=== PATIENT | female | born 1955 | race Caucasian/White ===

== ENCOUNTER 2024-03-13 16:17 | Emergency (ER) | payer BC, MEDICAID, SELFPAY ==
[2024-03-13] VITALS (8 sets, daily range): BP systolic 116–149; BP diastolic 55–97; PULSE 78–87; TEMP 38.8; O2SAT 97–99; BMI 58.2
--- NOTE | 2024-03-13 16:35 | ECG_ITS ---
The [facility] Test Date: 2024-03-13 Pat Name: REGINA MARINO Department: Room: - Gender: Female [employer]: : 1955 Requested By: Order Number: [id number] Reading MD: VILLA GUO Measurements Intervals Emblem Rate: 80 P: 43 PA: 236 QRS: -43 QRSD: 94 T: 49 QT: 352 QTc: 387 Interpretive Statements 1100 Sinus rhythm 2231 First degree AV block 3113 Cannot rule out anterior myocardial infarction, probably old 7200 Abnormal left axis deviation 8102 Low QRS voltage in chest leads 9150 abnormal ECG Electronically Signed On 03-14-2024 6:51:25 EST by VILLA GUO
--- NOTE | 2024-03-13 16:36 | CT_ITS ---
The [address] [address] Patient Name: REGINA MARINO MRN: [id number] date: 1955 Sex: F Assigned Patient Location: ER Current Patient Location: ER Accession/Order Number: [id number] Exam Date: 03/13/2024 17:05 Report Date: 03/13/2024 18:42 At the request of: GIOVANI STOVER Procedure: CT abdomen pelvis wo con EXAM: CT abdomen pelvis wo con HISTORY: llq pain diarrhea COMPARISON: Abdominal plain films 01/18/2016. No prior CT. TECHNIQUE: CT abdomen pelvis without contrast. Axial scans with reformatted coronal and sagittal images. Individualized radiation dose reduction used for this exam. FINDINGS: Ovary and vascular assessment limited without IV contrast. Artifact related to motion and the patient size and body habitus. Lower chest: Bases clear, no acute process lower chest. ABDOMEN: Liver, adrenal glands, pancreas spleen unremarkable. No ascites or free fluid. No adenopathy. Previous cholecystectomy without duct dilatation. Normal size aorta. 7.3 mm lower pole calculus right kidney. No ureteral calculus or hydronephrosis. No bowel dilatation ileus or obstruction. Nonspecific fluid in the GI tract. Tubular structure in the right lower quadrant adjacent the cecum felt to be normal appendix. Large amount of fluid and particular matter in the stomach consistent with recent meal. Pelvis: No mass or adenopathy or free fluid. Unremarkable uterus and adnexa. MUSCULOSKELETAL: No suspicious bone lesion. Protuberant lower abdominal pelvic wall. CT/CT abdomen pelvis wo con IMPRESSION: No acute abnormality lower chest abdomen or pelvis. No acute abnormality left flank or left lower quadrant. Nonobstructing calculus lower pole right kidney 7.3 mm. No hydronephrosis Electronically authenticated by: IVAN LAM Date: 03/13/2024 18:42
[2024-03-13] MEDS: ONDANSETRON PF 4 MG/2 ML VIAL IV (17:15)
[2024-03-13] MEDS: 0.9 % SODIUM CHLORIDE 1,000 ML 100 ML IV (17:15)
[2024-03-13] MEDS: KETOROLAC TROMETHAMINE 30 MG/ML VIAL IVP (17:15)
[2024-03-13 17:43] LABS: Hematocrit 37.7 % (36.0-48.0); Hemoglobin 12.3 g/dL (12.0-16.0); Mean Corpuscular HGB Conc 32.6 g/dL (29.9-35.2); Mean Corpuscular Hemoglobin 28.8 pg (26.7-34.0); Mean Corpuscular Volume 88.3 fL (81.0-99.0); Mean Platelet Volume 10.6 fL (9.5-13.5); Platelet Count 234 10^3/uL (150-450); Red Blood Count 4.27 10^6/uL (4.20-5.40); Red Cell Distribution Width 14.3 % (11.0-15.0); White Blood Count 6.9 10^3/uL (4.0-11.0)
[2024-03-13 17:55] LABS: Bilirubin Urine NEGATIVE (NEGATIVE); Blood Urine NEGATIVE (NEGATIVE); Clarity Urine CLEAR (CLEAR); Color Urine YELLOW (YELLOW); Glucose Urine UA NEGATIVE (NEGATIVE); Ketones Urine NEGATIVE (NEGATIVE); Leukocyte Esterase Urine NEGATIVE (NEGATIVE); Nitrite Urine NEGATIVE (NEGATIVE); Protein Urine NEGATIVE (NEG/TRACE); Urobilinogen Urine 0.2 EU/dL (0.2-1.0); pH Urine 5.5 (5.0-9.0)
--- NOTE | 2024-03-13 18:01 | ED_ITS ---
HPI HPI - General Adult General Chief complaint: Dizziness Stated complaint: dizzy Time Seen by Provider: 03/13/24 16:28 Mode of arrival: walk-in History of Present Illness HPI narrative: 68-year-old obese female presented to the emergency room with chief complaint of dizziness. Patient was seen at another facility and had complete workup with including head CT scan on March 10. She states at that time she had a head CT and lab work she was discharged home with Valium and Reglan which her pharmacy did not receive the prescription. Patient states she developed increased dizziness today consistent with her vertigo and did not have medications at home to help alleviate her symptoms. She states she then became increasingly nauseous and had vomited at home and started having some diarrhea. Patient does state that she has had a history of diverticulitis in the past. She states she had loose stools earlier today with diffuse abdominal pain. Exam is benign here initially. Patient shows no signs of neurological deficit upon arrival here to the emergency room. Her exam is consistent with vertigo initially. Related Data Previous Rx's ?Medication ?Instructions ?Recorded diazepam 5 mg tablet (Valium) 5 mg PO BID PRN dizziness #10 tabs 03/13/24 metoclopramide HCl 10 mg tablet 10 mg PO Q6H PRN nausea and 03/13/24 (Reglan) vomiting #20 tabs Allergies Allergy/AdvReac Type Severity Reaction Status Date / Time adhesive AdvReac Severe Unknown Verified 03/13/24 16:38 amoxicillin AdvReac Severe Swelling Verified 03/13/24 16:27 of Lip/Tongue/Throat codeine AdvReac Severe Unknown Verified 03/13/24 16:38 diphenhydramine (From AdvReac Severe Unknown Verified 03/13/24 16:38 Benadryl) latex AdvReac Severe Unknown Verified 03/13/24 16:38 Opioid HPI Opioid Management Most Recent Opioid Data: Last Pain Scale 4 03/13/24 17:15 03/13/24 Last MAR Pain Assessment 03/13/24 17:15 Review of Systems ROS Narrative All Systems are negative except as noted/marked.All systems reviewed and otherwise negative PFSH PFSH Social History Little interest or pleasure in doing things: not at all Feeling down, depressed, or hopeless: not at all Exam Narrative Exam Narrative: Nurses note and vital signs reviewed and patient is not hypoxic. General: The patient appears well and in no apparent distress. Patient is resting comfortably on cart. Skin: Warm, dry, no pallor noted. There is no rash noted. Head: Normocephalic, atraumatic Eye: Normal conjunctiva, no drainage, EOMI. PERRL, no nystagmus Ears, Nose, Mouth, and Throat: oral mucosa is moist. Nares patent. Mouth without vesicles. Ear canals patent. Tm's without Erythema Cardiovascular: Regular Rate and Rhythm Respiratory: Patient is in no distress, no accessory muscle use, lungs are clear to auscultation, no wheezing, rales or rhonchi Back: non-tender, no CVA tenderness bilaterally to percussion. GI: obese, Normal bowel sounds, no tenderness to palpation, no masses appreciated. No rebound, guarding, or rigidity noted. Musculoskeletal: The patient has no evidence of calf tenderness, no pitting edema, symmetrical pulses noted bilaterally Neurological: A&O x4, normal speech Psychiatric: Cooperative Constitutional Vital Signs, click to edit/add: Last Vital Signs Temp 101.8 F H 03/13/24 16:27 Pulse 83 03/13/24 18:27 Resp 22 H 03/13/24 18:27 BP 116/56 03/13/24 18:27 Pulse Ox 99 03/13/24 17:07 O2 Del Method Room Air 03/13/24 17:07 Course Vital Signs Vital signs: Vital Signs Temperature 101.8 F H 03/13/24 16:27 Pulse Rate 85 03/13/24 16:27 Respiratory Rate 18 03/13/24 16:27 Blood Pressure 149/97 H 03/13/24 16:27 Pulse Oximetry 97 03/13/24 16:27 Oxygen Delivery Method Room Air 03/13/24 16:27 Temperature 101.8 F H 03/13/24 16:27 Pulse Rate 83 03/13/24 18:27 Respiratory Rate 22 H 03/13/24 18:27 Blood Pressure 116/56 03/13/24 18:27 Pulse Oximetry 99 03/13/24 17:07 Oxygen Delivery Method Room Air 03/13/24 17:07 Medical Decision Making MDM Narrative Medical decision making narrative: 68-year-old obese female presented to the emergency room with chief complaint of dizziness. Patient was seen at another facility and had complete workup with including head CT scan on March 10. She states at that time she had a head CT and lab work she was discharged home with Valium and Reglan which her pharmacy did not receive the prescription. Patient states she developed increased dizziness today consistent with her vertigo and did not have medications at home to help alleviate her symptoms. She states she then became increasingly nauseous and had vomited at home and started having some diarrhea. Patient does state that she has had a history of diverticulitis in the past. She states she had loose stools earlier today with diffuse abdominal pain. Exam is benign here initially. Patient shows no signs of neurological deficit upon arrival here to the emergency room. Her exam is consistent with vertigo initially. Upon arrival here to the emergency room patient was given IV and fluids. Blood work and CT scan of the abdomen pelvis were performed as well as urinalysis. CT scan of the abdomen shows no acute findings other than nephrolithiasis patient is not complaining of any back pain or difficulty with urination. Medicated here with Zofran and Reglan. Her dizziness has improved. Patient has a known diagnosis of vertigo. She is encouraged to follow-up with her primary care physician. Also encouraged to have cardiac workup per her previous hospital workup. EKG showed no acute changes here troponin negative here today. Patient's diagnosis of vertigo. She will be discharged home with Reglan and V alium. She was given those prescriptions at the other facility but they did not send them to her pharmacy as they had said. Patient agrees with plan of care. Differential Diagnosis Differential Diagnosis: Dizziness, diverticulitis, nausea vomiting Medical Records Medical records reviewed: Yes I reviewed the patient's medical records Lab Data Lab results reviewed: Yes I reviewed the patient's lab results Labs: Lab Results 03/13/24 03/13/24 Range/Units 16:51 17:26 WBC 6.9 (4.0-11.0) 10^3/uL RBC 4.27 (4.20-5.40) 10^6/uL Hgb 12.3 (12.0-16.0) g/dL Hct 37.7 (36.0-48.0) % MCV 88.3 (81.0-99.0) fL MCH 28.8 (26.7-34.0) pg MCHC 32.6 (29.9-35.2) g/dL RDW 14.3 (11.0-15.0) % Plt Count 234 (150-450) 10^3/uL MPV 10.6 (9.5-13.5) fL Seg Neuts % (Manual) 78.0 H (43.0-75.0) Band Neutrophils % 2.0 (0-5) % Lymphocytes % (Manual) 11.0 L (20.5-60.0) % Monocytes % (Manual) 8.0 (1.7-12.0) % Eosinophils % (Manual) 1.0 (0.9-7.0) % Basophils % (Manual) 0.0 L (0.2-2.0) % Neutrophils # (Manual) 5.38 (1.4-6.5) 10^3/uL Band Neutrophils # 0.1 (0.0-0.3) 10^3/uL Lymphocytes # (Manual) 0.75 L (1.20-3.80) 10^3/uL Monocytes # (Manual) 0.55 (0.30-0.80) 10^3/uL Eosinophils # (Manual) 0.06 (0.00-0.70) 10^3/uL Basophils # (Manual) 0.00 (0.00-0.10) 10^3/uL Sodium 135 L (136-145) mmol/L Potassium 4.3 (3.5-5.1) mmol/L Chloride 101 (98-107) mmol/L Carbon Dioxide 25.0 (21.0-32.0) mmol/L Anion Gap 13.3 BUN 30.0 H (7.0-18.0) mg/dL Creatinine 1.67 H (0.55-1.02) mg/dL Est GFR ( Amer) 37 L (>=60 mL/min/1.73m^2) Est GFR (Non-Af Amer) 31 L (>=60 mL/min/1.73m^2) BUN/Creatinine Ratio 18.0 Glucose 122 H (74-106) mg/dL Calcium 9.0 (8.5-10.1) mg/dL Total Bilirubin 0.3 (0.2-1.0) mg/dL AST 30 (15-37) U/L ALT 44 (14-59) U/L Alkaline Phosphatase 131 H (46-116) U/L Troponin I High Sens 4.2 (4.0-51.3) pg/mL Total Protein 7.8 (6.4-8.2) g/dL Albumin 3.4 (3.4-5.0) g/dL Globulin 4.4 g/dL Albumin/Globulin Ratio 0.8 Urine Color Yellow (YELLOW) Urine Clarity Clear (CLEAR) Urine pH 5.5 (5.0-9.0) Ur Specific [place] 1.020 (1.005-1.025) Urine Protein Negative (NEG/TRACE) mg/dL Urine Glucose (UA) Negative (NEGATIVE) mg/dL Urine Ketones Negative (NEGATIVE) mg/dL Urine Occult Blood Negative (NEGATIVE) Urine Nitrite Negative (NEGATIVE) Urine Bilirubin Negative (NEGATIVE) Urine Urobilinogen 0.2 (0.2-1.0) EU/dL Ur Leukocyte Esterase Negative (NEGATIVE) Urine RBC 0-2 (0-2) #/HPF Urine WBC 0-2 A (NONE SEEN) #/HPF Ur Squamous Epith Cells Moderate A (NONE/RARE) #/LPF Urine Crystals None seen (None Seen) #/HPF Urine Bacteria Moderate A (NONE SEEN) #/HPF Urine Casts None seen (NONE SEEN) #/LPF Urine Mucus Trace A (NONE SEEN) Urine Yeast Seen A (NONE SEEN) Ur Culture Indicated? Yes Imaging Data CT scan - abdomen: Radiologist's impression: ITS Impressions Abdomen/Pelvis CT 03/13/24 16:36 IMPRESSION: No acute abnormality lower chest abdomen or pelvis. No acute abnormality left flank or left lower quadrant. Nonobstructing calculus lower pole right kidney 7.3 mm. No hydronephrosis Electronically authenticated by: IVAN LAM Date: 03/13/2024 18:42 ECG Data Attestation: ?I have reviewed the pertinent ECG results. Interpretation: 1648 EKG shows normal sinus rhythm with a rate of 80 bpm MN interval 236 ms QRS duration 94 ms no ectopy no ST elevation or depression, no STEMI Discharge Plan Discharge Chief Complaint: Dizziness Clinical Impression: Dizziness Patient Disposition: Home, Self-Care Time of Disposition Decision: 18:48 Condition: Good Prescriptions / Home Meds: New metoclopramide HCl [Reglan] 10 mg tablet 10 mg PO Q6H PRN (Reason: nausea and vomiting) Qty: 20 0RF diazepam [Valium] 5 mg tablet 5 mg PO BID PRN (Reason: dizziness) Qty: 10 0RF Print Language: Faroese Instructions: Dizziness (ED) Referrals: Physician,Non-Staff, MD [Primary Care Provider] - 1 week
[2024-03-13 18:03] LABS: Anion Gap 13.3
[2024-03-13 18:07] LABS: Alanine Aminotransferase 44 U/L (14-59); Albumin Globulin Ratio 0.8; Albumin Level 3.4 g/dL (3.4-5.0); Alkaline Phosphatase 131 U/L (46-116); Aspartate Amino Transferase 30 U/L (15-37); Bilirubin Total 0.3 mg/dL (0.2-1.0); Chloride 101 mmol/L (98-107); Estimated GFR (African America 37 (>=60 mL/min/1.73m^2); Estimated GFR (Non-African Ame 31 (>=60 mL/min/1.73m^2); Globulin 4.4 g/dL; Glucose 122 mg/dL (74-106); Potassium 4.3 mmol/L (3.5-5.1); Sodium 135 mmol/L (136-145); Total Protein 7.8 g/dL (6.4-8.2); Troponin I High Sensitivity 4.2 pg/mL (4.0-51.3)
[2024-03-13 18:08] LABS: Bacteria Urine MODERATE #/HPF (NONE SEEN); Cast Seen? NONE SEEN #/LPF (NONE SEEN); Crystals Seen? None Seen #/HPF (None Seen); Mucus Urine TRACE (NONE SEEN); RBC Urine 0-2 #/HPF (0-2); Squamous Epithelial Cell Urine MODERATE #/LPF (NONE/RARE); Urine Culture Indicated YES; WBC Urine 0-2 #/HPF (NONE SEEN)
[2024-03-13 18:13] LABS: Band Neutrophils Absolute 0.1 10^3/uL (0.0-0.3); Eosinophils Absolute Manual 0.06 10^3/uL (0.00-0.70); Lymphocytes Absolute Manual 0.75 10^3/uL (1.20-3.80); Monocytes Absolute Manual 0.55 10^3/uL (0.30-0.80); Segmented Neut Absolute Manual 5.38 10^3/uL (1.4-6.5)
[2024-03-13] MEDS: METOCLOPRAMIDE HCL 10 MG/2 ML VIAL IVP (18:21)
== END 2024-03-13 19:31 | disposition home or self-care (01) ==
PROVIDERS: Physician Assistant; Emergency Provider Emergency Medicine
DX: R42 Dizziness and giddiness (principal); R50.9 Fever, unspecified; E66.9 Obesity, unspecified; N20.0 Calculus of kidney; R11.2 Nausea with vomiting, unspecified; R19.7 Diarrhea, unspecified; R10.9 Unspecified abdominal pain; Z68.43 Body mass index [BMI] 50.0-59.9, adult
CPT/HCPCS: 36415; 74176; 80053; 81001; 84484; 85007; 85027; 87086; 87186; 93005; 96361; 96374; 96375; 99285; J1885; J2405; J2765

== ENCOUNTER 2024-10-21 08:49 | Emergency (ER) | payer MEDICARE, MEDICAID, SELFPAY ==
--- OUTSIDE RECORDS SUMMARY | 2024-06-27 05:00 | XMS_ITS ---
Author Organization [facility] vices Address [address] [place] [id number] Care Team Providers Care Services Advisor Name Role Phone Pilar Salgado Primary Care Provider [phone] Lily Card Unavailable [phone] Rajan Suarez [phone] REASON FOR VISIT 4 week Constipation Social History Sex Assigned At : Social History Observation Description Sex Assigned At Female Encounters Encounter Location Date Provider Diagnosis Main [address] [place], [place] [id number] 06/27/2024 Rajan Suarez Plan Of Treatment Next Appt Details Provider Name:Pilar dsouza, 10/27/2024 01:45:00 PM, [address] [place] [address], [phone], Provider Name:Pilar dsouza, 11/03/2024 09:45:00 AM, [address] [place], [place] [address], [place], [id number], Provider Name:Duncan Ayon , 01/03/2025 09:30:00 AM, [address] [place] [address], [id number], Progress Notes * Zully MARINODOB:1955 (69 yo F)Acc No.[id number]:06/27/2024 Medical Note Patient: Zully LINN Provider: Quan Suarez :1955 A ge:69 Y S ex:Female Date:06/27/2024 Address:[address] [place] [address] [place], [id number] Pcp:Pilar Salgado Subjective: * Chief Complaints: * 1 . 4 week Constipation. * Medical History: Objective: * Vitals: Assessment: Plan: * Treatment: * Billing Information: * Visit Code: * Procedure Codes: * Electronic signature of Just in VADIM Suarez on 10/21/2024 at 08:58 AM EDT Sign off status: Pending * Provider: Quan Suarez Date: 0 06/27/2024 Generated for Lázaro huang/Leslie/Joao on: 0 10/21/2024 08:58 AM EDT
--- OUTSIDE RECORDS SUMMARY | 2024-08-29 08:45 | XMS_ITS ---
Author Organization [facility] vices Address [address] [place] [id number] Care Team Providers Care Fiscal Officer Name Role Phone Pilar Salgado Primary Care Provider MaxxanaliaRodrigoLilyelian Linn [phone] REASON FOR VISIT Wellness Social History Sex Assigned At : Social History Observation Description Sex Assigned At Female Encounters Encounter Location Date Provider Diagnosis Main [address] [place] [id number] 08/29/2024 Pilar Salgado Plan Of Treatment Next Appt Details Provider Name:Pilar dsouza, 10/27/2024 01:45:00 PM, [address] [place] [address], [id number], Provider Name:Pilar dsouza, 11/03/2024 09:45:00 AM, [address] [place] [address], [id number], Provider Name:Duncan Ayon , 01/03/2025 09:30:00 AM, [address] [place] [address], [id number], Progress Notes * Zully MARINODOB:1955 (69 yo F)Acc No.[id number]:08/29/2024 Medical Note Patient: Quan Zully GRANDA Provider: RO Lancaster :1955 A ge:69 Y S ex:Female Date:08/29/2024 Phone: Address:[address] [place] [address] [facility] [id number] Subjective: * Chief Complaints: * 1 . Wellness. * Medical History: Objective: * Vitals: Assessment: Plan: * Treatment: * Billing Information: * Visit Code: * Procedure Codes: * Electronic signature of RO Steward on 10/21/2024 at 08:58 AM EDT Sign off status: Pending * Provider: RO Lancaster Date: 08/29/2024 Generated for Lázaro huang/Leslie/Jenransmitting on: 10/21/2024 08:58 AM EDT
--- OUTSIDE RECORDS SUMMARY | 2024-10-19 08:30 | XMS_ITS | Encounter Summary ---
Author Organization [facility] Address [address] [place] [address] Care Team Providers Care Drill Sharpener Name Role Phone Cyndy Pineda MD Primary Care Provider [phone] Encounter Details Date Type Department Care Team (Late st Contact Info) Description 10/19/2024 8:30 AM EDT Office Visit [facility] [address] [place] [address] Isabel Jones DO [address] [place] [address] MARIUSZ (obstructive sleep apnea) (Primary Dx); Mild intermittent asthma without complication (HCC) Social History Tobacco Use Types Packs/Day Years Used Date Smoking Tobacco: Never Smokeless Tobacco: Never Alcohol Use Standard Drinks/Week Comments Not Currently 0 (1 standard drink = 0.6 oz pur e alcohol) Comments Unknown Sex and Gender Information Value Date Recorded Sex Assigned at Not on file Legal Sex Female 7:05 PM EDT Gender Identity Not on file Sexual Orientation Not on file documented as of this encounter Last Filed Vital Signs Vital Sign Reading Time Taken Comments Blood Pressure 132/72 10/19/2024 8:30 AM EDT Pulse 79 10/19/2024 8:30 AM EDT Temperature - - Respiratory Rate - - Oxygen Saturation 98% 10/19/2024 8:30 AM EDT Inhaled Oxygen Concentration - - Weight 149 kg (329 lb) 10/19/2024 8:30 AM EDT Height - - Body Mass Index 56.47 07/27/2024 1:46 PM EDT documented in this encounter Progress Notes * Isabel Jones DO - 10/19/2024 8:30 AM EDT Images from the original note were not included. Zully Eng presents today for follow up on Sleep apnea and asthma. She was last seen a few months ago. She states overall her breathing has been stable. She does continue with Spiriva once daily and albuterol as needed. She denies any ER visits, exacerbations, or nighttime symptoms. She denies any current complaints of chest pain, palpitations, fevers, chills, sweats, or recent unintentional weight changes. She has yet to receive a new mask for her PAP machine. She states that she has now been told that she needs a new sleep study. She does continue to complain of excessive daytime sleepiness and not feeling well rested upon wakening in the morning given that she has not been able to use her machine given that she does not have a functioning mask. She denies any other complaints at today's office visit. Allergies: Allergies Allergen Reactions Clindamycin Swelling and Angioedema Facial Swelling Was getting sick when admitted to [facility], unsure of which caused the reaction Iodinated Contrast Media Anaphylaxis Piperacillin Sod-Tazobactam So Angioedema Facial Swelling Was getting sick when admitted to [facility], unsure of which caused the reaction Piperacillin-Tazobactam In Dex Swelling facial swelling Vancomycin Angioedema Facial Swelling Was getting sick when admitted to [facility], unsure of which caused the reaction Other Reaction(s): facial swelling Codeine Hives and Itching Flushing, Vomiting Other Other Burning Diphenhydramine Hives and Itching N/V Empagliflozin Nausea Only and Dizziness Latex Itching and Rash Morphine Itching Flushing Rosuvastatin Other muscle cramps Wound Dressing Adhesive Other and Rash Other Reaction(s): Unknown Medications: Current Outpatient Medications: acetaminophen (Tylenol) 325 MG tablet, Take 650 mg by mouth every 6 (six) hours if needed, Disp: , Rfl: albuterol (2.5 MG/3ML) 0.083% nebulizer solution, , Disp: , Rfl: albuterol HFA 90 mcg/act inhaler, Inhale 2 puffs every 4 (four) hours if needed for wheezing, Disp:, Rfl: Alcohol Swabs (DropSafe Alcohol Prep) 70 % pads, , Disp: , Rfl: B-D ULTRAFINE III SHORT PEN 31G X 8 MM misc, , Disp: , Rfl: Blood Glucose Monitoring Suppl (True Metrix Air Glucose Meter) w/Device kit, , Disp: , Rfl: carvedilol (Coreg) 25 MG tablet, , Disp: , Rfl: cholecalciferol (Vitamin D-3) 50 MCG (1999 UT) capsule, 1 capsule 1 (one) time each day at the sametime, Disp: , Rfl: clobetasol (Temovate) 0.05 % external solution, Apply 1 Application topically Daily as needed, Disp: , Rfl: clopidogrel (Plavix) 75 MG tablet, , Disp: , Rfl: colchicine 0.6 MG tablet, Take by mouth Daily, Disp: , Rfl: Droplet Pen [place] 31G X 6 MM misc, , Disp: , Rfl: Eliquis 5 MG tablet, every 12 (twelve) hours, Disp: , Rfl: Ferrous Sulfate (IRON PO), Take 1 tablet by mouth in the morning., Disp: , Rfl: Glucose Blood (GLUCOMETER DEX GLUCOSE SENSORS ), Glucometer, Disp: , Rfl: hydrALAZINE (Apresoline) 50 MG tablet, , Disp: , Rfl: insulin lispro (HumaLOG) 100 UNIT/ML injection, Inject 2-10 Units under the skin in the morning and2-10 Units at noon and 2-10 Units in the evening. Inject with meals., Disp: , Rfl: levothyroxine (Synthroid, Levoxyl) 100 MCG tablet, , Disp: , Rfl: LORazepam (Ativan) 0.5 MG tablet, , Disp: , Rfl: meclizine (Antivert) 25 MG tablet, Take 25 mg by mouth as needed in the morning and 25 mg as neededat noon and 25 mg as needed in the evening for dizziness., Disp: , Rfl: metoclopramide (Reglan) 10 MG tablet, Take 10 mg by mouth in the morning and 10 mg in the evening. Take before meals. (Patient not taking: Reported on 07/27/2024), Disp: , Rfl: montelukast (Singulair) 10 MG tablet, , Disp: , Rfl: MULTIPLE VITAMIN PO, Take by mouth, Disp: , Rfl: NovoLOG FLEXPEN 100 UNIT/ML pen, , Disp: , Rfl: nystatin (Mycostatin) 721148 UNIT/GM powder, , Disp: , Rfl: ondansetron ODT (Zofran-ODT) 8 MG disintegrating tablet, DISSOLVE 1 TABLET ON TOUNGE NEEDED ONCEDAILY FOR 30 DAYS (Patient not taking: Reported on 07/27/2024), Disp: , Rfl: pantoprazole (ProtoNix) 40 MG EC tablet, 1 (one) time each day at the same time (Patient not taking: Reported on 07/27/2024), Disp: , Rfl: Spiriva Respimat 1.25 MCG/ACT inhaler, , Disp: , Rfl: spironolactone (Aldactone) 25 MG tablet, , Disp: , Rfl: Synthroid 112 MCG tablet, , Disp: , Rfl: traZODone (Desyrel) 50 MG tablet, Take by mouth at bedtime, Disp: , Rfl: Tresiba FlexTouch 100 UNIT/ML injection, , Disp: , Rfl: True Metrix Blood Glucose Test test strip, every 6 (six) hours, Disp: , Rfl: TRUEplus Lancets 28G misc, , Disp: , Rfl: Past Medical History: Past Medical History: Diagnosis Date A-fib ([facility]) Acquired hypothyroidism 07/27/2024 Acute cystitis without hematuria 04/05/2023 Acute kidney injury 02/16/2018 Allergies Anemia Asthma ([facility]) Atrial fibrillation ([facility]) 07/27/2024 Autonomic neuropathy due to diabetes ([facility]) 07/27/2024 BMI 60.0-69.9, adult ([facility]) 07/27/2024 Calculus of kidney 04/07/2023 Carpal tunnel syndrome 07/16/2012 Cerebrovascular disease 04/07/2023 Chronic obstructive pulmonary disease ([facility]) 04/07/2023 Chronic pancreatitis ([facility]) CKD (chronic kidney disease) 11/19/2023 Complication of diabetes mellitus ([facility]) 04/08/2023 Constipation 04/07/2023 Constipation, unspecified 04/07/2023 COPD (chronic obstructive pulmonary disease) ([facility]) 04/03/2023 DDD (degenerative disc disease), lumbar 07/27/2024 Dependence on other enabling machines and devices 04/20/2023 Diabetes ([facility]) Difficulty in walking, not elsewhere classified 05/12/2023 Difficulty walking 05/12/2023 Diverticulosis of intestine, part unspecified, without perforation or abscess without bleeding 04/07/2023 Dizziness and giddiness 04/29/2023 Fatigue 05/13/2023 Fibrosclerosis of left breast 07/27/2024 Gastro-esophageal reflux disease without esophagitis 04/07/2023 Gastroesophageal reflux disease 07/27/2024 Gout 07/27/2024 Hemorrhoids 05/15/2023 Hyperlipidemia 11/19/2023 Hypertension Hypothyroidism 04/07/2023 Hypothyroidism, unspecified 04/07/2023 Iron deficiency anemia 04/14/2023 Iron deficiency anemia, unspecified 04/14/2023 Kidney disease Kidney stone 04/07/2023 intermediate designer current use of anticoagulant therapy 04/07/2023 intermediate designer current use of insulin (HCC) 11/19/2023 Morbid obesity ([facility]) 04/07/2023 Muscle weakness 05/13/2023 Muscle weakness (generalized) 05/13/2023 Necrotizing fasciitis (HCC) 04/03/2023 Need for assistance with personal care 05/13/2023 Obstructive sleep apnea 07/27/2024 Obstructive sleep apnea syndrome 04/07/2023 Other fatigue 05/13/2023 Personal history of transient ischemic attack (TIA), and cerebral infarction without residual deficits 04/07/2023 Scalp psoriasis 07/27/2024 Seasonal allergies 07/27/2024 Sleep apnea Stage 3a chronic kidney disease (CMS-HCC) 07/27/2024 Stroke ([facility]) 2019 Thyroid disease 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 Exam: Heart: regular rate Lungs: clear to auscultation bilaterally, no wheezes/rales/rhonchi, no resp distress Extremities: no edema noted, no visible rashes Neuro: alert, oriented x3 Imaging Reviewed: None Assessment/Plan: Diagnoses and all orders for this visit: MARIUSZ (obstructive sleep apnea) Mild intermittent asthma without complication (HCC) MARIUSZ -- at this time it is not clear to me whether the patient truly needs a repeat sleep study or not. I have reached out to the [email or web address] to see what they need. In the past we had sent a prescription in for a new mask. The patient was not able to be compliant with her machine at that time given that she did not have a functioning mask. She does notice symptoms since not using her machine on a regular basis. She is interested in resuming treatment of her sleep apnea. Once I hear back from [facility] I will reach back out to the patient to let her know what as needed. Asthma -- her breathing is currently well controlled with use of Spiriva once daily. She denies anyrefills at this time. She will continue with Spiriva once daily and albuterol as needed. She will follow here in a few months time to reassess her symptoms as well as address her sleep apnea. The patient understands the plan and is agreeable. Follow up in about 3 months (around 01/19/2025) for MARIUSZ, asthma. Isabel Jones DO documented in this encounter Plan of Treatment Upcoming Encounters Date Type Department Care Team (Late st Contact Info) Description 01/11/2025 9:45 AM EST Office Visit [facility] [address] [place] [address] Isabel Jones DO [address] [place] [place] [address] documented as of this encounter Visit Diagnoses Diagnosis MARIUSZ (obstructive sleep apnea)- Primary Obstructive sleep apnea (adult) (pediatric) Mild intermittent asthma without complication (HCC) documented in this encounter Care Teams Drill Sharpener Relationship Specialty Start Date End Date Cyndy Pineda MD [address] [place] [phone] PCP - General Family Medicine 10/01/22 documented as of this encounter
[2024-10-21 08:55] VITALS: BP 145/77; PULSE 63; TEMP 36.9; O2SAT 99; BMI 57.5
--- OUTSIDE RECORDS SUMMARY | 2024-10-21 08:58 | XMS_ITS | Encounter Summary ---
Author Organization [employer] [facility] [employer] Address [id number] [address] [place] [address] Care Team Providers Care Hydrogeology Professor Name Role Phone WallyIvon Edward ARCHITECTURE DEPARTMENT CHAIR-PHYSICAL THERAPIST TECHNICIAN Primary Care Provider + Encounter Details Date Type Department Care Team (Late st Contact Info) Description 04/08/2023 Telephone [facility] Disease [address] [place] [address] Shadia Gastelum MA Social History Tobacco Use Types Packs/Day Years Used Date Smoking Tobacco: Never Smokeless Tobacco: Never Alcohol Use Standard Drinks/Week Comments No 0 (1 standard drink = 0.6 oz pur e alcohol) [facility] Utilities Answer Date Recorded In the past 12 months has e electric, gas, oil, or water company threatened to shut off services in your home? No 04/07/2023 PHQ-2 Answer Date Recorded Total Score 0 12/21/2018 PRAPARE - Transportation Answer Date Re corded In the past 12 months, has l ack of transportation kept you from medical appointments or from getting medications? No 08/2023 In the past 12 months, has l ack of transportation kept you from meetings, work, or from getting things needed for daily living? No 04/07/2023 Housing Instability Answer Date Recorde d Are you worried or concerned that in the next two months you may not have stable housing that you own, rent or stay in as a part of a household? No 04/07/2023 Childcare Answer Date Recorded Childcare Unknown 08/04/2018 Employment Answer Date Recorded Employment Unknown 08/04/2018 Hunger Screening Answer Date Recorded Within the past 12 months we worried whether our food would run out before we got money to buy more. Never True 04/07/2023 Within the past 12 months th e food we bought just didn't last and we didn't have money to get more. Never True 04/07/2023 Purpose - Life Answer Date Recorded Purpose and direction in life Unknown Comments No Sex and Gender Information Value Date Recorded Sex Assigned at Not on file Legal Sex Female 11:33 AM EDT Gender Identity Not on file Sexual Orientation Not on file documented as of this encounter Miscellaneous Notes * Telephone Encounter - Shadia Gastelum MA - 04/08/2023 9:21 AM EST ----- Message from Maria Victoria Peterson sent at 04/08/2023 7:45 AM EST ----- Regarding: FW: follow up ----- Message ----- From: DAMIEN Buck Sent: 04/07/2023 3:15 PM EST To: betsey Vasques Cement Truck Driver Subject: follow up Follow up 2 weeks. Necrotizing fascitis. Went to [place] * Telephone Encounter - Shadia Gastelum MA - 04/08/2023 9:21 AM EST Left message to call office to schedule follow up. documented in this encounter Plan of Treatment Not on file documented as of this encounter Goals Goal Patient Goal Type Associated Problems Recent Progress Patient-Stated? Author Home with HC vs. SNF General Yes Sheila Cole, BILLIE Note: Evaluation of progress towards goal: Current discharge plan is HC vs. SNF pending wound care and antibiotic plan. - Sheila Cole RN 04/03/23 4:00 PM documented as of this encounter Visit Diagnoses Not on filedocumented in this encounter Additional Health Concerns Infection Onset Date Last Indicated Resolved Time Enteric Rule-Out 10/09/2024 10/09/2024 10/09/2024 12:19 PM EDT Assessment Noted Time PHQ-9 Depression Total Score: 0 12/22/19 9:13 AM EDT documented as of this encounter Care Teams Hydrogeology Professor Relationship Specialty Start Date End Date Ivon Lo, ARCHITECTURE DEPARTMENT CHAIR-PHYSICAL THERAPIST TECHNICIAN [address] [phone] PCP - General Family Medicine 08/01/19 documented as of this encounter
--- OUTSIDE RECORDS SUMMARY | 2024-10-21 08:58 | XMS_ITS | Encounter Summary ---
Author Organization [facility] [facility] [employer] Address [id number] [address] [place] [address] Care Team Providers Care Extruding Machine Operator Name Role Phone ÁlvaroIvon ivey Edward SCRIPT [facility] MANAGER Primary Care Provider + Reason for Visit * Reason Comments Med Refill Encounter Details Date Type Department Care Team ([facility] Contact Info) Description 05/05/2022 Refill [facility] Cardiology [address] [facility] [address] [id number] Marychuy Jean, PA-C [address] [facility] prov left org 05/31/23 [place] [address] Med Refill Social History Tobacco Use Types Packs/Day Years Used Date Smoking Tobacco: Never Smokeless Tobacco: Never Alcohol Use Standard Drinks/Week Comments No 0 (1 standard drink = 0.6 oz pur e alcohol) PHQ-2 Answer Date Recorded Total Score 0 12/21/2018 Childcare Answer Date Recorded Childcare Unknown 08/04/2018 Employment Answer Date Recorded Employment Unknown 08/04/2018 Purpose - Life Answer Date Recorded Purpose and direction in life Unknown Comments No Sex and Gender Information Value Date Recorded Sex Assigned at Not on file Legal Sex Female 11:33 AM EDT Gender Identity Not on file Sexual Orientation Not on file COVID-19 Exposure Response Date Recorded In the last month, have you been in contact with someone who was confirmed or suspected to have Coronavirus / COVID-19? No / Unsure 04/30/2022 10:01 AM EST documented as of this encounter Miscellaneous Notes * Telephone Encounter - Adeola Cote RN - 05/05/2022 8:47 AM EST Received refill req from pharm for elliquis. Last ov-04/29/21 cbc & BMP--04/30/22, liver enzymes-12/01/20. Letter mailed to pt. Refill pended to [facility] documented in this encounter Plan of Treatment Not on file documented as of this encounter Visit Diagnoses Diagnosis Medication monitoring encounter- Primary Encounter for therapeutic drug monitoring documented in this encounter Additional Health Concerns Infection Onset Date Last Indicated Resolved Time COVID-19 Rule-Out 04/02/2023 04/02/2023 04/02/2023 4:19 PM EST Enteric Rule-Out 10/09/2024 10/09/2024 10/09/2024 12:19 PM EDT Assessment Noted Time PHQ-9 Depression Total Score: 0 12/22/19 19 9:13 AM EDT documented as of this encounter Care Teams Extruding Machine Operator Relationship Specialty Start Date End Date Ivon Lo, SCRIPT [facility] MANAGER [address] [place] [address] PCP - General Family Medicine 08/01/19 documented as of this encounter
--- OUTSIDE RECORDS SUMMARY | 2024-10-21 08:58 | XMS_ITS | Encounter Summary ---
Author Organization [facility] [facility] Address [id number] [address] [place] [address] Care Team Providers Care Money Position Officer Name Role Phone Ivon Lo APRN-AD OPERATIONS SPECIALIST Primary Care Provider + Encounter Details Date Type Department Care Team ([facility] Contact Info) Description 04/10/2023 Documentation [facility] Infectious Disease [address] [facility] [address] [place] [phone] Ivon Gómez APRN-CNP [address] [facility] [address] [address] Social History Tobacco Use Types Packs/Day Years Used Date Smoking Tobacco: Never Smokeless Tobacco: Never Alcohol Use Standard Drinks/Week Comments No 0 (1 standard drink = 0.6 oz pur e alcohol) [facility] Utilities Answer Date Recorded In the past 12 months has e [employer], gas, oil, or water company threatened to [...] on file documented as of this encounter Plan of Treatment Not on file documented as of this encounter Goals Goal Patient Goal Type Associated Problems Recent Progress Patient-Stated? Author Home with HC vs. SNF General Yes Sheila Cole RN Note: Evaluation of progress towards goal: Current [...] documented as of this encounter Care Teams Money Position Officer Relationship Specialty Start Date End Date Ivon Lo, TOW TRUCK DRIVER-AD OPERATIONS SPECIALIST [facility] [place] [address] PCP - General Family Medicine 08/01/19 documented as of this encounter
--- OUTSIDE RECORDS SUMMARY | 2024-10-21 08:58 | XMS_ITS | Encounter Summary ---
Author Organization [facility] [employer] [facility] [employer] Address [id number] [address] [place] [address] Care Team Providers Care Airplane Pilot Chief Name Role Phone Wally Ivon Leon WINDOW AND DOOR INSTALLER-DATABASE SPECIALIST Primary Care Provider + Reason for Visit * Reason Comments Med Refill Encounter Details Date Type Department Care Team ([facility] Contact Info) Description 10/27/2022 Refill [facility] [address] [facility] [address] [place] [address] Lauren Frederick APRN-DATABASE SPECIALIST [address] [place] [address] Med Refill Social History Tobacco Use Types [...] got money to buy more. Never True 10/14/2022 Within the past 12 months th e food we bought just didn't last and we didn't have money to get more. Never True 10/14/2022 Purpose - Life Answer Date Recorded Purpose [...] documented as of this encounter Care Teams Airplane Pilot Chief Relationship Specialty Start Date End Date Ivon Lo, WINDOW AND DOOR INSTALLER-DATABASE SPECIALIST [address] [place] [address] PCP - General Family Medicine 08/01/19 documented as of this encounter
--- OUTSIDE RECORDS SUMMARY | 2024-10-21 08:58 | XMS_ITS | Patient Health Record ---
Author Organization 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 Name Role Phone Pilar Salgado Primary Care Provider Lily Card Unavailable [phone] Laura Urban Unavailable [phone] Rajan Suarez Unavailable [phone] Allergies Allergen (clinical drug ingredient) Drug/Non Drug Allergy documented on EMR Reaction Allergy Type Onset Date Status IVP DYE (uncoded) Comments: Burning Allergy Active diphenhydramine Benadryl Itching Drug Allergy A ctive Codeine Phosphate Itching Drug Allergy Active piperacillin / tazobactam Zosyn facial swelling Drug Allergy Active Latex Gloves Itching Drug Allergy Acti ve Adhesive Unknown Allergy Active clindamycin Clindamycin swelling Drug Allergy Act jacqueline Shellfish (FN) Shellfish-derived Products Comments: Sprinkler Driver did seafood allergy test and it was negative Drug Allergy Inactive vancomycin Vancomycin facial swelling Drug Allergy Active Results Component Value Reference Range Notes Strep Screen Reviewed date:03/09/2024 04:52:01 PM Interpretation: Performing Lab: Notes/Report: Result negative POCT A1C Reviewed date:05/02/2024 08:37:04 AM Interpretation: Performing Lab: Notes/Report: LIPID PANEL WITH REFLEX TO D IRECT LDL Reviewed date:06/01/2024 10:14:53 AM Interpretation: Performing Lab: Notes/Report: CHOLESTEROL 176 100-199 mg/dL TRIGLYCERIDES 95 20-149 mg/dL VLDL-CHOL, CALCULATED 19 <30 mg/dL HDL-CHOL 40 >=50 mg/dL LDL-CHOL, CALCULATED 117 <130 mg/dL ADULT LDL CHOLESTEROL CLASSIFICATION <100mg/dL Optimal 100-129mg/dL Near/Abov e Optimal 130-159mg/dL Borderlin e High >160mg/dL High Risk Desirable range <100 mg/dL for patients with CHD or diabetes and <70 mg/dL for diabetic patients with known heart disease. Direct LDL is recommended for patients with triglycerides >400. LDL/HDL 2.9 <4.1 LDL/HDL RATIO MALE FEMALE below average risk <2.3 <2.3 average risk <5.0 <4.1 moderate risk <7.1 <5.6 high risk >7.1 >5.6 CHOL/HDL 4.4 2.0-4.5 TSH + FREE T4 PROFILE Reviewed date:06/01/2024 10:15:50 AM Interpretation: Performing Lab: Notes/Report: TSH 2.74 0.270-4.200 uIU/mL The [place] [employer] (JESSA) recommends the following reference ranges for TSH levels during : First trimester: 0.1 to 2.5 mIU/L Second trimester: 0.2 to 3.0 mIU/L Third trimester: 0.3 to 3.0 mIU/L FREE T4 1.22 0.80-1.90 ng/dL CBC W/AUTO DIFF Reviewed date:06/01/2024 10:15:05 AM Interpretation: Performing Lab: Notes/Report: WBC 4.8 3.6-11.0 THDS/CMM RBC 4.05 3.80-5.20 MILL/CMM HGB 11.8 11.9-16.0 G/DL HCT 35.9 35-47 % MCV 89 75-100 fL MCH 29.1 26.0-33.0 pg MCHC 32.9 32.0-35.0 g/dl RDW 13.4 11.2-14.8 % PLATELET 241 140-440 THOUS/CMM NEUTROPHILS 56.9 45-75 % LYMPHOCYTES 29.1 20-45 % MONOCYTES 8.6 0-13 % EOSINOPHILS 4.6 0-5 % BASOPHILS 0.4 0-2 % IMMATURE GRAN 0.4 0-2 % ABS NEUTROPHILS 2.70 1.9-8.0 K/uL ABS LYMPHOCYTES 1.38 0.9-5.2 K/uL ABS MONOCYTES 0.41 0.1-1.0 K/uL ABS EOSINOPHILS 0.22 0.0-0.80 K/uL ABS BASOPHILS 0.02 0.0-0.2 K/uL ABS IMMATURE GRAN 0.02 0.00-0.06 K/uL UNLESS OTHERWISE INDICATED, ALL TESTING PERFORMED AT: [employer] [address] [place] [address] COLD PRESS OPERATOR: CARLINE JACKSON M.D. CLIA NUMBER [id number] CAP ACCREDITATION AUID [id number] COMPREHENSIVE METABOLIC PANE L (AMA) Reviewed date:06/01/2024 10:15:45 AM Interpretation: Performing Lab: Notes/Report: GLUCOSE 146 70-100 mg/dL SODIUM 143 135-148 mmol/L POTASSIUM 4.5 3.5-5.4 mmol/L CHLORIDE 106 96-107 mmol/L CO2 26 18-32 mmol/L BUN 21 8-23 mg/dL CREATININE, BLOOD 1.36 0.51-1.15 mg/dL eGFR (2020 CKD-EPI) 42 >59 mL/min/1.73m2 CALCIUM 9.3 8.6-10.5 mg/dL T. PROTEIN 6.8 6.0-8.3 g/dL ALBUMIN 3.7 3.5-5.2 g/dL GLOBULIN 3.1 1.8-3.8 g/dL A/G RATIO 1.2 1.0-2.5 RATIO ALK PHOS 123 30-146 U/L AST-SGOT 13 9-40 U/L ALT-SGPT 15 5-33 U/L T. BILIRUBIN 0.2 <1.3 mg/dL POCT A1C Reviewed date:08/01/2024 08:50:11 AM Interpretation: Performing Lab: Notes/Report: Reason For Referral No Information Medications Medication SIG (Take, Route, Frequency, Duration) Notes Start Date End Date Status Tresiba FlexTouch 100 UNIT/ML as directed 65 unit Subcutaneous once daily; Duration: 90 days Active Eliquis 5 MG TAKE ONE TABLET BY MOUTH TWICE A DAY; Duration: 90 Active hydrALAZINE HCl 50 MG TAKE ONE TABLET BY MOUTH TWICE A DAY WITH FOOD; Duration: 90 Active Ondansetron 8 MG 1 tablet on the tongue and allow to dissolve as needed Orally Once a day; Duration: 30 days as needed 03/09/2024 Active Diclofenac Sodium 1 % 4 grams to affected area Externally 4 times a day; Duration: 30 days As needed 08/01/2024 Active Albuterol Sulfate (2.5 MG/3ML) 0.083% 3 mL as needed Inhalation every 6 hrs; Duration: 30 days Active Vitamin D (Cholecalciferol) 50 MCG (2000 UT) 1 capsule Orally Once a day; Duration: 90 days Active Albuterol Sulfate HFA 108 (90 Base) MCG/ACT 2 puffs as needed Inhalation every 4 hrs; Duration: 90 days Active Nystatin 289321 UNIT/GM 1 application to affected area Externally Twice a day; Duration: 21 days 06/19/2023 Active Lancets - check blood sugar three times a day; Duration: 100 days *whatever brand is covered by insurance 05/05/2024 Active Spiriva Respimat 1.25 MCG/ACT INHALE 2 PUFFS BY MOUTH ONCE A DAY; Duration: 90 Active Blood Glucose Test - check blood sugar three times a day; Duration: 100 days *whatever brand is covered by insurance 05/04/2024 Active Carvedilol 25 MG TAKE ONE TABLET BY MOUTH TWICE A DAY WITH FOOD; Duration: 90 Active Comfort EZ Pen [place] 31G X 6 MM 5 times a day; Duration: 90 days 10/26/2023 Active Spironolactone 25 MG TAKE ONE TABLET BY MOUTH EVERY DAY; Duration: 90 Active Synthroid 112 MCG TAKE ONE TABLET BY MOUTH EVERY MORNING ON AN EMPTY STOMACH; Duration: 90 Active Glucometer *whatever brand is covered by insurance 05/05/2024 Active Montelukast Sodium 10 MG TAKE ONE TABLET BY MOUTH EVERY DAY; Duration: 90 Active Clopidogrel Bisulfate 75 MG TAKE ONE TABLET BY MOUTH EVERY DAY; Duration: 90 Active HumaLOG KwikPen 100 UNIT/ML 6 units with Breakfast; 18 units with Lunch and Dinner Subcutaneous Three times a day with meals Subcutaneous Three times a day; Duration: 90 days Max 42 units per day Dispense 13 pens Active Immunizations Vaccine Route Administration Date Status Comme nts *Tdap (Adacel)-[facility] OT Other/Miscellaneous 12/28/2019 Administered Status:Complete ,Reason:Given or N/A Influenza (split), 3 yrs and above IM Intramuscular 12/31/2009 Administered Status:Complete ,Reason:Given or N/A Influenza (split), 3 yrs and above IM Intramuscular 01/05/2013 Administered Status:Complete ,Reason:Given or N/A ,[facility] [phone] Influenza (split), 3 yrs and above OTH Other/Miscellaneous 03/16/2019 Administered Status:Complete ,Reason:Given or N/A ,see scanned document Influenza, quadrivalent (IIV4), split virus, 6-35 months dosage OTH Other/Miscellaneous 12/28/2019 Administered Status:Complete ,Reason:Given or N/A Influenza, seasonal, injectable, preservative free, 3 yrs and above IM Intramuscular 12/04/2014 Administered Status:Complete ,Reason:Given or N/A SARS-COV-2 (COVID-19) vaccine, mRNA, spike protein, LNP, preservative free, 30 mcg/0.3mL dose, francy-sucrose formulation Unknown 02/03/2023 Administered Zoster OTH Other/Miscellaneous 12/28/2019 Administered Status:Complete ,Reason:Given or N/A Social History Tobacco Use: Social History Observation Description Date Details (start date - stop date) Never Smoker NA - NA Sex Assigned At : Social History Observation Description Sex Assigned At Female Household Question Answer Notes Number of adults in household: 1 Tobacco Use/Smoking Question Answer Notes Tobacco use: nonsmoker patient enter ed data Additional Findings: Tobacco Non-User Current no n-smoker Alcohol Screen (Audit-C) Question Answer Notes Did you have a drink containing alcohol in the p ast year? No Points 0 Interpretation Negative CAGE-AID Questionnaire (2018 Edition) Question Answer Notes Have you ever felt that you ought to cut down on your drinking or drug use? No patient entered data Have you ever felt bad or gu ilty about your drinking or drug use? No patient entered data PRAPARE Question Answer Notes Are you a refugee? No patient en tered data Do you feel physically and emotionally safe where you currently live? Yes patient entered data How stressed are you? Stress is when someone feels tense, nervous, anxious, or can't sleep at night because their mind is troubled Not at all patient entered data Date Completed/Updated: 03/09/2024 keenan nt entered data What is your current housing situation? I have housing patient entered data Are you worried about losing your housing? No patient entered data What is the highest level of school that you have finished? More than high school patient entered data What is your current work situation? Otherwise unemployed but not seeking work (ex. student, retired, disabled, unpaid primary adult day care worker) patient entered data Has lack of transportation k ept you from medical appointments, meetings, work or from getting things needed for daily living? No patient entered korin a How often do you see or talk to people that you care about and feel close to? (For example: talking to friends on the phone, visiting friends or family, going to protestant or club meetings) 3 to 5 times a week patient entered data In the past year have you sp ent more than 2 nights in a row in a snf, penitentiary, assisted center, or juvenile correctional facility? No patient entered data What country are you from? [place] nila peñant entered data In the past year, have you b een afraid of your partner or ex-partner? No patient entered data PRAPARE Score: 4 Problems Problem Type SNOMED Code ICD Code Onset Dates Problem Status W/U Status Risk Notes Problem Diabetic renal disease (967425085) Type 2 diabetes mellitus with diabetic chronic kidney disease (E11.22) Active confirmed Problem Morbid obesity (disorder) (252158095) Morbid (severe) obesity due to excess calories (E66.01) Active confirmed Problem Long-term current use of insulin (665278316) skilled nursing (current) use of insulin (Z79.4) Active confirmed Problem Chronic kidney disease stage 3A (disorder) (426620899) Chronic kidney disease, stage 3a (N18.31) Active confirmed Problem Body mass index 30+ - obesity (finding) (405219070) Body mass index [BMI] 60.0-69.9, adult (Z68.44) Active confirmed Problem Obstructive sleep apnea (24096707) Obstructive sleep apnea (G47.33) Active confirmed Problem Acquired hypothyroidism (750672701) Acquired hypothyroidism (E03.9) Active confirmed Problem Constipation (63340616) Constipation, unspecified constipation type (K59.00) Active confirmed Problem Atrial fibrillation (54431293) Atrial fibrillation, unspecified type (I48.91) Active confirmed Problem Body mass index 40+ - morbidly obese (867144545) BMI 60.0-69.9, adult (Z68.44) Active confirmed Problem Scalp psoriasis (174974851) 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) Active confirmed Problem Uncomplicated moderate persistent asthma (116735495) Moderate persistent asthma without complication (J45.40) Active confirmed Problem Gout (24787664) Gout, unspecified cause, unspecified chronicity, unspecified site (M10.9) Active confirmed Problem Essential hypertension (63716389) Essential (primary) hypertension (I10) 2006 Active confirmed Comment:BP not at target, still elevated goal for her is <130/80 will incr spironolactone currently she is on lisinopril, amlodipine, spironolactone and coreg, if still not adequately controlled, then consider switching spirono to a different diuretic,Descri ption:Essential hypertension Problem Seasonal allergy (020974342) Environmental and seasonal allergies (J30.89) Active confirmed Comment:she would like to try sami instead of zyrtec as that had worked better for her also on nasal steroid spray, Problem Gastroesophageal reflux disease (129258690) GERD (gastroesophage al reflux disease) (K21.9) Active confirmed Comment:restart pantoprazole. avoid eating 3 hours prior to bed. avoid excess caffeine, sugary drinks, spicy/fatty foods. any other irritating foods. if persistent despite treatment x 2 months refer to EGD., Problem Hyperlipidemia (59030292) Hyperlipidemia (E78.5) 2006 Active confirmed Comment:due for lipid panel., Problem Autonomic neuropathy due to diabetes (14930092) Autonomic neuropathy due to diabetes (E11.43) Active confirmed Problem Degenerative disc disease (43272750) DDD (degenerative disc disease), lumbar (M51.36) Active confirmed Comment:H/O lumbar DDD with diffuse disc protrusion L3-S1 as seen on MRI LS spine in 2007. Pain is constant and worse with movements. No focal neuro deficits No bowel or baldder dysfunctions No fever or weight loss PLAN: 1. Provided prescribed home exercises 2. Prescribed Tramadol, Flexeril PRN 3. Start Gabapentin 300mg TID for chronic pain. 4. Refer to Pain clinic. 5. Advised on physical therapy and warm aquatics. Patient stated her pain was worse with physical therapy., Problem Vitamin D deficiency (23537950) Vitamin D deficiency (E55.9) Active confirmed Comment:Due for recheck., Problem Hypokalemia (61309222) Hypokalemia (E87.6) 2008 Problem resolved confirmed Problem Necrotizing fasciitis (78566004) Necrotizing fasciitis (M72.6) Problem resolved confirmed Problem Vertigo (710366953) Vertigo (R42) Problem resolved confirmed Comment:Likely related to URI symptoms; no evidence of middle ear fluid, nor infection. Rx symptomatically with meclizine for the next several days. Please refer to ENT for further evaluation and possible Elder, Problem Acute renal failure (77891027) Acute renal failure (N17.9) Problem resolved confirmed Comment:WILL GET RECORDS AND RECHECK LABS -CONTINUE HYDRATION AND ADVANCE DIET TOLERATED -RECOMMEND BACKING THE LEVEMIR OFF A LITTLE HER APPETITE ISN'T QUITE BACK TO USUAL; GO TO 60UNITS TO START -CHECK FSBS AFTER DINNER WELL IN THE A.M. F/U IN 1 MO, Problem Anemia (014338266) Anemia (D64.9) Problem resolved confirmed Problem History of cerebrovascular accident without residual deficits (441631601) History of CVA (cerebrovascula r accident) (Z86.73) Problem resolved confirmed Problem Cerebral infarction (762663137) Stroke, embolic (I63.9) Problem resolved confirmed Comment:Call neurologist for sooner appt. due to increased numbness and tingling to bilateral forearms, Problem Elevated liver enzymes level (996446022) Elevated liver enzymes (R74.8) Problem resolved confirmed Problem Functional bowel disease (33516191) Functional bowel disease (K58.9) Problem resolved confirmed Story:with constipation negative colonoscopy in past Chronic narcotic use,Description :Irritable bowel syndrome Problem Acute pancreatitis (265824966) Pancreatitis, acute (K85.90) Problem resolved confirmed Problem Acquired trigger finger (7316016) Trigger finger of left thumb (M65.312) Problem resolved confirmed Comment:left thumb, locking up in the last week refer to ortho, Problem Constipation (12592214) Constipation (K59.00) Problem resolved confirmed Comment:add miralax and add colace, Problem Cramp in lower limb (536727036) Leg cramp (R25.2) Problem resolved confirmed Comment:Advised to try daily stretches, drink adequate water. Will check magnesium level., Problem Ventral hernia (654456423) Ventral hernia (K43.9) Problem resolved confirmed Problem Subscapularis tendinitis (995903606) Subscapularis tendonitis of right shoulder (M75.81) Problem resolved confirmed Comment:Can use ice and moist heat as needed Can use Motrin or Aleve as needed for pain and inflammation Can use Tylenol Arthritis as needed for breakthrough pain, Problem Clostridial enteric disease (394171004) Clostridioides difficile diarrhea (A04.72) Problem resolved confirmed Comment:no further diarrhea since taking flagyl for treatment, is having some cramping and nausea, going to treat that for now - if diarrhea recurs patient is to contact the office so new course of antibiotics can be started, Problem Pneumonia (804484865) CAP (community acquired pneumonia) (J18.9) Problem resolved confirmed Comment:Patient was on a trip to [place] with other protestant members, they stayed at a hotel which was not very clean and many member came back with same sysmptoms Cough, Sputum production, fever and chills . One of her friends saw her PCP in the office and was diagnosed with Legionaire's disease. I am not sure what investgations her firend had. Patient is not sick appearing and not ill to warrant going to ER at this time and advised to get labs and CXR and start Zithromax., Vital Signs Heart Rate 73 /min 08/01/2024 Jim Griffin 08/01/2024 08:40:28 AM EDT > Temperature 98.0 degrees Fahrenheit 08/01/2024 Wang Saleem 08/01/2024 08:40:28 AM EDT > Respiratory Rate 18 /min 08/01/2024 Wang Griffin 08/01/2024 08:40:28 AM EDT > Oximetry 97 % 08/01/2024 iJm Griffin 08/01/2024 08:40:28 AM EDT > Blood pressure diastolic 66 mm Hg 08/01/2024 Wang Veronica 08/01/2024 08:40:28 AM EDT > Height-cm 157.48 cm 08/01/2024 Griffin, Ser vando 08/01/2024 08:40:28 AM EDT > Weight-kg 152.86 kg 08/01/2024 Griffin, Ser vando 08/01/2024 08:40:28 AM EDT > Height 62.00 in 08/01/2024 Griffin, Ser vando 08/01/2024 08:40:28 AM EDT > Blood pressure systolic 98 mm Hg 08/01/2024 Vald ovinos, Wang 08/01/2024 08:40:28 AM EDT > Weight 337 lbs 08/01/2024 Griffin, Ser vando 08/01/2024 08:40:28 AM EDT > BMI 61.63 kg/m2 08/01/2024 Griffin, Ser vando 08/01/2024 08:40:28 AM EDT > Encounters Encounter Location Date Provider Diagnosis [facility] [address] [place], [place] [id number] 12/24/2023 Lily Card Other specified disorders of teeth and supporting structures K08.8 and Encounter for screening for dental disorders Z13.84 [facility] [address] [place], [place] [id number] 01/12/2024 Lily Card Encounter for dental examination and cleaning with abnormal findings Z01.21 [address] [place], [place] [id number] 03/09/2024 Laura Rajni Acute sinusitis J01. 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 ; Acquired hypothyroidism E03.9 ; Essential (primary) hypertension I10 ; Hyperlipidemia E78.5 ; GERD (gastroesophageal reflux disease) K21.9 ; Environmental and seasonal allergies J30.89 ; Vitamin D deficiency E55.9 ; Gout, unspecified cause, unspecified chronicity, unspecified site M10.9 ; Atrial fibrillation, unspecified type I48.91 ; Moderate persistent asthma without complication J45.40 ; Chronic kidney disease, stage 3a N18.31 ; Morbid (severe) obesity due to excess calories E66.01 and Body mass index [BMI] 60.0-69.9, adult Z68.44 Main [facility] [place], [place] [id number] 05/30/2024 Rajan Suarez Constipation, unspecified constipation type K59.00 ; Acquired hypothyroidism E03.9 and Essential (primary) hypertension I10 Dental [facility] [address] [place], [place] [id number] 06/24/2024 Lily Card BMI 60.0-69.9, adult Z68.44 ; Dietary counseling Z71.3 ; Exercise counseling Z71.82 and Encounter for dental examination and cleaning without abnormal findings Z01.[address] [place] [id number] 08/01/2024 Pilar Salgado Type 2 diabetes dawna itus with diabetic chronic kidney disease E11.22 ; Acquired hypothyroidism E03.9 ; Essential (primary) hypertension I10 ; Hyperlipidemia E78.5 ; GERD (gastroesophageal reflux disease) K21.9 ; Environmental and seasonal allergies J30.89 ; Vitamin D deficiency E55.9 ; Gout, unspecified cause, unspecified chronicity, unspecified site M10.9 ; Atrial fibrillation, unspecified type I48.91 ; Moderate persistent asthma without complication J45.40 ; Chronic kidney disease, stage 3a N18.31 ; Multiple joint pain M25.50 ; Body mass index [BMI] 60.0-69.9, adult Z68.44 and Screening mammogram, encounter for Z12.[address] [phone] 10/22/2023 Pilar Salgado Essential (primary) hypertension I10 [address] [address] 10/22/2023 Pilar Salgado [address] [address] 10/22/2023 Pilar Myerholtz [address] [place] [address] 10/22/2023 Pilar Myerholtz Acquired hypothyroid ism E03.[address] [place] [address] 10/22/2023 Pilar Myerholtz [address] [place] [address] 10/22/2023 Pilar Myerholtz Moderate persistent asthma without complication J45.40 [address] [place] [address] 10/22/2023 Pilar Myerholtz Moderate persistent asthma without complication J45.40 [address] [place] [address] 10/22/2023 Pilar Myerholtz Type 2 diabetes dawna itus with diabetic chronic kidney disease E11.22 [address] [place] [address] 10/22/2023 Pilar Myerholtz Essential (primary) hypertension I10 [address] [place] [address] 10/22/2023 Pilar Myerholtz Type 2 diabetes dawna itus with diabetic chronic kidney disease E11.[address] [place], [place] [id number] 10/23/2023 Pilar Myerholtz Main [address] [place], [place] [id number] 10/23/2023 Pilar Myerholtz Main [address] [place], [place] [id number] 10/23/2023 Pilar Myerholtz Type 2 diabetes dawna itus with diabetic chronic kidney disease E11.[address] [place], [place] [id number] 10/23/2023 Pilar Myerholtz Main [address] [place], [place] [id number] 10/26/2023 Pilar Myerholtz Main [address] [place], [place] [id number] 10/26/2023 Pilar Myerholtz Main [address] [place], [place] [id number] 10/26/2023 Pilar Myerholjeimy Moderate persistent asthma without complication J45.[address] [place], [place] [id number] 11/24/2023 Pilar Myerholtz Main [address] [place], [place] [id number] 12/31/2023 Pilar Myerholtz Type 2 diabetes dawna itus with diabetic chronic kidney disease E11.[address] [place], [place] [id number] 01/27/2024 Pilar Myerholtz Main [address] [place], [place] [id number] 03/09/2024 Pilar Myerholjeimy Screening mammogram for breast cancer Z12.[address] [place], [place] [id number] 03/10/2024 Laura [facility] Main [address] [place], [place] [id number] 05/04/2024 Pilar Myerholtz Type 2 diabetes dawna itus with diabetic chronic kidney disease E11.[address] [place], [place] [id number] 05/05/2024 Pilar Myerholtz Type 2 diabetes dawna itus with diabetic chronic kidney disease E11.[address] [place], [place] [id number] 05/05/2024 Pilar Myerholtz Type 2 diabetes dawna itus with diabetic chronic kidney disease E11.[address] [place] [id number] 05/09/2024 Pilar Myerholtz Main [address] [place] [id number] 06/30/2024 Pilar Myerholtz Main [address] [place] [id number] 07/07/2024 Pilar Myerholtz Main [address] [place], [place] [id number] 08/01/2024 Pilar Myerholtz Main [address] [place] [id number] 08/22/2024 Pilar Myerholtz Main [address] [place] [id number] 08/23/2024 Pilar Myerholtz [address] [place] [place] [id number] 08/23/2024 Pilar Salgado Assessments Encounter Date Diagnosis (ICD Code) Assessment Notes Treatment Notes Treatment Clinical Notes Section Notes 10/22/2023 Essential (primary) hypertension (ICD-10 - I10) 10/22/2023 Acquired hypothyroidism (ICD-10 - E03.9) 10/22/2023 Moderate persistent asthma without complication (ICD-10 - J45.40) 10/22/2023 Moderate persistent asthma without complication (ICD-10 - J45.40) 10/22/2023 Type 2 diabetes mellitus with diabetic chronic kidney disease (ICD-10 - E11.22) 10/22/2023 Essential (primary) hypertension (ICD-10 - I10) 10/22/2023 Type 2 diabetes mellitus with diabetic chronic kidney disease (ICD-10 - E11.22) 10/23/2023 Type 2 diabetes mellitus with diabetic chronic kidney disease (ICD-10 - E11.22) 10/26/2023 Moderate persistent asthma without complication (ICD-10 - J45.40) 12/24/2023 Other specified disorders of teeth and supporting structures (ICD-10 - K08.8) 12/31/2023 Type 2 diabetes mellitus with diabetic chronic kidney disease (ICD-10 - E11.22) 01/12/2024 Encounter for dental examination and cleaning with abnormal findings (ICD-10 - Z01.21) 03/09/2024 Screening mammogram for breast cancer (ICD-10 - Z12.31) 03/09/2024 Vertigo (ICD-10 - R42) Elder Maneuver at Home for Vertigo: Exercises material was printed Pt encouraged to try Elder maneuver for Vertigo sensation. Pt reported Meclizine did not help her symptoms, RX sent for Zofran 03/09/2024 Acute sinusitis (ICD-10 - J01.90) Pt symptoms are persisting, sending RX for Augmentin Pt encouraged to continue Singulair daily and stay hydrated w/ plenty of rest, PVU F/U PRN 04/12/2024 Vertigo (ICD-10 - R42) pts vertigo has been controlled with just regaln since the ER i will refill this medication and follwo the vertigo closely I will also give Zofran for when she experinces N/V 05/02/2024 Type 2 diabetes mellitus with diabetic chronic kidney disease (ICD-10 - E11.22) DM stable. Will continue current medications. Encouraged healthy diet and exercise. 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.4) 05/04/2024 Type 2 diabetes mellitus with diabetic chronic kidney disease (ICD-10 - E11.22) 05/05/2024 Type 2 diabetes mellitus with diabetic chronic kidney disease (ICD-10 - E11.22) 05/05/2024 Type 2 diabetes mellitus with diabetic chronic kidney disease (ICD-10 - E11.22) 05/30/2024 Acquired hypothyroidism (ICD-10 - E03.9) 05/30/2024 Constipation, unspecified constipation type (ICD-10 - K59.00) pt scontsipation ramírez sunclear etiolgy at this time DDx include medication induced, hypothyroidism, other I will order labs as it has been over 11 months since last TSH and patient is reporting other symptosms pt will continue the use of Miralax as needed pt will follow in 4 weeks pt agreeable with plan 06/24/2024 BMI 60.0-69.9, adult (ICD-10 - Z68.44) 08/01/2024 Type 2 diabetes mellitus with diabetic chronic kidney disease (ICD-10 - E11.22) DM stable. Will continue current medications. Encouraged healthy diet and exercise. F/u 3 months & PRN 08/01/2024 Acquired hypothyroidism (ICD-10 - E03.9) Pt is stable on current medications. Will continue current medications. F/u 3 months & PRN 08/01/2024 Essential (primary) hypertension (ICD-10 - I10) HTN stable. Will continue current medications. Encouraged healthy diet and exercise. F/u 3 months & PRN 06/24/2024 Dietary counseling (ICD-10 - Z71.3) 05/30/2024 Essential (primary) hypertension (ICD-10 - I10) 05/02/2024 Acquired hypothyroidism (ICD-10 - E03.9) Pt is stable on current medications. Will continue current medications. F/u 3 months & PRN 03/09/2024 BMI 60.0-69.9, adult (ICD-10 - Z68.44) 12/24/2023 Encounter for screening for dental disorders (ICD-10 - Z13.84) 03/09/2024 Morbid obesity with BMI of 60.0-69.9, adult (ICD-10 - E66.01) 05/02/2024 Essential (primary) hypertension (ICD-10 - I10) HTN stable. Will continue current medications. Encouraged healthy diet and exercise. F/u 3 months & PRN 06/24/2024 Exercise counseling (ICD-10 - Z71.82) 08/01/2024 Hyperlipidemia (ICD-10 - E78.5) Pt is stable on current medications. Will continue current medications. F/u 3 months & PRN 08/01/2024 GERD (gastroesophageal reflux disease) (ICD-10 - K21.9) GERD stable without medications. F/u 3 months & PRN 06/24/2024 Encounter for dental examination and cleaning without abnormal findings (ICD-10 - Z01.20) 05/02/2024 Hyperlipidemia (ICD-10 - E78.5) Pt is stable on current medications. Will continue current medications. F/u 3 months & PRN 05/02/2024 GERD (gastroesophageal reflux disease) (ICD-10 - K21.9) GERD stable without medications. F/u 3 months & PRN 08/01/2024 Environmental and seasonal allergies (ICD-10 - J30.89) Allergies stable. Will continue current medications. F/u 3 months & PRN 08/01/2024 Vitamin D deficiency (ICD-10 - E55.9) Pt is stable on current medications. Will continue current medications. F/u 3 months & PRN 05/02/2024 Environmental and seasonal allergies (ICD-10 - J30.89) Allergies stable. Will continue current medications. F/u 3 months & PRN 05/02/2024 Vitamin D deficiency (ICD-10 - E55.9) Pt is stable on current medications. Will continue current medications. F/u 3 months & PRN 08/01/2024 Gout, unspecified cause, unspecified chronicity, unspecified site (ICD-10 - M10.9) Pt is stable on current medications. Will continue current medications. F/u 3 months & PRN 08/01/2024 Atrial fibrillation, unspecified type (ICD-10 - I48.91) Pt to continue to f/u with Cardiology 05/02/2024 Gout, unspecified cause, unspecified chronicity, unspecified site (ICD-10 - M10.9) Pt is stable on current medications. Will continue current medications. F/u 3 months & PRN 05/02/2024 Atrial fibrillation, unspecified type (ICD-10 - I48.91) Pt to continue to f/u with Cardiology 08/01/2024 Moderate persistent asthma without complication (ICD-10 - J45.40) Pt to continue to f/u with Pulmonary 08/01/2024 Chronic kidney disease, stage 3a (ICD-10 - N18.31) Pt to continue to f/u with Nephrology 05/02/2024 Moderate persistent asthma without complication (ICD-10 - J45.40) Pt to continue to f/u with Pulmonary 05/02/2024 Chronic kidney disease, stage 3a (ICD-10 - N18.31) Pt to continue to f/u with Nephrology 08/01/2024 Multiple joint pain (ICD-10 - M25.50) Will start diclofenac gel to help with symptoms. F/u 3 months & PRN 08/01/2024 Body mass index [BMI] 60.0-69.9, adult (ICD-10 - Z68.44) 05/02/2024 Morbid (severe) obesity due to excess calories (ICD-10 - E66.01) Body Mass Index: Care Instructions material was printed 05/02/2024 Body mass index [BMI] 60.0-69.9, adult (ICD-10 - Z68.44) 08/01/2024 Screening mammogram, encounter for (ICD-10 - Z12.31) 08/01/2024 Other Body Mass Index : Care Instructions material was printed Plan Of Treatment Pending Test Test Name Order Date Creatinine with GFR (50480) 07/01/2017 UDS Colonoscopy 04/04/2020 MAMM SCREENING BILATERAL W CAD Next Appt Details Provider Name:Pilar dsouza, 10/27/2024 01:45:00 PM, [address] [facility] [place], [id number], Provider Name:Pilar dsouza, 11/03/2024 09:45:00 AM, [address] [place], [place], [id number], Provider Name:Duncan Ayon , 01/03/2025 09:30:00 AM, [address] [place], [place], [id number], Insurance Providers Payer Name Payer Address Payer Phone Subscriber Number Group Number Insured Name Patient Relationship to Insured Coverage Start Date Coverage End Date [place] [employer] [address] [place] [address] [id number] [facility] Zully Eng Self - patient is the insured 4 [employer] [address] [address] [place] [address] [id number] Zully Eng Self - patient is the insured 4 Medicaid [employer] [address] [place], [place] [id number] Zully Eng Self - patient is the insured 4 Medical (General) History Medical History History ICD Code Allergic rhinitis Anemia Asthma, Pulmonology manages Atrial Fibrillation, Paroxysmal. Cardiol ogy manage Cholecystitis Diabetic neuropathy Essential hypertension Fatigue, unspecified type GERD (gastroesophageal reflux disease) Hyperlipidemia Hypothyroidism Insomnia with sleep apnea Obesity Obstructive sleep apnea, Pulmonology man ages Pancreatitis Peripheral vertigo Rhinitis, allergic Stroke, 01/2018 Stroke, embolic Type II diabetes mellitus Vitamin D deficiency Surgical History Surgery Date(Month/Year) SURGICAL: Tonsillectomy and adenoidectom y Loop Recorder Placement 04/2018 Hysterectomy SURGICAL: Cholecystectomy Tonsillectomy and adenoidectomy nerve ending cauterized in back Hospitalization History Reason Date(Month/Year) er visit 03/10/24
--- OUTSIDE RECORDS SUMMARY | 2024-10-21 08:58 | XMS_ITS | Encounter Summary ---
Author Organization [employer] Address [id number] [address] [place] [address] Care Team Providers Care Radio Station Operator Name Role Phone WallyIvon Edward RELATIONSHIP ASSOCIATE-MAINTENANCE OF WAY CLERK Primary Care Provider + Encounter Details Date Type Department Care Team (Late st Contact Info) Description 09/18/2021 Telephone [facility] Pulmonary/Sleep Medicine [address] [phone] Pushpa Mirza RN Social History Tobacco Use Types Packs/Day Years [...] encounter Miscellaneous Notes * Telephone Encounter - Pushpa Mirza RN - 09/18/2021 5:39 PM EDT Pt contacted re overdue ct chest she states she has [employer] medicare and can not see our group I advised I would call because she will need a physician to fu on lung nodule Pt agreeable has appt with pcp * Telephone Encounter - Pushpa Mirza RN - 09/18/2021 5:39 PM EDT Office notified of pts need for fu on ct and insurance issues documented in this encounter Plan of Treatment [...] documented as of this encounter Care Teams Radio Station Operator Relationship Specialty Start Date End Date Ivon Lo, RELATIONSHIP ASSOCIATE-MAINTENANCE OF WAY CLERK [address] [place] [address] PCP - General Family Medicine 08/01/19 documented as of this encounter
--- OUTSIDE RECORDS SUMMARY | 2024-10-21 08:58 | XMS_ITS ---
Author Organization [facility] Care Team Providers Care Rubber Factory Worker Name Role Phone Reynold Zaragoza Jr Unavailable Unavailable ResFaith lockwood Unavailable Unavailabl e Allergies and adverse reactions Code CodeSystem Substance Reaction Severity StartDate Concern Status Zosyn Unknown 04/07/2023 active 1202 RXNORM Vancomycin Unknown 04/07/[address] Morphine Unknown 04/07/2023 active LATEX Unknown 04/07/2023 active 6470 RXNORM Iodine I 131 Tositumomab Unknown 04/07/[address] Iodinated Contra st Media Severe 04/07/2023 active 34297 RXNORM Crestor Unknown 04/07/2023 active 7804 RXNORM Codeine Unknown 04/07/[address] Clindamycin Unknown 04/07/2023 active 901287 RXNORM Benadryl Unknown 04/07/2023 active Adhesive Tape-Silicones Unknown 04/07/2023 active Care Team Name Role Address Phone Organization Dates Reynold Zaragoza Jr PCP [address] [place], [address], [place] (Office): : : - (Pager): [facility] 04/07/2023 - 06/03/2023 Faith Jara [facility] [place], [address], [place] (Cell): [facility] 04/07/2023 - 06/03/2023 Immunizations Immunization Status Vaccine Details Vaccine Code CodeSystem Date Notes Influenza cancelled Influenza, high-dose, split virus, quadrivalent, injectable, preservative free 197 CVX created date: 05/19/2023 consent date: 05/19/2023 TB 2 Step Mantoux Skin Test completed tuberculin skin test; unspecified formulation lotNumber: [id number] expiry: 05/12/2024 Mfg: [employer] Given 0.1 ml Left Forearm intradermally Step 2 of Multi-step with next step required 98 CVX created date: 04/16/2023 consent date: 04/15/2023 administer ed date: 04/16/2023 Read on 04/17/23 by Kristen [facility] TB 2 Step Mantoux Skin Test completed tuberculin skin test; unspecified formulation lotNumber: [id number] expiry: 04/30/2024 Mfg: jhp parmaceuticals Given 0.1 ml Left Forearm intradermally Step 1 of Multi-step with next step required 98 CVX created date: 04/08/2023 consent date: 04/08/2023 administer ed date: 04/08/2023 Read on 04/10/23 by Bonita Castano [facility] SARS-COV-2 (COVID-19) completed SARS-COV-2 (COVID-19) vaccine, mRNA, spike protein, LNP, preservative free, 50 mcg/0.5 mL dose Mfg: Moderna Step 1 of Multi-step 312 CVX created date: 04/08/2023 administer ed date: 02/03/2023 Fall 2022 booster SARS-COV-2 (COVID-19) completed SARS-COV-2 (COVID-19) vaccine, mRNA, spike protein, LNP, preservative free, 50 mcg/0.5 mL dose Mfg: Moderna Step 2 of Multi-step with next step required 312 CVX created date: 04/08/2023 administer ed date: 05/31/2020 SARS-COV-2 (COVID-19) completed SARS-COV-2 (COVID-19) vaccine, mRNA, spike protein, LNP, preservative free, 50 mcg/0.5 mL dose Mfg: Moderna Step 1 of Multi-step with next step required 312 CVX created date: 04/08/2023 administer ed date: 05/03/2020 PPSV 23 completed pneumococcal polysaccharide vaccine, 23 valent 33 CVX created date: 04/08/2023 administer ed date: 11/13/2010 SARS-COV-2 (COVID-19) bivalent booster completed SARS-COV-2 (COVID-19) vaccine, mRNA, spike protein, LNP, bivalent, preservative free, 50 mcg/0.5 mL or 25 mcg/0.25 mL dose Mfg: Moderna 229 CVX created date: 04/08/2023 administer ed date: 11/27/2021 PPSV 20 cancelled Pneumococcal conjugate vaccine 20-valent (PCV20), polysaccharide [id number] conjugate, adjuvant, preservative free 216 CVX created date: 05/19/2023 consent date: 05/19/2023 Zoster (shingles) completed zoster vaccine recombinant 187 CVX created date: 04/08/2023 administer ed date: 12/28/2019 Tdap completed tetanus toxoid, reduced diphtheria toxoid, and acellular pertussis vaccine, adsorbed 115 CVX created date: 04/08/2023 administer ed date: 12/28/2019 SARS-COV-2 (COVID-19) Booster 3rd Dose completed SARS-COV-2 (COVID-19) vaccine, mRNA, spike protein, LNP, preservative free, 30 mcg/0.3mL dose Mfg: Moderna 208 CVX created date: 04/08/2023 administer ed date: 02/12/2021 RSV aborted respiratory syncytial virus monoclonal antibody (palivizumab), intramuscular 93 CVX created date: 05/19/2023 consent date: 05/19/2023 Mental Status Section Date Assessment Total Score Description 06/03/2023 BIMS 15 cognitively int act CAM 0 No delirium ind icated PHQ-9 00 04/14/2023 BIMS 12 moderate cognit ajcqueline impairment CAM 0 No delirium ind icated PHQ-9 02 minimal depress ion Problems Problem # Description Date of onset Resolved Date Code CodeSystem Concern Status 1 VITAMIN D DEFICIENCY, UNSPECIFIED 05/18/[address] active 2 UNSPECIFIED HEMORRHOIDS 05/15/[address] active 3 MUSCLE WEAKNESS (GENERALIZED) 05/13/[address] active 4 NEED FOR ASSISTANCE WITH PERSONAL CARE 05/13/[address] active 5 OTHER FATIGUE 05/13/[address] active 6 DIFFICULTY IN WALKING, NOT ELSEWHERE CLASSIFIED 05/12/[address] active 7 DIZZINESS AND GIDDINESS 04/29/[address] active 8 DEPENDENCE ON OTHER ENABLING MACHINES AND DEVICES 04/20/[address] active 9 BODY MASS INDEX [BMI] 60.0-69.9, ADULT 04/15/[address] active 10 IRON DEFICIENCY ANEMIA, UNSPECIFIED 04/14/[address] active 11 DIFFICULTY IN WALKING, NOT ELSEWHERE CLASSIFIED 04/08/1905/08/[address] completed 12 MUSCLE WEAKNESS (GENERALIZED) 04/08/19 24 05/08/[address] completed 13 NEED FOR ASSISTANCE WITH PERSONAL CARE 04/08/19 24 05/08/[address] completed 14 OTHER FATIGUE 04/08/19 24 05/08/[address] completed 15 TYPE 2 DIABETES MELLITUS WITH UNSPECIFIED COMPLICATIONS 04/08/[address] active 16 BODY MASS INDEX [BMI] 45.0-49.9, ADULT 04/07/1904/15/[address] completed 17 CALCULUS OF KIDNEY 04/07/[address] active 18 CHRONIC OBSTRUCTIVE PULMONARY DISEASE, UNSPECIFIED 04/07/[address] active 19 CONSTIPATION, UNSPECIFIED 04/07/[address] active 20 DIVERTICULOSIS OF INTESTINE, PART UNSPECIFIED, WITHOUT PERFORATION OR ABSCESS WITHOUT BLEEDING 04/07/[address] active 21 ESSENTIAL (PRIMARY) HYPERTENSION 04/07/[address] active 22 GASTRO-ESOPHAGEAL REFLUX DISEASE WITHOUT ESOPHAGITIS 04/07/[address] active 23 HYPOTHYROIDISM, UNSPECIFIED 04/07/[address] active 24 LIDAR ANALYST (CURRENT) USE OF ANTICOAGULANTS 04/07/[address] active 25 LIDAR ANALYST (CURRENT) USE OF INSULIN 04/07/[address] active 26 MODERATE PERSISTENT ASTHMA, UNCOMPLICATED 04/07/[address] active 27 MORBID (SEVERE) OBESITY DUE TO EXCESS CALORIES 04/07/[address] active 28 NECROTIZING FASCIITIS 04/07/19 24 05/08/[address] completed 29 OBSTRUCTIVE SLEEP APNEA (ADULT) (PEDIATRIC) 04/07/[address] active 30 PAROXYSMAL ATRIAL FIBRILLATION 04/07/[address] active 31 PERSONAL HISTORY OF TRANSIENT ISCHEMIC ATTACK (TIA), AND CEREBRAL INFARCTION WITHOUT RESIDUAL DEFICITS 04/07/[address] active 32 TYPE 2 DIABETES MELLITUS WITHOUT COMPLICATIONS 04/07/19 24 04/08/[address] completed 33 UNSPECIFIED OSTEOARTHRITIS, UNSPECIFIED SITE 04/07/[address] active Reason for Referral No Reasons for Referral Entered Social History Social History Observation Description Start Date End Date Code Code System Current Smoking Status Tobacco smoking consumption unknown 481888391 SNOMED CT Sex Assigned At Female 1955 74101-8 [facility] Gender Identity Vital Signs Code Code System Vitals Name Values and Units Timing Information 64347-3 [facility] Pain Level Value=0.0 06/03/2023 17622-7 [facility] Weight Erdyx=695.4 Units=Lbs 05/2023 8310-5 [facility] Body Temperature Value=97.6 Units= F 06/03/2023 41338-5 [facility] O2 % BldC Oximetry Value=99.0 Units= % 06/03/2023 2339-0 [facility] Blood Sugar Cturh=111.0 Units=mg/dL 06/03/2023 9279-1 [facility] Respiratory Rate Value=16.0 Units=/m in 06/03/2023 8462-4 [facility] Blood Pressure-Diastolic Value=43 Un its=mmHg 06/03/2023 8480-6 [facility] Blood Pressure-Systolic Wmqrg=636 Un its=mmHg 06/03/2023 8867-4 [facility] Heart rate Value=77.0 Units=/min 05/2023 8302-2 [facility] Height Value=60.0 Units=Inches 04/07/2023
--- OUTSIDE RECORDS SUMMARY | 2024-10-21 08:58 | XMS_ITS ---
Author Name ASHER CASTRO Address [address] [place] [address] [address] [place] [address] Phone Organization [employer] Address [address] [place] [address] [address] [place] [address] Phone Care Team Providers Care Invasive Cardiologist Name Role Phone CASTROMIGUE ASHER Unavailable [phone] LINDEN CRUZ Unavailable ALLERGIES, ADVERSE REACTIONS AND ALERTS Allergy Name Allergy Date Allergy Status Allergy Severity Allergy Reaction UNKNOWN DRUG ALLERGIES MAY E XIST PROBLEMS Problem None PROCEDURES Procedure Description Date Notes NO PROCEDURES PERFORMED ASSESSMENTS Assessment None PLAN OF TREATMENT Assessment Planned Activity LOINC Planned Amrit e None CONSULTATION NOTE Note Author Date None HISTORY AND PHYSICAL NOTE Note Author Date None PROGRESS NOTE Note Author Date None DISCHARGE SUMMARY Note Author Date None CHIEF COMPLAINT AND REASON FOR VISIT FUNCTIONAL STATUS Functional or Cognitive Find ing None MENTAL STATUS Cognitive Finding None ENCOUNTERS Encounter Type Provider Diagnoses Start Date Location Disc harged to None SOCIAL HISTORY Social Status Observation Unknown if ever smoked Sex: Female CARE TEAM INFORMATION Invasive Cardiologist Provider ID Role Location Phone LINDEN CRUZ [phone] [address] [place] [address] INSURANCE PROVIDERS Payer Name Policy type / Coverage type Covered green party ID Policy Price [employer] [id number] SELF
--- OUTSIDE RECORDS SUMMARY | 2024-10-21 08:58 | XMS_ITS | Encounter Summary ---
Author Organization [facility] [employer] [facility] Address [id number] [address] [place] [address] Care Team Providers Care Portable Grinding Machine Operator Name Role Phone Ivon Lo FOREST RESOURCE SPECIALIST-[facility] Primary Care Provider + Encounter Details Date Type Department Care Team (Late st Contact Info) Description 04/02/2023 Documentation [facility] Internal Medicine [address] [place] [address] [facility] [address] [place] [address] Social History Tobacco Use Types Packs/Day Years [...] got money to buy more. Never True 04/02/2023 Within the past 12 months th e food we bought just didn't last and we didn't have money to get more. Never True 04/02/2023 Purpose - Life Answer Date Recorded Purpose and direction in life Unknown Comments No Sex and Gender Information Value Date Recorded Sex Assigned at Not on file Legal Sex Female 11:33 AM EDT Gender Identity Not on file Sexual Orientation Not on file documented as of this encounter Functional Status documented as of this encounter Plan of [...] documented as of this encounter Care Teams Portable Grinding Machine Operator Relationship Specialty Start Date End Date Ivon Lo, FOREST RESOURCE SPECIALIST-PERSONAL VEHICLE ADVISOR [address] [place] [address] PCP - General Family Medicine 08/01/19 documented as of this encounter
--- OUTSIDE RECORDS SUMMARY | 2024-10-21 08:58 | XMS_ITS | Encounter Summary ---
Author Organization [facility] Address [id number] [address] [place] [address] Care Team Providers Care Shoe Dresser Name Role Phone Ivon Lo BUSINESS PERFORMANCE MANAGER-CYBER INTEL PLANNER Primary Care Provider + Encounter Details Date Type Department Care Team ([facility] st Contact Info) Description 04/28/2022 Telephone [facility] - CT Imaging [address] [place] [phone] Laay Parker RN Social History Tobacco Use Types Packs/Day [...] AM EST documented as of this encounter Plan of [...] documented as of this encounter Care Teams Shoe Dresser Relationship Specialty Start Date End Date Ivon Lo APRN-CYBER INTEL PLANNER [address] [place] [address] PCP - General Family Medicine 08/01/19 documented as of this encounter
--- OUTSIDE RECORDS SUMMARY | 2024-10-21 08:58 | XMS_ITS | Encounter Summary ---
Author Organization [employer] Address [id number] [address] [place] [address] Care Team Providers Care Power Technician Name Role Phone Ivon Lo CYLINDER [facility] Primary Care Provider + Reason for Visit * Reason Comments Med Change Request Encounter Details Date Type Department Care Team ([facility] Contact Info) Description 10/20/2023 Refill [facility] General Surgery [address] [place] [phone] Lily Kumar [facility] [address] [place] [address] Encounter for colonoscopy due to history of colonic polyp; Encounter for colonoscopy in patient with family history of colon cancer Social History Tobacco Use Types Packs/Day Years Used Date Smoking Tobacco: Never Smokeless Tobacco: Never Alcohol Use Standard Drinks/Week Comments No 0 (1 standard drink = 0.6 oz pur e alcohol) [facility] Utilities Answer Date Recorded In the past 12 months has [employer], [employer], oil, or water [employer] threatened to shut off services in your [...] got money to buy more. Never True 05/27/2023 Within the past 12 months th e food we bought just didn't last and we didn't have money to get more. Never True 05/27/2023 Purpose - Life Answer Date Recorded Purpose [...] HC vs. SNF General Yes Sheila Cole, RN Note: Evaluation of progress towards goal: Current discharge plan is HC vs. SNF pending wound care and antibiotic plan. - Sheila Cole RN 04/03/23 4:00 PM documented as of this encounter Visit Diagnoses Diagnosis Encounter for colonoscopy due to history of colonic polyp Encounter for colonoscopy in patient with family history of colon cancer documented in this encounter Additional Health Concerns Infection Onset Date Last Indicated Resolved Time Enteric Rule-Out 10/09/2024 10/09/2024 10/09/2024 12:19 PM EDT Assessment Noted Time PHQ-9 Depression Total Score: 0 12/22/19 19 9:13 AM EDT documented as of this encounter Care Teams Power Technician Relationship Specialty Start Date End Date Ivon Lo, CYLINDER HEAD ASSEMBLER-LADLE MECHANIC [address] [place] [address] PCP - General Family Medicine 08/01/19 documented as of this encounter
--- OUTSIDE RECORDS SUMMARY | 2024-10-21 08:58 | XMS_ITS | Encounter Summary ---
Author Organization [employer] [facility] tem Address [facility] [place]-[id number] [address] [place] [address] Care Team Providers Care Laborer Plumbing Name Role Phone Wally Ivon Edward MACIASN-EXPERIMENTAL OUTBOARD MOTORS MECHANIC Primary Care Provider + Encounter Details Date Type Department Care Team (Latest Contact Info) Description 10/09/2024 Travel Social History Tobacco Use Types Packs/Day Years Used Date Smoking Tobacco: Never Smokeless Tobacco: Never Alcohol Use Standard Drinks/Week Comments No 0 (1 standard drink = 0.6 oz pur e alcohol) [facility] Utilities Answer Date Recorded In the past 12 months has th e electric, gas, oil, or water company [...] got money to buy more. Never True 10/09/2024 Within the past 12 months th e food we bought just didn't last and we didn't have money to get more. Never True 10/09/2024 Purpose - Life Answer Date Recorded Purpose [...] documented as of this encounter Care Teams Laborer Plumbing Relationship Specialty Start Date End Date Ivon Lo, RESIDENCE HALL DIRECTOR-EXPERIMENTAL OUTBOARD MOTORS MECHANIC [address] [place] [address] PCP - General Family Medicine 08/01/19 documented as of this encounter
--- OUTSIDE RECORDS SUMMARY | 2024-10-21 08:59 | XMS_ITS | Encounter Summary ---
Author Organization [facility] Address [address] [place] [address] Care Team Providers Care Medical Coding Instructor Name Role Phone Cyndy Pineda MD Primary Care Provider +1 [phone] Encounter Details Date Type Department Care Team ([facility] Contact Info) Description 12/17/2022 Abstract [facility] [address] [place] [address] Isabel Jones DO [address] [place] [address] Social History Tobacco Use Types Packs/Day Years [...] as of this encounter Plan of Treatment Upcoming Encounters Date Type Department Care Team ([facility] Contact Info) Description 01/11/2025 9:45 AM EST Office Visit [facility] [address] [place] [address] Isabel Jones DO [address] [place] [address] documented as of this encounter Visit Diagnoses Not on filedocumented in this encounter Care Teams Medical Coding Instructor Relationship Specialty Start Date End Date Cyndy Pineda MD [address] [place] [address] PCP - General Family Medicine 10/01/22 documented as of this encounter
--- OUTSIDE RECORDS SUMMARY | 2024-10-21 08:59 | XMS_ITS | Encounter Summary ---
Author Organization [employer] [facility] tem Address [id number] [address] [place] [address] Care Team Providers Care Veterinary Anatomist Name Role Phone WallyIvon Edward CAMPUS INTERVIEWS INTERN-BRIDGE PAINTER HELPER Primary Care Provider + Encounter Details Date Type Department Care Team (Late st Contact Info) Description 12/30/2019 Telephone [facility] [address] [place] [phone] Shana Sheppard RN Social History Tobacco Use Types Packs/Day Years Used Date Smoking Tobacco: Never Smokeless Tobacco: Never Alcohol Use Standard Drinks/Week Comments No 0 (1 standard drink = 0.6 oz pur e alcohol) PHQ-2 Answer Date Recorded Total Score 0 12/21/2018 Childcare Answer Date Recorded Childcare Unknown 08/04/2018 Employment Answer Date Recorded Employment Unknown 08/04/2018 Comments No Sex and Gender Information Value Date Recorded Sex Assigned at Not on file Legal Sex Female 11:33 AM EDT Gender Identity Not on file Sexual Orientation Not on file COVID-19 Exposure Response Date Recorded In the last month, have you been in contact with someone who was confirmed or suspected to have Coronavirus / COVID-19? No / Unsure 12/01/2019 8:48 AM EDT documented as of this encounter Miscellaneous Notes * Telephone Encounter - Shana Sheppard RN - 12/30/2019 1:10 PM EDT Patient left a staff message, unable to wait on nursing line. LV, needs to schedule [address] Torre. BMI 54.58 Will need scheduled at hospital per BA Please update chart, inquire if patient is having symptoms, needs office visit. Shana Sheppard RN 12/30/19 1313 documented in this encounter Plan of Treatment Not on file documented as of this encounter Visit Diagnoses Not on filedocumented in this encounter Additional Health Concerns Infection Onset Date Last Indicated Resolved Time Enteric Rule-Out 12/01/2020 12/01/2020 12/01/2020 6:40 PM EDT C. Difficile 12/01/2020 12/01/2020 12/11/2020 11:1 3 PM EDT COVID-19 Rule-Out 04/02/2023 04/02/2023 04/02/2023 4:19 PM EST Enteric Rule-Out 10/09/2024 10/09/2024 10/09/2024 12:19 PM EDT Assessment Noted Time PHQ-9 Depression Total Score: 0 12/22/19 19 9:13 AM EDT documented as of this encounter Care Teams Veterinary Anatomist Relationship Specialty Start Date End Date Ivon Lo, CAMPUS INTERVIEWS INTERN-BRIDGE PAINTER HELPER [address] [place] [address] PCP - General Family Medicine 08/01/19 documented as of this encounter
--- OUTSIDE RECORDS SUMMARY | 2024-10-21 08:59 | XMS_ITS | Encounter Summary ---
Author Organization [facility] tem Address [facility] [place]-[id number] [address] [place] [address] Care Team Providers Care Finisher Fine Diamond Dies Name Role Phone Wally Ivon Leon PROFESSIONAL NURSE-AIRCRAFT SYSTEMS TECHNICIAN Primary Care Provider + Encounter Details Date Type Department Care Team ([facility] st Contact Info) Description 05/22/2021 Orders Only [facility] [address] [address] Ghislaine Burt MA Paroxysmal atrial fibrillation ([facility]) Social History Tobacco Use Types Packs/Day Years [...] have Coronavirus / COVID-19? No / Unsure 04/29/2021 9:51 AM EST documented as of this encounter Plan of Treatment Not on file documented as of this encounter Procedures Procedure Name Priority Date/Time Associated Diagnosis Comments CBC (NO DIFF) Routine 05/21/2021 Paroxysmal atrial fibrillation ([facility]) MAGNESIUM Routine 05/21/2021 Paroxysmal atrial fibrillation ([facility]-HCC) documented in this encounter Results * CBC (05/21/2021) 05/21/2021 us Victoriano Gomez PA-C LAB BLOOD ORDERABLES Final Result SUNQUEST * Magnesium (05/21/2021) 05/21/2021 us Nicola Zuleta PA-C LAB BLOOD ORDERABLES Final Result Performing Organization Address City/[facility]/ZIP Co de Phone Number SUNQUEST documented in this encounter Visit Diagnoses Diagnosis Paroxysmal atrial fibrillation ([facility]) Atrial fibrillation documented in this encounter Additional Health Concerns Infection Onset Date Last Indicated Resolved Time COVID-19 Rule-Out 04/02/2023 04/02/2023 04/02/2023 4:19 PM EST Enteric Rule-Out 10/09/2024 10/09/2024 10/09/2024 12:19 PM EDT Assessment Noted Time PHQ-9 Depression Total Score: 0 12/22/19 19 9:13 AM EDT documented as of this encounter Care Teams Finisher Fine Diamond Dies Relationship Specialty Start Date End Date Ivon Lo APRN-LEANNE [address] [place] [address] PCP - General Family Medicine 08/01/19 documented as of this encounter
--- OUTSIDE RECORDS SUMMARY | 2024-10-21 08:59 | XMS_ITS | Encounter Summary ---
Author Organization [employer] tem Address [facility][id number] [address] [place] [address] Care Team Providers Care Bank Representative Name Role Phone [facility] Primary Care Provider + Reason for Visit * Reason Comments Med Refill Encounter Details Date Type Department Care Team ([facility] Contact Info) Description 06/06/2019 Refill [facility] Neu[facility] [address] [place] [phone] Ashlee Huber APRN-CNP [address] [place] [address] [address] [place] [address] Social History Tobacco Use Types Packs/Day Years [...] have Coronavirus / COVID-19? No / Unsure 06/01/2019 3:16 PM EDT documented as of this encounter Miscellaneous Notes * Telephone Encounter - DAMIEN Pretty - 06/06/2019 7:49 PM EDT Not under prescriber care. She will need to have her further prescriptions filled by her PCP. documented in this encounter Plan of Treatment [...] documented as of this encounter Care Teams Bank Representative Relationship Specialty Start Date End Date Ivon Lo APRN-CNP [address] [place] [address] PCP - General Family Medicine 08/01/19 documented as of this encounter
--- OUTSIDE RECORDS SUMMARY | 2024-10-21 08:59 | XMS_ITS | Encounter Summary ---
Author Organization [facility] Address [address] [place] [address] Care Team Providers Care Drink Waiter Name Role Phone Cyndy Pineda MD Primary Care Provider [phone] [phone] Encounter Details Date Type Department Care Team ([facility] Contact Info) Description 10/02/2022 Abstract [facility]opa[facility] [address] [place] [phone] [place] Grimm, HYBRID POWERTRAIN DEVELOPMENT ENGINEER [address] [place], [place] [phone] Social History Tobacco Use Types Packs/Day Years [...] Upcoming Encounters Date Type Department Care Team ([facility] Contact Info) Description 01/11/2025 9:45 AM EST Office Visit [facility] [address] [place] [address] Isabel Jones, DO [address] [place], [place] [phone] documented as of this encounter Visit Diagnoses Not on filedocumented in this encounter Care Teams Drink Waiter Relationship Specialty Start Date End Date Cyndy Pineda MD [facility] [place] [address] PCP - General Family Medicine 10/01/22 documented as of this encounter
--- OUTSIDE RECORDS SUMMARY | 2024-10-21 08:59 | XMS_ITS | Encounter Summary ---
Author Organization [facility] Address [address] [facility] [place] [address] Care Team Providers Care Insurance Auditor Name Role Phone Cyndy Pineda MD Primary Care Provider [phone] [phone] Encounter Details Date Type Department Care Team ([facility] Contact Info) Description 07/31/2023 Abstract [facility] [address] [place] [phone] Isabel Jones DO [address] [place] [address] Social History Tobacco Use Types Packs/Day Years [...] Upcoming Encounters Date Type Department Care Team ([facility] Contact Info) Description 01/11/2025 9:45 AM EST Office Visit [facility] [address] [place] [address] Isabel Jones DO [address] [place] [address] documented as of this encounter Visit Diagnoses Not on filedocumented in this encounter Care Teams Insurance Auditor Relationship Specialty Start Date End Date Cyndy Pineda MD [address] [place] [address] PCP - General Family Medicine 10/01/22 documented as of this encounter
--- OUTSIDE RECORDS SUMMARY | 2024-10-21 08:59 | XMS_ITS | Encounter Summary ---
Author Organization [facility] [facility] tem Address [facility][id number] [address] [place] [address] Care Team Providers Care Customer Engagement Representative Name Role Phone Ivon Lo Edward YOUTH CAREER SPECIALIST-ALL ROUND BUTCHER Primary Care Provider + Reason for Visit * Reason Onset Date Comments In office loop check 03/21/2020 Encounter Details Date Type Department Care Team ([facility] st Contact Info) Description 03/21/2020 [facility] [address] [place] [phone] Betty Echols, BILLIE In office loop check Social History Tobacco Use Types Packs/Day Years [...] have Coronavirus / COVID-19? No / Unsure 03/21/2020 9:14 AM EST documented as of this encounter Miscellaneous Notes * Telephone Encounter - Betty Echols RN - 03/21/2020 9:39 AM EST Patient's loop recorder was checked in office today. Patient c/o continued palpitations and heart beating hard , states the feeling is almost continuous. In clinic loop recorder interrogation indicates 131 pause and 156 AF events. Most recent event was on 01/21/20. Saved pause EGMs show sinus with undersensing of R waves. Saved AF EGMS show sinus withPVCs and undersensing of R waves. Presenting rhythm shows sinus at 80 bpm. Histograms reviewed. Battery voltage adequate. Tachy detection rate reprogrammed from 167 bpm to 150 bpm. Copy of check scanned into media tab. Betty Echols RN 03/21/20 0942 documented in this encounter Plan of Treatment [...] documented as of this encounter Care Teams Customer Engagement Representative Relationship Specialty Start Date End Date Ivon Lo, YOUTH CAREER SPECIALIST-ALL ROUND BUTCHER [address] [place] [address] [place] [address] PCP - General Family Medicine 08/01/19 documented as of this encounter
--- OUTSIDE RECORDS SUMMARY | 2024-10-21 08:59 | XMS_ITS | Encounter Summary ---
Author Organization [facility] Address [address] [facility] [place] [address] Care Team Providers Care Diffusion Operator Name Role Phone Cyndy Pineda MD Primary Care Provider [phone] [phone] Encounter Details Date Type Department Care Team ([facility] Contact Info) Description 12/18/2022 Orders Only [facility] [address] [place] [phone] Isabel Jones DO [address] [place] [address] Social History Tobacco Use Types Packs/Day Years [...] Upcoming Encounters Date Type Department Care Team ([facility] Contact Info) Description 01/11/2025 9:45 AM EST Office Visit [facility] [address] [place] [address] Isabel Jones DO [address] [place] [address] documented as of this encounter Procedures Procedure Name Priority Date/Time Associated Diagnosis Comments CT CHEST WO IV CONTRAST Routine 12/17/2022 8:11 AM EDT documented in this encounter Results * CT chest wo IV contrast (12/17/2022 8:11 AM EDT) Anatomical Region Laterality Modality Body, Chest Computed Tomogra phy Isabel Jones DO IMG CT PROCEDURES Final Resul t documented in this encounter Visit Diagnoses Not on filedocumented in this encounter Care Teams Diffusion Operator Relationship Specialty Start Date End Date Cyndy Pineda MD [address] [place] [address] PCP - General Family Medicine 10/01/22 documented as of this encounter
--- OUTSIDE RECORDS SUMMARY | 2024-10-21 08:59 | XMS_ITS | Encounter Summary ---
Author Organization [facility] Address [id number] [address] [place] [address] Care Team Providers Care Strapping Machine Tender Name Role Phone Ivon Lo [facility] Primary Care Provider + Reason for Visit * Reason Comments Med Refill Encounter Details Date Type Department Care Team ([facility] Contact Info) Description 03/28/2019 Refill [facility] Neu[facility] [address] [place] [phone] Ashlee Huber, SHAPE BRICK MOLDER-[address] [place] [address] Social History Tobacco Use Types Packs/Day Years [...] documented as of this encounter Care Teams Strapping Machine Tender Relationship Specialty Start Date End Date Ivon Lo, SHAPE BRICK MOLDER-TRAIN GATE ATTENDANT [address] [place] [address] PCP - General Family Medicine 08/01/19 documented as of this encounter
--- OUTSIDE RECORDS SUMMARY | 2024-10-21 08:59 | XMS_ITS | Encounter Summary ---
Author Organization [facility] [facility] tem Address [facility] [place] [id number] [address] [place] [address] Care Team Providers Care Contestant Coordinator Name Role Phone WallyIvon Edward COLLEGE COACH-LOCAL COMBINATION TRUCK DRIVER Primary Care Provider + Reason for Visit * Reason Onset Date Comments Rapid heart beat 02/21/2020 Encounter Details Date Type Department Care Team ([facility] Contact Info) Description 02/21/2020 Telephone [facility] Cardiology [address] [phone] Teresita Abad RN Rapid heart beat Social History Tobacco Use Types Packs/Day Years [...] encounter Miscellaneous Notes * Telephone Encounter - Teresita Abad RN - 02/21/2020 12:52 PM EST Pt calls office to report that her hert beat is irregular but also fast -she can hear her pulse in her ears sometimes . States she is avoiding caffiene but is still using Nohemi -advised she should avoid. Appt scheduled Teresita Abad RN 02/21/20 1254 documented in this encounter Plan of Treatment [...] documented as of this encounter Care Teams Contestant Coordinator Relationship Specialty Start Date End Date Ivon Lo APRN-LOCAL COMBINATION TRUCK DRIVER [address] [place] [address] PCP - General Family Medicine 08/01/19 documented as of this encounter
--- OUTSIDE RECORDS SUMMARY | 2024-10-21 08:59 | XMS_ITS | Encounter Summary ---
Author Organization [facility] Address [address] [place] [address] Care Team Providers Care Wedding Decorator Name Role Phone Cyndy Pineda MD Primary Care Provider [phone] [phone] Encounter Details Date Type Department Care Team ([facility] Contact Info) Description 10/19/2024 Bamboo flowsheet [facility] [address] [place] [phone] Isabel Jones DO [address] [place] [address] Social History Tobacco Use Types Packs/Day Years [...] Upcoming Encounters Date Type Department Care Team ([facility] Contact Info) Description 01/11/2025 9:45 AM EST Office Visit [facility] [address] [place] [address] Isabel Jones DO [address] [place], [place] [phone] documented as of this encounter Visit Diagnoses Not on filedocumented in this encounter Care Teams Wedding Decorator Relationship Specialty Start Date End Date Cyndy Pineda MD [facility] [place] [address] PCP - General Family Medicine 10/01/22 documented as of this encounter
--- OUTSIDE RECORDS SUMMARY | 2024-10-21 08:59 | XMS_ITS | Clinical Summary ---
Author Organization [email or web address] [facility] tem Address [facility] [id number] [address] [place] [address] Care Team Providers Care Gas Flow Regulator Name Role Phone Ivon Lo APRN-CORN HUSK BALER Primary Care Provider + Allergies Active Allergy Reactions Criticality Noted Date Comments Adhesive Tape-Silicones Rash Low 04/08/2016 blisters Diphenhydramine Hcl Hives 04/08/2016 Clindamycin Angioedema,Facial Swelling 04/03/2023 Was getting sick when admitted to [facility], unsure of which caused the reaction Codeine Itching,Flushing,Vom iting 04/08/2016 Rosuvastatin muscle cramps 03/06/2020 Empagliflozin Dizziness,Nausea 05/09/2023 Iodinated Contrast Media Anaphylaxis High 01/02/2018 Iodine 07/06/2017 Unsure of reaction Latex, Natural Rubber Itching,Rash Low 04/08/2016 Morphine Itching,Flushing 04/02/2023 Vancomycin Angioedema,Facial Swelling 04/03/2023 Was getting sick when admitted to [facility], unsure of which caused the reaction Piperacillin-Tazobactam Angioedema,Facia l Swelling 04/03/2023 Was getting sick when admitted to [facility], unsure of which caused the reaction Medications acetaminophen (TYLENOL) 325 mg tablet Take 2 tablets (650 mg total) by mouth every 6 (six) hours as needed for pain. Activ e hydrALAZINE (APRESOLINE) 50 mg tablet Take 1 tablet (50 mg total) by mouth in the morning and 1 tablet (50 mg total) before bedtime. 04/07/19 24 Active insulin degludec (TRESIBA) 100 unit/mL (3 mL) insulin pen Inject 55 Units under the skin nightly. 04/07/19 Active Additional Information Patient taking differently: 65 Unitssubcutaneous Nightly, Reported on 06/27/2024 tiotropium bromide (SPIRIVA RESPIMAT) 1.25 mcg/actuation mist Inhale 2.5 mcg in the morning. 4 g 04/07/19 Active spironolactone (ALDACTONE) 25 mg tablet Take 1 tablet (25 mg total) by mouth in the morning. 04/07/19 Active pantoprazole (PROTONIX) 40 mg EC tablet Take 1 tablet (40 mg total) by mouth every morning before breakfast. 04/08/19 Active multivit-iron- FA-calcium &mins (THERAGRAN-M) 9 mg iron-400 mcg tablet Take 1 tablet by mouth in the morning. 04/07/19 Active montelukast (SINGULAIR) 10 mg tablet Take 1 tablet (10 mg total) by mouth nightly. 04/07/19 Active insulin lispro (HumaLOG) 100 unit/mL insulin pen Inject 2-10 Units under the skin in the morning and 2-10 Units at noon and 2-10 Units in the evening. Inject with meals. 04/07/19 Active Additional Information Patient taking differently:2-10 Units subcutaneous4 times daily, Sliding scale, Reported on 06/27/2024 carvediloL (COREG) 25 mg tablet Take 1 tablet (25 mg total) by mouth in the morning and 1 tablet (25 mg total) before bedtime. 04/07/19 Active cholecalcifero l, vitamin D3, 2,000 units capsule Take 1 capsule (2,000 Units total) by mouth in the morning. Active apixaban (ELIQUIS) 5 mg tablet Take 1 tablet (5 mg total) by mouth in the morning and 1 tablet (5 mg total) before bedtime. TAKE 1 TABLET TWICE DAILY. 05/27/19 Active clopidogreL (PLAVIX) 75 mg tablet Take 1 tablet (75 mg total) by mouth in the morning. Active levothyroxine (SYNTHROID, LEVOTHROID) 112 MCG tablet Take 1 tablet (112 mcg total) by mouth in the morning. Active albuterol (PROVENTIL,LEONEL TOLIN) 2.5 mg /3 mL (0.083 %) nebulizer solution Inhale 3 mL (2.5 mg total) by nebulization every 6 (six) hours as needed. 05/09/19 24 Active albuterol (PROVENTIL HFA;VENTOLIN HFA) 90 mcg/actuation inhaler Inhale 2 puffs every 4 (four) hours as needed. Active clobetasoL (TEMOVATE) 0.05 % external solution Apply 1 Application topically as needed. 09/01/19 24 Active meclizine (ANTIVERT) 25 mg tablet Take 1 tablet (25 mg total) by mouth as needed in the morning and 1 tablet (25 mg total) as needed in the evening for dizziness. Active ondansetron (ZOFRAN) 4 mg tabletIndicati ons:Nausea Take 1 tablet (4 mg total) by mouth every 8 (eight) hours as needed for nausea or vomiting for up to 12 doses. 12 tablet 10/10/19 25 Active Active Problems Patient Care Coordination No te Formatting of this note migh t be different from the original. DME: [facility] [employer] [facility]\ Problem Noted Date Diagnosed Date Acute cystitis without hematuria 04/05/2023 Necrotizing fasciitis 04/03/2023 COPD (chronic obstructive pulmonary disease) 04/2023 Type 2 diabetes mellitus 04/03/2023 Class 3 severe obesity in adult 03/06/2020 Pre-operative cardiovascular examination 021 Paroxysmal atrial fibrillation 03/06/2020 BMI 50.0-59.9, adult 12/14/2018 Essential hypertension 08/17/2018 Status post placement of implantable loop record er 08/04/2018 TIA (transient ischemic attack) 02/27/2018 Cryptogenic stroke 02/12/2018 Moderate persistent asthma without complication 03/19/2017 MARIUSZ treated with BiPAP 03/19/2017 Influenza vaccine administered 03/19/2017 Pulmonary nodule 03/19/2017 Acute renal failure (ARF) 01/08/2017 Esophageal dysphagia 01/08/2017 Overview (01/12/2017): Added automatically from request for surgery [id number] Diarrhea 01/08/2017 Overview (01/12/2017): Added automatically from request for surgery [id number] Osteoarthritis 07/12/2012 Overview (04/04/2023): B [facility] L>R B CMC L>R Encounters Date Type Department Care Team Description 10/09/2024 1:08 AM EDT - 10/09/2024 4:27 AM EDT Emergency [facility] - Emergency [address] [place] [address] Kwadwo Milelr E, DO Nausea (Primary Dx); Diarrhea, unspecified type Discharge Disposition: Home 10/09/2024 Travel from Last 3 Months Immunizations Immunization Administration Dates Next Due Influenza (IM) Preservative Free 12/04/2014 Influenza Whole 11/13/2010 Influenza, Im Trivalent Preservative 01/05/2013, 12/31/2009 Influenza, Injectable, Mdck, Preservative Free, Quad 03/16/2019 Influenza, Injectable, quadrivalent (PF) 018,03/19/2017 Pneumococcal Polysaccharide 11/13/2010 Family History Medical History Relation Name Comments Heart disease Father Hypertension Father Liver disease Father Stroke Father Diabetes Mother Hypertension Mother Kidney disease Mother Colon cancer Sister Breast cancer Neg Hx Relation Name Status Comments Father Mother Sister Alive Social History Tobacco Use Types Packs/Day Years Used Date Smoking Tobacco: Never Smokeless Tobacco: Never Tobacco Cessation:Counseling Given: Not Answered Alcohol Use Standard Drinks/Week Comments No 0 (1 standard drink = 0.6 oz pur e alcohol) [facility] Utilities Answer Date Recorded In the past 12 months has e [employer], gas, oil, or water [employer] threatened to shut off services in your [...] on file Sexual Orientation Not on file Last Filed Vital Signs Vital Sign Reading Time Taken Comments Blood Pressure 126/71 10/09/2024 4:15 AM EDT Pulse 62 10/09/2024 4:15 AM EDT Temperature 36.9 C (98.5 F) 10/09/2024 12:34 AM EDT Respiratory Rate 16 10/09/2024 4:15 AM EDT Oxygen Saturation 96% 10/09/2024 4:15 AM EDT Inhaled Oxygen Concentration - - Weight 152.4 kg (336 lb) 10/09/2024 12:34 AM EDT Height 162.6 cm (5' 4 ) 10/09/2024 12:34 AM EDT Body Mass Index 57.67 10/09/2024 12:34 AM EDT Plan of Treatment Health Maintenance Due Date Last Done Comments Diabetic Ophthalmology Exam 1955 Depression Screening 1967 Adult BMI Follow Up Plan 06/15/1973 Diabetic Foot Exam 06/15/1973 Zoster (Shingles) Vaccine (2 of 2) 02/22/20202019 Fall Risk Screening 06/15/2020 COVID-19 Vaccine (2023-2 5 season) 2024 12/23/2023, 02/03/2023, 11/27/2021, Additional history exists Influenza Vaccine 10/31/2024 12/23/2023, , 12/23/2021, Additional history exists Adult BMI Screening 10/09/2025 10/09/2024 Tobacco Screening 10/09/2025 10/09/2024 Colonoscopy 11/10/2028 11/11/2023, 10/31, 01/13/2017 DTaP,Tdap and Td Vaccines (3 - Td or Tdap) 12/27/2029 12/28/2019, 12/14/2019 Goals Goal Patient Goal Type Associated Problems Recent Progress Patient-Stated? Author Home with HC vs. SNF General Yes Sheila Cole RN Note: Evaluation of progress towards goal: Current discharge plan is HC vs. SNF pending wound care and antibiotic plan. - Sheila Cole RN 04/03/23 4:00 PM Medical Devices Implanted Type Area Community Services Officer Device Identifier Shelf Expiration Date Model / Serial / Lot Marker Brstbio Hydromark Ti Opn Coil 18ga Mamtm Elt Prb Cor Mammotome Stereotactic - [id number] - [id number] Implanted:Qty: 1 on 04/30/2022 by Ravi Hernandez MD at [facility] Other Implant Left: Breast [employer] MAMMOTOME [id number] 09/10/2024 4010-- -T3 / [id number]--T3 / [id number] 12 Description:Left breast 11:0 0 Procedures Procedure Name Priority Date/Time Associated Diagnosis Comments ECG 12-LEAD STAT 10/09/2024 3:18 AM EDT EXTRA TUBES BLUE TOP Routine 10/09/2024 3:10 AM EDT EXTRA TUBES Routine 10/09/2024 3:10 AM EDT BASIC METABOLIC PANEL STAT 10/09/2024 3:10 AM EDT CBC WITH AUTO DIFFERENTIAL STAT 10/09/2024 3:10 AM EDT GI PANEL STOOL PATHOGEN PANEL STAT 10/09/2024 2:20 AM EDT PROVATION COLONOSCOPY Routine 11/11/2023 8:11 AM EDT from Last 3 Months or Most Recently Relevant to Health Maintenance Results * ECG 12 lead (10/09/2024 3:18 AM EDT) 10/09/2024 3:18 AM EDT Narrative TRACEMASTERVUE - 10/09/2024 6:10 AM EDT us Kwadwo E Paul DO ECG ORDERABLES Final Result Performing Organization Address City/[facility]/ZIP Co de Phone Number [email or web address] * Light Blue Top (10/09/2024 3:10 AM EDT) Extra Tube Auto Resulted 10/09/2024 5:01 AM EDT [facility] Blood Venous blood / Unknown 10/09/2024 3:10 AM EDT 10/09/2024 3:13 AM EDT us Kwadwo Miller DO LAB BLOOD ORDERABLES Final R esult Performing Organization Address City/[facility]/ZIP Co de Phone Number [facility] [address] [place] [address], [place] * CBC auto differential (10/09/2024 3:10 AM EDT) WBC 6.1 4 - 11 x10E9/L 10/09/2024 3:26 AM EDT [facility] RBC Count 4.13 3.8 - 5.2 X10E12/L 10/09/2024 3:26 AM EDT [facility] Hemoglobin 11.8 11.7 - 15.5 g/dL 10/09/2024 3:26 AM EDT [facility] Hematocrit 35.3 35 - 47 % 10/09/2024 3:26 AM EDT [facility] MCV 86 80 - 100 fL 10/09/2024 3:26 AM EDT [facility] MCH 28.6 27 - 34 pg 10/09/2024 3:26 AM EDT [facility] MCHC 33.5 32 - 36 g/dL 10/09/2024 3:26 AM EDT [facility] RDW 14.2 11.5 - 15 % 10/09/2024 3:26 AM EDT [facility] Platelet Count 217 150 - 450 X10E9/L 10/09/2024 3:26 AM EDT [facility] MPV 8.1 7 - 12 fL 10/09/2024 3:26 AM EDT [facility] Neutrophils % 58.8 % 10/09/2024 3:26 AM EDT [facility] Lymphocytes % 26.5 % 10/09/2024 3:26 AM EDT [facility] Monocytes % 10.8 % 10/09/2024 3:26 AM EDT [facility] Eosinophils % 3.6 % 10/09/2024 3:26 AM EDT [facility] Basophils % 0.3 % 10/09/2024 3:26 AM EDT [facility] Neutrophils Absolute (A) 3.6 1.5 - 6.6 10*3/uL 10/09/2024 3:26 AM EDT [facility] Lymphocytes Absolute 1.6 1.0 - 3.5 10*3/uL 10/09/2024 3:26 AM EDT [facility] Monocytes Absolute 0.7 0.0 - 0.9 10*3/uL 10/09/2024 3:26 AM EDT [facility] Eosinophils Absolute 0.2 0.0 - 0.4 10*3/uL 10/09/2024 3:26 AM EDT [facility] Basophils Absolute 0.0 0.0 - 0.2 10*3/uL 10/09/2024 3:26 AM EDT [facility] Differential Type AUTOMATED DIFFERENTIAL 10/09/2024 3:26 AM EDT [facility] Blood Venous blood / Unknown Venipuncture / Unknown 10/09/2024 3:10 AM EDT 10/09/2024 3:12 AM EDT us Kwadwo Miller DO LAB BLOOD ORDERABLES Final R esult [facility] [address] [place] [address], * (ABNORMAL) Basic Metabolic Panel (10/09/2024 3:10 AM EDT) SODIUM 137 134 - 146 mmol/L 10/09/2024 3:32 AM EDT [facility] POTASSIUM 4.4 3.5 - 5.0 mmol/L 10/09/2024 3:32 AM EDT [facility] CHLORIDE 110(H) 98 - 109 mmol/L 10/09/2024 3:32 AM EDT [facility] CARBON DIOXIDE 23 22 - 32 mmol/L 10/09/2024 3:32 AM EDT [facility] ANION GAP 4(L) 5 - 15 mmol/L 10/09/2024 3:32 AM EDT [facility] BLOOD UREA NITROGEN 30(H) 5 - 27 mg/dL 10/09/2024 3:32 AM EDT [facility] CREATININE 1.42(H) 0.40 - 1.00 mg/dL 10/09/2024 3:32 AM EDT [facility] Comment:METHOD TRACEABLE TO IDMS STANDARD GLUCOSE 187(H) 65 - 99 mg/dL 10/09/2024 3:32 AM EDT [facility] CALCIUM 8.6 8.5 - 10.5 mg/dL 10/09/2024 3:32 AM EDT [facility] EGFR Non-Race Dependent 40(L) >=60 ml/min/1.7 3sq.m 10/09/2024 3:32 AM EDT [facility] Comment: eGFR not reported due to non-numeric value for Creatinine. Reported eGFR is based on the CKD-EPI 2020 equation that does not use a race coefficient. Blood Venous blood / Unknown Venipuncture / Unknown 10/09/2024 3:10 AM EDT 10/09/2024 3:12 AM EDT us Kwadwo Miller DO LAB BLOOD ORDERABLES Final R esult [facility] [address] [place] [address], [place] * GI Panel(stool pathogen panel) (10/09/2024 2:20 AM EDT) CAMPYLOBACTER Not Detected Not Detected 10/09/2024 12:19 PM EDT [facility] PLESIOMONAS Not Detected Not Detected 10/09/2024 12:19 PM EDT [facility] SALMONELLA Not Detected Not Detected 10/09/2024 12:19 PM EDT [facility] VIBRIO Not Detected Not Detected 10/09/2024 12:19 PM EDT [facility] VIBRIO CHOLERAE Not Detected Not Detected 10/09/2024 12:19 PM EDT [facility] Y. ENTEROCOLITICA Not Detected Not Detected 10/09/2024 12:19 PM EDT [facility] AGGREGATIVE E COLI Not Detected Not Detected 10/09/2024 12:19 PM EDT [facility] PATHOGENIC E COLI Not Detected Not Detected 10/09/2024 12:19 PM EDT [facility] TOXIGENIC E COLI Not Detected Not Detected 10/09/2024 12:19 PM EDT [facility] SHIGA TOXIN E COLI Not Detected Not Detected 10/09/2024 12:19 PM EDT [facility] SHIGELLA-E COLI Not Detected Not Detected 10/09/2024 12:19 PM EDT [facility] CRYPTOSPORIDIUM Not Detected Not Detected 10/09/2024 12:19 PM EDT [facility] CYCLOSPORA Not Detected Not Detected 10/09/2024 12:19 PM EDT [facility] E HISTOLYTICA Not Detected Not Detected 10/09/2024 12:19 PM EDT [facility] GIARDIA LAMBLIA Not Detected Not Detected 10/09/2024 12:19 PM EDT [facility] ADENOVIRUS Not Detected Not Detected 10/09/2024 12:19 PM EDT [facility] ASTROVIRUS Not Detected Not Detected 10/09/2024 12:19 PM EDT [facility] NOROVIRUS Not Detected Not Detected 10/09/2024 12:19 PM EDT [facility] ROTAVIRUS A Not Detected Not Detected 10/09/2024 12:19 PM EDT [facility] SAPOVIRUS Not Detected Not Detected 10/09/2024 12:19 PM EDT [facility] Stool Feces / Unknown 10/09/2024 2 :20 AM EDT 10/09/2024 2:23 AM EDT Kwadwo Miller DO BODY FLUIDS AND STOOLS ORDER FAVIOLA Final Result [facility] [address] [place] [address], * Colonoscopy Report (11/11/2023 8:11 AM EDT) Narrative SYSTEMGENERATED, DOCUMENTATION - 11/11/2023 8:11 AM EDT This order has been auto-finalized for image and report archival in PACs. *For full report details, please reach out to your physician. This image is visible to you in MyChart.* Divya Damon MD IMG OR IMG ORDERABLES Dee l Result from Last 3 Months or Most Recently Relevant to Health Maintenance [place] Advance Directives * Full Code (Latest Code Status on File) Date Activated Date Inactivated Comments 04/03/2023 12:24 AM 04/07/2023 5:03 PM * Full Code Date Activated Date Inactivated Comments 02/28/2018 10:53 AM 03/01/2018 5:25 PM * Full Code Date Activated Date Inactivated Comments 01/08/2017 4:14 AM 01/14/2017 5:01 PM Care Teams Gas Flow Regulator Relationship Specialty Start Date End Date Ivon Lo, ITALIA-CORN HUSK BALER [address] [place] [address] PCP - General Family Medicine 08/01/19
--- OUTSIDE RECORDS SUMMARY | 2024-10-21 08:59 | XMS_ITS | Encounter Summary ---
Author Organization [facility] Address [address] [place] [address] Care Team Providers Care Biodiesel Plant Manager Name Role Phone Cyndy Pineda MD Primary Care Provider [phone] Encounter Details Date Type Department Care Team ([facility] Contact Info) Description 01/06/2024 Abstract [facility] [address] [place] [address] Isabel Jones DO [address] [place] [address] Social History Tobacco Use Types Packs/Day Years [...] Upcoming Encounters Date Type Department Care Team ([facility] Contact Info) Description 01/11/2025 9:45 AM EST Office Visit [facility] [address] [place] [address] Isabel Jones DO [address] [place] [address] documented as of this encounter Visit Diagnoses Not on filedocumented in this encounter Care Teams Biodiesel Plant Manager Relationship Specialty Start Date End Date Cyndy Pineda MD [address] [place] [address] PCP - General Family Medicine 10/01/22 documented as of this encounter
--- OUTSIDE RECORDS SUMMARY | 2024-10-21 08:59 | XMS_ITS | Clinical Summary ---
Author Organization [facility] Address [address] [place] [address] Care Team Providers Care Purchaser Name Role Phone Cyndy Pineda MD Primary Care Provider [phone] Allergies Active Allergy Reactions Criticality Noted Date Comments Clindamycin Swelling,Angioedema High 04/03/2023 Facial Swelling Was getting sick when admitted to [facility], unsure of which caused the reaction Codeine Hives,Itching Medium 02/17/2014 Flushing, Vomiting Diphenhydramine Hives,Itching Low 02/17/2014 N/V Empagliflozin Nausea Only,Dizziness Low 05/09/2023 Iodinated Contrast Media Anaphylaxis High 01/02/2018 Latex Itching,Rash Low 04/08/2016 Morphine Itching Low 04/02/2023 Flushing Other Other Medium 07/27/2024 Burning Piperacillin Sod-Tazobactam So Angioedema High 04/03/2023 Facial Swelling Was getting sick when admitted to [facility], unsure of which caused the reaction Piperacillin-Tazobactam In Dex Swelling High 04/07/2023 facial swelling Rosuvastatin Other Low 03/06/2020 muscle cramps Vancomycin Angioedema High 04/03/2023 Facial Swelling Was getting sick when admitted to [facility], unsure of which caused the reaction Other Reaction(s): facial swelling Wound Dressing Adhesive Other,Rash Low 02/17/2014 Other Reaction(s): Unknown Medications montelukast (Singulair) 10 MG tablet Active TRUEplus Lancets 28G [facility] [place] 08/03/19 23 Active Droplet Pen Boomer 31G X 6 MM [facility] [place] 08/22/19 23 Active Tresiba FlexTouch 100 UNIT/ML injection Active NovoLOG FLEXPEN 100 UNIT/ML pen Acti ve hydrALAZINE (Apresoline) 50 MG tablet 06/19/19 23 Active True Metrix Blood Glucose Test test strip every 6 (six) hours Active clopidogrel (Plavix) 75 MG tablet Active carvedilol (Coreg) 25 MG tablet 07/25/19 23 Active Blood Glucose Monitoring Suppl (True Metrix Air Glucose Meter) w/Device kit 08/17/19 23 Active Eliquis 5 MG tablet every 12 (twelve) hours 05/15/19 23 Active cholecalciferol (Vitamin D-3) 50 MCG (1999 UT) capsule 1 capsule 1 (one) time each day at the same time Active Alcohol Swabs (DropSafe Alcohol Prep) 70 % pads 08/21/19 23 Active albuterol (2.5 MG/3ML) 0.083% nebulizer solution A ctive meclizine (Antivert) 25 MG tablet Take 25 mg by mouth as needed in the morning and 25 mg as needed at noon and 25 mg as needed in the evening for dizziness. Active albuterol HFA 90 mcg/act inhaler Inhale 2 puffs every 4 (four) hours if needed for wheezing Active colchicine 0.6 MG tablet Take by mouth Daily Active Ferrous Sulfate (IRON PO) Take 1 tablet by mouth in the morning. 04/07/19 24 Active MULTIPLE VITAMIN PO Take by mouth Active insulin lispro (HumaLOG) 100 UNIT/ML injection Inject 2-10 Units under the skin in the morning and 2-10 Units at noon and 2-10 Units in the evening. Inject with meals. 04/07/19 24 Active traZODone (Desyrel) 50 MG tablet Take by mouth at bedtime Active acetaminophen (Tylenol) 325 MG tablet Take 650 mg by mouth every 6 (six) hours if needed Active clobetasol (Temovate) 0.05 % external solution Apply 1 Application topically Daily as needed 09/01/19 24 Active LORazepam (Ativan) 0.5 MG tablet 05/09/19 24 Active levothyroxine (Synthroid, Levoxyl) 100 MCG tablet 05/09/19 24 Active Spiriva Respimat 1.25 MCG/ACT inhaler 10/23/19 24 Active metoclopramide (Reglan) 10 MG tablet Take 10 mg by mouth in the morning and 10 mg in the evening. Take before meals. 04/12/19 25 Active nystatin (Mycostatin) 926448 UNIT/GM powder 03/09/19 25 Active ondansetron ODT (Zofran-ODT) 8 MG disintegrating tablet DISSOLVE 1 TABLET ON TOUNGE NEEDED ONCE DAILY FOR 30 DAYS 04/12/19 25 Active spironolactone (Aldactone) 25 MG tablet 05/15/19 25 Active B-D ULTRAFINE III SHORT PEN 31G X 8 MM misc 10/22/19 24 Active Synthroid 112 MCG tablet 05/15/19 25 Active pantoprazole (ProtoNix) 40 MG EC tablet 1 (one) time each day at the same time Active Glucose Blood (GLUCOMETER DEX GLUCOSE SENSORS ) Glucometer 05/06/19 25 Active Active Problems Problem Noted Date Diagnosed Date Class 3 severe obesity in adult 03/06/2020 Paroxysmal atrial fibrillation 03/06/2020 Pre-operative cardiovascular examination 021 BMI 50.0-59.9, adult 12/14/2018 Essential hypertension 08/17/2018 Status post placement of implantable loop record er 08/04/2018 TIA (transient ischemic attack) 02/27/2018 Asthma 02/16/2018 Cryptogenic stroke 02/12/2018 Influenza vaccine administered 03/19/2017 Moderate persistent asthma without complication 03/19/2017 MARIUSZ treated with BiPAP 03/19/2017 Pulmonary nodule 03/19/2017 Acute renal failure (ARF) 01/08/2017 Diarrhea 01/08/2017 Overview (10/02/2022): Added automatically from request for surgery [id number] Esophageal dysphagia 01/08/2017 Overview (10/02/2022): Added automatically from request for surgery [id number] Bilateral carpal tunnel syndrome 07/16/2012 Type 2 diabetes mellitus without complication Lateral epicondylitis 07/12/2012 Osteoarthritis 07/12/2012 Overview (10/02/2022): B CMC L>R Resolved Problems Problem Noted Date Diagnosed Date Resolved Date Autonomic neuropathy due to diabetes 07/27/2024 07/27/2024 DDD (degenerative disc disease), lumbar 07/27/2024 07/27/2024 Fibrosclerosis of left breast 07/27/2024 07/27/2024 Gout 07/27/2024 07/27/2024 Scalp psoriasis 07/27/2024 07/27/2024 Seasonal allergies 07/27/2024 Stage 3a chronic kidney disease 07/27/2024 07/27/2024 Type 2 diabetes mellitus wit h diabetic chronic kidney disease 07/27/2024 07/27/2024 Gastroesophageal reflux disease 07/27/2024 07/27/2024 Acquired hypothyroidism 07/27/202407/01 BMI 60.0-69.9, adult 07/27/2024 025 Obstructive sleep apnea 07/27/202407/01 Atrial fibrillation 07/27/2024 07/28/19 25 CKD (chronic kidney disease) 11/19/2023 11/19/2023 Hyperlipidemia 11/19/2023 11/19/2023 FDC current use of insulin 11/19/2023 11/19/2023 Type 2 diabetes mellitus with hyperglycemia 11/19/2023 11/19/2023 Vitamin D deficiency 05/18/2023 024 Unspecified hemorrhoids 05/15/202310/31 Hemorrhoids 05/15/2023 07/22/2024 Muscle weakness (generalized) 05/13/2023 11/19/2023 Need for assistance with personal care 05/13/2023 11/19/2023 Other fatigue 05/13/2023 11/19/2023 Muscle weakness 05/13/2023 07/22/2024 Fatigue 05/13/2023 07/22/2024 Difficulty in walking, not e lsewhere classified 05/12/2023 11/19/2023 Difficulty walking 05/12/2023 Dizziness and giddiness 04/29/202310/31 Dependence on other enabling machines and devices 04/20/2023 11/19/2023 Iron deficiency anemia, unspecified 04/14/2023 11/19/2023 Iron deficiency anemia 04/14/202307/22 Complication of diabetes mellitus 04/08/2023 07/22/2024 Calculus of kidney 04/07/2023 Constipation, unspecified 04/07/2023 Diverticulosis of intestine, part unspecified, without perforation or abscess without bleeding 04/07/2023 11/19/2023 Gastro-esophageal reflux dis ease without esophagitis 04/07/2023 11/19/2023 Hypothyroidism, unspecified 04/07/2023 11/19/2023 Personal history of transien t ischemic attack (TIA), and cerebral infarction without residual deficits 04/07/2023 11/19/2023 Kidney stone 04/07/2023 07/22/2024 Morbid obesity 04/07/2023 07/22/2024 Constipation 04/07/2023 07/22/2024 Chronic obstructive pulmonary disease 04/07/2023 07/22/2024 Hypothyroidism 04/07/2023 07/22/2024 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 04/07/2023 07/22/2024 Obstructive sleep apnea syndrome 04/07/2023 07/22/2024 Cerebrovascular disease 04/07/202307/01 Acute cystitis without hematuria 04/05/2023 11/19/2023 COPD (chronic obstructive pulmonary disease) 11/19/2023 Necrotizing fasciitis 04/03/20232023 Acute kidney injury 02/16/2018 05/07/19 Carpal tunnel syndrome 07/16/201205/06 Encounters Date Type Department Care Team Description 10/19/2024 8:30 AM EDT Office Visit [facility] [address] [place] [address] Isabel Jones DO MARIUSZ (obstructive sleep apnea) (Primary Dx); Mild intermittent asthma without complication (HCC) 10/19/2024 Bamboo flowsheet [facility] [address] [place] [address] Isabel Jones DO 09/23/2024 Telephone [facility] [address] [place] [address] PetersenSarah MA 07/27/2024 1:45 PM EDT Office Visit [facility] [address] [place] [address] Isabel Jones DO MARIUSZ (obstructive sleep apnea) (Primary Dx); Mild intermittent asthma without complication (HCC) 07/27/2024 Bamboo flowsheet [facility] [address] [place] [address] Isabel Jones, from Last 3 Months Immunizations Immunization Administration Dates Next Due DTaP 12/14/2019 Hep A, Adult 03/27/2000 Hep B, adult 03/27/2000 IPV 03/27/2000 Influenza Whole 11/13/2010 Influenza, High Dose Seasona l, Preservative Free 12/23/2023 Influenza, Seasonal, Quadriv alent, Adjuvanted 12/18/2022 Influenza, injectable, MDCK, preservative free, quadrivalent 03/16/2019 Influenza, injectable, quadrivalent 03/19/2017 Influenza, injectable, quadr ivalent, preservative free 12/23/2021,02/28/2021,12/28/2019,02/28,03/19/2017 Influenza, seasonal, injectable 03/16/2019,01/05,12/31/2009 Influenza, seasonal, injecta ble, preservative free 12/14/2019,03/19/2017,12/04/2014 Meningococcal, Unknown Serogroups 03/27/2000 Moderna Bivalent Booster Vaccination 11/27/2021 Moderna SARS-CoV-2 Vaccination 02/12/2021,2020,05/03/2020 Pfizer Stephens Cap SARS-CoV-2 Vaccination 3 Pfizer Purple Cap SARS-CoV-2 Vaccination 02/12/2021 Pneumococcal Polysaccharide PPSV23 11/13/2010 SARS-COV-2 (COVID-19) vaccin e, mRNA, spike protein, LNP, PF, 50 mcg/0.5 mL 12/23/2023,05/31/2020,05/03/2020 Tdap 12/28/2019 Typhoid, ViCPs 03/27/2000 Yellow Fever 03/27/2000 Zoster, Recombinant 12/28/2019 Zoster, live 12/28/2019 Family History Medical History Relation Name Comments Hypertension Brother Hypertension Father Stroke Father Diabetes Mother Hypertension Mother Kidney disease Mother Colon cancer Sister Relation Name Status Comments Brother Father Mother Sister Social History Tobacco Use Types Packs/Day Years Used Date Smoking Tobacco: Never Smokeless Tobacco: Never Tobacco Cessation:Counseling Given: Not Answered Alcohol Use Standard Drinks/Week Comments Not Currently [...] (329 lb) 10/19/2024 8:30 AM EDT Height 162.6 cm (5' 4 ) 07/27/2024 1:46 PM EDT Body Mass Index 56.47 07/27/2024 1:46 PM EDT Plan of Treatment Upcoming Encounters Date Type Department Care Team (Late st Contact Info) Description 01/11/2025 9:45 AM EST Office Visit [facility] [address] [place] [address] Isabel Jones, DO [address] [place] [address] Health Maintenance Due Date Last Done Comments CT Colonography 1955 FIT-DNA 1955 FIT 1955 FOBT 1955 Sigmoidoscopy 1955 Pneumococcal Vaccine: 65+ Ye ars (2 of 2 - PCV) 11/14/2011 11/13/2010 Mammogram 10/15/2023 10/14/2022, 03/0 03/2022, 04/22/2022, Additional history exists Influenza Vaccine (#1) 2024 , 12/18/2022, 12/23/2021, Additional history exists Colonoscopy 11/10/2033 11/11/2023, 11/11/2023 Colorectal Cancer Screening 11/10/2033 Insurance MEDICAID [place] [employer] MED[employer]ARE ADVANTAGE Care Teams Purchaser Relationship Specialty Start Date End Date Cyndy Pineda MD [address] [place] [address] PCP - General Family Medicine 10/01/22
--- OUTSIDE RECORDS SUMMARY | 2024-10-21 08:59 | XMS_ITS | Patient Health Record ---
Author Organization [facility] [place] Address [address] [place] [address] Care Team Providers Care Online Merchandiser Name Role Phone Ivon Talavera Primary Care Provider Unavail able Allergies Allergen (clinical drug ingredient) Drug/Non Drug Allergy documented on EMR Reaction Allergy Type Onset Date Status ivp dye (uncoded) unknown Allergy Ac tive Seafood seafood (uncoded) unknown Allergy Ac tive diphenhydramine Benadryl itching , N/V Drug Allergy Active Adhesive rash Allergy Active codeine Codeine hives Drug Allergy Active Latex Latex rash Allergy Active Reason For Referral No Information Medications Medication SIG (Take, Route, Frequency, Duration) Notes Start Date End Date Status Levothyroxine Sodium 100 MCG 1 tablet in the morning on an empty stomach Orally Once a day for 30 day(s) Active Montelukast Sodium 10 MG 1 tablet Orally Once a day for 30 day(s) Active Eliquis 5 MG 1 tablet Orally Twic e a day for 30 day(s) Active hydrALAZINE HCl 50 MG 1 tablet with food Orally Three times a day for 30 day(s) Active Spiriva Respimat 1.25 MCG/ACT 2 puffs Inhalation Once a day Active Tresiba FlexTouch 100 UNIT/ML as directed Subcutaneous Act jacqueline NovoLOG FlexPen 100 UNIT/ML as directed Subcutaneous Act jacqueline Pantoprazole Sodium 40 MG 1 tablet Orall y Once a day for 30 day(s) Active Vitamin D 50 MCG (1999) 1 tablet Oral ly Once a day for 30 day(s) Active Carvedilol 25 MG 1 tablet with food O rally Twice a day for 30 day(s) Active Clopidogrel Bisulfate 75 MG 1 tablet Orally Once a day for 30 day(s) Plavix Active Social History Tobacco Use: Social History Observation Description Date Details (start date - stop date) Never Smoker NA - NA Tobacco Use/Smoking Question Answer Notes Patient is a nonsmoker Problems Problem Type SNOMED Code ICD Code Onset Dates Problem Status W/U Status Risk Notes Problem Fibrosclerosis of left breast (1144933175792275 8) Fibrosclerosis of left breast (N60.32) Active confirmed Problem Morbid obesity (184526021) Morbid obesity (E66.01) Active confirmed Plan Of Treatment No Information Insurance Providers Payer Name Payer Address Payer Phone Subscriber Number Group Number Insured Name Patient Relationship to Insured Coverage Start Date Coverage End Date [employer] MEDICARE ADV PLAN [address] [address] [place] [address] [id number] Zully Eng Self - patient is the insured 3 MEDICAID [place] [id number] INS [address] [facility] [address] [place], [place] [id number] Zully Eng Self - patient is the insured 2 Medical (General) History Surgical History Surgery Date(Month/Year)
--- OUTSIDE RECORDS SUMMARY | 2024-10-21 09:06 | XMS_ITS | CCD ---
Author Organization [facility] Care Team Providers Care Patient Assistant Name Role Phone PHYSICIAN, DEFAULT Unavailable Unavailable PHYSICIAN, DEFAULT Unavailable Unavailable FREDSI, DR MADERA Attending Unavailable FREDIS, DR MADERA Consulting Unavailable FREDIS, DR MADERA Admitting Unavailable MISC, DR LAMAS Primary Care Unavailable AUDRA WINTER Consulting Unavailable ANGLIM, MELITA Admitting Unavailable ANGLIM, MELITA Attending Unavailable ÁLVAROLIM, MELITA Consulting Unavailable FREDIS, DR MADERA Admitting Unavailable FREDIS, DR MADERA Attending Unavailable FREDIS, DR MADERA Consulting Unavailable Slade, Sparkle Unavailable Tricia Palmer Unavailable MARILEE MORILLO Admitting Unavailable MARILEE MORILLO Attending Unavailable ADILENE CONNER Referring Unavailable ANGLIM, MELITA A Primary Care Unavailable ROXANNE CAMP Consulting Unavailable LUTHER TUCKER Consulting Unavailable MARGOT MONREAL Attending Unavailable ANGLIM, MELITA A Primary Care Unavailable Anglim, KENNEL SUPERVISOR Melita Primary Care Provider [phone] ITALIA June Attending Provider SHEA CAREY Attending Unavailable ANGLIM, MELITA A Referring Unavailable ANGLIM, MELITA A Primary Care Unavailable DALILAADILENE Referring Unavailable ANGLIM, MELITA A Primary Care Unavailable OLGA LIDIA LYNCH Referring Unavailable ANGLIM, MEILTA A Primary Care Unavailable BHARATI GREENE Attending Unavailable ANGLIM, MELITA A Referring Unavailable ANGLIM, MELITA A Primary Care Unavailable Anglim, Melita Primary Care Unavailable Sparkle June C Admitting Unavailable Scally Sparkle C Attending Unavailable Anglim, Melita Attending Unavailable Anglim, Melita Admitting Unavailable Anglim, Mleita Primary Care Unavailable LILY KUMAR Attending Unavailable ANGLIM, MELITA A Referring Unavailable ANGLIM, MELITA A Primary Care Unavailable Cyndy Pineda MD Primary Care Provider [phone] Anglim KENNEL SUPERVISOR-FRAMING MECHANIC, Melita A Primary Care Provider Anglim KENNEL SUPERVISOR-FRAMING MECHANIC, Melita A Primary Care Provider ISABEL JONES Attending Unavailable SHAREE ALDRIDGE Attending Unavailable SHAREE ALDRIDGE Attending Unavailable SHAREE ALDRIDGE Referring Unavailable ISABEL JONES Attending Unavailable YASSINE POWELL Attending Unavailable ANGLIM, MELITA A Referring Unavailable ANGLIM, MELITA A Primary Care Unavailable AVRIL, MENNATALLAH M Referring Unavailable ANGLIM, MELITA A Primary Care Unavailable AVRIL, MENNATALLAH M Admitting Unavailable AVRIL, MENNATALLAH M Attending Unavailable ANGLIM, MELITA A Primary Care Unavailable KAYLA FLYNN Attending Unavailable ANGLIM, MELITA A Primary Care Unavailable AVRIL, MENNATALLAH M Attending Unavailable AVRIL, MENNATALLAH M Referring Unavailable ANGLIM, MELITA A Primary Care Unavailable ANGLIM, MELITA A Primary Care Unavailable KARIN WILKS Attending Unavailable KIARA CRENSHAW Referring Unavailable ANGLIM, MELITA A Primary Care Unavailable ANGLIM, MELITA A Primary Care Unavailable MARYBETH JONES Attending Unavailable Allergies Allergy Classification Reported Allergen(s) Allergy Type Date of Onset Reaction(s) Facility diphenhydrAMINE (1 source) diphenhydrAMINE Drug Allergy 06-20-19 15 [facility] Iodine (and Iodine containting drugs) (1 source) Iodine (And Iodine Containting Drugs) Drug Allergy 06-20-19 15 [facility] Latex (1 source) Latex Substance Allergy 06-20-19 15 [facility] Opioid Agonists (1 source) Codeine Drug Allergy 06-20-19 15 [facility] Unclassified (1 source) Adhesive agent Drug allergy (disorder) 06-20-19 15 [facility] (15 sources) Adhesive Tape Drug allergy (disorder) 07-13-19 13 Unknown, Unknown Reaction [facility] (8 sources) Codeine; Translations: [CODEINE] Drug Allergy 07-13-19 13 Unknown Reaction [facility] (1 source) diphenhydrAMINE Drug Allergy 07-13-19 13 [facility] (3 sources) Latex Drug allergy (disorder) 07-13-19 13 Unknown Reaction [facility] (12 sources) Codeine Drug Allergy Unknown [facility] Other (12 sources) Contrast media Propensity to adverse reactions Unknown [facility] Other (14 sources) diphenhydrAMINE Drug Allergy 02-13-20 23 Unknown, Unknown Reaction [facility] (12 sources) Latex Propensity to adverse reactions Unknown [facility] Other (17 sources) empagliflozin; Translations: [EMPAGLIFLOZIN] Drug Allergy 02-13-20 23 Dizziness, Nausea [facility] (20 sources) Clindamycin; Translations: [CLINDAMYCIN] Drug Allergy 04-03-19 24 Angioedema, Facial Swelling, Swelling [facility] (20 sources) diphenhydrAMINE; Translations: [DIPHENHYDRAMINE HCL] Drug Allergy 04-08-19 17 Hives [facility] (20 sources) Iodine; Translations: [IODINE] Drug Allergy 07-07-19 18 [facility] (20 sources) Morphine; Translations: [MORPHINE] Drug Allergy 04-02-19 24 Itching, Flushing [facility] (20 sources) natural latex rubber; Translations: [LATEX, NATURAL RUBBER] Propensity to adverse reactions to drug (disorder) 04-08-19 17 Itching, Rash [facility] (19 sources) Piperacillin / tazobactam; Translations: [PIPERACILLIN-TAZO BACTAM] Drug Allergy 04-03-19 24 Angioedema, Facial Swelling [facility] (20 sources) rosuvastatin; Translations: [ROSUVASTATIN] Drug Allergy 03-06-19 21 muscle cramps, Other [facility] (20 sources) Vancomycin; Translations: [VANCOMYCIN] Drug Allergy 04-03-19 24 Angioedema, Facial Swelling [facility] (20 sources) IODINATED CONTRAST MEDIA; Translations: [IODINATED CONTRAST MEDIA] Propensity to adverse reactions to drug (disorder) 01-03-20 18 Anaphylaxis [facility] (20 sources) ADHESIVE TAPE-SILICONES; Translations: [ADHESIVE TAPE-SILICONES] Propensity to adverse reactions to drug (disorder) 04-08-19 17 Rash [facility] (1 source) Adhesive Tape Drug allergy (disorder) 02-13-20 [facility] (1 source) Codeine Drug Allergy 02-13-20 [facility] (1 source) diphenhydrAMINE Drug Allergy 02-13-20 [facility] (1 source) empagliflozin Drug Allergy 02-13-20 [facility] (1 source) Latex Drug allergy (disorder) 02-13-20 [facility] (20 sources) Codeine Drug Allergy 02-18-20 14 Itching, Flushing, Vomiting, [facility] diphenhydrAMINE Drug Allergy 02-18-20 14 Hives, Itching [facility] (14 sources) empagliflozin Drug Allergy 05-09-19 24 Dizziness, Nausea Only [facility] (14 sources) Latex Allergy to substance 04-08-19 17 Itching, Rash [facility] (14 sources) Piperacillin / tazobactam Drug Allergy 04-03-19 24 Angioedema [facility] (14 sources) Piperacillin / tazobactam Drug Allergy 04-07-19 24 Swelling [facility] (14 sources) Wound Dressing Adhesive Drug Allergy 02-18-20 14 Other, Rash [facility] (5 sources) Other Allergy to substance 07-28-19 25 Other [facility] Medications Current Medications Medication Drug Class(es) Dates Sig (Normalized) Sig (Original) acetaminophen 325 mg oral tablet (20 sources) take 2 tablets by mouth every six hours as needed acetaminophen (Tylenol) 325 MG tablet Take 650 mg by mouth every 6 (six) hours if needed Active acetaminophen 325 mg / HYDROcodone bitartrate 5 mg oral tablet (1 source) Opioid Agonist Start: 04-07-2023 End: 04-10-2023 HYDROcodone-acetami nophen (NORCO) 5-325 mg per tablet Indications: Acute postoperative pain , Necrotizing fasciitis (CMS-HCC) Take 1 tablet by mouth every 4 (four) hours as needed for pain for up to 3 days. Max Daily Amount: 6 tablets 18 tablet 0 04/07/2023 04/10/2023 Active albuterol 0.83 mg/ml inhalation solution (20 sources) beta2-Adrenergic Agonist Start: 05-09-2023 take 2.5 mg by inhalation every six hours as needed albuterol (PROVENTIL,VENTOLIN ) 2.5 mg /3 mL (0.083 %) nebulizer solution Inhale 3 mL (2.5 mg total) by nebulization every 6 (six) hours as needed. 05/09/2023 Active Start: 05-09-2023 take 2.5 mg by inhal ation every six hours Albuterol Sulfate Active 2.5 MG INHALATION Every 6 hours May 09, 2023 1:00am Start: 08-27-2017 take 2 puff(s) by in halation every six hours as needed for wheezing albuterol (PROVENTIL HFA;VENTOLIN HFA) 90 mcg/actuation inhaler Indications: Moderate persistent asthma without complication Inhale 2 puffs every 6 (six) hours as needed for wheezing. 18 g 6 08/27/2017 Active take 2 puff(s) by in halation every four hours for wheezing albuterol HFA 90 mcg/act inhaler Inhale 2 puffs every 4 (four) hours if needed for wheezing Active take 2 puff(s) by in halation every four hours as needed albuterol (PROVENTIL HFA;VENTOLIN HFA) 90 mcg/actuation inhaler Inhale 2 puffs every 4 (four) hours as needed. Active Albuterol Sulfat e (2.5 MG/3ML) 0.083% 3 mL as needed Inhalation every 6 hrs Active apixaban 5 mg oral tablet (20 sources) Factor Xa Inhibitor Start: 05-14-2022 Eliquis 5 MG tablet every 12 (twelve) hours 05/14/2022 Active Start: 05-14-2022 End: 05-27-2023 take 1 tablet by mouth in the morning, then take 1 tablet by mouth at bedtime, then take 1 tablet by mouth twice daily apixaban (ELIQUIS) 5 mg tablet Take 1 tablet (5 mg total) by mouth in the morning and 1 tablet (5 mg total) before bedtime. TAKE 1 TABLET TWICE DAILY. 05/27/2023 Active aztreonam 2,000 mg in sodium chloride 0.9 % 50 mL IVPB MINI-BAG Plus (3 sources) Start: 04-07-2023 End: 04-30-2023 take 2000 mg intravenously every eight hours aztreonam 2,000 mg in sodium chloride 0.9 % 50 mL IVPB MINI-BAG Plus Infuse 2,000 mg into a venous catheter every 8 (eight) hours for 23 days. 0 04/07/2023 04/30/2023 Active Blood Glucose Monitoring Suppl (True Metrix Air Glucose Meter) w/Device kit (14 sources) Start: 08-16-2022 Blood Glucose Monitoring Suppl (True Metrix Air Glucose Meter) w/Device kit 08/16/2022 Active budesonide 0.25 mg/ml inhalation suspension (8 sources) Corticosteroid End: 11-20-2023 take 0.5 mg by mouth in the morning budesonide (Pulmicort) 0.5 MG/2ML nebulizer solution Take 0.5 mg by nebulization in the morning. Rinse mouth with water after use to reduce aftertaste and incidence of candidiasis. Do not swallow.. 11/20/2023 Discontinued End: 10-22-2023 take 2 mL by inhalation at bedtime budesonide (PULMICORT) 0.5 mg/2 mL nebulizer solution Inhale 2 mL (0.5 mg total) by nebulization in the morning and at bedtime. 10/22/2023 Discontinued carvedilol 25 mg oral tablet (20 sources) alpha-Adrenergic Michael, beta-Adrenergic Michael Start: 07-24-2022 carvedilol (Core g) 25 MG tablet 07/24/2022 Active cholecalciferol 0.05 mg oral capsule (20 sources) Vitamin D cholecalciferol (Vitamin D-3) 50 MCG (1999) capsule 1 capsule 1 (one) time each day at the same time Active take 1 capsule by ut in the morning cholecalciferol, vitamin D3, 2,000 units capsule Take 1 capsule (2,000 Units total) by mouth in the morning. Active cholecalciferol, vitamin D3, (VITAMIN D3 ORAL) (2 sources) take 1000 mg by mouth once daily cholecalciferol, vitamin D3, (VITAMIN D3 ORAL) Take 1,000 mg by mouth daily. 0 Active clobetasol propionate 0.5 mg/ml topical solution (19 sources) Corticosteroid Start: 024 clobetasol (Temovate) 0.05 % external solution Apply 1 Application topically Daily as needed 09/01/2023 Active clopidogrel 75 mg oral tablet (20 sources) [id number] Platelet Inhibitor Start: End: take 75 mg by mouth once daily Clopidogrel Active 75 MG PO Daily May 09, 2023 1:00am colchicine 0.6 mg oral capsule (20 sources) Start: take 0.6 mg by mouth once daily Colchicine Active 0.6 MG PO Daily July 17, 2023 12:00am End: 10-22-2023 colchicine 0.6 MG tablet Naveed e by mouth Daily Active dapagliflozin 5 mg oral tablet (8 sources) Sodium-Glucose Cotransporter 2 Inhibitor Start: 10-15-2022 take 1 tablet by mouth every twenty-four hours Farxiga 5 MG 1 tablet Orally Once a day for 30 days Sep, Active DAPTOmycin in sodium chloride 0.9 % 50 mL IVPB (3 sources) Start: 04-07-2023 End: 04-30-2023 DAPTOmycin in sodium chloride 0.9 % 50 mL IVPB Infuse 625mg IV daily until April 30, 2023. WBC, platelets, creatinine, CK, LFTs twice weekly while on antibiotics. Fax results to ID. Remove PICC line at end of treatment or earlier if indicated 0 04/07/2023 04/30/2023 Active Dexcom G7 Sensor - (12 sources) Start: 09-01-2022 Start: 09-01-2022 Dexcom G7 Sens or - as directed in vitro every 10 days for 90 days [place] [facility] [place] Active Dexcom G7 Sensor - as directed in vitro every 10 days for 90 days Has supplies, retrial with Skin-Prep, antihistamine spray Active Dexcom G7 Sensor - as directed in vitro every 10 days for 90 days Has supplies, retrial with Skin-Prep Active Dexcom G7 Sensor - as directed in vitro every 10 days for 90 days Send [place] [facility] ferrous sulfate (14 sources) Start: 04-07-2023 take 1 tablet by mouth in the morning Ferrous Sulfate (IRON PO) Take 1 tablet by mouth in the morning. 04/07/2023 Active Glucose Blood (GLUCOMETER DEX GLUCOSE SENSORS ) (5 sources) Start: 05-05-2024 Glucose Blood (GLUCOMETER DEX GLUCOSE SENSORS ) Glucometer 05/05/2024 Active hydrALAZINE hydrochloride 50 mg oral tablet (20 sources) Arteriolar Vasodilator Start: 06-18-2022 hydrALAZINE (Apresoline) 50 MG tablet 06/18/2022 Active hydrocortisone 10 mg/ml topical cream (2 sources) Corticosteroid Start: 10-14-2022 hydrocortisone (HYTONE) 1 % cream Apply to affected area 2 times daily 15 g 0 10/14/2022 Active Insulin Aspart U-100 (Novolog Flexpen U-100 Insulin) 100 unit/mL (3 mL) insulin pen (1 source) Start: 05-09-2023 Insulin Aspart U-100 (Novolog Flexpen U-100 Insulin) 100 unit/mL (3 mL) insulin pen Active 1 sliding scale dose SUBCUT Use as Directed May 09, 2023 1:00am 3 ml insulin aspart, human 100 unt/ml pen injector (20 sources) Insulin Analog NovoLOG FLEXPEN 100 UNIT/ML pen Active NovoLOG FlexPen 100 UNIT/ML ISS 1:15 and ICR 1:5 Subcutaneous 4 x daily for 90 days Active inject 0.18-0.22 mL by subcutaneous injection four times daily at mealtime insulin aspart U-100 (NovoLOG) 100 unit/mL injection Inject 0.18-0.22 mL (18-22 Units total) under the skin 4 (four) times a day with meals and nightly. SLIDING SCALE 0 Active 3 ml insulin degludec 100 unt/ml pen injector (20 sources) Insulin Analog Start: 04-07-2023 insulin deglud ec (TRESIBA) 100 unit/mL (3 mL) insulin pen Inject 55 Units under the skin nightly. 04/07/2023 Active Tresiba FlexTouc h 100 UNIT/ML injection Active inject 42 [IU] by maldonado bcutaneous injection once daily at bedtime Tresiba FlexTouch 100 UNIT/ML injection Inject 42 units every day by subcutaneous route at bedtime. Active inject 50 [IU] by maldonado bcutaneous injection once daily, then inject 70 [IU] by subcutaneous injection once daily Tresiba FlexTouch 100 UNIT/ML 53 u Subcutaneous daily for 90 days 50 u daily when starts farxiga. Titrate to 70 u daily Active inject 58 [IU] by maldonado bcutaneous injection once daily Tresiba FlexTouch 100 UNIT/ML 58 units Subcutaneous daily for 90 days Active Insulin Degludec (Tresiba Flextouch U-100) 100 unit/mL (3 mL) insulin pen (2 sources) Start: 07-17-2023 Insulin Deglud ec (Tresiba Flextouch U-100) 100 unit/mL (3 mL) insulin pen Active 40 UNIT SUBCUT Daily July 17, 2023 8:37am Start: 05-09-2023 End: 07-17-2023 Insulin Degludec (Tresiba Fl extouch U-100) 100 unit/mL (3 mL) insulin pen Discontinued 53 UNIT SUBCUT Daily May 09, 2023 1:00am July 17, 2023 8:43am 3 ml insulin lispro 100 unt/ml pen injector (20 sources) Insulin Analog Start: 04-07-2023 insulin lispro (HumaLOG) 100 UNIT/ML injection Inject 2-10 Units under the skin in the morning and 2-10 Units at noon and 2-10 Units in the evening. Inject with meals. 04/07/2023 Active Start: 04-07-2023 End: 10-22-2023 inject 2-8 [IU] by subcutaneous injection once daily insulin lispro (HumaLOG) 100 unit/mL insulin pen Inject 2-8 Units under the skin nightly. 04/07/2023 10/22/2023 Discontinued ipratropium bromide 0.2 mg/ml inhalation solution (3 sources) Anticholinergic End: 11-20-2023 ipratropium (Atrovent) 0.02 % nebulizer solution Take by nebulization every 6 (six) hours 11/20/2023 Discontinued (Med list cleanup) isopropyl alcohol 0.7 ml/ml medicated pad (14 sources) Start: 08-20-2022 Alcohol Swabs (DropSafe Alcohol Prep) 70 % pads 08/20/2022 Active levothyroxine sodium 0.112 mg oral tablet (20 sources) l-Thyroxine Start: 05-14-2024 Synthroid 112 MCG tablet 05/14/2024 Active Start: 05-09-2023 End: 07-17-2023 take 112 ug by mouth once daily Levothyroxine Disconti nued 112 MCG PO Daily May 09, 2023 1:00am July 17, 2023 8:35am Start: 04-07-2023 End: 10-22-2023 levothyroxine (Synthroid, Le voxyl) 100 MCG tablet 05/09/2023 Active Start: 08-19-2022 End: 11-20-2023 Levothyroxine Sodium 100 MCG /5ML solution 1 (one) time each day at the same time 08/19/2022 11/20/2023 Discontinued (Med list cleanup) Start: 08-19-2022 Levothyroxine Sodium 100 MCG/5ML solution 1 (one) time each day at the same time 08/19/2022 Active take 1 tablet by violetta th in the morning levothyroxine (SYNTHROID, LEVOTHROID) 100 MCG tablet Take 1 tablet (100 mcg total) by mouth in the morning. 0 Active take 1 tablet by violetta th once daily in the morning Levothyroxine Sodium 112 MCG 1 tablet in the morning on an empty stomach Orally Once a day Active LORazepam 0.5 mg oral tablet (20 sources) Benzodiazepine Start: 05-09-2023 LORazepam (Ati van) 0.5 MG tablet 05/09/2023 Active Start: 02-08-2021 take 1 tablet by violetta th once as needed LORazepam (ATIVAN) 0.5 mg tablet Indications: Claustrophobia Take 1 tablet (0.5 mg total) by mouth once as needed for anxiety for up to 1 dose. Ok to take extra 0.5 mg if no symptom relief (clautrophobia) with 0.5mg 2 tablet 0 02/08/2021 Active meclizine hydrochloride 25 mg chewable tablet (20 sources) Antiemetic Start: 05-09-2023 take 25 mg by mouth every twelve hours Meclizine Active 25 MG PO Every 12 hours May 09, 2023 1:00am Start: 04-07-2023 End: 10-22-2023 take 1 tablet by mouth three times daily as needed for dizziness meclizine (ANTIVERT) 25 mg tablet Take 1 tablet (25 mg total) by mouth 3 (three) times a day as needed for dizziness. 04/07/2023 Active take 1 tablet by violetta th twice daily as needed for dizziness meclizine (ANTIVERT) 25 mg tablet Take 1 tablet (25 mg total) by mouth 2 (two) times a day as needed for dizziness. Active take 1 tablet by violetta th every twelve hours Meclizine HCl 25 MG 1 tablet as needed Orally every 12 hrs Active metoclopramide 10 mg oral tablet (6 sources) Dopamine-2 Receptor Antagonist Start: 04-12-2024 take 1 tablet by mouth in the morning metoclopramide (Reglan) 10 MG tablet Take 10 mg by mouth in the morning and 10 mg in the evening. Take before meals. 04/12/2024 Active metroNIDAZOLE 500 mg oral tablet (2 sources) Nitroimidazole Antimicrobial Start: 04-07-2023 End: 04-16-2023 take 1 tablet by mouth every eight hours metroNIDAZOLE (FLAGYL) 500 mg tablet Take 1 tablet (500 mg total) by mouth every 8 (eight) hours for 9 days. 0 04/07/2023 04/16/2023 Active montelukast 10 mg oral tablet (20 sources) Leukotriene Receptor Antagonist Start: 04-07-2023 take 1 tablet by mouth once daily montelukast (SINGULAIR) 10 mg tablet Take 1 tablet (10 mg total) by mouth nightly. 04/07/2023 Active MULTIPLE VITAMIN PO (14 sources) MULTIPLE VITAMIN PO Take by mouth Active cvhrhzpv-tpxb-KC-alfred cium &mins (THERAGRAN-M) 9 mg iron-400 mcg tablet (14 sources) Start: 04-07-2023 womdzpwq-pwag-DR-ca lcium &mins (THERAGRAN-M) 9 mg iron-400 mcg tablet Take 1 tablet by mouth in the morning. 04/07/2023 Active Start: 04-07-2023 multivit-iron- FA-calcium &mins (THERAGRAN-M) 9 mg iron-400 mcg tablet Take 1 tablet by mouth in the morning. 0 04/07/2023 Active nystatin 100 unt/mg topical powder (6 sources) Polyene Antifungal Start: 03-09-2024 nystatin (M ycostatin) 704820 UNIT/GM powder 03/09/2024 Active ondansetron 8 mg disintegrating oral tablet (18 sources) Serotonin-3 Receptor Antagonist Start: 04-12-2024 ondansetron ODT (Zofran-ODT) 8 MG disintegrating tablet DISSOLVE 1 TABLET ON TOUNGE NEEDED ONCE DAILY FOR 30 DAYS 04/12/2024 Active End: 11-20-2023 ondansetron (Zofran) 4 MG ta blet Take by mouth 11/20/2023 Discontinued (Med list cleanup) Ondansetron Not- Taking pantoprazole 40 mg delayed release oral tablet (20 sources) Proton Pump Inhibitor Start: 04-04-2022 End: 11-20-2023 take 1 tablet by mouth once daily before breakfast pantoprazole (PROTONIX) 40 mg EC tablet Take 1 tablet (40 mg total) by mouth every morning before breakfast. 04/08/2023 Active peg 3350-sod sulf,hopp-rrr-prz 178.7-7.3-0.5 gram recon soln (1 source) Start: 10-20-2023 End: 10-21-2023 peg 3350-sod sulf,bmfo-pqm-tps 178.7-7.3-0.5 gram recon soln Indications: Encounter for colonoscopy due to history of colonic polyp , Encounter for colonoscopy in patient with family history of colon cancer Take 1 kit by mouth once daily for 1 dose. Please see instructional sheet given by physicians office. 1 each 10/20/2023 10/21/2023 Active polyethylene glycol 3350 05835 mg powder for oral solution (2 sources) Osmotic Laxative polyethylene gl ycol (GLYCOLAX) 17 gram packet Take 17 g by mouth daily as needed. 0 Active pseudoephedrine hydrochloride 30 mg oral tablet (3 sources) alpha-Adrenergic Agonist End: 11-20-2023 take 1 tablet by mouth every four hours as needed for congestion pseudoephedrine (Sudafed) 30 MG tablet Take 30 mg by mouth every 4 (four) hours if needed for congestion 11/20/2023 Discontinued (Med list cleanup) spironolactone 25 mg oral tablet (20 sources) Aldosterone Antagonist Start: 05-14-2024 spironolactone (Aldactone) 25 MG tablet 05/14/2024 Active Start: 11-18-2022 End: 11-20-2023 take 1 tablet by mouth in the morning spironolactone (ALDACTONE) 25 mg tablet Take 1 tablet (25 mg total) by mouth in the morning. 04/07/2023 Active sucralfate 1000 mg oral tablet (8 sources) Aluminum Complex Start: 07-17-2023 take 1 g by mouth once before mealtime Sucralfate Active 1 GM PO 3x/Day before meals & bedtime July 17, 2023 12:00am Start: 05-09-2023 End: 10-20-2023 take 1 tablet by mouth every eight hours sucralfate (CARAFATE) 1 gram tablet Take 1 tablet (1 g total) by mouth every 8 (eight) hours. 05/09/2023 10/20/2023 Discontinued (Therapy completed) End: 11-20-2023 sucralfate (Carafate) 1 g ta blet Take by mouth 4 (four) times a day before meals 11/20/2023 Discontinued (Med list cleanup) 28 actuat tiotropium 0.51190 mg/actuat inhalation spray (20 sources) Anticholinergic Start: 10-23-2023 Spiriva Respim at 1.25 MCG/ACT inhaler 10/23/2023 Active Start: 05-09-2023 take 1 puff(s) by in halation once daily Tiotropium [place] (Spiriva Respimat) 1.25 mcg/actuation mist Active 2 PUFF INHALATION Daily May 09, 2023 1:00am Start: 04-07-2023 tiotropium bro mide (SPIRIVA RESPIMAT) 1.25 mcg/actuation mist Inhale 2.5 mcg in the morning. 4 g 04/07/2023 Active Start: 05-28-2020 tiotropium bro mide (SPIRIVA RESPIMAT) 1.25 mcg/actuation mist Inhale 2.5 mcg daily. 4 g 0 05/28/2020 Active End: 11-20-2023 tiotropium (Spiriva Respimat ) 2.5 MCG/ACT inhaler 1 (one) time each day at the same time 11/20/2023 Discontinued (Med list cleanup) take 1.25 ug by inha lation once daily Spiriva Respimat 1.25 MCG/ACT 2 puffs Inhalation Once a day Active take 1.25 ug by inha lation once daily Spiriva Respimat 1.25 MCG/ACT 2 puffs Inhalation Once a day Active traZODone hydrochloride 50 mg oral tablet (15 sources) Serotonin Reuptake Inhibitor Start: 07-17-2023 take 50 mg by mouth once daily at bedtime Trazodone Active 50 MG PO Daily at bedtime July 17, 2023 12:00am True Metrix Air Glucose Meter - (12 sources) True Metrix Air Glucose Meter - as directed Active True Metrix Blood Glucose Te st - (12 sources) True Metrix Bloo d Glucose Test - test blood sugar In Vitro 4 times a day Active Completed/Discontinued Medications Medication Drug Class(es) Dates Sig (Normalized) Sig (Original) albuterol 0.833 mg/ml / ipratropium bromide 0.167 mg/ml inhalation solution (15 sources) Anticholinergic, beta2-Adrenergic Agonist Start: 04-07-2023 End: 10-22-2023 take 3 mL by inhalation every six hours as needed for wheezing and dyspnea and chronic obstructive pulmonary disease and chronic obstructive pulmonary disease ipratropium-albuter oL (DUONEB) 0.5 mg-3 mg(2.5 mg base)/3 mL nebulizer Indications: Chronic obstructive pulmonary disease, unspecified COPD type ([facility]) Inhale 3 mL by nebulization every 6 (six) hours as needed for wheezing or shortness of breath. 04/07/2023 10/22/2023 Discontinued End: 11-20-2023 ipratropium-albuterol (Duo-N eb) 0.5-2.5 mg/3 mL nebulizer solution Take 3 mL by nebulization 4 (four) times a day as needed for wheezing. 11/20/2023 Discontinued (Med list cleanup) ipratropium-albu teroL (DUO-NEB) 0.5 mg-3 mg(2.5 mg base)/3 mL nebulizer Inhale 3 mL by nebulization in the morning and 3 mL at noon and 3 mL in the evening and 3 mL before bedtime. 0 Active amLODIPine (9 sources) Dihydropyridine Calcium Channel Michael amLODIPine Besyl ate Not-Taking aspirin 81 mg delayed release oral tablet (6 sources) Platelet Aggregation Inhibitor, Nonsteroidal Anti-inflammatory Drug End: 05-27-2023 take 1 tablet by mouth in the morning aspirin 81 mg Take 1 tablet (81 mg total) by mouth in the morning. 0 05/27/2023 Discontinued (Therapy completed) bisacodyl 10 mg rectal suppository (5 sources) Stimulant Laxative End: 10-22-2023 bisacodyL (DULCOLAX, BISACODYL,) 10 mg suppository Insert 1 suppository (10 mg total) into the rectum in the morning. 10/22/2023 Discontinued Clindamycin (9 sources) Lincosamide Antibacterial Clindamycin HCl Not-Taking cyclobenzaprine (9 sources) Muscle Relaxant Cyclobenzaprine HCl Not-Taking docusate sodium 50 mg / sennosides, group home 8.6 mg oral tablet (12 sources) Start: 04-07-2023 End: 10-20-2023 take 1 tablet by mouth once as needed sennosides-docusate sodium (SENOKOT-S) 8.6-50 mg Take 1 tablet by mouth every 12 (twelve) hours as needed for constipation. 04/07/2023 10/20/2023 Discontinued (Therapy completed) End: 11-20-2023 take 1 tablet by mouth once daily senna-docusate sodium (Senokot-S) 8.6-50 MG tablet Take 1 tablet by mouth Daily 11/20/2023 Discontinued (Med list cleanup) empagliflozin 10 mg oral tablet (18 sources) Sodium-Glucose Cotransporter 2 Inhibitor Start: 09-01-2022 take 1 tablet by mouth every twenty-four hours Jardiance 10 MG 1 tablet Orally Once a day for 14 days Aug, Not-Taking Start: 09-01-2022 take 1 tablet by violetta th every twenty-four hours Jardiance 25 MG 1 tablet Orally Once a day for 90 days Aug, Not-Taking glimepiride (9 sources) Sulfonylurea Glimepiride Not- Taking sodium hypochlorite 2.5 mg/ml topical solution (10 sources) Start: 04-08-2023 End: 10-22-2023 sodium hypochlorite (DAKIN'S, HALF-STRENGTH,) 0.25 % external solution Apply 1 Application topically in the morning. 04/08/2023 10/22/2023 Discontinued lactobacillus acidophilus [id number] unt / pectin 100 mg oral tablet (5 sources) End: 10-22-2023 take 1 tablet by mouth in the morning acidophilus-pectin, citrus 25 million cell -100 mg tablet Take 1 tablet by mouth in the morning and 1 tablet in the evening. Take with meals. 10/22/2023 Discontinued Levemir FlexTouch (9 sources) Levemir FlexTouc h Not-Taking liraglutide (9 sources) GLP-1 Receptor Agonist Victoza Not-Taki ng metFORMIN (9 sources) Biguanide metFORMIN HCl ER Not-Taking 125 ml sodium chloride 9 mg/ ml prefilled syringe (20 sources) Start: 04-07-2023 End: 10-22-2023 sodium chloride 0.9 % inject ion Infuse 20 mL into a venous catheter as needed for line care. 04/07/2023 10/22/2023 Discontinued Start: 04-07-2023 End: 10-20-2023 take 10 mL intravenously every twelve hours sodium chloride 0.9 % injection Infuse 10 mL into a venous catheter every 12 (twelve) hours. 04/07/2023 10/20/2023 Discontinued (Therapy completed) Problems Active Problems Problem Classification Problem Date Documented Da te Episodic/Chronic Acute cerebrovascular disease (20 sources) Cerebral infarction, unspecified; Translations: [Cerebral artery occlusion, unspecified with cerebral infarction] Onset: 02-12-2018 10-02-2022 Chronic Asthma (20 sources) Unspecified asthma, uncomplicated; Translations: [Asthma] Onset: 03-19-2017 10-02-2022 Chronic Cardiac dysrhythmias (20 sources) Paroxysmal atrial fibrillation; Translations: [Paroxysmal atrial fibrillation] Onset: 03-06-2020 Resolved: 07-27-2024 10-02-2022 Chronic Chronic kidney disease (20 sources) Chronic kidney disease; Translations: [Chronic kidney disease, unspecified] Onset: 11-19-2023 Resolved: 07-27-2024 Chronic Chronic kidney disease (1 source) Chronic kidney disease; Translations: [Chronic kidney disease, stage 3b] Onset: 04-22-2024 Chronic obstructive pulmonary disease and bronchiectasis (20 sources) Chronic obstructive pulmonary disease, unspecified; Translations: [Chronic obstructive lung disease] Onset: 04-03-2023 Resolved: 07-22-2024 11-19-2023 Chronic Deficiency and other anemia (1 source) Anemia, unspecified; Translations: [ANEMIA UNSPECIFIED] Onset: 04-09-2020 Episodic Diabetes mellitus with complications (20 sources) Type 2 diabetes mellitus with diabetic neuropathy, unspecified; Translations: [Hyperglycemia due to type 2 diabetes mellitus] Onset: 04-09-2020 Resolved: 07-27-2024 Chronic Diabetes mellitus without complication (20 sources) Type 2 diabetes mellitus without complication; Translations: [Type 2 diabetes mellitus without complications] Onset: 07-16-2012 10-02-2022 Chronic Essential hypertension (20 sources) Essential (primary) hypertension; Translations: [Essential hypertension] Onset: 08-17-2018 Chronic Nausea and vomiting (13 sources) Nausea; Translations: [Nausea] Onset: 10-09-2024 Episodic Osteoarthritis (20 sources) Osteoarthritis; Translations: [Unspecified osteoarthritis, unspecified site] Onset: 07-12-2012 10-02-2022 Chronic Other aftercare (6 sources) USP (current) use of insulin; Translations: [ACUTE CARE NURSE CURRENT USE OF INSULIN] Onset: 04-09-2020 Episodic Other aftercare (1 source) Other supervisor intermediates (current) drug therapy; Translations: [OTH CUSTODIAL CURRENT DRUG THERAPY] Onset: 04-09-2020 Episodic Other aftercare (1 source) USP (current) use of anticoagulants; Translations: [CUSTODIAL CURRNT USE ANTICOAGULANTS] Onset: 04-09-2020 Episodic Other aftercare (1 source) Encounter for adjustment and management of vascular access device; Translations: [Encounter for adjustment and management of vascular access device] Onset: 05-05-2023 Episodic Other and unspecified benign neoplasm (1 source) Benign neoplasm of transverse colon; Translations: [BENIGN NEOPLASM OF TRANSVERSE COLON] Onset: 04-09-2020 Episodic Other circulatory disease (20 sources) History of cardiovascular surgery; Translations: [Presence of other cardiac implants and grafts] Onset: 08-04-2018 10-02-2022 Chronic Other connective tissue disease (2 sources) Necrotizing fasciitis; Translations: [Necrotizing fasciitis] Onset: 04-03-2023 Episodic Other connective tissue disease (2 sources) Pain in hallux; Translations: [Pain in right toe(s)] 12-29-2023 Episodic Other lower respiratory disease (1 source) Cough; Translations: [COUGH] Onset: 04-27-2020 Episodic Other nervous system disorders (14 sources) Bilateral carpal tunnel syndrome; Translations: [Carpal tunnel syndrome, bilateral upper limbs] Onset: 07-16-2012 10-02-2022 Chronic Other nervous system disorders (1 source) Other acute postprocedural pain; Translations: [Other acute postprocedural pain] Onset: 04-03-2023 Episodic Other nutritional; endocrine; and metabolic disorders (1 source) Obesity, unspecified; Translations: [OBESITY UNSPECIFIED] Onset: 04-09-2020 Chronic Other nutritional; endocrine; and metabolic disorders (20 sources) Body mass index 40+ - severely obese; Translations: [Body mass index (BMI) 50.0-59.9, adult] Onset: 12-14-2018 05-09-2023 Chronic Other nutritional; endocrine; and metabolic disorders (5 sources) Body mass index (BMI) 50.0-59.9, adult; Translations: [Body mass index (BMI) 50.0-59.9, adult] Onset: 04-04-2023 Chronic Other nutritional; endocrine; and metabolic disorders (20 sources) Severe obesity; Translations: [Class 3 severe obesity in adult] Onset: 03-06-2020 10-02-2022 Chronic Other screening for suspected conditions (not mental disorders or infectious disease) (15 sources) Elevated liver enzymes level; Translations: [Other specified abnormal findings of blood chemistry] Onset: 10-20-2023 10-20-2023 Episodic Other upper respiratory disease (1 source) Allergic rhinitis, unspecified; Translations: [ALLERGIC RHINITIS UNSPECIFIED] Onset: 04-09-2020 Chronic Residual codes; unclassified (1 source) Obstructive sleep apnea (adult) (pediatric); Translations: [OBSTRUCTIVE SLEEP APNEA] Onset: 04-09-2020 Chronic Residual codes; unclassified (20 sources) Obstructive sleep apnea syndrome; Translations: [Obstructive sleep apnea (adult) (pediatric)] Onset: 03-19-2017 Resolved: 07-27-2024 10-02-2022 Chronic Residual codes; unclassified (1 source) Acquired absence of other specified parts of digestive tract; Translations: [ACQ ABSENCE OTH PART DIGESTV TRACT] Onset: 04-09-2020 Episodic Residual codes; unclassified (1 source) Acquired absence of both cervix and uterus; Translations: [ACQUIRED ABSENCE BOTH CERVIX AND UTERUS] Onset: 04-09-2020 Episodic Residual codes; unclassified (1 source) Encounter for procedure for purposes other than remedying health state, unspecified; Translations: [Encounter for procedure for purposes other than remedying health state, unspecified] Onset: 04-03-2023 Episodic Residual codes; unclassified (1 source) Family history of malignant neoplasm of digestive organs; Translations: [Family history of malignant neoplasm of digestive organs] Onset: 10-20-2023 Episodic Superficial injury; contusion (2 sources) Subungual hematoma of great toe of right foot; Translations: [Contusion of right great toe with damage to nail, sequela] 12-29-2023 Episodic Transient cerebral ischemia (20 sources) Transient cerebral ischemia; Translations: [Transient cerebral ischemic attack, unspecified] Onset: 02-27-2018 10-02-2022 Chronic Unclassified (4 sources) CONTACT W/AND (SUSP) EXPOS COVID-19; Translations: [CONTACT W/AND (SUSP) EXPOS COVID-19] Onset: 04-06-2020 Unclassified (1 source) Colon Cancer Screening Onset: 10-20-2023 Unclassified (1 source) history of colon polyps Onset: 11-11-2023 Past or Other Problems Problem Classification Problem Date Documented Da te Episodic/Chronic Acute and unspecified renal failure (20 sources) Acute renal failure syndrome; Translations: [Acute kidney failure, unspecified] Onset: 7 Resolved: 4 10-02-2022 Episodic Administrative/social admission (19 sources) Dietary counseling and surveillance; Translations: [Patient encounter status] Onset: 4 Resolved: Episodic Anal and rectal conditions (1 source) Perirectal abscess; Translations: [Rectal abscess] 05-05-2023 Episodic Bacterial infection; unspecified site (1 source) Infection due to enterococcus; Translations: [Other bacterial infections of unspecified site] 05-05-2023 Episodic Calculus of urinary tract (20 sources) Kidney stone; Translations: [Calculus of kidney] Onset: 4 Resolved: 5 11-19-2023 Episodic Conditions associated with dizziness or vertigo (16 sources) Dizziness and giddiness; Translations: [Dizziness and giddiness] Onset: 4 Resolved: 4 11-19-2023 Episodic Deficiency and other anemia (20 sources) Iron deficiency anemia; Translations: [Iron deficiency anemia, unspecified] Onset: 4 Resolved: 5 11-19-2023 Episodic Disorders of lipid metabolism (20 sources) Hyperlipidemia; Translations: [Hyperlipidemia, unspecified] Onset: 4 Resolved: Chronic Diverticulosis and diverticulitis (14 sources) Diverticula of intestine; Translations: [Diverticulosis of intestine, part unspecified, without perforation or abscess without bleeding] Onset: 4 Resolved: 4 11-19-2023 Chronic Esophageal disorders (19 sources) Gastroesophageal reflux disease without esophagitis; Translations: [Gastro-esophageal reflux disease without esophagitis] Onset: 4 Resolved: 5 11-19-2023 Chronic Gout and other crystal arthropathies (5 sources) Gout; Translations: [Gout, unspecified] Onset: 5 Resolved: 5 07-27-2024 Chronic Hemorrhoids (20 sources) Hemorrhoids; Translations: [Unspecified hemorrhoids] Onset: 4 Resolved: 5 11-19-2023 Episodic Immunizations and screening for infectious disease (20 sources) Influenza vaccination given; Translations: [Encounter for immunization] Onset: 8 10-02-2022 Episodic Malaise and fatigue (20 sources) Fatigue; Translations: [Other fatigue] Onset: 4 Resolved: 5 11-19-2023 Episodic Mood disorders (16 sources) Mood disorders Onset: 9 12-21-2018 Nonmalignant breast conditions (5 sources) Fibrosclerosis of left breast; Translations: [Fibrosclerosis of breast] Onset: 5 Resolved: 5 07-27-2024 Chronic Nutritional deficiencies (20 sources) Vitamin D deficiency, unspecified; Translations: [Vitamin D deficiency] Onset: 1 Resolved: 4 Chronic Other aftercare (20 sources) Long-term current use of insulin; Translations: [USP (current) use of insulin] Onset: 4 Resolved: 4 05-09-2023 Episodic Other aftercare (1 source) Post-discharge follow-up; Translations: [Encounter for follow-up examination after completed treatment for conditions other than malignant neoplasm] 05-05-2023 Episodic Other aftercare (1 source) Peripherally inserted central venous catheter in situ; Translations: [Encounter for adjustment and management of vascular access device] 05-05-2023 Episodic Other aftercare (7 sources) Long-term current use of anticoagulant; Translations: [long term care social worker (current) use of anticoagulants] Onset: 4 Resolved: 5 05-05-2023 Episodic Other and ill-defined cerebrovascular disease (6 sources) Cerebrovascular disease; Translations: [Cerebrovascular disease, unspecified] Onset: 4 Resolved: 5 07-22-2024 Chronic Other and unspecified benign neoplasm (6 sources) Personal history of colonic polyps; Translations: [PERSONAL HISTORY OF COLONIC POLYPS] Onset: 1 Episodic Other circulatory disease (14 sources) History of cerebrovascular disease; Translations: [Personal history of transient ischemic attack (TIA), and cerebral infarction without residual deficits] Onset: 4 Resolved: 4 11-19-2023 Episodic Other connective tissue disease (20 sources) Necrotizing fasciitis; Translations: [Necrotizing fasciitis] Onset: 4 Resolved: 4 11-19-2023 Episodic Other connective tissue disease (14 sources) Lateral epicondylitis; Translations: [Lateral epicondylitis, unspecified elbow] Onset: 3 10-02-2022 Episodic Other connective tissue disease (20 sources) Muscle weakness; Translations: [Muscle weakness (generalized)] Onset: 4 Resolved: 5 11-19-2023 Episodic Other diseases of kidney and ureters (1 source) Disorder of kidney and ureter, unspecified; Translations: [Disorder of kidney and ureter, unspecified] Onset: 5 Episodic Other gastrointestinal disorders (20 sources) Diarrhea; Translations: [Diarrhea, unspecified] Onset: 7 10-02-2022 Episodic Other gastrointestinal disorders (2 sources) Diarrhea, unspecified; Translations: [Diarrhea] Onset: 7 Episodic Other gastrointestinal disorders (20 sources) Esophageal dysphagia; Translations: [Other dysphagia] Onset: 7 10-02-2022 Episodic Other gastrointestinal disorders (20 sources) Constipation; Translations: [Constipation, unspecified] Onset: 4 Resolved: 5 11-19-2023 Episodic Other inflammatory condition of skin (5 sources) Scalp psoriasis; Translations: [Psoriasis, unspecified] Onset: 5 Resolved: 5 07-27-2024 Chronic Other lower respiratory disease (20 sources) Nodule of lung; Translations: [Solitary pulmonary nodule] Onset: 8 10-02-2022 Episodic Other nervous system disorders (14 sources) Carpal tunnel syndrome; Translations: [Carpal tunnel syndrome, unspecified upper limb] Onset: 3 Resolved: 4 05-07-2023 Chronic Other nervous system disorders (20 sources) Difficulty walking; Translations: [Difficulty in walking, not elsewhere classified] Onset: 4 Resolved: 5 11-19-2023 Chronic Other nutritional; endocrine; and metabolic disorders (12 sources) Morbid obesity; Translations: [Morbid (severe) obesity due to excess calories] Onset: 4 Resolved: 5 05-05-2023 Chronic Other upper respiratory disease (5 sources) Seasonal allergy; Translations: [Other seasonal allergic rhinitis] Onset: 5 Resolved: 5 07-27-2024 Chronic Residual codes; unclassified (14 sources) Dependence on enabling machine or device; Translations: [Dependence on other enabling machines and devices] Onset: 4 Resolved: 4 11-19-2023 Chronic Spondylosis; intervertebral disc disorders; other back problems (5 sources) Degeneration of lumbar intervertebral disc; Translations: [DDD (degenerative disc disease), lumbar] Onset: 5 Resolved: 5 07-27-2024 Chronic Thyroid disorders (20 sources) Hypothyroidism, unspecified; Translations: [Hypothyroidism] Onset: 1 Resolved: 5 11-19-2023 Chronic Unclassified (1 source) CONTACT W/AND (SUSP) EXPOS COVID-19; Translations: [CONTACT W/AND (SUSP) EXPOS COVID-19] Onset: 1 Urinary tract infections (20 sources) Urinary tract infection, site not specified; Translations: [Acute cystitis] Onset: 4 Resolved: 4 11-19-2023 Episodic Results Test Name Value Interpretation Reference Range Facility BASIC METABOLIC PANELon 09-30 Anion gap [Moles/Vol] 4 mmol/L Low 5-15 [facility] Comment on above: Performed By: #### 7 18-7, BMP #### [facility] ([id number]) [address], [address] [place] [address] Calcium [Mass/Vol] 8.6 mg/dL Normal 8.5-10.5 [facility] Comment on above: Performed By: #### 7 18-7, BMP #### [facility] ([id number]) [address], [address] [place] [address] Chloride [Moles/Vol] 110 mmol/L High 98-[address] [facility] Comment on above: Performed By: #### 7 18-7, BMP #### [facility] ([id number]) [address], [address] [place] [address] CO2 [Moles/Vol] 23 mmol/L Normal 22-32 [facility] Comment on above: Performed By: #### 7 18-7, BMP #### [facility] ([id number]) [address], [address] [place] [address] Creatinine [Mass/Vol] 1.42 mg/dL High 0.40-1.00 [facility] Comment on above: Result Comment: METH OD TRACEABLE TO IDMS STANDARD Performed By: #### 7 18-7, BMP #### [facility] ([id number]) [address], [address] [place] [address] GFR/1.73 sq M.predicted among non-blacks MDRD (S/P/Bld) [Vol rate/Area] 40 mL/min/{1.73_m2} Low >=60 [facility] Comment on above: Result Comment: eGFR not reported due to non-numeric value for Creatinine. Reported eGFR is based on the CKD-EPI 202 equation that does not use a race coefficient. Performed By: #### 7 18-7, BMP #### [facility] ([id number]) [address], [facility] [address] [place] [address] Glucose [Mass/Vol] 187 mg/dL High 65-99 [facility] Comment on above: Performed By: #### 7 -7, BMP #### [facility] ([id number]) [address] [address] [place] [address] Potassium [Moles/Vol] 4.4 mmol/L Normal 3.5-5.0 [facility] Comment on above: Performed By: #### 7 -7, BMP #### [facility] ([id number]) [address], [address] [place] [address] Sodium [Moles/Vol] 137 mmol/L Normal 134-146 [facility] Comment on above: Performed By: #### 7 -7, BMP #### [facility] ([id number]) [address], [facility] [address] [place] [address] Urea nitrogen [Mass/Vol] 30 mg/dL High 5-27 [facility] Comment on above: Performed By: #### 7 -7, BMP #### [facility] ([id number]) [address], [facility] [address] [place] [address] CBC WITH AUTO DIFFERENTIALon 10-09-2024 BASOPHILS ABSOLUTE COUNT (10*3/UL) BY AUTOMATED COUNT 0.0 10*3/uL Normal 0.0-0.2 [facility] Comment on above: Performed By: #### 7 18-7, BMP #### [facility] ([id number]) [address], [facility] [address] [place] [address] BASOPHILS RELATIVE PERCENT BY AUTOMATED COUNT 0.3 % Normal [facility] Comment on above: Performed By: #### 7 18-7, BMP #### [facility] ([id number]) [address], [facility] [address] [place] [address] CELLAVISION DIFFERENTIAL TYPE AUTOMATED DIFFERENTIAL Normal [facility] Comment on above: Performed By: #### 7 18-7, BMP #### [facility] ([id number]) [address], [facility] [address] [place] [address] Eosinophils (Bld) [#/Vol] 0.2 10*3/uL Normal 0.0-0.4 [facility] Comment on above: Performed By: #### 7 -7, BMP #### [facility] ([id number]) [address], [facility] [address] [place] [address] EOSINOPHILS RELATIVE PERCENT BY AUTOMATED COUNT 3.6 % Normal [facility] Comment on above: Performed By: #### 7 -7, BMP #### [facility] ([id number]) [address], [facility] [address] [place] [address] Erythrocyte distribution width (RBC) [Ratio] 14.2 % Normal 11.5-15 [facility] Comment on above: Performed By: #### 7 -7, BMP #### [facility] ([id number]) [address], [facility] [address] [place] [address] Hematocrit (Bld) [Volume fraction] 35.3 % Normal 35-47 [facility] Comment on above: Performed By: #### 7 -7, BMP #### [facility] ([id number]) [address], [facility] [address] [place] [address] Hemoglobin (Bld) [Mass/Vol] 11.8 g/dL Normal 11.7-15.5 [facility] Comment on above: Performed By: #### 7 18-7, BMP #### [facility] ([id number]) [address], [address] [place] [address] LYMPHOCYTES ABSOLUTE COUNT (10*3/UL) BY AUTOMATED COUNT 1.6 10*3/uL Normal 1.0-3.5 [facility] Comment on above: Performed By: #### 7 -7, BMP #### [facility] ([id number]) [address], [facility] [address] [place] [address] LYMPHOCYTES RELATIVE PERCENT BY AUTOMATED COUNT 26.5 % Normal [facility] Comment on above: Performed By: #### 7 -7, BMP #### [facility] ([id number]) [address], [facility] [address] [place] [address] MCH (RBC) [Entitic mass] 28.6 pg Normal 27-34 [facility] Comment on above: Performed By: #### 7 -7, BMP #### [facility] ([id number]) [address], [facility] [address] [place] [address] MCHC (RBC) [Mass/Vol] 33.5 g/dL Normal 32-36 [facility] Comment on above: Performed By: #### 7 -7, BMP #### [facility] ([id number]) [address], [facility] [address] [place] [address] MCV (RBC) [Entitic vol] 86 fL Normal 80-100 [facility] Comment on above: Performed By: #### 7 -7, BMP #### [facility] ([id number]) [address] [address] [place] [address] MONOCYTES ABSOLUTE COUNT (10*3/UL) BY AUTOMATED COUNT 0.7 10*3/uL Normal 0.0-0.9 [facility] Comment on above: Performed By: #### 7 -7, BMP #### [facility] ([id number]) [address] [address] [place] [address] MONOCYTES RELATIVE PERCENT BY AUTOMATED COUNT 10.8 % Normal [facility] Comment on above: Performed By: #### 7 18-7, BMP #### [facility] ([id number]) [address], [address] [place] [address] NEUTROPHILS ABSOLUTE COUNT BY AUTOMATED COUNT 3.6 10*3/uL Normal 1.5-6.6 [facility] Comment on above: Performed By: #### 7 18-7, BMP #### [facility] ([id number]) [address], [address] [place] [address] NEUTROPHILS RELATIVE PERCENT BY AUTOMATED COUNT 58.8 % Normal [facility] Comment on above: Performed By: #### 7 -7, BMP #### [facility] ([id number]) [address], [address] [place] [address] Platelet mean volume (Bld) [Entitic vol] 8.1 fL Normal 7-12 [facility] Comment on above: Performed By: #### 7 -7, BMP #### [facility] ([id number]) [address], [address] [place] [address] Platelets (Bld) [#/Vol] 217 10*3/uL Normal 150-450 [facility] Comment on above: Performed By: #### 7 18-7, BMP #### [facility] ([id number]) [address], [address] [place] [address] RBC COUNT 4.13 X10E12/L Normal 3.8-5.2 [facility] Comment on above: Performed By: #### 7 -7, BMP #### [facility] ([id number]) [address], [address] [place] [address] WBC (Bld) [#/Vol] 6.1 10*3/uL Normal 4-11 [facility] Comment on above: Performed By: #### 7 18-7, BMP #### [facility] ([id number]) [address], [address] [place] [address] GI PANEL STOOL PATHOGEN PANE Peng 10-09-2024 ADENOVIRUS Not detected Normal Not Detected [facility] Comment on above: Performed By: #### G IP ####[facility] ([facility])[address], [place] [address] VIR AGGREGATIVE E COLI Not detected Normal Not Detected [facility] Comment on above: Performed By: #### G IP ####[facility] ([facility])[address], [place] [address] VIR ASTROVIRUS Not detected Normal Not Detected [facility] Comment on above: Performed By: #### G IP ####[facility] ([facility])[address] [facility] [address], [place] [address] VIR CAMPYLOBACTER Not detected Normal Not Detected [facility] Comment on above: Performed By: #### G IP ####[facility] ([facility])[address], [place] [address] VIR CRYPTOSPORIDIUM Not detected Normal Not Detected [facility] Comment on above: Performed By: #### G IP ####[facility] ([facility])[address], [place] [address] VIR CYCLOSPORA Not detected Normal Not Detected [facility] Comment on above: Performed By: #### G IP ####[facility] ([facility])[address], [place] [address] VIR E HISTOLYTICA Not detected Normal Not Detected [facility] Comment on above: Performed By: #### G IP ####[facility] ([facility])[address], [place] [address] VIR GIARDIA LAMBLIA Not detected Normal Not Detected [facility] Comment on above: Performed By: #### G IP ####[facility] ([facility])[address], [place] [address] VIR NOROVIRUS Not detected Normal Not Detected [facility] Comment on above: Performed By: #### G IP ####[facility] ([facility])[address], [place] [address] VIR PATHOGENIC E COLI Not detected Normal Not Detected [facility] Comment on above: Performed By: #### G IP ####[facility] ([facility])[address], [place] [address] VIR PLESIOMONAS Not detected Normal Not Detected [facility] Comment on above: Performed By: #### G IP ####[facility] ([facility])[address], [place] [address] VIR ROTAVIRUS A Not detected Normal Not Detected [facility] Comment on above: Performed By: #### G IP ####[facility] ([facility])[address], [place] [address] VIR SALMONELLA Not detected Normal Not Detected [facility] Comment on above: Performed By: #### G IP ####[facility] ([facility])[address], [place] [address] VIR SAPOVIRUS Not detected Normal Not Detected [facility] Comment on above: Performed By: #### G IP ####[facility] ([facility])[address], [place] [address] VIR SHIGA TOXIN E COLI Not detected Normal Not Detected [facility] Comment on above: Performed By: #### G IP ####[facility] ([facility])[address], [place] [address] VIR SHIGELLA-E COLI Not detected Normal Not Detected [facility] Comment on above: Performed By: #### G IP ####[facility] ([facility])[address], [place] [address] VIR TOXIGENIC E COLI Not detected Normal Not Detected [facility] Comment on above: Performed By: #### G IP ####[facility] ([facility])[address], [place] [address] VIR VIBRIO Not detected Normal Not Detected [facility] Comment on above: Performed By: #### G IP ####[facility] ([facility])[address], [place] [address] VIR VIBRIO CHOLERAE Not detected Normal Not Detected [facility] Comment on above: Performed By: #### G IP ####[facility] ([facility])[address], [place] [address] VIR Y. ENTEROCOLITICA Not detected Normal Not Detected [facility] Comment on above: Performed By: #### G IP ####[facility] ([facility])[address], [place] [address] VIR BASIC METABOLIC PANLon 04-22 Anion gap [Moles/Vol] 9 mmol/L Normal 5-15 [facility] Comment on above: Performed By: #### 7 18-7, BMP #### [facility] ([id number]) [address] [place] [address] Calcium [Mass/Vol] 10.1 mg/dL Normal 8.5-10.5 [facility] Comment on above: Performed By: #### 7 18-7, BMP #### [facility] ([id number]) [address] [place] [address] Chloride [Moles/Vol] 104 mmol/L Normal 98-[address] [facility] Comment on above: Performed By: #### 7 18-7, BMP #### [facility] ([id number]) [address] [place] [address] CO2 [Moles/Vol] 26 mmol/L Normal 22-32 [facility] Comment on above: Performed By: #### 7 18-7, BMP #### [facility] ([id number]) [address], [address] [place] [address] Creatinine [Mass/Vol] 1.30 mg/dL High 0.40-1.00 [facility] Comment on above: Result Comment: METH OD TRACEABLE TO IDMS STANDARD Performed By: #### 7 18-7, BMP #### [facility] ([id number]) [address], [address] [place] [address] GFR/1.73 sq M.predicted among non-blacks MDRD (S/P/Bld) [Vol rate/Area] 45 mL/min/{1.73_m2} Low >59 [facility] Comment on above: Result Comment: Reported eGFR is based on the CKD-EPI 2020 equation that does not use a race coefficient. Performed By: #### 7 18-7, BMP #### [facility] ([id number]) [address] [place] [address] Glucose [Mass/Vol] 154 mg/dL High 65-99 [facility] Comment on above: Performed By: #### 7 -7, BMP #### [facility] ([id number]) [address], [address] [place] [address] Potassium [Moles/Vol] 4.1 mmol/L Normal 3.5-5.0 [facility] Comment on above: Performed By: #### 7 -7, BMP #### [facility] ([id number]) [address], [address] [place] [address] Sodium [Moles/Vol] 139 mmol/L Normal 134-146 [facility] Comment on above: Performed By: #### 7 -7, BMP #### [facility] ([id number]) [address], [address] [place] [address] Urea nitrogen [Mass/Vol] 28 mg/dL High 5-27 [facility] Comment on above: Performed By: #### 7 -7, BMP #### [facility] ([id number]) [address], [address] [place] [address] COMPLETE BLOOD COUNTon 04-22 Erythrocyte distribution width (RBC) [Ratio] 14.5 % Normal 11.5-15.0 [facility] Comment on above: Performed By: #### 7 18-7, BMP #### [facility] ([id number]) [address], [address] [place] [address] Hematocrit (Bld) [Volume fraction] 38.3 % Normal 35-47 [facility] Comment on above: Performed By: #### 7 18-7, BMP #### [facility] ([id number]) [address], [facility] [address] [place] [address] Hemoglobin (Bld) [Mass/Vol] 12.6 g/dL Normal 11.7-15.5 [facility] Comment on above: Performed By: #### 7 18-7, BMP #### [facility] ([id number]) [address] [place] [address] MCH (RBC) [Entitic mass] 29.1 pg Normal 27-34 [facility] Comment on above: Performed By: #### 7 18-7, BMP #### [facility] ([id number]) [address] [place] [address] MCHC (RBC) [Mass/Vol] 32.8 g/dL Normal 32-36 [facility] Comment on above: Performed By: #### 7 18-7, BMP #### [facility] ([id number]) [address], [address] [place] [address] MCV (RBC) [Entitic vol] 89 fL Normal 80-100 [facility] Comment on above: Performed By: #### 7 18-7, BMP #### [facility] ([id number]) [address], [address] [place] [address] Platelet mean volume (Bld) [Entitic vol] 8.6 fL Normal 7-12 [facility] Comment on above: Performed By: #### 7 18-7, BMP #### [facility] ([id number]) [address], [address] [place] [address] Platelets (Bld) [#/Vol] 255 10*3/uL Normal 150-450 [facility] Comment on above: Performed By: #### 7 18-7, BMP #### [facility] ([id number]) [address], [address] [place] [address] RBC COUNT 4.32 X10E12/L Normal 3.80-5.20 [facility] Comment on above: Performed By: #### 7 18-7, BMP #### [facility] ([id number]) [address], [facility] [address] [place] [address] WBC (Bld) [#/Vol] 5.5 10*3/uL Normal 4.0-11.0 [facility] Comment on above: Performed By: #### 7 18-7, BMP #### [facility] ([id number]) [address], [address] [place] [address] MAGNESIUMon 04-22-2024 Magnesium [Mass/Vol] 2.0 mg/dL Normal 1.8-2.[address] [facility] Comment on above: Performed By: #### 7 18-7, BMP #### [facility] ([id number]) [address], [address] [place] [address] PHOSPHORUSon 04-22-2024 Phosphate [Mass/Vol] 4.4 mg/dL Normal 2.4-4.[address] [facility] Comment on above: Performed By: #### 7 18-7, BMP #### [facility] ([id number]) [address], [address] [place] [address] PROTEIN CREAT RATIOon 2024 RANDOM URINE PROTEIN 90 mg/L Normal <[address] [facility] Comment on above: Performed By: #### 7 18-7, BMP #### [facility] ([id number]) [address], [address] [place] [address] U/PRO/CREDIT CARD SPECIALIST RATIO CALC 0.10 Normal <0.[address] [facility] Comment on above: Result Comment: Neph rotic Syndrome is associated with ratios >3.5 Performed By: #### 7 18-7, BMP #### [facility] ([id number]) [address], [address] [place] [address] URINE CREATININE,RDM 91.28 mg/dL Normal [facility] Comment on above: Performed By: #### 7 18-7, BMP #### [facility] ([id number]) [address] [place] [address] Parathyrin.intact [Mass/Vol] on 04-22-2024 PTH INTACT 25 pg/mL Normal 12-88 [facility] Comment on above: Performed By: #### 7 18-7, BMP #### [facility] ([id number]) [address] [place] [address] URINALYSISon 04-22-2024 Bilirubin Ql (U) Negative Normal NEG [facility] Comment on above: Performed By: #### 7 18-7, BMP #### [facility] ([id number]) [address], [address] [place] [address] BLOOD/HGB Negative Normal NEG [facility] Comment on above: Performed By: #### 7 18-7, BMP #### [facility] ([id number]) [address], [address] [place] [address] Color (U) YELLOW Normal YELLOW [facility] Comment on above: Performed By: #### 7 18-7, BMP #### [facility] ([id number]) [address], [address] [place] [address] Glucose Ql (U) Negative Normal NEG [facility] Comment on above: Performed By: #### 7 18-7, BMP #### [facility] ([id number]) [address], [address] [place] [address] Ketones Ql (U) Negative Normal NEG [facility] Comment on above: Performed By: #### 7 18-7, BMP #### [facility] ([id number]) [address], [address] [place] [address] Leukocyte esterase Test strip Ql (U) Negative Normal NEG [facility] Comment on above: Performed By: #### 7 18-7, BMP #### [facility] ([id number]) [address], [address] [place] [address] Nitrite Ql (U) Negative Normal NEG [facility] Comment on above: Performed By: #### 7 18-7, BMP #### [facility] ([id number]) [address], [address] [place] [address] pH (U) 6.0 [pH] Normal 5.0-8.5 [facility] Comment on above: Performed By: #### 7 18-7, BMP #### [facility] ([id number]) [address], [address] [place] [address] Protein Ql (U) Negative Normal NEG [facility] Comment on above: Performed By: #### 7 18-7, BMP #### [facility] ([id number]) [address], [address] [place] [address] Specific gravity (U) [Rel density] 1.013 Normal 1.003-1.035 [facility] Comment on above: Performed By: #### 7 18-7, BMP #### [facility] ([id number]) [address], [address] [place] [address] TURBIDITY CLEAR Normal CLEAR [facility] Comment on above: Performed By: #### 7 18-7, BMP #### [facility] ([id number]) [address], [address] [place] [address] Urobilinogen (U) [Mass/Vol] mg/dL Normal <1.1 [facility] Comment on above: Performed By: #### 7 18-7, BMP #### [facility] ([id number]) [address], [address] [place] [address] Vitamin D+Metabolites [Mass/ Vol]on 04-22-2024 VITAMIN D 25 HYD TOT 47.9 ng/mL Normal 30-[address] [facility] Comment on above: Result Comment: Vitamin D status 25 [place] Vitamin D Deficiency <20 ng/mL Insufficiency 20-29 ng/mL Sufficiency 30-100 ng/mL Toxicity >100 ng/mL NOTE: A pediatric reference range has not been established by the barratte operator of this kit. The [place] [employer] recommends a Vitamin D level of = or >20ng/mL in infants and children. Performed By: #### 7 18-7, BMP #### [facility] ([id number]) [address], [address] [place] [address] CT BRAIN WO CONTon 5 CT BRAIN WO CONT CT BRAIN WO CONT History: Headache and dizziness Technique: Contiguous axial images through the brain were obtained without the administration of intravenous contrast material. Automated exposure control was utilized. Comparison: 02/27/2018 Findings: The ventricles are normal in size. There is no evidence of midline shift. There are no areas of abnormal density to suggest presence of acute major vessel infarct, mass lesion, or hemorrhage. The visualized osseous structures are intact. Impression: Normal CT brain. All CT scans at this facility use dose modulation, iterative reconstruction, and/or weight based dosing when appropriate to reduce radiation dose to as low as reasonably achievable. 7 Finalized by Chaparro Trejo MD on 03/11/2024 12:47 AM Normal [facility] Troponin I.cardiac High sens itivity method [Mass/Vol]on 03-11-2024 1 HOUR TROP I, HIGH SENSITIVITY 7 ng/L Normal <16 [facility] Comment on above: Performed By: #### 8 9579-7 #### [facility] ([id number]) [address] [place] [address] CBC AND AUTO DIFFon 03-10-19 25 ABSOLUTE BASOPHIL 0.0 X10E9/L Normal 0.0-0.2 [facility] Comment on above: Performed By: #### C BCA, CMP, , 50259-2 #### [facility] ([id number]) [address] [place] [address] ABSOLUTE NEUTROPHIL 4.2 X10E9/L Normal 1.5-6.[address] [facility] Comment on above: Performed By: #### C BCA, CMP, , 14890-7 #### [facility] ([id number]) [address] [place] [address] Basophils/100 WBC (Bld) 0.6 % Normal [facility] Comment on above: Performed By: #### C BCA, CMP, , 14905-4 #### [facility] ([id number]) [address] [place] [address] Eosinophils (Bld) [#/Vol] 0.2 10*3/uL Normal 0.0-0.4 [facility] Comment on above: Performed By: #### C BCA, CMP, , 36982-1 #### [facility] ([id number]) [address] [place] [address] Eosinophils/100 WBC (Bld) 2.9 % Normal [facility] Comment on above: Performed By: #### C BCA, CMP, , 71225-4 #### [facility] ([id number]) [address] [place] [address] Erythrocyte distribution width (RBC) [Ratio] 14.9 % Normal 11.5-15.0 [facility] Comment on above: Performed By: #### C PAMELA, [facility], , 67583-0 #### [facility] ([id number]) [address] [place] [address] Hematocrit (Bld) [Volume fraction] 35.2 % Normal 35-47 [facility] Comment on above: Performed By: #### C PAMELA [facility], , 15054-4 #### [facility] ([id number]) [address] [place] [address] Hemoglobin (Bld) [Mass/Vol] 11.9 g/dL Normal 11.7-15.5 [facility] Comment on above: Performed By: #### C PAMELA [facility], , 28238-4 #### [facility] ([id number]) [address] [place] [address] Lymphocytes (Bld) [#/Vol] 1.8 10*3/uL Normal 1.0-3.5 [facility] Comment on above: Performed By: #### C PAMELA CMP, , 01091-3 #### [facility] ([id number]) [address] [place] [address] Lymphocytes/100 WBC (Bld) 25.2 % Normal [facility] Comment on above: Performed By: #### C PAMELA, CMP, , 59051-5 #### [facility] ([id number]) [address] [place] [address] MCH (RBC) [Entitic mass] 29.1 pg Normal 27-34 [facility] Comment on above: Performed By: #### C PAMELA, CMP, , 59324-3 #### [facility] ([id number]) [address] [place] [address] MCHC (RBC) [Mass/Vol] 33.7 g/dL Normal 32-36 [facility] Comment on above: Performed By: #### Valeria SANTIAGO, CMP, , 17038-7 #### [facility] ([id number]) [address] [place] [address] MCV (RBC) [Entitic vol] 86 fL Normal 80-100 [facility] Comment on above: Performed By: #### Valeria SANTIAGO, CMP, , 23357-9 #### [facility] ([id number]) [address] [place] [address] Monocytes (Bld) [#/Vol] 0.8 10*3/uL Normal 0-0.9 [facility] Comment on above: Performed By: #### Valeria SANTIAGO, CMP, , 00279-7 #### [facility] ([id number]) [address] [place] [address] Monocytes/100 WBC (Bld) 11.6 % Normal [facility] Comment on above: Performed By: #### Valeria SANTIAGO, CMP, , 44771-3 #### [facility] ([id number]) [address] [place] [address] Neutrophils/100 WBC (Bld) 59.7 % Normal [facility] Comment on above: Performed By: #### Valeria SANTIAGO, CMP, , 11471-9 #### [facility] ([id number]) [address] [place] [address] Platelet mean volume (Bld) [Entitic vol] 8.3 fL Normal 7-12 [facility] Comment on above: Performed By: #### C BCA, CMP, , 96475-0 #### [facility] ([id number]) [address] [place] [address] Platelets (Bld) [#/Vol] 245 10*3/uL Normal 150-450 [facility] Comment on above: Performed By: #### C BCA, CMP, , 32365-2 #### [facility] ([id number]) [address] [place] [address] RBC COUNT 4.08 X10E12/L Normal 3.80-5.20 [facility] Comment on above: Performed By: #### C BCA, CMP, , 57037-3 #### [facility] ([id number]) [address] [place] [address] WBC (Bld) [#/Vol] 7.0 10*3/uL Normal 4.0-11.0 [facility] Comment on above: Performed By: #### C BCA, CMP, , 14190-0 #### [facility] ([id number]) [address] [place] [address] COMPREHENSIVE METABOLIC PANE Peng 03-10-2024 Albumin [Mass/Vol] 3.7 g/dL Normal 3.2-5.3 [facility] Comment on above: Performed By: #### C BCA, CMP, , 12943-5 #### [facility] ([id number]) [address] [place] [address] ALP [Catalytic activity/Vol] 103 U/L Normal 39-130 [facility] Comment on above: Performed By: #### C BCA, CMP, , 39029-3 #### [facility] ([id number]) [address] [place] [address]956 ALT [Catalytic activity/Vol] 24 U/L Normal 0-31 [facility] Comment on above: Performed By: #### C BCA, CMP, , 78365-0 #### [facility] ([id number]) [address] [place] [address] Anion gap [Moles/Vol] 10 mmol/L Normal 5-15 [facility] Comment on above: Performed By: #### C BCA, CMP, , 73984-4 #### [facility] ([id number]) [address] [place] [address]9575 AST [Catalytic activity/Vol] 17 U/L Normal 0-41 [facility] Comment on above: Performed By: #### C BCA, CMP, , 56913-6 #### [facility] ([id number]) [address] [place] [address] Bilirubin [Mass/Vol] 0.6 mg/dL Normal 0.3-1.[address] [facility] Comment on above: Performed By: #### C BCA, CMP, , 47024-4 #### [facility] ([id number]) [address] [place] [address]75 Calcium [Mass/Vol] 9.0 mg/dL Normal 8.5-10.5 [facility] Comment on above: Performed By: #### C BCA, CMP, , 11653-4 #### [facility] ([id number]) [address] [place] [address] 19927 Chloride [Moles/Vol] 104 mmol/L Normal 98-[address] [facility] Comment on above: Performed By: #### C BCA, CMP, , 63003-0 #### [facility] ([id number]) [address] [place] [address] 64894 CO2 [Moles/Vol] 24 mmol/L Normal 22-32 [facility] Comment on above: Performed By: #### C KIA SANTIAGO, , 61998-3 #### [facility] ([id number]) [address] [place] [address] 61295 Creatinine [Mass/Vol] 1.53 mg/dL High 0.40-1.00 [facility] Comment on above: Result Comment: METH OD TRACEABLE TO IDMS STANDARD Performed By: #### C KIA SANTIAGO, , 03296-0 #### [facility] ([id number]) [address] [place] [address] GFR/1.73 sq M.predicted among non-blacks MDRD (S/P/Bld) [Vol rate/Area] 37 mL/min/{1.73_m2} Low >59 [facility] Comment on above: Result Comment: Reported eGFR is based on the CKD-EPI 2020 equation that does not use a race coefficient. Performed By: #### C KIA SANTIAGO, , 75313-3 #### [facility] ([id number]) [address] [place] [address]264 Glucose [Mass/Vol] 176 mg/dL High 65-99 [facility] Comment on above: Performed By: #### C KIA SANTIAGO, , 20336-2 #### [facility] ([id number]) [address] [place] [address] 11977 Potassium [Moles/Vol] 3.7 mmol/L Normal 3.5-5.0 [facility] Comment on above: Performed By: #### C KIA SANTIAGO, , 52257-0 #### [facility] ([id number]) [address] [place] [address] 99513 Protein [Mass/Vol] 7.2 g/dL Normal 6.0-8.0 [facility] Comment on above: Performed By: #### C PAMELA, CMP, , 84941-6 #### [facility] ([id number]) [address] [place] [address] 00932 Sodium [Moles/Vol] 138 mmol/L Normal 134-146 [facility] Comment on above: Performed By: #### C PAMELA CMP, , 84005-5 #### [facility] ([id number]) [address] [place] [address] 95561 Urea nitrogen [Mass/Vol] 31 mg/dL High 5-27 [facility] Comment on above: Performed By: #### C PAMELA, CMP, , 63712-9 #### [facility] ([id number]) [address] [place] [address] MAGNESIUMon 03-10-2024 Magnesium [Mass/Vol] 2.0 mg/dL Normal 1.8-2.[address] [facility] Comment on above: Performed By: #### C PAMELA, CMP, 29900-9, 80422-4 #### [facility] ([id number]) [address] [place] [address]77 Troponin I.cardiac High sens itivity method [Mass/Vol]on 03-10-2024 TROPONIN I, HIGH SENSITIVITY 6 ng/L Normal <16 [facility] Comment on above: Performed By: #### C PAMELA, CMP, , 49355-4 #### [facility] ([id number]) [address] [place] [address] 09488 Glucose Glucometer (BldC) [M ass/Vol]on 11-11-2023 Glucose [Mass/Vol] 122 mg/dL High 65-99 [facility] Surgical Pathologyon 024 Surgical Pathology Normal [facility] Comment on above: Result Comment: [facility] [address] [place] [address] Surgical Pathology Consultation Patient Name:ZULLY MARINO:1955 (Age: 68)Gender:FTaken:11/11/2023eported:11/16/2023hysician(s):James Damon MD ([phone])Copy To: Rec. #:[id number]: #[id number] Final Pathologic Diagnosis 1. Transverse colon polyp, biopsy: One fragment of sessile serrated lesion. No dysplasia identified. 2. Descending colon polyp, biopsy: Tubular adenoma. Report Electronically Signed Out ssi/11/16/2023Zia Singer M.D. Interpretation performed at [facility], [address] [place] [address], License number: [id number]. Clinical History History of colon polyps. Gross Description 1. Received in formalin labeled JAMILA, transverse colon is a light arana soft tissue bit admixed with friable vegetative material, 0.5 cm. The specimen is filtered and entirely submitted in a single cassette. (1, ns, [id number],m4) DM. 2. Received in formalin labeled JAMILA, descending colon is a light arana soft tissue bit admixed with friable vegetative material, 0.2 cm. The specimen is filtered and entirely submitted in a single cassette. (1, ns, [id number],m4) DM. dm/11/12/2023SSI Specimen(s) Received 1: Transverse colon polyp x2 2: Descending colon polyp Fee Codes(s): 1; 02801 2; 16967 BASIC METABOLIC PANLon 10-21 Anion gap [Moles/Vol] 10 mmol/L Normal 5-15 [facility] Comment on above: Performed By: #### 7 18-7, BMP #### [facility] ([id number]) [address] [place] [address], [address] [place] [address] Calcium [Mass/Vol] 9.6 mg/dL Normal 8.5-10.5 [facility] Comment on above: Performed By: #### 7 18-7, BMP #### [facility] ([id number]) [address], [address] [place] [address] Chloride [Moles/Vol] 101 mmol/L Normal 98-[address] [facility] Comment on above: Performed By: #### 7 -7, BMP #### [facility] ([id number]) [address], [address] [place] [address] CO2 [Moles/Vol] 27 mmol/L Normal 22-32 [facility] Comment on above: Performed By: #### 7 -7, BMP #### [facility] ([id number]) [address], [address] [place] [address] Creatinine [Mass/Vol] 1.36 mg/dL High 0.40-1.00 [facility] Comment on above: Result Comment: METH OD TRACEABLE TO IDMS STANDARD Performed By: #### 7 -7, BMP #### [facility] ([id number]) [address], [address] [place] [address] GFR/1.73 sq M.predicted among non-blacks MDRD (S/P/Bld) [Vol rate/Area] 42 mL/min/{1.73_m2} Low >59 [facility] Comment on above: Result Comment: Reported eGFR is based on the CKD-EPI 2020 equation that does not use a race coefficient. Performed By: #### 7 -7, BMP #### [facility] ([id number]) [address], [address] [place] [address] Glucose [Mass/Vol] 205 mg/dL High 65-99 [facility] Comment on above: Performed By: #### 7 18-7, BMP #### [facility] ([id number]) [address], [address] [place] [address] Potassium [Moles/Vol] 4.0 mmol/L Normal 3.5-5.0 [facility] Comment on above: Performed By: #### 7 18-7, BMP #### [facility] ([id number]) [address], [address] [place] [address] Sodium [Moles/Vol] 138 mmol/L Normal 134-146 [facility] Comment on above: Performed By: #### 7 18-7, BMP #### [facility] ([id number]) [address], [address] [place] [address] Urea nitrogen [Mass/Vol] 28 mg/dL High 5-27 [facility] Comment on above: Performed By: #### 7 18-7, BMP #### [facility] ([id number]) [address], [address] [place] [address] Basic Metabolic Panelon 10-01 Anion gap [Moles/Vol] 10 mmol/L 5 - 15 mmol/L [facility] Calcium [Mass/Vol] 9.6 mg/dL 8.5 - 10. 5 mg/dL [facility] Chloride [Moles/Vol] 101 mmol/L 98 - 10 9 mmol/L [facility] CO2 [Moles/Vol] 27 mmol/L 22 - 32 mmol/L [facility] Creatinine [Mass/Vol] 1.36 mg/dL High 0.40 - 1.00 mg/dL [facility] Comment on above: METHOD TRACEABLE TO IDOH STANDARD eGFR (CKD-EPI)non-race dependent 42 Low - PINF [facility] Comment on above: Reported eGFR is based on the CKD-EPI 2020 equation that does not use a race coefficient. Glucose [Mass/Vol] 205 mg/dL High 65 - 99 mg/dL [facility] Interpretation and review of laboratory results Abnormal [facility] Potassium [Moles/Vol] 4.0 mmol/L 3.5 - 5.0 mmol/L [facility] Sodium [Moles/Vol] 138 mmol/L 134 - 146 mmol/L [facility] Urea nitrogen [Mass/Vol] 28 mg/dL High 5 - 27 mg/dL [facility] HEMOGLOBINon 10-22-2023 Hemoglobin (Bld) [Mass/Vol] 11.7 g/dL Normal 11.7-15.5 [facility] Comment on above: Performed By: #### 7 18-7, BMP #### [facility] ([id number]) [address] [address], [address] [place] [address] Hemoglobinon 10-22-2023 Hemoglobin (Bld) [Mass/Vol] 11.7 g/dL 11.7 - 15.5 g/dL [facility] Hemoglobin (Bld) [Mass/Vol]o n 10-22-2023 [facility] CBC AND AUTO DIFFon 04-07-19 ABSOLUTE BASOPHIL 0.0 X10E9/L Normal 0.0-0.2 [facility] Comment on above: Performed By: #### C WANDA, , CBCA #### [facility] ([id number]) [address] [place] [address] ABSOLUTE NEUTROPHIL 6.0 X10E9/L Normal 1.5-6.6 [facility] Comment on above: Performed By: #### C WANDA, , CBCA #### [facility] ([id number]) [address] [place] [address] Basophils/100 WBC (Bld) 0.4 % Normal [facility] Comment on above: Performed By: #### C WANDA, , CBCA #### [facility] ([id number]) [address] [place] [address] Eosinophils (Bld) [#/Vol] 0.3 10*3/uL Normal 0.0-0.4 [facility] Comment on above: Performed By: #### C WANDA, , CBCA #### [facility] ([id number]) [address] [place] [address] Eosinophils/100 WBC (Bld) 3.8 % Normal [facility] Comment on above: Performed By: #### C WANDA, , CBCA #### [facility] ([id number]) [address] [place] [address] Erythrocyte distribution width (RBC) [Ratio] 14.3 % Normal 11.5-15.0 [facility] Comment on above: Performed By: #### C WANDA, , CBCA #### [facility] ([id number]) [address] [place] [address] Hematocrit (Bld) [Volume fraction] 32.8 % Low 35-47 [facility] Comment on above: Performed By: #### C WANDA, , CBCA #### [facility] ([id number]) [address] [place] [address] Hemoglobin (Bld) [Mass/Vol] 10.8 g/dL Low 11.7-15.5 [facility] Comment on above: Performed By: #### C WANDA, , CBCA #### [facility] ([id number]) [address] [place] [address] Lymphocytes (Bld) [#/Vol] 1.1 10*3/uL Normal 1.0-3.5 [facility] Comment on above: Performed By: #### Valeria MUÑOZ, , CBCA #### [facility] ([id number]) [address] [place] [address] Lymphocytes/100 WBC (Bld) 13.5 % Normal [facility] Comment on above: Performed By: #### C WANDA, , CBCA #### [facility] ([id number]) [address] [place] [address] MCH (RBC) [Entitic mass] 28.8 pg Normal 27-34 [facility] Comment on above: Performed By: #### C WANDA, , CBCA #### [facility] ([id number]) [address] [place] [address] MCHC (RBC) [Mass/Vol] 33.0 g/dL Normal 32-36 [facility] Comment on above: Performed By: #### C WANDA, , CBCA #### [facility] ([id number]) [address] [place] [address] MCV (RBC) [Entitic vol] 87 fL Normal 80-100 [facility] Comment on above: Performed By: #### C WANDA, , CBCA #### [facility] ([id number]) [address] [place] [address] Monocytes (Bld) [#/Vol] 0.7 10*3/uL Normal 0-0.9 [facility] Comment on above: Performed By: #### C WANDA, , CBCA #### [facility] ([id number]) [address] [place] [address] Monocytes/100 WBC (Bld) 8.9 % Normal [facility] Comment on above: Performed By: #### C WANDA, , CBCA #### [facility] ([id number]) [address] [place] [address] Neutrophils/100 WBC (Bld) 73.4 % Normal [facility] Comment on above: Performed By: #### C WANDA, , CBCA #### [facility] ([id number]) [address] [place] [address] Platelet mean volume (Bld) [Entitic vol] 8.5 fL Normal 7-12 [facility] Comment on above: Performed By: #### C WANDA , CBCA #### [facility] ([id number]) [address] [place] [address] Platelets (Bld) [#/Vol] 255 10*3/uL Normal 150-450 [facility] Comment on above: Performed By: #### C WANDA, , CBCA #### [facility] ([id number]) [address] [place] [address] RBC COUNT 3.76 X10E12/L Low 3.80-5.20 [facility] Comment on above: Performed By: #### C WANDA, , CBCA #### [facility] ([id number]) [address] [place] [address] WBC (Bld) [#/Vol] 8.1 10*3/uL Normal 4.0-11.0 [facility] Comment on above: Performed By: #### C WANDA, , CBCA #### [facility] ([id number]) [address] [place] [address] CK [Catalytic activity/Vol]o n 04-07-2023 CPK 62 U/L Normal 24-170 [facility] Comment on above: Performed By: #### C WANDA, , CBCA #### [facility] ([id number]) [address] [place] [address] COMPREHENSIVE METABOLIC PANE Peng 04-07-2023 Albumin [Mass/Vol] 2.9 g/dL Low 3.2-5.3 [facility] Comment on above: Performed By: #### C WANDA, , CBCA #### [facility] ([id number]) [address] [place] [address] ALP [Catalytic activity/Vol] 92 U/L Normal 39-130 [facility] Comment on above: Performed By: #### C WANDA, , CBCA #### [facility] ([id number]) [address] [place] [address] ALT [Catalytic activity/Vol] 26 U/L Normal 0-31 [facility] Comment on above: Performed By: #### C WANDA, , CBCA #### [facility] ([id number]) [address] [place] [address] Anion gap [Moles/Vol] 7 mmol/L Normal 5-15 [facility] Comment on above: Performed By: #### C WANDA, , CBCA #### [facility] ([id number]) [address] [place] [address] AST [Catalytic activity/Vol] 27 U/L Normal 0-41 [facility] Comment on above: Performed By: #### C WANDA, , CBCA #### [facility] ([id number]) [address] [place] [address] Bilirubin [Mass/Vol] 0.5 mg/dL Normal 0.3-1.2 [facility] Comment on above: Performed By: #### C WANDA, , CBCA #### [facility] ([id number]) [address] [place] [address] Calcium [Mass/Vol] 8.5 mg/dL Normal 8.5-10.5 [facility] Comment on above: Performed By: #### C WANDA, , CBCA #### [facility] ([id number]) [address] [place] [address] Chloride [Moles/Vol] 100 mmol/L Normal 98-109 [facility] Comment on above: Performed By: #### C WANDA, , CBCA #### [facility] ([id number]) [address] [place] [address] CO2 [Moles/Vol] 26 mmol/L Normal 22-32 [facility] Comment on above: Performed By: #### C WANDA, , CBCA #### [facility] ([id number]) [address] [place] [address] Creatinine [Mass/Vol] 1.20 mg/dL High 0.40-1.00 [facility] Comment on above: Result Comment: METH OD TRACEABLE TO IDMS STANDARD Performed By: #### C WANDA, , CBCA #### [facility] ([id number]) [address] [place] [address] GFR/1.73 sq M.predicted among non-blacks MDRD (S/P/Bld) [Vol rate/Area] 50 mL/min/{1.73_m2} Low >59 [facility] Comment on above: Result Comment: Reported eGFR is based on the CKD-EPI 2020 equation that does not use a race coefficient. Performed By: #### C WANDA, , CBCA #### [facility] ([id number]) [address] [place] [address] Glucose [Mass/Vol] 282 mg/dL High 65-99 [facility] Comment on above: Performed By: #### C WANDA, , CBCA #### [facility] ([id number]) [address] [place] [address] Potassium [Moles/Vol] 4.5 mmol/L Normal 3.5-5.0 [facility] Comment on above: Performed By: #### C WANDA, , CBCA #### [facility] ([id number]) [address] [place] [address] Protein [Mass/Vol] 6.6 g/dL Normal 6.0-8.0 [facility] Comment on above: Performed By: #### C WANDA, , CBCA #### [facility] ([id number]) [address] [place] [address] Sodium [Moles/Vol] 133 mmol/L Low 134-146 [facility] Comment on above: Performed By: #### Valeria MUÑOZ , CBCA #### [facility] ([id number]) [address] [place] [address] Urea nitrogen [Mass/Vol] 28 mg/dL High 5-27 [facility] Comment on above: Performed By: #### Valeria MUÑOZ, , CBCA #### [facility] ([id number]) [address] [place] [address] Glucose Glucometer (BldC) [M ass/Vol]on 04-07-2023 Glucose [Mass/Vol] 340 mg/dL High 65-99 [facility] Glucose [Mass/Vol] 305 mg/dL High 65-99 [facility] MAGNESIUMon 04-07-2023 Magnesium [Mass/Vol] 2.0 mg/dL Normal 1.8-2.6 [facility] Comment on above: Performed By: #### C WANDA, , CBCA #### [facility] ([id number]) [address] [place] [address] CBC AND AUTO DIFFon 04-06-19 24 ABSOLUTE BASOPHIL 0.0 X10E9/L Normal 0.0-0.2 [facility] Comment on above: Performed By: #### C WANDA, , CBCA #### [facility] ([id number]) [address] [place] [address] ABSOLUTE NEUTROPHIL 4.8 X10E9/L Normal 1.5-6.6 [facility] Comment on above: Performed By: #### C WANDA, , CBCA #### [facility] ([id number]) [address] [place] [address] Basophils/100 WBC (Bld) 0.4 % Normal [facility] Comment on above: Performed By: #### C WANDA, , CBCA #### [facility] ([id number]) [address] [place] [address] Eosinophils (Bld) [#/Vol] 0.3 10*3/uL Normal 0.0-0.4 [facility] Comment on above: Performed By: #### C WANDA, , CBCA #### [facility] ([id number]) [address] [place] [address] Eosinophils/100 WBC (Bld) 4.7 % Normal [facility] Comment on above: Performed By: #### C WANDA, , CBCA #### [facility] ([id number]) [address] [place] [address] [place] [address] Erythrocyte distribution width (RBC) [Ratio] 14.4 % Normal 11.5-15.0 [facility] Comment on above: Performed By: #### C WANDA, , CBCA #### [facility] ([id number]) [address] [place] [address] Hematocrit (Bld) [Volume fraction] 33.3 % Low 35-47 [facility] Comment on above: Performed By: #### C WANDA, , CBCA #### [facility] ([id number]) [address] [place] [address] Hemoglobin (Bld) [Mass/Vol] 11.0 g/dL Low 11.7-15.5 [facility] Comment on above: Performed By: #### C WANDA, , CBCA #### [facility] ([id number]) [address] [place] [address] Lymphocytes (Bld) [#/Vol] 0.9 10*3/uL Low 1.0-3.5 [facility] Comment on above: Performed By: #### C WANDA, , CBCA #### [facility] ([id number]) [address] [place] [address] Lymphocytes/100 WBC (Bld) 13.9 % Normal [facility] Comment on above: Performed By: #### C WANDA, , CBCA #### [facility] ([id number]) [address] [place] [address] MCH (RBC) [Entitic mass] 28.7 pg Normal 27-34 [facility] Comment on above: Performed By: #### C WANDA, , CBCA #### [facility] ([id number]) [address] [place] [address] MCHC (RBC) [Mass/Vol] 32.9 g/dL Normal 32-36 [facility] Comment on above: Performed By: #### C WANDA, , CBCA #### [facility] ([id number]) [address] [place] [address] MCV (RBC) [Entitic vol] 87 fL Normal 80-100 [facility] Comment on above: Performed By: #### C WANDA, , CBCA #### [facility] ([id number]) [address] [place] [address] Monocytes (Bld) [#/Vol] 0.7 10*3/uL Normal 0-0.9 [facility] Comment on above: Performed By: #### C WANDA, , CBCA #### [facility] ([id number]) [address] [place] [address] Monocytes/100 WBC (Bld) 9.7 % Normal [facility] Comment on above: Performed By: #### C WANDA, , CBCA #### [facility] ([id number]) [address] [place] [address] Neutrophils/100 WBC (Bld) 71.3 % Normal [facility] Comment on above: Performed By: #### C WANDA, , CBCA #### [facility] ([id number]) [address] [place] [address] Platelet mean volume (Bld) [Entitic vol] 8.5 fL Normal 7-12 [facility] Comment on above: Performed By: #### C WANDA, , CBCA #### [facility] ([id number]) [address] [place] [address] Platelets (Bld) [#/Vol] 236 10*3/uL Normal 150-450 [facility] Comment on above: Performed By: #### C WANDA, , CBCA #### [facility] ([id number]) [address] [place] [address] RBC COUNT 3.82 X10E12/L Normal 3.80-5.20 [facility] Comment on above: Performed By: #### C WANDA, , CBCA #### [facility] ([id number]) [address] [place] [address] WBC (Bld) [#/Vol] 6.7 10*3/uL Normal 4.0-11.0 [facility] Comment on above: Performed By: #### C WANDA, , CBCA #### [facility] ([id number]) [address] [place] [address] COMPREHENSIVE METABOLIC PANE Peng 04-06-2023 Albumin [Mass/Vol] 2.8 g/dL Low 3.2-5.3 [facility] Comment on above: Performed By: #### C WANDA, , CBCA #### [facility] ([id number]) [address] [place] [address] ALP [Catalytic activity/Vol] 79 U/L Normal 39-130 [facility] Comment on above: Performed By: #### C WANDA, , CBCA #### [facility] ([id number]) [address] [place] [address] ALT [Catalytic activity/Vol] 18 U/L Normal 0-31 [facility] Comment on above: Performed By: #### C WANDA, , CBCA #### [facility] ([id number]) [address] [place] [address] Anion gap [Moles/Vol] 7 mmol/L Normal 5-15 [facility] Comment on above: Performed By: #### C WANDA, , CBCA #### [facility] ([id number]) [address] [place] [address] AST [Catalytic activity/Vol] 20 U/L Normal 0-41 [facility] Comment on above: Performed By: #### C WANDA, , CBCA #### [facility] ([id number]) [address] [place] [address] Bilirubin [Mass/Vol] 0.6 mg/dL Normal 0.3-1.2 [facility] Comment on above: Performed By: #### C WANDA, , CBCA #### [facility] ([id number]) [address] [place] [address] Calcium [Mass/Vol] 8.1 mg/dL Low 8.5-10.5 [facility] Comment on above: Performed By: #### C WANDA, , CBCA #### [facility] ([id number]) [address] [place] [address] Chloride [Moles/Vol] 100 mmol/L Normal 98-109 [facility] Comment on above: Performed By: #### C WANDA, , CBCA #### [facility] ([id number]) [address] [place] [address] CO2 [Moles/Vol] 26 mmol/L Normal 22-32 [facility] Comment on above: Performed By: #### C WANDA, , CBCA #### [facility] ([id number]) [address] [place] [address] Creatinine [Mass/Vol] 1.26 mg/dL High 0.40-1.00 [facility] Comment on above: Result Comment: METH OD TRACEABLE TO IDMS STANDARD Performed By: #### C WANDA, , CBCA #### [facility] ([id number]) [address] [place] [address] GFR/1.73 sq M.predicted among non-blacks MDRD (S/P/Bld) [Vol rate/Area] 47 mL/min/{1.73_m2} Low >59 [facility] Comment on above: Result Comment: Reported eGFR is based on the CKD-EPI 2020 equation that does not use a race coefficient. Performed By: #### C WANDA, , CBCA #### [facility] ([id number]) [address] [place] [address] Glucose [Mass/Vol] 291 mg/dL High 65-99 [facility] Comment on above: Performed By: #### C WANDA, , CBCA #### [facility] ([id number]) [address] [place] [address] Potassium [Moles/Vol] 4.7 mmol/L Normal 3.5-5.0 [facility] Comment on above: Performed By: #### C WANDA, , CBCA #### [facility] ([id number]) [address] [place] [address] Protein [Mass/Vol] 6.7 g/dL Normal 6.0-8.0 [facility] Comment on above: Performed By: #### C WANDA, , CBCA #### [facility] ([id number]) [address] [place] [address] Sodium [Moles/Vol] 133 mmol/L Low 134-146 [facility] Comment on above: Performed By: #### C WANDA, , CBCA #### [facility] ([id number]) [address] [place] [address] Urea nitrogen [Mass/Vol] 20 mg/dL Normal 5-27 [facility] Comment on above: Performed By: #### C WANDA, , CBCA #### [facility] ([id number]) [address] [place] [address] Glucose Glucometer (BldC) [M ass/Vol]on 04-06-2023 Glucose [Mass/Vol] 280 mg/dL High 65-99 [facility] Glucose [Mass/Vol] 316 mg/dL High 65-99 [facility] Glucose [Mass/Vol] 295 mg/dL High 65-99 [facility] Glucose [Mass/Vol] 288 mg/dL High 65-99 [facility] MAGNESIUMon 04-06-2023 Magnesium [Mass/Vol] 2.0 mg/dL Normal 1.8-2.6 [facility] Comment on above: Performed By: #### C WANDA, , CBCA #### [facility] ([id number]) [address] [place] [address] CBC AND AUTO DIFFon 04-05-19 24 ABSOLUTE BASOPHIL 0.0 X10E9/L Normal 0.0-0.2 [facility] Comment on above: Performed By: #### C WANDA, , CBCA #### [facility] ([id number]) [address] [place] [id number] ABSOLUTE NEUTROPHIL 5.4 X10E9/L Normal 1.5-6.6 [facility] Comment on above: Performed By: #### Valeria MUÑOZ, , CBCA #### [facility] ([id number]) [address] [place] [address] Basophils/100 WBC (Bld) 0.5 % Normal [facility] Comment on above: Performed By: #### C WANDA, , CBCA #### [facility] ([id number]) [address] [place] [address] Eosinophils (Bld) [#/Vol] 0.3 10*3/uL Normal 0.0-0.4 [facility] Comment on above: Performed By: #### C WANDA, , CBCA #### [facility] ([id number]) [address] [place] [address] Eosinophils/100 WBC (Bld) 4.0 % Normal [facility] Comment on above: Performed By: #### C WANDA , CBCA #### [facility] ([id number]) [address] [place] [address] Erythrocyte distribution width (RBC) [Ratio] 14.7 % Normal 11.5-15.0 [facility] Comment on above: Performed By: #### C WANDA , CBCA #### [facility] ([id number]) [address] [place] [address] Hematocrit (Bld) [Volume fraction] 32.6 % Low 35-47 [facility] Comment on above: Performed By: #### C WANDA , CBCA #### [facility] ([id number]) [address] [place] [address] Hemoglobin (Bld) [Mass/Vol] 10.6 g/dL Low 11.7-15.5 [facility] Comment on above: Performed By: #### C WANDA , CBCA #### [facility] ([id number]) [address] [place] [address] Lymphocytes (Bld) [#/Vol] 1.2 10*3/uL Normal 1.0-3.5 [facility] Comment on above: Performed By: #### C WANDA , CBCA #### [facility] ([id number]) [address] [place] [address] Lymphocytes/100 WBC (Bld) 14.9 % Normal [facility] Comment on above: Performed By: #### C WANDA, , CBCA #### [facility] ([id number]) [address] [place] [address] MCH (RBC) [Entitic mass] 28.5 pg Normal 27-34 [facility] Comment on above: Performed By: #### C WANDA, , CBCA #### [facility] ([id number]) [address] [place] [address] MCHC (RBC) [Mass/Vol] 32.4 g/dL Normal 32-36 [facility] Comment on above: Performed By: #### C WANDA, , CBCA #### [facility] ([id number]) [address] [place] [address] MCV (RBC) [Entitic vol] 88 fL Normal 80-100 [facility] Comment on above: Performed By: #### C WANDA, , CBCA #### [facility] ([id number]) [address] [place] [address] Monocytes (Bld) [#/Vol] 0.8 10*3/uL Normal 0-0.9 [facility] Comment on above: Performed By: #### Valeria MUÑOZ, , CBCA #### [facility] ([id number]) [address] [place] [address] Monocytes/100 WBC (Bld) 10.9 % Normal [facility] Comment on above: Performed By: #### C WANDA, , CBCA #### [facility] ([id number]) [address] [place] [address] Neutrophils/100 WBC (Bld) 69.7 % Normal [facility] Comment on above: Performed By: #### C WANDA, , CBCA #### [facility] ([id number]) [address] [place] [address] Platelet mean volume (Bld) [Entitic vol] 8.8 fL Normal 7-12 [facility] Comment on above: Performed By: #### C WANDA, , CBCA #### [facility] ([id number]) [address] [place] [address] Platelets (Bld) [#/Vol] 209 10*3/uL Normal 150-450 [facility] Comment on above: Performed By: #### C WANDA, , CBCA #### [facility] ([id number]) [address] [place] [address] RBC COUNT 3.71 X10E12/L Low 3.80-5.20 [facility] Comment on above: Performed By: #### C WANDA, , CBCA #### [facility] ([id number]) [address] [place] [address] WBC (Bld) [#/Vol] 7.7 10*3/uL Normal 4.0-11.0 [facility] Comment on above: Performed By: #### C WANDA, , CBCA #### [facility] ([id number]) [address] [place] [address] COMPREHENSIVE METABOLIC PANE Peng 04-05-2023 Albumin [Mass/Vol] 2.9 g/dL Low 3.2-5.3 [facility] Comment on above: Performed By: #### C WANDA, , CBCA #### [facility] ([id number]) [address] [place] [address] ALP [Catalytic activity/Vol] 75 U/L Normal 39-130 [facility] Comment on above: Performed By: #### C WANDA, , CBCA #### [facility] ([id number]) [address] [place] [address] ALT [Catalytic activity/Vol] 16 U/L Normal 0-31 [facility] Comment on above: Performed By: #### C WANDA , CBCA #### [facility] ([id number]) [address] [place] [address] Anion gap [Moles/Vol] 7 mmol/L Normal 5-15 [facility] Comment on above: Performed By: #### C WANDA, , CBCA #### [facility] ([id number]) [address] [place] [address] AST [Catalytic activity/Vol] 19 U/L Normal 0-41 [facility] Comment on above: Performed By: #### C WANDA, , CBCA #### [facility] ([id number]) [address] [place] [address] Bilirubin [Mass/Vol] 0.8 mg/dL Normal 0.3-1.2 [facility] Comment on above: Result Comment: RESU LTS QUESTIONABLE DUE TO HEMOLYSIS Performed By: #### C WANDA , CBCA #### [facility] ([id number]) [address] [place] [address] Calcium [Mass/Vol] 8.1 mg/dL Low 8.5-10.5 [facility] Comment on above: Performed By: #### C WANDA , CBCA #### [facility] ([id number]) [address] [place] [address] Chloride [Moles/Vol] 101 mmol/L Normal 98-109 [facility] Comment on above: Performed By: #### C WANDA , CBCA #### [facility] ([id number]) [address] [place] [address] CO2 [Moles/Vol] 23 mmol/L Normal 22-32 [facility] Comment on above: Performed By: #### C WANDA , CBCA #### [facility] ([id number]) [address] [place] [address] Creatinine [Mass/Vol] 1.27 mg/dL High 0.40-1.00 [facility] Comment on above: Result Comment: METH OD TRACEABLE TO IDMS STANDARD Performed By: #### C WANDA, , CBCA #### [facility] ([id number]) [address] [place] [address] GFR/1.73 sq M.predicted among non-blacks MDRD (S/P/Bld) [Vol rate/Area] 46 mL/min/{1.73_m2} Low >59 [facility] Comment on above: Result Comment: Reported eGFR is based on the CKD-EPI 2020 equation that does not use a race coefficient. Performed By: #### C WANDA , CBCA #### [facility] ([id number]) [address] [place] [address] Glucose [Mass/Vol] 246 mg/dL High 65-99 [facility] Comment on above: Performed By: #### C WANDA , CBCA #### [facility] ([id number]) [address] [place] [address] Potassium [Moles/Vol] 5.1 mmol/L High 3.5-5.0 [facility] Comment on above: Result Comment: SPEC IMEN HEMOLYZED, RESULTS INCREASED Performed By: #### C WANDA , CBCA #### [facility] ([id number]) [address] [place] [address] Protein [Mass/Vol] 6.6 g/dL Normal 6.0-8.0 [facility] Comment on above: Performed By: #### Valeria MUÑOZ , CBCA #### [facility] ([id number]) [address] [place] [address] Sodium [Moles/Vol] 131 mmol/L Low 134-146 [facility] Comment on above: Performed By: #### C WANDA , CBCA #### [facility] ([id number]) [address] [place] [address] Urea nitrogen [Mass/Vol] 22 mg/dL Normal 5-27 [facility] Comment on above: Performed By: #### Valeria MUÑOZ , CBCA #### [facility] ([id number]) [address] [place] [address] Glucose Glucometer (BldC) [M ass/Vol]on 04-05-2023 Glucose [Mass/Vol] 343 mg/dL High 65-99 [facility] Glucose [Mass/Vol] 271 mg/dL High 65-99 [facility] Glucose [Mass/Vol] 330 mg/dL High 65-99 [facility] Glucose [Mass/Vol] 301 mg/dL High 65-99 [facility] MAGNESIUMon 04-05-2023 Magnesium [Mass/Vol] 2.1 mg/dL Normal 1.8-2.6 [facility] Comment on above: Performed By: #### C MP, , CBCA #### [facility] ([id number]) [address] [place] [address] CBC AND AUTO DIFFon 04-04-19 ABSOLUTE BASOPHIL 0.0 X10E9/L Normal 0.0-0.2 [facility] Comment on above: Performed By: #### C PAMELA [facility], #### [facility] ([id number]) [address] [place] [address] ABSOLUTE NEUTROPHIL 7.6 X10E9/L High 1.5-6.6 [facility] Comment on above: Performed By: #### C PAMELA, [facility], #### [facility] ([id number]) [address] [place] [address] Basophils/100 WBC (Bld) 0.2 % Normal [facility] Comment on above: Performed By: #### C KIA SANTIAGO, #### [facility] ([id number]) [address] [place] [address] Eosinophils (Bld) [#/Vol] 0.3 10*3/uL Normal 0.0-0.4 [facility] Comment on above: Performed By: #### C BCA, CMP, #### [facility] ([id number]) [address] [place] [address] Eosinophils/100 WBC (Bld) 2.7 % Normal [facility] Comment on above: Performed By: #### C PAMELA [facility], #### [facility] ([id number]) [address] [place] [address] Erythrocyte distribution width (RBC) [Ratio] 14.5 % Normal 11.5-15.0 [facility] Comment on above: Performed By: #### Valeria SANTIAGO [facility], #### [facility] ([id number]) [address] [place] [address] Hematocrit (Bld) [Volume fraction] 34.8 % Low 35-47 [facility] Comment on above: Performed By: #### Valeria SANTIAGO [facility], #### [facility] ([id number]) [address] [place] [address] Hemoglobin (Bld) [Mass/Vol] 11.5 g/dL Low 11.7-15.5 [facility] Comment on above: Performed By: #### C PAMELA [facility], #### [facility] ([id number]) [address] [place] [address] Lymphocytes (Bld) [#/Vol] 1.0 10*3/uL Normal 1.0-3.5 [facility] Comment on above: Performed By: #### Valeria SANTIAGO [facility], #### [facility] ([id number]) [address] [place] [address] Lymphocytes/100 WBC (Bld) 10.4 % Normal [facility] Comment on above: Performed By: #### Valeria SANTIAGO [facility], #### [facility] ([id number]) [address] [place] [address] MCH (RBC) [Entitic mass] 29.0 pg Normal 27-34 [facility] Comment on above: Performed By: #### C KIA SANTIAGO, #### [facility] ([id number]) [address] [place] [address] MCHC (RBC) [Mass/Vol] 33.0 g/dL Normal 32-36 [facility] Comment on above: Performed By: #### C PAMELA [facility], #### [facility] ([id number]) [address] [place] [address] MCV (RBC) [Entitic vol] 88 fL Normal 80-100 [facility] Comment on above: Performed By: #### Valeria SANTIAGO [facility], [id number] #### [facility] ([id number]) [address] [place] [address] Monocytes (Bld) [#/Vol] 0.8 10*3/uL Normal 0-0.9 [facility] Comment on above: Performed By: #### Valeria SANTIAGO [facility], #### [facility] ([id number]) [address] [place] [address] Monocytes/100 WBC (Bld) 8.3 % Normal [facility] Comment on above: Performed By: #### Valeria SANTIAGO [facility], #### [facility] ([id number]) [address] [place] [address] Neutrophils/100 WBC (Bld) 78.4 % Normal [facility] Comment on above: Performed By: #### Valeria SANTIAGO [facility], #### [facility] ([id number]) [address] [place] [address] Platelet mean volume (Bld) [Entitic vol] 8.3 fL Normal 7-12 [facility] Comment on above: Performed By: #### C KIA SANTIAGO, #### [facility] ([id number]) [address] [place] [address] Platelets (Bld) [#/Vol] 200 10*3/uL Normal 150-450 [facility] Comment on above: Performed By: #### Valeria SANTIAGO CMP, #### [facility] ([id number]) [address] [place] [address] RBC COUNT 3.96 X10E12/L Normal 3.80-5.20 [facility] Comment on above: Performed By: #### C PAMELA CMP, #### [facility] ([id number]) [address] [place] [address] WBC (Bld) [#/Vol] 9.7 10*3/uL Normal 4.0-11.0 [facility] Comment on above: Performed By: #### C PAMELA CMP, #### [facility] ([id number]) [address] [place] [address] COMPREHENSIVE METABOLIC PANE Peng 04-04-2023 Albumin [Mass/Vol] 3.2 g/dL Normal 3.2-5.3 [facility] Comment on above: Performed By: #### C MP, , CBCA #### [facility] ([id number]) [address] [place] [address] ALP [Catalytic activity/Vol] 79 U/L Normal 39-130 [facility] Comment on above: Performed By: #### C MP, , CBCA #### [facility] ([id number]) [address] [place] [address] ALT [Catalytic activity/Vol] 13 U/L Normal 0-31 [facility] Comment on above: Performed By: #### C MP, , CBCA #### [facility] ([id number]) [address] [place] [address] Anion gap [Moles/Vol] 9 mmol/L Normal 5-15 [facility] Comment on above: Performed By: #### C MP, , CBCA #### [facility] ([id number]) [address] [place] [address] AST [Catalytic activity/Vol] 17 U/L Normal 0-41 [facility] Comment on above: Performed By: #### C MP, , CBCA #### [facility] ([id number]) [address] [place] [address] Bilirubin [Mass/Vol] 0.4 mg/dL Normal 0.3-1.2 [facility] Comment on above: Performed By: #### C WANDA, , CBCA #### [facility] ([id number]) [address] [place] [address] Calcium [Mass/Vol] 8.3 mg/dL Low 8.5-10.5 [facility] Comment on above: Performed By: #### C WANDA, , CBCA #### [facility] ([id number]) [address] [place] [address] Chloride [Moles/Vol] 102 mmol/L Normal 98-109 [facility] Comment on above: Performed By: #### C WANDA, , CBCA #### [facility] ([id number]) [address] [place] [address] CO2 [Moles/Vol] 23 mmol/L Normal 22-32 [facility] Comment on above: Performed By: #### C WANDA, , CBCA #### [facility] ([id number]) [address] [place] [address] Creatinine [Mass/Vol] 1.56 mg/dL High 0.40-1.00 [facility] Comment on above: Result Comment: METH OD TRACEABLE TO IDMS STANDARD Performed By: #### C WANDA, , CBCA #### [facility] ([id number]) [address] [place] [address] GFR/1.73 sq M.predicted among non-blacks MDRD (S/P/Bld) [Vol rate/Area] 36 mL/min/{1.73_m2} Low >59 [facility] Comment on above: Result Comment: Reported eGFR is based on the CKD-EPI 2020 equation that does not use a race coefficient. Performed By: #### C WANDA, , CBCA #### [facility] ([id number]) [address] [place] [address] Glucose [Mass/Vol] 307 mg/dL High 65-99 [facility] Comment on above: Performed By: #### C WANDA, , CBCA #### [facility] ([id number]) [address] [place] [address] Potassium [Moles/Vol] 4.6 mmol/L Normal 3.5-5.0 [facility] Comment on above: Performed By: #### C WANDA, , CBCA #### [facility] ([id number]) [address] [place] [address] Protein [Mass/Vol] 7.1 g/dL Normal 6.0-8.0 [facility] Comment on above: Performed By: #### C WANDA, , CBCA #### [facility] ([id number]) [address] [place] [address] Sodium [Moles/Vol] 134 mmol/L Normal 134-146 [facility] Comment on above: Performed By: #### C WANDA, , CBCA #### [facility] ([id number]) [address] [place] [address] Urea nitrogen [Mass/Vol] 24 mg/dL Normal 5-27 [facility] Comment on above: Performed By: #### C WANDA, , CBCA #### [facility] ([id number]) [address] [place] [address] Glucose Glucometer (BldC) [M ass/Vol]on 04-04-2023 Glucose [Mass/Vol] 280 mg/dL High 65-99 [facility] Glucose [Mass/Vol] 288 mg/dL High 65-99 [facility] Glucose [Mass/Vol] 299 mg/dL High 65-99 [facility] Glucose [Mass/Vol] 311 mg/dL High 65-99 [facility] HGB A1C (GLYCO-HGB)on 2023 Glucose [Mass/Vol] 186 mg/dL Normal [facility] Comment on above: Performed By: #### C WANDA, , CBCA #### [facility] ([id number]) [address] [place] [address] HbA1c (Bld) [Mass fraction] 8.1 % High 4.4-5.6 [facility] Comment on above: Result Comment: NOTE ADA Guidelines Result HgbA1c Normal : less than 5.7 % Prediabetes : 5.7 % to 6.4 % Diabetes : > 6.4 % Use with caution in patients with abnormal hemoglobin variants as the half-life of red blood cells and in vivo glycation rates are affected. Performed By: #### C WANDA, , CBCA #### [facility] ([id number]) [address] [place] [address] MAGNESIUMon 04-04-2023 Magnesium [Mass/Vol] 2.1 mg/dL Normal 1.8-2.6 [facility] Comment on above: Performed By: #### Valeria MUÑOZ, , CBCA #### [facility] ([id number]) [address] [place] [address] CBC AND AUTO DIFFon 04-03-19 24 ABSOLUTE BASOPHIL 0.0 X10E9/L Normal 0.0-0.2 [facility] Comment on above: Performed By: #### Valeria MUÑOZ, , CBCA #### [facility] ([id number]) [address] [place] [address] ABSOLUTE NEUTROPHIL 11.6 X10E9/L High 1.5-6.6 [facility] Comment on above: Performed By: #### C WANDA, , CBCA #### [facility] ([id number]) [address] [place] [address] Basophils/100 WBC (Bld) 0.1 % Normal [facility] Comment on above: Performed By: #### Valeria MUÑOZ, , CBCA #### [facility] ([id number]) [address] [place] [address] Eosinophils (Bld) [#/Vol] 0.1 10*3/uL Normal 0.0-0.4 [facility] Comment on above: Performed By: #### C WANDA, , CBCA #### [facility] ([id number]) [address] [place] [address] Eosinophils/100 WBC (Bld) 0.5 % Normal [facility] Comment on above: Performed By: #### C WANDA, , CBCA #### [facility] ([id number]) [address] [place] [address] Erythrocyte distribution width (RBC) [Ratio] 14.3 % Normal 11.5-15.0 [facility] Comment on above: Performed By: #### C WANDA , CBCA #### [facility] ([id number]) [address] [place] [address] Hematocrit (Bld) [Volume fraction] 33.0 % Low 35-47 [facility] Comment on above: Performed By: #### C WANDA, , CBCA #### [facility] ([id number]) [address] [place] [address] Hemoglobin (Bld) [Mass/Vol] 11.0 g/dL Low 11.7-15.5 [facility] Comment on above: Performed By: #### C WANDA, , CBCA #### [facility] ([id number]) [address] [place] [address] Lymphocytes (Bld) [#/Vol] 1.4 10*3/uL Normal 1.0-3.5 [facility] Comment on above: Performed By: #### C WANDA, , CBCA #### [facility] ([id number]) [address] [place] [address] Lymphocytes/100 WBC (Bld) 9.7 % Normal [facility] Comment on above: Performed By: #### C WANDA, , CBCA #### [facility] ([id number]) [address] [place] [address] MCH (RBC) [Entitic mass] 28.6 pg Normal 27-34 [facility] Comment on above: Performed By: #### C WANDA, , CBCA #### [facility] ([id number]) [address] [place] [address] MCHC (RBC) [Mass/Vol] 33.2 g/dL Normal 32-36 [facility] Comment on above: Performed By: #### C WANDA, , CBCA #### [facility] ([id number]) [address] [place] [address] MCV (RBC) [Entitic vol] 86 fL Normal 80-100 [facility] Comment on above: Performed By: #### C WANDA, , CBCA #### [facility] ([id number]) [address] [place] [address] Monocytes (Bld) [#/Vol] 1.2 10*3/uL High 0-0.9 [facility] Comment on above: Performed By: #### C WANDA, , CBCA #### [facility] ([id number]) [address] [place] [address] Monocytes/100 WBC (Bld) 8.2 % Normal [facility] Comment on above: Performed By: #### C WANDA, , CBCA #### [facility] ([id number]) [address] [place] [address] Neutrophils/100 WBC (Bld) 81.5 % Normal [facility] Comment on above: Performed By: #### C WANDA, , CBCA #### [facility] ([id number]) [address] [place] [address] Platelet mean volume (Bld) [Entitic vol] 8.5 fL Normal 7-12 [facility] Comment on above: Performed By: #### C WANDA, , CBCA #### [facility] ([id number]) [address] [place] [address] Platelets (Bld) [#/Vol] 215 10*3/uL Normal 150-450 [facility] Comment on above: Performed By: #### C WANDA, , CBCA #### [facility] ([id number]) [address] [place] [address] RBC COUNT 3.83 X10E12/L Normal 3.80-5.20 [facility] Comment on above: Performed By: #### C WANDA, , CBCA #### [facility] ([id number]) [address] [place] [address] WBC (Bld) [#/Vol] 14.2 10*3/uL High 4.0-11.0 [facility] Comment on above: Performed By: #### C WANDA, , CBCA #### [facility] ([id number]) [address] [place] [address] COMPREHENSIVE METABOLIC PANE Peng 04-03-2023 Albumin [Mass/Vol] 3.4 g/dL Normal 3.2-5.3 [facility] Comment on above: Performed By: #### C WANDA, , CBCA #### [facility] ([id number]) [address] [place] [address] ALP [Catalytic activity/Vol] 76 U/L Normal 39-130 [facility] Comment on above: Performed By: #### C WANDA, , CBCA #### [facility] ([id number]) [address] [place] [address] ALT [Catalytic activity/Vol] 12 U/L Normal 0-31 [facility] Comment on above: Performed By: #### C WANDA, , CBCA #### [facility] ([id number]) [address] [place] [address] Anion gap [Moles/Vol] 12 mmol/L Normal 5-15 [facility] Comment on above: Performed By: #### C WANDA, , CBCA #### [facility] ([id number]) [address] [place] [address] AST [Catalytic activity/Vol] 13 U/L Normal 0-41 [facility] Comment on above: Performed By: #### C WANDA, , CBCA #### [facility] ([id number]) [address] [place] [address] Bilirubin [Mass/Vol] 0.8 mg/dL Normal 0.3-1.2 [facility] Comment on above: Performed By: #### C WANDA, , CBCA #### [facility] ([id number]) [address] [place] [address] Calcium [Mass/Vol] 8.6 mg/dL Normal 8.5-10.5 [facility] Comment on above: Performed By: #### C WANDA, , CBCA #### [facility] ([id number]) [address] [place] [address] Chloride [Moles/Vol] 97 mmol/L Low 98-109 [facility] Comment on above: Performed By: #### C WANDA, , CBCA #### [facility] ([id number]) [address] [place] [address] CO2 [Moles/Vol] 25 mmol/L Normal 22-32 [facility] Comment on above: Performed By: #### C WANDA, , CBCA #### [facility] ([id number]) [address] [place] [address] Creatinine [Mass/Vol] 1.56 mg/dL High 0.40-1.00 [facility] Comment on above: Result Comment: METH OD TRACEABLE TO IDMS STANDARD Performed By: #### C WANDA, , CBCA #### [facility] ([id number]) [address] [place] [address] GFR/1.73 sq M.predicted among non-blacks MDRD (S/P/Bld) [Vol rate/Area] 36 mL/min/{1.73_m2} Low >59 [facility] Comment on above: Result Comment: Reported eGFR is based on the CKD-EPI 2020 equation that does not use a race coefficient. Performed By: #### C WANDA, , CBCA #### [facility] ([id number]) [address] [place] [address] Glucose [Mass/Vol] 192 mg/dL High 65-99 [facility] Comment on above: Performed By: #### Valeria MUÑOZ, , CBCA #### [facility] ([id number]) [address] [place] [address] Potassium [Moles/Vol] 3.7 mmol/L Normal 3.5-5.0 [facility] Comment on above: Performed By: #### Valeria MUÑOZ, , CBCA #### [facility] ([id number]) [address] [place] [address] Protein [Mass/Vol] 7.4 g/dL Normal 6.0-8.0 [facility] Comment on above: Performed By: #### Valeria MUÑOZ, , CBCA #### [facility] ([id number]) [address] [place] [address] Sodium [Moles/Vol] 134 mmol/L Normal 134-146 [facility] Comment on above: Performed By: #### Valeria MUÑOZ, , CBCA #### [facility] ([id number]) [address] [place] [address] Urea nitrogen [Mass/Vol] 24 mg/dL Normal 5-27 [facility] Comment on above: Performed By: #### Valeria MUÑOZ, , CBCA #### [facility] ([id number]) [address] [place] [address] Glucose Glucometer (dC) [M ass/Vol]on 04-03-2023 Glucose [Mass/Vol] 310 mg/dL High 65-99 [facility] [facility] Glucose [Mass/Vol] 200 mg/dL High 65-99 [facility] Glucose [Mass/Vol] 200 mg/dL High 65-99 [facility] Glucose [Mass/Vol] 207 mg/dL High 65-99 [facility] MAGNESIUMon 04-03-2023 Magnesium [Mass/Vol] 1.8 mg/dL Normal 1.8-2.6 [facility] Comment on above: Performed By: #### [place], [address]-9, CBCA #### [facility] ([id number]) [address] [place] [address] TISSUE CULTUREon 04-03-2023 Bacteria identified Aer cx Nom (Tiss) GRAM STAIN 1 to 9 WHITE BLOOD CELLS/LPF 0 SQUAMOUS EPITHELIAL CELLS/LPF FEW PLEOMORPHIC GRAM POSITIVE RODS RARE GRAM POSITIVE COCCI SMEAR REVIEWED REPORT UPDATED CULTURE RESULTS GRAM POSITIVE RODS IDENTIFIED : GLEIMIA EUROPAEA (FORMERLY ACTINOMYCES EUROPAEA) Normal [facility] Comment on above: Performed By: #### 6 27-0 #### [facility] ([id number]) [address], [address] [place] [address] aPTT Coag (PPP) [Time]on aPTT Coag (Bld) [Time] 38 s High 26-37 [facility] Comment on above: Performed By: #### 1 4979-9 #### [facility] ([id number]) [address] [place] [address] Glucose - FINGER STICKon Glucose [Mass/Vol] 112 mg/dL [employer] Other A1C HEMOGLOBINon 12-03-2022 HbA1c (Bld) [Mass fraction] 7.9 % [employer] Other Glucose - FINGER [facility]on Glucose [Mass/Vol] 180 mg/dL [employer] Other HbA1c (Bld) [Mass fraction]o n 12-03-2022 A1C HEMOGLOBIN [facility] [employer] Other Glucose - FINGER STICKon Glucose [Mass/Vol] 98 mg/dL [employer] Other Glucose - FINGER STICKon Glucose [Mass/Vol] 163 mg/dL [employer] Other Covid-19 PCR (CVDTB)on 04-03 SARS-CoV-2 (COVID-19) RNA DEVENDRA+probe Ql (Unsp spec) Not detected Normal NOT DETECTED [facility] Comment on above: Result Comment: This test is not yet approved or cleared by the [place] FDA. When there are no FDA-approved or cleared tests available, and other criteria are met, FDA can make tests available under an emergency access mechanism called an Emergency Use Authorization (EUA). The EUA for this test is supported by the Green Feed Attendant of Health and Human Service's (HHS's) declaration that circumstances exist to justify the emergency use of in vitro diagnostics for the detection and/or diagnosis of the virus that causes COVID-19. This EUA will remain in effect (meaning this test can be used) for the duration of the COVID-19 declaration justifying emergency of IVDs, unless it is terminated or revoked by FDA (after which the test may no longer be used). When diagnostic testing is negative, the possibility of a false negative should be considered in the context of a patient's recent exposures and the presence of clinical signs and symptoms consistent with SARS-CoV-2. Performed By: #### C VDTBH #### [facility] [address] [place], [place] [id number] Katarina Lira POINT OF CARE GLUCOSEon Glucose [Mass/Vol] 149 mg/dL Critically high 74-106 [facility] Comment on above: Performed By: #### P OCGLUC #### [facility] [address], [place] [address] Katarina Lira Covid-19 PCR (CVDTB)on 03-04 EUA Statement SEE BELOW Normal [facility] Comment on above: Result Comment: This test is not yet approved or cleared by the [place] FDA. When there are no FDA-approved or cleared tests available, and other criteria are met, FDA can make tests available under an emergency access mechanism called an Emergency Use Authorization (EUA). The EUA for this test is supported by the Green Feed Attendant of Health and Human Service?s (HHS?s) declaration that circumstances exist to justify the emergency use of in vitro diagnostics for the detection and/or diagnosis of the virus that causes COVID-19. This EUA will remain in effect (meaning this test can be used) for the duration of the COVID-19 declaration justifying emergency of IVDs, unless it is terminated or revoked by FDA (after which the test may no longer be used). When diagnostic testing is negative, the possibility of a false negative should be considered in the context of a patients recent exposures and the presence of clinical signs and symptoms consistent with SARS-CoV-2. Performed By: #### C VDTB #### [facility] [address] [place] [id number] Katarina Lira SARS-CoV-2 (COVID-19) RNA DEVENDRA+probe Ql (Unsp spec) Not detected Normal NOT DETECTED [facility] Comment on above: Result Comment: This test is not yet approved or cleared by the [place] FDA. When there are no FDA-approved or cleared tests available, and other criteria are met, FDA can make tests available under an emergency access mechanism called an Emergency Use Authorization (EUA). The EUA for this test is supported by the Green Feed Attendant of Health and Human Service's (HHS's) declaration that circumstances exist to justify the emergency use of in vitro diagnostics for the detection and/or diagnosis of the virus that causes COVID-19. This EUA will remain in effect (meaning this test can be used) for the duration of the COVID-19 declaration justifying emergency of IVDs, unless it is terminated or revoked by FDA (after which the test may no longer be used). Performed By: #### C VDTB #### [facility] [address] [place] [id number] Katarina Lira Vital Signs Date Time Vital Sign Value Performing Clinician Facility 10-19-2024 08:30-0400 Body mass index (BMI) [Ratio] 56.47 kg/m2 [employer] Work Phone: [facility] 10-19-2024 08:30-0400 Body weight 149.23 kg Isabel [employer] Work Phone: [facility] 10-19-2024 08:30-0400 Diastolic blood pressure 72 mm[Hg] [facility] [employer] Work Phone: [facility] 10-19-2024 08:30-0400 Heart rate 79 /min Isabel Robert DO Work Phone: [facility] 10-19-2024 08:30-0400 SaO2% (BldA) [Mass fraction] 98 % Isabel Robert DO Work Phone: [facility] 10-19-2024 08:30-0400 Systolic blood pressure 132 mm[Hg] Isabel Robert DO Work Phone: [facility] 07-27-2024 13:46-0400 Body height 162.6 cm Isabel Robert DO Work Phone: [facility] 07-27-2024 13:46-0400 Body mass index (BMI) [Ratio] 57.98 kg/m2 Isabel Robert DO Work Phone: [facility] 07-27-2024 13:46-0400 Body weight 153.22 kg Isabel Robert DO Work Phone: [facility] 07-27-2024 13:46-0400 Heart rate 74 /min Isabel Roebrt DO Work Phone: [facility] 07-27-2024 13:46-0400 SaO2% (BldA) [Mass fraction] 92 % Isabel Robert DO Work Phone: [facility] 06-27-2024 11:32-0400 Body height 162.6 cm Kiara Oberneder KENNEL SUPERVISOR[employer]AMING MECHANIC Work Phone: [facility] 06-27-2024 11:32-0400 Body mass index (BMI) [Ratio] 57.67 kg/m2 Kiara Oberneder KENNEL SUPERVISOR-[employer]AMING MECHANIC Work Phone: [facility] 06-27-2024 11:32-0400 Body weight 152.41 kg Kiara Oberneder KENNEL SUPERVISOR-FRAMING MECHANIC Work Phone: [facility] 06-27-2024 11:32-0400 Diastolic blood pressure 82 mm[Hg] Kiara Obernarciso KENNEL SUPERVISOR-FRAMING MECHANIC Work Phone: [facility] 06-27-2024 11:32-0400 Heart rate 75 /min Kiara Oberneder KENNEL SUPERVISOR-FRAMING MECHANIC Work Phone: [facility] 06-27-2024 11:32-0400 Systolic blood pressure 142 mm[Hg] Kiara Ramsayernarciso KENNEL SUPERVISOR-FRAMING MECHANIC Work Phone: [facility] 12-29-2023 08:33-0400 Body height 162.6 cm Yassine Powell DPM Work Phone: [facility] 12-29-2023 08:33-0400 Body mass index (BMI) [Ratio] 58.36 kg/m2 Yassine Powell DPM Work Phone: [facility] 12-29-2023 08:33-0400 Body weight 154.22 kg Yassine Powell DPM Work Phone: [facility] 11-20-2023 07:00-0400 Body height 162.6 cm Isabel Robert DO Work Phone: [facility] 11-20-2023 07:00-0400 Body mass index (BMI) [Ratio] 58.98 kg/m2 Isabel Robert DO Work Phone: [facility] 11-20-2023 07:00-0400 Body weight 155.86 kg Isabel Robert DO Work Phone: [facility] 11-20-2023 07:00-0400 Diastolic blood pressure 68 mm[Hg] Isabel Robert DO Work Phone: [facility] 11-20-2023 07:00-0400 Heart rate 75 /min Isabel Robert DO Work Phone: [facility] 11-20-2023 07:00-0400 SaO2% (BldA) [Mass fraction] 96 % Isabel Robert DO Work Phone: [facility] 11-20-2023 07:00-0400 Systolic blood pressure 132 mm[Hg] Isabel Jones DO Work Phone: [facility] 10-20-2023 11:57-0400 Body height 162.6 cm Lily Kumar KENNEL SUPERVISOR-FRAMING MECHANIC Work Phone: [facility] 10-20-2023 11:57-0400 Body mass index (BMI) [Ratio] 58.84 kg/m2 Lily Kumar KENNEL SUPERVISOR-FRAMING MECHANIC Work Phone: [facility] 10-20-2023 11:57-0400 Body weight 155.49 kg Lily Kumar KENNEL SUPERVISOR-FRAMING MECHANIC Work Phone: [facility] 10-20-2023 11:57-0400 Diastolic blood pressure 69 mm[Hg] Lily Kumar KENNEL SUPERVISOR-FRAMING MECHANIC Work Phone: [facility] 10-20-2023 11:57-0400 Heart rate 72 /min Lily Kumar KENNEL SUPERVISOR-FRAMING MECHANIC Work Phone: [facility] 10-20-2023 11:57-0400 Systolic blood pressure 135 mm[Hg] Lily Kumar KENNEL SUPERVISOR-FRAMING MECHANIC Work Phone: [facility] 05-27-2023 14:52-0400 Body height 162.6 cm Wilfrid Murguia MD Work Phone: [facility] 05-27-2023 14:52-0400 Body mass index (BMI) [Ratio] 57.67 kg/m2 Wilfrid Murguia MD Work Phone: [facility] 05-27-2023 14:52-0400 Body weight 152.41 kg Wilfrid Murguia MD Work Phone: [facility] 05-27-2023 14:52-0400 Diastolic blood pressure 80 mm[Hg] Wilfrid Murguia MD Work Phone: [facility] 05-27-2023 14:52-0400 Heart rate 74 /min Wilfrid Murguia MD Work Phone: [facility] [employer] [facility] 05-27-2023 14:52-0400 SaO2% (BldA) [Mass fraction] 97 % Wilfrid Murguia MD Work Phone: [facility] [employer] 05-27-2023 14:52-0400 Systolic blood pressure 130 mm[Hg] Wilfrid Murguia MD Work Phone: [facility] [employer] 05-05-2023 14:13-0500 Body height 162.6 cm Shea Zirker KENNEL SUPERVISOR-FRAMING MECHANIC Work Phone: [facility] [employer] 05-05-2023 14:13-0500 Body mass index (BMI) [Ratio] 58.3 kg/m2 Shea Zirker KENNEL SUPERVISOR-FRAMING MECHANIC Work Phone: [facility] 05-05-2023 14:13-0500 Body temperature 98.4 [degF] Shea Zirker KENNEL SUPERVISOR-FRAMING MECHANIC Work Phone: [facility] 05-05-2023 14:13-0500 Body weight 154.13 kg Shea Zirker KENNEL SUPERVISOR-FRAMING MECHANIC [facility] 05-05-2023 14:13-0500 Diastolic blood pressure 80 mm[Hg] Shea Zirker KENNEL SUPERVISOR-FRAMING MECHANIC [facility] 05-05-2023 14:13-0500 Heart rate 71 /min Shea Zirker KENNEL SUPERVISOR-FRAMING MECHANIC Work Phone: [facility] 05-05-2023 14:13-0500 Respiratory rate 16 /min Shea Zirker KENNEL SUPERVISOR-FRAMING MECHANIC [facility] 05-05-2023 14:13-0500 SaO2% (BldA) [Mass fraction] 94 % Shea Zirker KENNEL SUPERVISOR-FRAMING MECHANIC [facility] 05-05-2023 14:13-0500 Systolic blood pressure 124 mm[Hg] Shea Zirker KENNEL SUPERVISOR-FRAMING MECHANIC [facility] 04-23-2023 14:22-0500 Body height 162.6 cm Bharati Greene KENNEL SUPERVISOR-FRAMING MECHANIC [facility] 04-23-2023 14:22-0500 Body mass index (BMI) [Ratio] 58.19 kg/m2 Bharati Greene KENNEL SUPERVISOR-FRAMING MECHANIC [facility] 04-23-2023 14:22-0500 Body temperature 97.59 [degF] Bharati Greene KENNEL SUPERVISOR-FRAMING MECHANIC Work Phone: [facility] 04-23-2023 14:22-0500 Body weight 153.77 kg Bharati Greene KENNEL SUPERVISOR-FRAMING MECHANIC Work Phone: [employer] 04-23-2023 14:22-0500 Diastolic blood pressure 80 mm[Hg] Bharati Ahmadias KENNEL SUPERVISOR-FRAMING MECHANIC [facility] 04-23-2023 14:22-0500 Heart rate 70 /min Bharati Jc KENNEL SUPERVISOR-FRAMING MECHANIC Work Phone: [facility] 04-23-2023 14:22-0500 Respiratory rate 18 /min Bharati Greene KENNEL SUPERVISOR-FRAMING MECHANIC Work Phone: [facility] 04-23-2023 14:22-0500 SaO2% (BldA) [Mass fraction] 95 % Bharati Jc KENNEL SUPERVISOR-FRAMING MECHANIC Work [facility] 04-23-2023 14:22-0500 Systolic blood pressure 142 mm[Hg] Bharati Jc KENNEL SUPERVISOR-FRAMING MECHANIC [facility] 02-12-2023 13:45-0500 Body height 162.56 cm Spark[employer] June Other [facility] 02-12-2023 13:45-0500 Body mass index (BMI) [Ratio] 55.37 kg/m2 [employer] Other [employer] Other 02-12-2023 13:45-0500 Body weight 146.33 kg Sparkle Scally Other [employer] Other 02-12-2023 13:45-0500 Body weight 146.32 kg ITALIA Melita Lo Work Phone: [facility] 02-12-2023 13:45-0500 Diastolic blood pressure 79 mm[Hg] [employer] Other [facility] 02-12-2023 13:45-0500 Respiratory rate 18 /min Spark[employer] Sc[employer] Other [employer] Other 02-12-2023 13:45-0500 SaO2% (BldA) [Mass fraction] 99 % [employer] Other [employer] Other 02-12-2023 13:45-0500 Systolic blood pressure 134 mm[Hg] [employer] Other [facility] 12-03-2022 11:30-0400 Body height 162.56 cm [employer] Other [employer] Other 12-03-2022 11:30-0400 Body mass index (BMI) [Ratio] 57.63 kg/m2 [employer] Other [employer] Other 12-03-2022 11:30-0400 Body weight 152.32 kg Sparkle [employer] Other [employer] Other 12-03-2022 11:30-0400 Diastolic blood pressure 73 mm[Hg] Spark[employer] Other [employer] Other 12-03-2022 11:30-0400 Respiratory rate 20 /min [employer] Other [employer] Other 12-03-2022 11:30-0400 SaO2% (BldA) [Mass fraction] 96 % [employer] Other [employer] Other 12-03-2022 11:30-0400 Systolic blood pressure 127 mm[Hg] Spark[employer] Other [employer] Other 10-15-2022 09:15-0400 Body height 162.56 cm [employer] Other [employer] Other 10-15-2022 09:15-0400 Body mass index (BMI) [Ratio] 57.07 kg/m2 [employer] Other [employer] Other 10-15-2022 09:15-0400 Body weight 150.82 kg Sparkle [employer] Other [employer] Other 10-15-2022 09:15-0400 Diastolic blood pressure 84 mm[Hg] Spark[employer] Other [employer] Other 10-15-2022 09:15-0400 Respiratory rate 20 /min [employer] Other [employer] Other 10-15-2022 09:15-0400 SaO2% (BldA) [Mass fraction] 98 % [employer] Other [employer] Other 10-15-2022 09:15-0400 Systolic blood pressure 136 mm[Hg] Spark[employer] Other [employer] Other 09-16-2022 10:00-0400 Body height 162.56 cm Sparkle [employer] Other [employer] Other 09-16-2022 10:00-0400 Body mass index (BMI) [Ratio] 57.75 kg/m2 [employer] Other [employer] Other 09-16-2022 10:00-0400 Body weight 152.64 kg Sparkle [employer] Other [employer] Other 09-01-2022 11:00-0400 Body height 162.56 cm Sparkle [employer] Other [employer] Other 09-01-2022 11:00-0400 Body mass index (BMI) [Ratio] 57.75 kg/m2 [employer] Other [employer] Other 09-01-2022 11:00-0400 Body weight 152.64 kg Sparkle [employer] Other [employer] Other 09-01-2022 11:00-0400 Diastolic blood pressure 81 mm[Hg] [employer] Other [employer] Other 09-01-2022 11:00-0400 Respiratory rate 20 /min [employer] Other [employer] Other 09-01-2022 11:00-0400 SaO2% (BldA) [Mass fraction] 98 % [employer] Other [employer] Other 09-01-2022 11:00-0400 Systolic blood pressure 155 mm[Hg] Sparkle June Other [employer] Other Encounters Encounter Date Encounter Type Care Provider Facility Start: 10-19-2024 End: 10-19-2024 Bamboo flowsheet Isabel K Robert DO Work Phone: [facility] Start: 10-19-2024 End: 10-19-2024 Bamboo flowsheet Isabel K Robert DO Work Phone: [facility] Start: 10-19-2024 End: 10-19-2024 Office outpatient visit 25 minutes Isabel K Robert DO Work Phone: [facility] Comment on above: MARIUSZ (obstructive sle ep apnea) (Primary Dx); Mild intermittent asthma without complication (HCC) Start: 10-09-2024 End: 10-09-2024 Emergency department patient visit [facility] Start: 07-27-2024 End: 07-27-2024 Bamboo flowsheet Isabel Clara Robert DO Work Phone: [facility] Start: 07-27-2024 End: 07-27-2024 Bamboo flowsheet Isabel K Robert DO Work Phone: [facility] Start: 07-27-2024 End: 07-27-2024 Office outpatient visit 25 minutes Isabel K Robert DO Work Phone: [facility] Comment on above: MARIUSZ (obstructive sle ep apnea) (Primary Dx); Mild intermittent asthma without complication (CMS/HCC) Start: 07-27-2024 End: 07-27-2024 ambulatory ISABEL Clara ROBERT Not Available Start: 06-28-2024 End: 06-30-2024 Telephone encounter Isabel Clara Robert DO Work Phone: [facility] Start: 06-27-2024 End: 06-27-2024 Office outpatient visit 25 minutes Kiara Caraballo Thanh KENNEL SUPERVISOR-FRAMING MECHANIC Work Phone: [facility] Comment on above: Stage 3a chronic kid haider disease (CMS-HCC) (Primary Dx) Start: 04-22-2024 End: 04-22-2024 ambulatory KIARA Caraballo GIANNI [facility] Start: 03-10-2024 End: 03-11-2024 Emergency department patient visit MELITA Leon WALLY [facility] Start: 01-14-2024 End: 01-14-2024 Orders Only Kiara Ilya Thanh KENNEL SUPERVISOR-FRAMING MECHANIC Work Phone: [facility] Comment on above: Stage 3b chronic kid haider disease (CMS-HCC) (Primary Dx) Start: 01-04-2024 End: 02-29-2024 Telephone encounter Isabel Jones DO Work Phone: [facility] Comment on above: [facility] Start: 12-29-2023 End: 12-29-2023 Bamboo flowsheet Yassine Powell DPM Work Phone: [facility] Start: 12-29-2023 End: 12-29-2023 Bamboo flowsheet Yassine Powell DPM Work Phone: [facility] Start: 12-29-2023 End: 12-29-2023 Office outpatient visit 15 minutes Yassine Powell DPM Work Phone: [facility] Comment on above: Subungual hematoma o f great toe of right foot, sequela (Primary Dx); Pain of right great toe; Type 2 diabetes mellitus without complication, with long-term current use of insulin ([facility]) Start: 12-29-2023 End: 12-29-2023 ambulatory YASSINE POWELL Not Available Start: 11-20-2023 End: 11-20-2023 Bamboo flowsheet Isabel Jones DO Work Phone: [facility] Start: 11-20-2023 End: 11-20-2023 Bamboo flowsheet Isabel Jones DO Work Phone: [facility] Start: 11-20-2023 End: 11-20-2023 Office outpatient visit 15 minutes Isabel Jones DO Work Phone: [facility] Comment on above: MARIUSZ (obstructive sle ep apnea) (Primary Dx); Mild intermittent asthma without complication (CMS/HCC) Start: 11-20-2023 End: 11-20-2023 ambulatory ISABEL JONES Not Available Start: 11-17-2023 End: 11-17-2023 Telephone encounter Irma Burton CMA [facility] Start: 11-12-2023 End: 11-12-2023 Evaluation and management of inpatient [facility] Start: 11-11-2023 End: 11-12-2023 Evaluation and management of inpatient [facility] Start: 10-28-2023 End: 11-03-2023 Telephone encounter Yoko Hernandez RN [facility] Start: 10-22-2023 End: 10-22-2023 Patient encounter procedure [facility] Pre-Admission Testing 2 [facility] - Pre Admit Comment on above: Preop examination (P rimary Dx); Hypertension, unspecified type; BMI 50.0-59.9, adult ([facility]); Type 2 diabetes mellitus with other specified complication, unspecified whether snf insulin use ([facility]); Paroxysmal atrial fibrillation ([facility]) Start: 10-22-2023 End: 10-22-2023 Preprocedural examination done [facility] 2 [facility] Start: 10-22-2023 End: 10-22-2023 ambulatory [facility] Start: 10-22-2023 Encounter for other preprocedural examination MELITA LO [facility] Start: 10-20-2023 End: 10-20-2023 Office outpatient new 30 minutes Lily Kumar KENNEL SUPERVISOR-FRAMING MECHANIC Work Phone: [facility] Comment on above: Encounter for colono scopy due to history of colonic polyp (Primary Dx); Encounter for colonoscopy in patient with family history of colon cancer Start: 10-20-2023 End: 10-20-2023 ambulatory LILY Edward KUMAR [facility] Start: 10-13-2023 End: 10-14-2023 Telephone encounter Lily Kumar KENNEL SUPERVISOR-FRAMING MECHANIC [facility] Start: 08-10-2023 End: 08-10-2023 ambulatory SHAREE ALDRIDGE Not Available Start: 08-03-2023 End: 08-03-2023 ambulatory SHAREE ALDRIDGE Not Available Start: 07-09-2023 End: 07-09-2023 Clinical Support [facility] 2 [facility] - Sleep Disorders Comment on above: Obstructive sleep ap zaheer (adult) (pediatric) Start: 05-27-2023 End: 05-27-2023 Office outpatient visit 15 minutes Wilfrid Murguia MD Work Phone: [facility] Comment on above: Essential hypertensi on (Primary Dx); Paroxysmal atrial fibrillation ([facility]); Cryptogenic stroke ([facility]) Start: 05-26-2023 Telephone encounter Gulshan gleason RN [facility] Comment on above: Nosebleeds Start: 05-05-2023 End: 05-05-2023 ambulatory [facility] Start: 05-05-2023 End: 05-05-2023 Office outpatient visit 25 minutes [facility] KENNEL SUPERVISOR[employer]AMING MECHANIC Work Phone: [facility] Comment on above: Hospital discharge f ollow-up (Primary Dx); Perirectal abscess; Necrotizing fasciitis ([facility]); Peripherally inserted central catheter (PICC) in place; Enterococcus faecalis infection; Morbid obesity due to excess calories ([facility]); Poorly controlled type 2 diabetes mellitus ([facility]); Atrial fibrillation, unspecified type ([facility]); Chronic anticoagulation Start: 04-23-2023 End: 04-23-2023 ambulatory BHARATI GREENE [facility] Start: 04-23-2023 End: 04-23-2023 Office outpatient visit 15 minutes Bharati Greene KENNEL SUPERVISOR-FRAMING MECHANIC Work Phone: [facility] Comment on above: Necrotizing fasciiti s (CMS-HCC) (Primary Dx); Urinary tract infection without hematuria, site unspecified Start: 04-11-2023 Documentation procedure Myron Carey KENNEL SUPERVISOR-FRAMING MECHANIC Work Phone: [facility] Infectious Disease Start: 04-09-2023 End: 04-09-2023 ambulatory OLGA LIDIA Soto SYED [employer] [facility] [employer] Other Start: 04-09-2023 Telephone encounter Sparkle mcc[facility] Start: 04-07-2023 End: 04-07-2023 Evaluation and management of [facility] Start: 04-03-2023 End: 04-03-2023 ambulatory ADILENE CODY [facility] Start: 04-03-2023 End: 04-07-2023 Evaluation and management of inpatient MARILEE MORILLO [facility] Start: 03-31-2023 End: 03-31-2023 ambulatory Tricia Palmer Other [employer] Other Start: 03-31-2023 Telephone [address] Tricia Palmer [facility] Start: 03-20-2023 Telephone encounter Isabel casas DO Work Phone: [facility] - Sleep Disorders Comment on above: Sleep Lab (CPAP) Start: 03-10-2023 Telephone encounter Orders Sup port User Transcribe [facility] Division of [facility] - Sleep Disorders Comment on above: Sleep Lab (PT inquir y) Start: 02-12-2023 Nutrition therapy Sparkle Hayes [facility] Start: 02-12-2023 Registered Recurring ITALIA Lo Work Phone: [facility] Work Phone: Start: 02-12-2023 End: 02-12-2023 ambulatory Melita [employer] Other Start: 02-12-2023 End: 02-12-2023 Patient encounter procedure KENNEL SUPERVISOR Melita Lo Work Phone: [facility] Work Phone: Start: 01-12-2023 End: 01-12-2023 ambulatory Sparkle Scally Other [employer] Other Start: 01-12-2023 Telephone encounter Sparkle [place]ade [facility] [place] [facility] Start: 12-03-2022 (DM) Diabetes Sparkle Scally [facility] Start: 12-03-2022 End: 12-03-2022 ambulatory Melita [employer] Other Start: 10-23-2022 End: 10-23-2022 ambulatory Sparkle Scally Other [employer] Other Start: 10-23-2022 Telephone encounter Sparkle Mauricely [facility] [facility] [facility] Start: 10-22-2022 End: 10-22-2022 ambulatory Sparkle Scally Other [employer] Other Start: 10-22-2022 Telephone encounter Sparkle Mauricely [facility] Start: 10-15-2022 (DM) Diabetes Sparkle Scally [facility] Start: 10-15-2022 End: 10-15-2022 ambulatory Sparkle Scally Other [employer] Other Start: 10-02-2022 Patient encounter status Chanel Jones DO Work Phone: [facility] Start: 09-29-2022 End: 09-29-2022 ambulatory Tricia Palmer Other [employer] Other Start: 09-29-2022 Diabetic care education Tricia Palmer [facility] Start: 09-24-2022 End: 09-24-2022 ambulatory Sparkle June Other [employer] Other Start: 09-24-2022 Telephone encounter Sparkle Peck [facility] Start: 09-16-2022 End: 09-16-2022 ambulatory Sparkle June Other [employer] Other Start: 09-16-2022 Nursing evaluation o f patient and report Sparkle June [facility] Start: 09-01-2022 End: 09-01-2022 ambulatory Sparkle June Other [employer] Other Start: 09-01-2022 FQHC visit new patient Sparkle soto [facility] Start: 04-25-2020 End: 04-25-2020 ambulatory MELITA LO Facility:[facility]1 Start: 04-06-2020 Encounter for preprocedural laboratory examination DR CASSY MCNEAL [facility] Start: 04-04-2020 End: 04-04-[address] CASSY MNCEAL Facility:[facility] Start: 03-31-2020 End: 03-31-[address] CASSY MCNEAL Facility:[facility] Start: 03-31-2020 End: 03-31-2020 Encounter for preprocedural laboratory examination DR CASSY MCNEAL Facility:[facility] Start: 03-06-2020 Patient encounter status Orders Tr [employer] Work Phone: Start: 02-13-2018 End: 02-14-2018 Patient encounter procedure DEFAULT PHYSICIAN Facility:[facility] Procedures Date Procedure Procedure Detail Performing Clinician Start: 11-11-2023 Colonoscopy Irma kirkland DIRECTOR OF [employer]ES Start: 05-05-2023 Follow-up visit Follow-up LEEANN CAREY Start: 10-14-2022 Mammography Isabel Str ack DO Work Phone: Plan of Treatment Date Care Activity Detail Author Start: 11-10-2033 Screening for malign ant neoplasm of colon [facility] Start: 12-27-2029 DTaP,Tdap and Td Vaccines (3 - Td or Tdap) DTaP,Tdap and Td Vaccines (3 - Td or Tdap) [facility] Start: 11-10-2028 Screening for malign ant neoplasm of colon Colonoscopy [facility] Start: 06-27-2025 Adult BMI Screening Adult BMI Screen ing [facility] Start: 03-10-2025 Tobacco Screening Tobacco Screening [facility] Start: 01-11-2025 End: 01-11-2025 Patient encounter procedure 01/11/2025 9:45 AM EST Office Visit [facility] [address] [place] [address] Isabel Jones, DO [address] [place] [address] [facility] Start: 11-10-2024 Adult BMI Screening Adult BMI Screen ing [facility] Start: 11-10-2024 Tobacco Screening Tobacco Screening [facility] Start: 10-31-2024 Influenza vaccination [facility] Start: 10-21-2024 Tobacco Screening Tobacco Screening [facility] Start: 10-19-2024 Adult BMI Screening Adult BMI Screen ing [facility] Start: 10-19-2024 Tobacco Screening Tobacco Screening [facility] Start: 10-19-2024 End: 10-19-2024 Patient encounter procedure [facility] Comment on above: Arrived Start: 07-27-2024 End: 07-27-2024 Patient encounter procedure 07/27/2024 1:45 PM EDT Office Visit [facility] [address] [place] [address] Isabel Jones, DO [address] [place] [address] Arrived [facility] Comment on above: Arrived Start: 07-08-2024 Tobacco Screening Tobacco Screening [facility] Start: 06-22-2024 COVID-19 Vaccine ( season) COVID-19 Vaccine () [facility] Start: 05-26-2024 Adult BMI Screening Adult BMI Screen ing [facility] Start: 05-26-2024 Tobacco Screening Tobacco Screening [facility] Start: 05-04-2024 Adult BMI Screening Adult BMI Screen ing [facility] Start: 05-04-2024 Tobacco Screening Tobacco Screening [facility] Start: 04-25-2024 End: 04-25-2024 Patient encounter procedure 04/25/2024 9:40 AM EST Office Visit [facility] [address] [place] [phone] Kiara Crenshaw, KENNEL SUPERVISOR-FRAMING MECHANIC [address] [facility], [address] [place], [place] [id number] [facility] Start: 04-23-2024 Adult BMI Screening Adult BMI Screen ing [facility] Start: 04-07-2024 Adult BMI Screening Adult BMI Screen ing [facility] Start: 04-03-2024 Tobacco Screening Tobacco Screening [facility] Start: 12-29-2023 End: 12-29-2023 Patient encounter procedure 12/29/2023 8:30 AM EDT Office Visit [facility] [address] [place] [address] Yassine Powell DPM [address] [place], [place] [phone] Arrived [facility] Comment on above: Arrived Start: 11-25-2023 Adult BMI Screening Adult BMI Screen ing [facility] Start: 11-20-2023 End: 11-20-2023 Patient encounter procedure 11/20/2023 8:45 AM EDT Office Visit [facility] [address] [place] [address] Isabel Jones, DO [address] [place] [address] Arrived [facility] Comment on above: Arrived Start: 11-11-2023 End: 11-11-2023 Admission to same day surgery center 11/11/2023 10:00 AM EDT - 11/11/2023 10:30 AM EDT Surgery [facility] [address] [facility] [phone] Divya Damon MD [address] [place] [address] COLONOSCOPY DIAGNOSTIC / SCREENING [65285 (CPT )] [facility] Comment on above: COLONOSCOPY DIAGNOST IC / SCREENING [90031 (CPT )] Start: 11-11-2023 End: 11-11-2023 Colonoscopy flx dx w/collj spec when pfrmd COLONOSCOPY DIAGNOSTIC / SCREENING History of colon polyps 11/11/2023 10:00 AM EDT [facility] Start: 11-11-2023 Subsequent hospital visit by physician 11/11/2023 10:00 AM EDT Hospital Encounter [facility] [address] [place] [phone] Divya Damon MD [address] [place] [address] [facility] Start: 11-01-2023 COVID-19 Vaccine ( season) COVID-19 Vaccine ( season) [facility] Start: 11-01-2023 COVID-19 Vaccine ( season) COVID-19 Vaccine ( season) [facility] Start: 11-01-2023 Influenza vaccination [facility] Start: 10-22-2023 End: 10-22-2023 Patient encounter procedure 10/22/2023 9:45 AM EDT Procedure visit [facility] - Pre Admit [address] [phone] [facility] - Pre Admit Start: 10-20-2023 End: 10-20-2023 Patient encounter procedure 10/20/2023 12:00 PM EDT Office Visit [facility] General Surgery [address] [place] [phone] Lily Kumar, KENNEL SUPERVISOR-FRAMING MECHANIC [address] [place], [place] [phone] [facility] Start: 10-15-2023 Screening for malign ant neoplasm of breast Mammogram [facility] Start: 10-15-2023 Tobacco Screening Tobacco Screening [facility] Start: 07-09-2023 End: 07-09-2023 Clinical Support 07/09/2023 8:00 PM EDT Clinical Support [facility] - Sleep Disorders [address] [place] [phone] [facility] Start: 06-05-2023 COVID-19 Vaccine ( season) COVID-19 Vaccine ( season) [facility] Start: 05-27-2023 End: 05-27-2023 Patient encounter procedure 05/27/2023 3:15 PM EDT Office Visit [facility] [address] [place] [phone] Wilfrid Murguia MD [address] [place] [phone] [facility] Start: 04-29-2023 End: 04-29-2023 Patient encounter procedure 04/29/2023 9:20 AM EST Office Visit [facility] [address] [facility] [address] [place] [address] Shea Carey, KENNEL SUPERVISOR-FRAMING MECHANIC [address] [facility] [address] [place] [address] [facility] Start: 04-23-2023 End: 04-23-2023 Patient encounter procedure 04/23/2023 2:40 PM EST Office Visit [facility] [address] [facility] [address] [facility] [place] [address] Bharati Greene, KENNEL SUPERVISOR-FRAMING MECHANIC [address] [facility] [address] [facility] [address] [facility] Start: 04-13-2023 Subsequent hospital visit by physician 04/13/2023 8:02 AM EST Hospital Encounter [facility] [address] [place] [address] Necrotizing fasciitis (CMS-HCC) (Primary Dx); Essential (primary) hypertension; Chronic obstructive pulmonary disease, unspecified (CMS-HCC); COPD (chronic obstructive pulmonary disease) (CMS-HCC); Type 2 diabetes mellitus without complications (CMS-HCC) [facility] Comment on above: Necrotizing fasciiti s (CMS-HCC) (Primary Dx); Essential (primary) hypertension; Chronic obstructive pulmonary disease, unspecified (CMS-HCC); COPD (chronic obstructive pulmonary disease) (CMS-HCC); Type 2 diabetes mellitus without complications (CMS-HCC) Start: 10-31-2022 COVID-19 Vaccine ( season) COVID-19 Vaccine ( season) [facility] Start: 10-31-2022 Influenza vaccination Influenza Vacc ine [facility] Start: 06-15-2020 Fall Risk Screening Fall Risk Screen ing [facility] Start: 06-15-2020 Pneumococcal Vaccine : 65+ Years (2 of 2 - PCV) Pneumococcal Vaccine: 65+ Years (2 of 2 - PCV) [facility] Start: 02-22-2020 Administration of varicella zoster vaccine Zoster (Shingles) Vaccine (2 of 2) [facility] Start: 11-14-2011 Pneumococcal Vaccine : 65+ Years (2 of 2 - PCV) Pneumococcal Vaccine: 65+ Years (2 of 2 - PCV) [facility] Start: 06-15-1973 Adult BMI Follow Up Plan Adult BMI Follow Up Plan [facility] Start: 06-15-1973 Diabetic foot examination Diabetic Foot Exam [facility] Start: 1967 Depression Screening Depression Scre ening [facility] Start: 1955 Glaucoma screening Diabetic Op hthalmology Exam [facility] [employer] [facility] Start: 1955 Medicare Annual Well ness Visit Medicare Annual Wellness Visit [facility] [employer] [facility] Start: 1955 Screening for malign ant neoplasm of colon [facility] Start: 1955 Urine screening for protein Urine Microalbumin [facility] [employer] [facility] End: 01-13-2025 Basic metabolic 2000 panel - Serum or Plasma Basic Metabolic Panel Lab Routine Stage 3b chronic kidney disease ([facility]) 1 Occurrences starting 01/14/2024 until 01/13/2025 [facility] Work Phone: Comment on above: 1 Occurrences starti ng 01/14/2024 until 01/13/2025 End: 06-27-2025 Basic metabolic 2000 panel - Serum or Plasma Basic Metabolic Panel Lab Routine Stage 3a chronic kidney disease ([facility]) 1 Occurrences starting 06/27/2024 until 06/27/2025 [facility] [employer] Comment on above: 1 Occurrences starti ng 06/27/2024 until 06/27/2025 End: 01-13-2025 CBC panel - Blood by Automated count CBC without diff Lab Routine Stage 3b chronic kidney disease ([facility]) 1 Occurrences starting 01/14/2024 until 01/13/2025 [facility] [employer] Comment on above: 1 Occurrences starti ng 01/14/2024 until 01/13/2025 End: 06-27-2025 CBC panel - Blood by Automated count CBC without diff Lab Routine Stage 3a chronic kidney disease ([facility]) 1 Occurrences starting 06/27/2024 until 06/27/2025 [facility] [employer] Comment on above: 1 Occurrences starti ng 06/27/2024 until 06/27/2025 End: 10-19-2024 Colonoscopy Colonoscopy GI Routine Encounter for colonoscopy due to history of colonic polyp Encounter for colonoscopy in patient with family history of colon cancer 1 Occurrences starting 10/20/2023 until 10/19/2024 [employer] Work Phone: Comment on above: 1 Occurrences starti ng 10/20/2023 until 10/19/2024 End: 01-13-2025 Magnesium [Mass/volume] in Serum or Plasma Magnesium Lab Routine Stage 3b chronic kidney disease ([facility]) 1 Occurrences starting 01/14/2024 until 01/13/2025 [facility] on above: 1 Occurrences starti ng 01/14/2024 until 01/13/2025 End: 06-27-2025 Magnesium [Mass/volume] in Serum or Plasma Magnesium Lab Routine Stage 3a chronic kidney disease ([facility]) 1 Occurrences starting 06/27/2024 until 06/27/2025 [facility] Comment on above: 1 Occurrences starti ng 06/27/2024 until 06/27/2025 End: 06-27-2025 Microalbumin - Albumin: Creatinine Urine Ratio Microalbumin - Albumin: Creatinine Urine Ratio Lab Routine Stage 3a chronic kidney disease ([facility]) 1 Occurrences starting 06/27/2024 until 06/27/2025 [employer] Comment on above: 1 Occurrences starti ng 06/27/2024 until 06/27/2025 End: 01-13-2025 Parathyroid Hormone, intact Parathyroid Hormone, intact Lab Routine Stage 3b chronic kidney disease ([facility]) 1 Occurrences starting 01/14/2024 until 01/13/2025 [employer] Comment on above: 1 Occurrences starti ng 01/14/2024 until 01/13/2025 End: 06-27-2025 Parathyroid Hormone, intact Parathyroid Hormone, intact Lab Routine Stage 3a chronic kidney disease ([facility]) 1 Occurrences starting 06/27/2024 until 06/27/2025 [facility] Work Phone: Comment on above: 1 Occurrences starti ng 06/27/2024 until 06/27/2025 End: 01-13-2025 Phosphate [Mass/volume] in Serum or Plasma Phosphorus Lab Routine Stage 3b chronic kidney disease ([facility]) 1 Occurrences starting 01/14/2024 until 01/13/2025 [employer] Comment on above: 1 Occurrences starti ng 01/14/2024 until 01/13/2025 End: 06-27-2025 Phosphate [Mass/volume] in Serum or Plasma Phosphorus Lab Routine Stage 3a chronic kidney disease ([facility]) 1 Occurrences starting 06/27/2024 until 06/27/2025 [employer] Comment on above: 1 Occurrences starti ng 06/27/2024 until 06/27/2025 PICC Line Removal PICC Line Santos neena Procedures Routine Peripherally inserted central catheter (PICC) in place Ordered: 05/05/2023 [employer] Work Phone: Comment on above: Ordered: 05/05/2023 End: 01-13-2025 Protein creat ratio Protein creat ratio Lab Routine Stage 3b chronic kidney disease ([facility]) 1 Occurrences starting 01/14/2024 until 01/13/2025 [employer] Comment on above: 1 Occurrences starti ng 01/14/2024 until 01/13/2025 End: 06-27-2025 Protein creat ratio Protein creat ratio Lab Routine Stage 3a chronic kidney disease ([facility]) 1 Occurrences starting 06/27/2024 until 06/27/2025 [employer] Comment on above: 1 Occurrences starti ng 06/27/2024 until 06/27/2025 End: 01-13-2025 Urinalysis Urinalysis Lab Routine Stage 3b chronic kidney disease ([facility]) 1 Occurrences starting 01/14/2024 until 01/13/2025 [employer] Comment on above: 1 Occurrences starti ng 01/14/2024 until 01/13/2025 End: 06-27-2025 Urinalysis Urinalysis Lab Routine Stage 3a chronic kidney disease ([facility]) 1 Occurrences starting 06/27/2024 until 06/27/2025 [employer] Comment on above: 1 Occurrences starti ng 06/27/2024 until 06/27/2025 End: 01-13-2025 Vitamin D 25 hydroxy Vitamin D 25 hydroxy Lab Routine Stage 3b chronic kidney disease ([facility]) 1 Occurrences starting 01/14/2024 until 01/13/2025 [facility] Comment on above: 1 Occurrences starti ng 01/14/2024 until 01/13/2025 End: 06-27-2025 Vitamin D 25 hydroxy Vitamin D 25 hydroxy Lab Routine Stage 3a chronic kidney disease ([facility]) 1 Occurrences starting 06/27/2024 until 06/27/2025 [facility] Comment on above: 1 Occurrences starti ng 06/27/2024 until 06/27/2025 Immunizations Immunization Date Immunization Notes Care Provider Uma fleming 12-23-2023 influenza, high dose seasonal, preservative-free Isabel Robert DO Work Phone: [facility] 12-23-2023 SARS-COV-2 (COVID-19 ) vaccine, mRNA, spike protein, LNP, PF, 50 mcg/0.5 mL Isabel Robert DO Work Phone: [facility] 12-23-2023 influenza virus vacc ine, unspecified formulation Yassine Powell DPM Work Phone: [facility] 02-03-2023 Pfizer Stephens Cap SARS-CoV-2 Vaccination Isabel Robert DO Work Phone: [facility] 12-18-2022 Influenza, Seasonal, Quadrivalent, Adjuvanted Isabel Robert DO Work Phone: [facility] 12-18-2022 influenza virus vacc ine, unspecified formulation [facility] 2 [facility] 12-23-2021 influenza, injectabl e, quadrivalent, preservative free Isabel Robert DO Work Phone: [facility] 12-23-2021 influenza virus vacc ine, unspecified formulation Orders Transcribe [facility] 11-27-2021 Moderna Bivalent Swartz ster Vaccination Isabel Robert DO Work Phone: [facility] 02-28-2021 influenza, injectabl e, quadrivalent, preservative free Isabel Robert DO Work Phone: [facility] 02-12-2021 Moderna SARS-CoV-2 Vaccination Isabel Robert DO Work Phone: [facility] 02-12-2021 Pfizer Purple Cap SARS-CoV-2 Vaccination Isabel Robert DO Work Phone: [facility] 05-31-2020 Moderna SARS-CoV-2 Vaccination Isabel Robert DO Work Phone: [facility] 05-31-2020 SARS-COV-2 (COVID-19 ) vaccine, mRNA, spike protein, LNP, PF, 50 mcg/0.5 mL Isabel Robert DO Work Phone: [facility] 05-03-2020 Moderna SARS-CoV-2 Vaccination Isabel Robert DO Work Phone: [facility] 05-03-2020 SARS-COV-2 (COVID-19 ) vaccine, mRNA, spike protein, LNP, PF, 50 mcg/0.5 mL Isabel Robert DO Work Phone: [facility] 12-28-2019 influenza, injectabl e, quadrivalent, preservative free Isabel Robert DO Work Phone: [facility] 12-28-2019 tetanus toxoid, redu reji diphtheria toxoid, and acellular pertussis vaccine, adsorbed Isabel Robert DO Work Phone: [facility] 12-28-2019 zoster vaccine recombinant Isabel Robert DO Work Phone: [facility] 12-28-2019 zoster vaccine, live Isabel Robert DO Work Phone: [facility] 12-28-2019 zoster vaccine, unspecified formulation Orders Transcribe [facility] 12-14-2019 diphtheria, tetanus toxoids and acellular pertussis vaccine Isabel Robert DO Work Phone: [facility] 12-14-2019 influenza, seasonal, injectable, preservative free Isabel Robert DO Work Phone: [facility] 03-16-2019 Influenza, injectabl e, Madin [place] Canine Kidney, preservative free, quadrivalent Orders Transcribe [facility] 03-16-2019 influenza, seasonal, injectable Isabel Robert DO Work Phone: [facility] 02-28-2018 influenza, injectabl e, quadrivalent, preservative free Orders Transcribe [facility] 03-19-2017 influenza, injectabl e, quadrivalent, contains preservative Isabel Robert DO Work Phone: [facility] 03-19-2017 influenza, injectabl e, quadrivalent, preservative free Orders Transcribe [facility] 03-19-2017 influenza, seasonal, injectable, preservative free Isabel Robert DO Work Phone: [facility] 12-04-2014 influenza, seasonal, injectable, preservative free Orders Transcribe [facility] 01-05-2013 influenza, seasonal, injectable Orders Transcribe [facility] 11-13-2010 influenza virus vacc ine, whole virus Orders Transcribe [facility] 11-13-2010 pneumococcal polysaccharide vaccine, 23 valent Orders Transcribe [facility] 12-31-2009 influenza, seasonal, injectable Orders Transcribe [facility] 03-27-2000 hepatitis A vaccine, adult dosage Isabel Robert DO Work Phone: [facility] 03-27-2000 hepatitis B vaccine, adult dosage Isabel Robert DO Work Phone: [facility] 03-27-2000 meningococcal vaccin e of unknown formulation and unknown serogroups Isabel Robert DO Work Phone: [facility] 03-27-2000 poliovirus vaccine, inactivated Isabel Robert DO Work Phone: [facility] 03-27-2000 typhoid capsular polysaccharide vaccine Isabel Robert DO Work Phone: [facility] 03-27-2000 yellow fever vaccine Isabel Robert DO Work Phone: [facility] Payers Date Payer Category Payer Medicare (Managed Care) PETRA DORANTES [id number] 2023 Medicare [facility] MEDIC[facility] [id number] 2023 Medicare [id number] 2022 Self-pay [id number] 2016 Medicaid [id number] 2016 Medicare [id number]. [id number] 1959 Medicaid [id number] 1959 Medicare [id number] 1955 Unknown [id number] 2.16.840.1.131155.3.579.2. 647 1955 Unknown [id number] 2.16.840.1.541071.3.579.2. 593 1955 Unknown [id number] 2.16.840.1.881891.3.579.2. 593 1955 Unknown [id number] 2.16.840.1.042970.3.579.2. 593 1955 Unknown [id number] 2.16.840.1.842278.3.579.2. 1285 1955 Unknown [id number] 2.16.840.1.785153.3.579.2. 1285 1955 Unknown [id number] 2.16.840.1.779557.3.579.2. 1285 1955 Unknown [id number] 2.16.840.1.882707.3.579.2. 1285 1955 Unknown [id number] 2.16.840.1.357378.3.579.2. 1285 1955 Unknown [id number] 2.16.840.1.508308.3.579.2. 1285 1955 Unknown [id number] 2.16.840.1.789182.3.579.2. 1285 1955 Unknown [id number] 2.16.840.1.395851.3.579.2. 1285 1955 Unknown [id number] 2.16.840.1.397509.3.579.2. 1258 1955 Unknown [id number] 2.16.840.1.460437.3.579.2. 1258 1955 Unknown [id number] 2.16.840.1.909656.3.579.2. 1258 1955 Unknown [id number] 2.16.840.1.307544.3.579.2. 1258 1955 Unknown [id number] 2.16.840.1.273467.3.579.2. 1258 1955 Unknown [id number] 2.16.840.1.979755.3.579.2. 1258 1955 Unknown [id number] 2.16.840.1.808530.3.579.2. 1285 1955 Unknown [id number] 2.16.840.1.088988.3.579.2. 1285 1955 Unknown [id number] 2.16.840.1.595546.3.579.2. 1285 1955 Unknown [id number] 2.16.840.1.036371.3.579.2. 1286 1955 Unknown [id number] 2.16.840.1.375893.3.579.2. 128 1955 Unknown [id number] 2.16.840.1.397035.3.579.2. 1285 1955 Unknown [id number] 2.16.840.1.850102.3.579.2. 128 1955 Unknown [id number] 2.16.840.1.342233.3.579.2. 1285 1955 Unknown [id number] 2.16.840.1.721133.3.579.2. 1286 Medicare Medicare Outpatient [id number] [id number] Unknown Unknown [id number] 2.16.840.1.182272.3.579.2. 531 Unknown [id number] 2.16.840.1.943159.3.579.2. 531 Social History Date Type Detail Facility Unknown if ever smoked [employer] Other Start: 11-20-2023 End: 07-27-2024 [facility] Start: 10-02-2022 End: 02-12-2023 Tobacco smoking status NHIS Never smoked tobacco (finding) [facility] Start: 1955 Sex Assigned At Female F [facility] Start: 06-11-2022 End: 10-02-2022 Tobacco use and exposure Smokeless tobacco non-user [facility] Start: 11-20-2023 End: 07-27-2024 Alcoholic beverage intake Ex-drinker (finding) [facility] Start: 11-20-2023 End: 07-27-2024 History of Social function [employer] Start: 1955 Sex assigned at Not on file P [id number] Start: 11-24-2022 End: 03-10-2024 Alcohol intake Current non-drinker of alcohol (finding) [facility] Adolescent depressio n screening [facility] Has the electric, ga s, oil, or water company threatened to shut off services in your home in past 12Mo No [facility] Start: 10-05-2014 Sex [facility] (finding) [facility] Procedure Code Equipment Code Equipment Origin al Text Equipment Identifier Dates Start: 08-02-2022 Marker [employer]stbio Hydromark Ti Opn Coil 18ga Mamtm Elt Prb Cor Mammotome Stereotactic - [id number] - [id number] [facility] Start: 04-30-2022 Comment on above: Description: Left br east 11:00 Goals Date Patient Goal Desired Activity /State Personal health goal Comment on above: Formatting of this n ote might be different from the original. Evaluation of progress towards goal: Patient verbalizes agreement of d/c plan to d/c home self care Personal health goal Comment on above: Formatting of this n ote might be different from the original. Evaluation of progress towards goal: Current discharge plan is HC vs. SNF pending wound care and antibiotic plan. - Sheila Cole RN 04/03/23 4:00 PM Clinical Notes 04-04-2020 to 10-19-2024 Isabel Jones DO - 10/19/2024 8:30 AM Josefina Jones, - 07/27/2024 1:45 PM EDTTelephone Encounter - Liya Mcintyre - 06/28/2024 9:37 AM EDT Note Date & Type Note Facility 10-19-2024 History of Presen t illness Narrative Images from the original note were not included. Zully Marino presents today for follow up on Sleep [...] Swelling Was getting sick when admitted to [facility], unsure of which caused the reaction Iodinated Contrast Media Anaphylaxis Piperacillin Sod-Tazobactam So Angioedema Facial Swelling Was getting sick when admitted to [facility], unsure of which caused the reaction Piperacillin-Tazobactam In Dex Swelling facial swelling Vancomycin Angioedema Facial Swelling Was getting sick when admitted to [facility], unsure of which caused the reaction Other [...] 4 (four) hours if needed for wheezing, Disp: , Rfl: Alcohol Swabs (DropSafe Alcohol Prep) 70 [...] (one) time each day at the same time, Disp: , Rfl: clobetasol (Temovate) 0.05 % external solution, Apply 1 Application topically Daily as needed, Disp: , Rfl: clopidogrel (Plavix) 75 MG tablet, , Disp: , Rfl: colchicine 0.6 MG tablet, Take by mouth Daily, Disp: , Rfl: Droplet Pen [place] 31G X 6 MM [facility], , Disp: , Rfl: Eliquis 5 MG [...] pen, , Disp: , Rfl: nystatin (Mycostatin) [id number] UNIT/GM powder, , Disp: , Rfl: ondansetron ODT (Zofran-ODT) 8 MG disintegrating tablet, DISSOLVE 1 TABLET ON TOUNGE NEEDED ONCE DAILY FOR 30 DAYS (Patient not taking: Reported [...] Medical History: Diagnosis Date A-fib ([facility]) Acquired hypothyroidism 07/27/2024 Acute cystitis without hematuria 04/05/2023 Acute kidney injury 02/16/2018 Allergies Anemia Asthma ([facility]) Atrial fibrillation ([facility]) 07/27/2024 Autonomic neuropathy due to diabetes ([facility]) 07/27/2024 BMI 60.0-69.9, adult ([facility]) 07/27/2024 Calculus of kidney 04/07/2023 Carpal tunnel syndrome 07/16/2012 Cerebrovascular disease 04/07/2023 Chronic obstructive pulmonary disease (HCC) 04/07/2023 Chronic pancreatitis ([facility]) CKD (chronic kidney disease) 11/19/2023 Complication of diabetes mellitus ([facility]) 04/08/2023 Constipation 04/07/2023 Constipation, unspecified 04/07/2023 COPD (chronic obstructive pulmonary disease) ([facility]) 04/03/2023 DDD (degenerative disc disease), lumbar 07/27/2024 Dependence on other enabling machines and devices 04/20/2023 Diabetes ([facility]) Difficulty in walking, not elsewhere classified 05/12/2023 [...] unspecified 04/14/2023 Kidney disease Kidney stone 04/07/2023 USP current use of anticoagulant therapy 04/07/2023 USP current use of insulin (HCC) 11/19/2023 Morbid obesity (CMS-HCC) 04/07/2023 Muscle weakness 05/13/2023 Muscle weakness (generalized) 05/13/2023 Necrotizing fasciitis (HCC) 04/03/2023 Need for assistance with personal care 05/13/2023 Obstructive sleep apnea 07/27/2024 Obstructive sleep apnea syndrome 04/07/2023 Other fatigue 05/13/2023 Personal history of transient ischemic attack (TIA), and cerebral infarction without residual deficits 04/07/2023 Scalp psoriasis 07/27/2024 Seasonal allergies 07/27/2024 Sleep apnea Stage 3a chronic kidney disease (CMS-HCC) 07/27/2024 Stroke (HCC) 2019 Thyroid disease Type 2 diabetes mellitus with diabetic chronic kidney disease (HCC) 07/27/2024 Type 2 diabetes mellitus with hyperglycemia (HCC) 11/19/2023 Unspecified hemorrhoids 05/15/2023 Vitamin D deficiency 05/18/2023 Social History: Social History Tobacco Use Smoking status: Never Smokeless tobacco: Never Substance Use Topics Alcohol use: Not Currently Vitals: BP 132/72 Pulse 79 Wt 329 lb SpO2 98% BMI 56.47 kg/m Exam: Heart: regular rate Lungs: clear to auscultation bilaterally, no wheezes/rales/rhonchi, no resp distress Extremities: no edema noted, no visible rashes Neuro: alert, oriented x3 Imaging Reviewed: None Assessment/Plan: Diagnoses and all orders for this visit: MARIUSZ (obstructive sleep apnea) Mild intermittent asthma without complication (HCC) AMRIUSZ -- at this time it is not clear to me whether the patient truly needs a repeat sleep study or not. I have reached out to the [email or web address] company to see what they need. In the [...] sleep apnea. Once I hear back from the [email or web address] company I will reach back out to the patient to let her know what as needed. Asthma -- her breathing is currently well controlled with use of Spiriva once daily. She denies any refills at this time. She will continue with Spiriva once daily and albuterol as needed. She will follow here in a few months time to reassess her symptoms as well as address her sleep apnea. The patient understands the plan and is agreeable. Follow up in about 3 months (around 01/19/2025) for MARIUSZ, asthma. Isabel Jones DO documented in this encounter [facility] 07-27-2024 History of Presen t illness Narrative Images from the original note were not included. Zully Marino presents today for follow up on sleep apnea. She was last seen in October. She does also follow here for asthma. She states her asthma has been under good control since her last office visit. She does continue with albuterol on an as needed basis in Spiriva once daily. She denies any refills. She denies any current complaints of increasing shortness of breath at rest with exertion. She denies any chest pain, palpitations, fevers, chills, sweats, or recent unintentional weight changes. She has recently had some difficulty with her BiPAP machine. She states a few weeks ago her mask broke and she is no longer able to use the machine. The [employer] was requesting the machine be returned given that she had not prove to be compliant with the machine over the set period of time. When she was last evaluated in November 2023, the patient stated she had been using her machine 4-5 hours a night on average. Based on her report she had been compliant with the machine. However recently she has had some difficulty with her atrial fibrillation and her current broken mask that has inhibitor her ability to use the machine to use. She does wish to resume using the machine as she has been quite tired since not using the machine regularly. She remains frustrated with the [email or web address] company given that she is not able to get any assistance from them. She states she has talked to several people who give her multiple stories in regards to what she needs to do. Allergies: Allergies Allergen Reactions Clindamycin Swelling and Angioedema Facial Swelling Was getting sick when admitted to [facility], unsure of which caused the reaction Iodinated Contrast Media Anaphylaxis Piperacillin Sod-Tazobactam So Angioedema Facial Swelling Was getting sick when admitted to [facility], unsure of which caused the reaction Piperacillin-Tazobactam In Dex Swelling facial swelling Vancomycin Angioedema Facial Swelling Was getting sick when admitted to [facility], unsure of which caused the reaction Other [...] 4 (four) hours if needed for wheezing, Disp: , Rfl: Alcohol Swabs (DropSafe Alcohol Prep) 70 % pads, , Disp: , Rfl: B-D ULTRAFINE III SHORT PEN 31G X 8 MM [facility], , Disp: , Rfl: Blood Glucose Monitoring Suppl (True Metrix Air Glucose Meter) w/Device kit, , Disp: , Rfl: carvedilol (Coreg) 25 MG tablet, , Disp: , Rfl: cholecalciferol (Vitamin D-3) 50 MCG (1999) capsule, 1 capsule 1 (one) time each day at the same time, Disp: , Rfl: clobetasol (Temovate) 0.05 % external solution, Apply 1 Application topically Daily as needed, Disp: , Rfl: clopidogrel (Plavix) 75 MG tablet, , Disp: , Rfl: colchicine 0.6 MG tablet, Take by mouth Daily, Disp: , Rfl: Droplet Pen [place] 31G X 6 MM [facility], , Disp: , Rfl: Eliquis 5 MG [...] the evening for dizziness., Disp: , Rfl: montelukast (Singulair) 10 MG tablet, , Disp: , Rfl: MULTIPLE VITAMIN PO, Take by mouth, Disp: , Rfl: NovoLOG FLEXPEN 100 UNIT/ML pen, , Disp: , Rfl: nystatin (Mycostatin) [id number] UNIT/GM powder, , Disp: , Rfl: Spiriva Respimat 1.25 MCG/ACT [...] hours, Disp: , Rfl: TRUEplus Lancets 28G [facility], , Disp: , Rfl: metoclopramide (Reglan) 10 MG tablet, Take 10 mg by mouth in the morning and 10 mg in the evening. Take before meals. (Patient not taking: Reported on 07/27/2024), Disp: , Rfl: ondansetron ODT (Zofran-ODT) 8 MG disintegrating tablet, DISSOLVE 1 TABLET ON TOUNGE NEEDED ONCE DAILY FOR 30 DAYS (Patient not taking: Reported on 07/27/2024), Disp: , Rfl: pantoprazole (ProtoNix) 40 MG EC tablet, 1 (one) time each day at the same time (Patient not taking: Reported on 07/27/2024), Disp: , Rfl: Past Medical History: Past Medical History: Diagnosis Date A-fib ([facility] Acquired hypothyroidism ([facility]) 07/27/2024 Acute cystitis without hematuria 04/05/2023 Acute kidney injury ([facility]) 02/16/2018 Allergies Anemia Asthma Atrial fibrillation ([facility]) 07/27/2024 Autonomic neuropathy due to diabetes ([facility]) 07/27/2024 BMI 60.0-69.9, adult ([facility]) 07/27/2024 Calculus of kidney 04/07/2023 Carpal tunnel syndrome 07/16/2012 Cerebrovascular disease 04/07/2023 Chronic obstructive pulmonary disease ([facility]) 04/07/2023 Chronic pancreatitis ([facility]) CKD (chronic kidney disease) 11/19/2023 Complication of diabetes mellitus ([facility]) 04/08/2023 Constipation 04/07/2023 Constipation, unspecified 04/07/2023 COPD (chronic obstructive pulmonary disease) ([facility]) 04/03/2023 DDD (degenerative disc disease), lumbar 07/27/2024 Dependence on other enabling machines and devices 04/20/2023 Diabetes ([facility]) Difficulty in walking, not elsewhere classified 05/12/2023 Difficulty walking 05/12/2023 Diverticulosis of intestine, part unspecified, without perforation or abscess without bleeding 04/07/2023 Dizziness and giddiness 04/29/2023 Fatigue 05/13/2023 Fibrosclerosis of left breast 07/27/2024 Gastro-esophageal reflux disease without esophagitis 04/07/2023 Gastroesophageal reflux disease 07/27/2024 Gout 07/27/2024 Hemorrhoids 05/15/2023 Hyperlipidemia ([facility]) 11/19/2023 Hypertension ([facility]) Hypothyroidism ([facility]) 04/07/2023 Hypothyroidism, unspecified 04/07/2023 Iron deficiency anemia 04/14/2023 Iron deficiency anemia, unspecified 04/14/2023 Kidney disease Kidney stone 04/07/2023 USP current use of anticoagulant therapy 04/07/2023 USP current use of insulin ([facility]) 11/19/2023 Morbid obesity ([facility]) 04/07/2023 Muscle weakness 05/13/2023 Muscle weakness (generalized) 05/13/2023 Necrotizing fasciitis ([facility]) 04/03/2023 Need for assistance with personal care 05/13/2023 Obstructive sleep apnea 07/27/2024 Obstructive sleep apnea syndrome 04/07/2023 Other fatigue 05/13/2023 Personal history of transient ischemic attack (TIA), and cerebral infarction without residual deficits 04/07/2023 Scalp psoriasis ([facility]) 07/27/2024 Seasonal allergies 07/27/2024 Sleep apnea Stage 3a chronic kidney disease (HCC) ([facility]) 07/27/2024 Stroke ([facility]) 2019 Thyroid disease ([facility]) Type 2 diabetes mellitus with diabetic chronic kidney disease ([facility]) 07/27/2024 Type 2 diabetes mellitus with hyperglycemia ([facility]) 11/19/2023 Unspecified hemorrhoids 05/15/2023 Vitamin D deficiency 05/18/2023 Social History: Social History Tobacco Use Smoking status: Never Smokeless tobacco: Never Substance Use Topics Alcohol use: Not Currently Vitals: Pulse 74 Ht 5' 4 Wt 337 lb 12.8 oz SpO2 92% BMI 57.98 kg/m Exam: Heart: regular rate Lungs: clear to auscultation bilaterally, no wheezes/rales/rhonchi, no resp distress Extremities: no edema noted, no visible rashes Neuro: alert, oriented x3 Imaging Reviewed: Compliance reports from [employer] reviewed Assessment/Plan: Diagnoses and all orders for this visit: MARIUSZ (obstructive sleep apnea) Mild intermittent asthma without complication ([facility]) Asthma -- her breathing is currently well controlled with use Spiriva once daily and albuterol as needed. She denies any refills at this time. She will continue with her current regimen and follow here in 3 months time unless needed before then. MARIUSZ -- she does have a known history of sleep apnea and does use a BiPAP machine. However her machine is not functional at this point given that her mask is broke. She states that she is not able to obtain new supplies through the DME company. They have also asked for her to return the machine. She had previously been compliant with use of the machine, but did have difficulty with her atrial fibrillation and was not able to use the machine on a regular basis at all times recently. She began using machine again in the mask broke. She is not able to get a new mask at this time. The patient does need a new mask before she can become compliant again. At this time we will reach out to the [email or web address] company to see what can be done to assist the patient so that she would get supplies and become compliant with the machine. She states that she was told she may need a new sleep study. Her sleep study is 1-year-old at this point. Follow up in about 3 months (around 10/27/2024) for MARIUSZ, asthma. Isabel Jones DO documented in this encounter [facility] 06-28-2024 Telephone encount er Note Pt states they need cpap supplies. Insurance told her that she needs to get an authorization every 3 months for ins to pay for supplies and the machine. Ins states Dr Jones has to do a restart, like she is reapplying for everything for her. In November insurance stopped paying because she was noncompliant Order must state that sometimes she cannot use cpap due to other conditions like copd and afib Please contact pt with any questions [facility] 06-28-2024 Miscellaneous Notes Formattin g of this note might be different from the original. Pt states they need cpap supplies. Insurance told her that she needs to get an authorization every 3 months for ins to pay for supplies and the machine. Ins states Dr Jones has to do a restart, like she is reapplying for everything for her. In November insurance stopped paying because she was noncompliant Order must state that sometimes she cannot use cpap due to other conditions like copd and afib Please contact pt with any questions documented in this encounter [facility] 06-27-2024 History of Presen t illness Narrative Images from the original note were not included. Date of Service: 06/27/24 PCP: Melita Lo, [place] History of Present Illness Zully Marino is a 69 y.o. female, who is following with us for management of her chronic kidney disease, hypertension, and volume status. She reports no new issues since her last visit. Presently, she denies any shortness of breath, chest pain lower extremity edema, or difficulty with urination. At the time of her last visit her creatinine was 1.3 mg/dL. Most recent laboratory studies shows a creatinine of 1.3 mg/dL. Problem List Stage IIIA chronic kidney disease. Renal ultrasound from April 2022 showed right kidney measuring 10.6 cm left kidney measuring 10.5 cm. No evidence of hydronephrosis noted. Laboratories of April 30, 2022 included a urine protein creatinine ratio which was normal less than 0.2 gram/gram. An HUBERT screen was negative anti neutrophilic cytoplasmic antibody titers were unremarkable. Complement C3 and C4 were normal 169 and 53 mg/dL, respectively. A free kappa lambda ratio was 1.97 gram/gram. A serum protein electrophoresis with immunofixation revealed no evidence of a monoclonal protein disorder. An anti glomerular basement membrane antibody titer was negative. Anti proteinase 3 and anti myeloperoxidase antibody titers were negative. Obstructive sleep apnea Hypertension Hypothyroidism Chronic obstructive pulmonary disease Gastroesophageal reflux disease Type 2 diabetes mellitus History of left posterior cerebral artery stroke 2018. Loop recorder showed no evidence of cardiac arrhythmias. Preserved LV function EF 55-60% cardiac echo 2019. Obesity Paroxysmal atrial fibrillation Medical, Surgical, Family & Social History Medical History: Past Medical History: Diagnosis Date Arthritis back Asthma Cataract beginning stage in right eye Chronic kidney disease from pancreatitis, currently monitoring kidney function-sees Dr. Mendes COPD (chronic obstructive pulmonary disease) ([facility]) DM type 2 (diabetes mellitus, type 2) ([facility]) GERD (gastroesophageal reflux disease) Gout Heart murmur HTN (hypertension) Hypothyroidism Obesity MARIUSZ (obstructive sleep apnea) wears bipap at night Pancreatitis 2017 Hospitalized Paroxysmal A-fib ([facility]) Stroke (cerebrum) ([facility]) Tubular adenoma of colon 12/2016 SSA x 2, TA x 1; repeat in 3yrs Vertigo Surgical History: Past Surgical History: Procedure Laterality Date BREAST BIOPSY Left 04/30/2022 US guided CHOLECYSTECTOMY COLONOSCOPY Left Lateral 01/13/2017 Performed by Gurwinder Torre MD at [facility] COLONOSCOPY DIAGNOSTIC / SCREENING N/A 11/11/2023 Performed by Divya Damon MD at [facility] DEBRIDEMENT OF INFECTED SUBCUTANEOUS TISSUE AND FAT, NECOTIZING FASCIITIS, BUTTOCKS AND THIGH Left 04/03/2023 Performed by Roxanne Camp MD at [facility] EGD Left Lateral 01/12/2017 Performed by Chris Bonilla MD at [facility] HYSTERECTOMY 2003 INSERTION LOOP RECORDER 2019 approx OOPHORECTOMY TONSILLECTOMY AND ADENOIDECTOMY Social History: Social History Socioeconomic History Marital status: Single Spouse name: Not on file Number of children: Not on file Years of education: Not on file Highest education level: Not on file Occupational History Not on file Tobacco Use Smoking status: Never Smokeless tobacco: Never Vaping Use Vaping status: Never Used Substance and Sexual Activity Alcohol use: No Drug use: No Sexual activity: Defer Other Topics Concern Caffeine Use No Social History Narrative Not on file Social Drivers of Health Financial Resource Strain: Not on file Food Insecurity: No Food Insecurity (05/27/2023) Hunger Screening Food Insecurity - Worry: Never True Food Insecurity - Inability: Never True Transportation Needs: No Transportation Needs (04/07/2023) PRAPARE - Transportation Lack of Transportation (Medical): No Lack of Transportation (Non-Medical): No Physical Activity: Not on file Stress: Not on file Social Connections: Not on file Interpersonal Safety: Not At Risk (04/07/2023) Humiliation, Afraid, Rape, and Kick questionnaire Fear of Current or Ex-Partner: No Emotionally Abused: No Physically Abused: No Sexually Abused: No Housing Instability: Low Risk (04/07/2023) Housing Instability Housing Instability: No Family History: Family History Problem Relation Age of Onset Diabetes Mother Kidney disease Mother Hypertension Mother Hypertension Father Stroke Father Liver disease Father Heart disease Father Colon [facility] Hx Allergies & Medications Allergies: Allergies Allergen Reactions Iodinated Contrast Media Anaphylaxis Benadryl [Diphenhydramine Hcl] Hives Clindamycin Angioedema and Facial Swelling Was getting sick when admitted to [facility], unsure of which caused the reaction Codeine Itching, Flushing and Vomiting Crestor [Rosuvastatin] muscle cramps Empagliflozin Dizziness and Nausea Iodine Unsure of reaction Morphine Itching and Flushing Vancomycin Angioedema and Facial Swelling Was getting sick when admitted to [facility], unsure of which caused the reaction Zosyn [Piperacillin-Tazobactam] Angioedema and Facial Swelling Was getting sick when admitted to [facility], unsure of which caused the reaction Adhesive Tape-Silicones Rash blisters Latex, Natural Rubber Itching and Rash Current Meds: Current Outpatient Medications Medication Sig Dispense Refill acetaminophen (TYLENOL) 325 mg tablet Take 2 tablets (650 mg total) by mouth every 6 (six) hours as needed for pain. albuterol (PROVENTIL HFA;VENTOLIN HFA) 90 mcg/actuation inhaler Inhale 2 puffs every 4 (four) hours as needed. albuterol (PROVENTIL,VENTOLIN) 2.5 mg /3 mL (0.083 %) nebulizer solution Inhale 3 mL (2.5 mg total) by nebulization every 6 (six) hours as needed. apixaban (ELIQUIS) 5 mg tablet Take 1 tablet (5 mg total) by mouth in the morning and 1 tablet (5 mg total) before bedtime. TAKE 1 TABLET TWICE DAILY. carvediloL (COREG) 25 mg tablet Take 1 tablet (25 mg total) by mouth in the morning and 1 tablet (25 mg total) before bedtime. cholecalciferol, vitamin D3, 2,000 units capsule Take 1 capsule (2,000 Units total) by mouth in the morning. clobetasoL (TEMOVATE) 0.05 % external solution Apply 1 Application topically as needed. clopidogreL (PLAVIX) 75 mg tablet Take 1 tablet (75 mg total) by mouth in the morning. hydrALAZINE (APRESOLINE) 50 mg tablet Take 1 tablet (50 mg total) by mouth in the morning and 1 tablet (50 mg total) before bedtime. insulin degludec (TRESIBA) 100 unit/mL (3 mL) insulin pen Inject 55 Units under the skin nightly. (Patient taking differently: Inject 65 Units under the skin nightly.) insulin lispro (HumaLOG) 100 unit/mL insulin pen Inject 2-10 Units under the skin in the morning and 2-10 Units at noon and 2-10 Units in the evening. Inject with meals. (Patient taking differently: Inject 2-10 Units under the skin in the morning and 2-10 Units at noon and 2-10 Units in the evening and 2-10 Units before bedtime. Sliding scale.) levothyroxine (SYNTHROID, LEVOTHROID) 112 MCG tablet Take 1 tablet (112 mcg total) by mouth in the morning. meclizine (ANTIVERT) 25 mg tablet Take 1 tablet (25 mg total) by mouth as needed in the morning and 1 tablet (25 mg total) as needed in the evening for dizziness. montelukast (SINGULAIR) 10 mg tablet Take 1 tablet (10 mg total) by mouth nightly. pmowvgwg-ohuw-VV-calcium &mins (THERAGRAN-M) 9 mg iron-400 mcg tablet Take 1 tablet by mouth in the morning. pantoprazole (PROTONIX) 40 mg EC tablet Take 1 tablet (40 mg total) by mouth every morning before breakfast. spironolactone (ALDACTONE) 25 mg tablet Take 1 tablet (25 mg total) by mouth in the morning. tiotropium bromide (SPIRIVA RESPIMAT) 1.25 mcg/actuation mist Inhale 2.5 mcg in the morning. 4 g 0 No current facility-administered medications for this visit. Review of Systems Review of Systems Constitutional: Negative for chills, diaphoresis, fatigue and fever. HENT: Negative for congestion, ear discharge, ear pain, facial swelling and hearing loss. Eyes: Negative for pain, discharge, redness and itching. Respiratory: Negative for cough, shortness of breath and wheezing. Cardiovascular: Positive for leg swelling. Negative for chest pain and palpitations. Gastrointestinal: Negative for abdominal pain, constipation, diarrhea, nausea and vomiting. Endocrine: Negative for polydipsia, polyphagia and polyuria. Genitourinary: Negative for decreased urine volume, difficulty urinating, dysuria, enuresis, flank pain, frequency, hematuria and urgency. Musculoskeletal: Negative for arthralgias, joint swelling and myalgias. Skin: Negative for rash and wound. Neurological: Positive for dizziness and light-headedness. Negative for tremors, weakness and numbness. Hematological: Negative for adenopathy. Does not bruise/bleed easily. Physical Exam Vital Signs: Vitals: 06/27/24 1132 BP: 142/82 BP Site: Left Arm BP Postition: Sitting BP CUFF SIZE: M (9-13 inches) Pulse: 75 Weight: (!) 152.4 kg (336 lb) Height: 162.6 cm (5' 4 ) BMI: Body mass index is 57.67 kg/m . General appearance: alert in no apparent distress. Psychiatric: Oriented to place, time and person HEENT: atraumatic, supple, moist oral mucosa, no JVD Cardiovascular: normal S1-S2 Respiratory: No respiratory distress with no use of accessory muscles. Clear to auscultation bilaterally with no wheezes or crackles Abdomen: soft, no tenderness, no guarding, positive bowel sounds and no hepato or splenomegaly Vascular: adequate pulses and no carotid bruits. Musculoskeletal: no joint swelling or tenderness. Neurologic: No focal deficit in upper or lower extremities Lymphatic: no cervical or axillary lymphadenopathy. Edema: No edema Laboratory Studies Chemistry: Lab Results Component Value Date SODIUM 139 04/22/2024 K 4.1 04/22/2024 CL 104 04/22/2024 CO2 26 04/22/2024 ANIONGAP 9 04/22/2024 BUN 28 (H) 04/22/2024 CREATININE 1.30 (H) 04/22/2024 EGFR 45 (L) 04/22/2024 CALCIUM 10.1 04/22/2024 MG 2.0 04/22/2024 PHOSPHORUS 4.4 04/22/2024 Hematology: Lab Results Component Value Date WBC 5.5 04/22/2024 HGB 12.6 04/22/2024 HCT 38.3 04/22/2024 PLT 255 04/22/2024 Anemia Studies: No results found for: IRONSAT , [id number] , FOLATE Mineral and Bone Labs: Lab Results Component Value Date CALCIUM 10.1 04/22/2024 PHOSPHORUS 4.4 04/22/2024 VITD25 47.9 04/22/2024 PTH 25 04/22/2024 Urine Studies: Lab Results Component Value Date COLOR YELLOW 04/22/2024 TURBIDITY CLEAR 04/22/2024 SPECIFICGRA 1.013 04/22/2024 NITRITE Negative 04/22/2024 PHURINE 6.0 04/22/2024 LEUKOCYTE Negative 04/22/2024 PROTEIN Negative 04/22/2024 KETONES Negative 04/22/2024 UROBILINOGEN <1.1 04/22/2024 BLOODHGB Negative 04/22/2024 Lab Results Component Value Date UPROCRTRAT 0.10 04/22/2024 Immunology Profile Lab Results Component Value Date PROTELECTR 04/30/2022 Unremarkable protein distribution, no monoclonal bands. ANASCREEN Negative 04/30/2022 C3 169 04/30/2022 C4 53 (H) 04/30/2022 ANCA See Below 04/30/2022 MYELOP <0.2 04/30/2022 PROTEINASE3 <0.2 04/30/2022 ANTIGLOMERU <0.2 04/30/2022 Lab Results Component Value Date HEPAIGM Negative 06/11/2017 HEPBIGM Negative 06/11/2017 Imaging Echocardiogram: No results found. Assessment & Plan 1. Chronic kidney disease stage IIIA with an estimated GFR 45 mL/min and relatively stable creatinine since her last visit. Underlying kidney disease likely related to hypertensive nephrosclerosis versus diabetic nephropathy. She was advised on the importance of proper blood pressure control, blood sugar control, avoids NSAID medications, IV contrast dyes, possible. Follow-up in 1 year 2. Hypertension: Blood pressures are well controlled. She can not tolerate lisinopril due to hyperkalemia and acute kidney injury. 3. Diabetes mellitus type 2: Further management per primary Care. We did discuss Farxiga. She says she is tried this in the past and did not tolerate. Thank you DAMIEN Castro for the allowing us to continue participant in the care of this patient. Please contact me at [phone] (Office) or [phone] (Answering service) with any questions. DAMIEN Moe [facility] This note was created with the assistance of a speech-recognition program. Although the intention is to generate a document that actually reflects the content of the visit, no guarantees can be provided that every mistake has been identified and corrected by editing. DAMIEN Coombs 06/27/24 1140 documented in this encounter [facility] 06-27-2024 Evaluation note Diagnosis Stage 3a chronic kidney disease ([facility])- Primary documented in this encounter [facility]12-03-2024 Telephone encounter Note* Telephone Encounter - Hawa Giang MA - 02/02/2024 4:31 PM EST Sent requested office notes. Teresita did pull the compliance report as well. She said she will try to work this out for patient! Calling patient to update her. [id number] Miscellaneous Notes* Telephone Encounter - Hawa Giang MA - 02/02/2024 4:31 PM EST Sent requested office notes. Teresita did pull the compliance report as well. She said she will try to work this out for patient! Calling patient to update her. * Telephone Encounter - Hawa Giang MA - 02/02/2024 1:47 PM EST Texted Teresita as [facility] to get assistance in regards to this issue. * Telephone Encounter - Isabel Jones DO - 02/02/2024 1:08 PM EST I did send in my last note to [facility] stating that she was compliant with it. Which is what we discussed at the last visit. I did not send in any other note to them. It looks like maybe someone at the [place] office told her otherwise last month. Hawa, can you look into this and see if there is something that [facility] needs? Thanks * Telephone Encounter - Lyubov Cabello MA - 02/02/2024 11:07 AM EST Patient called in and stated that she was given a bill because she has not returned her machine. She said you were going to send a letter in for her, I let her know that they are able to see her compliance and how often it is getting used. She was unable to use it because of some sinus trouble but has used it almost every night since then minus three nights. I let her know I would pass along the info if you wanted to send something into [facility] * Telephone Encounter - Isabel Jones DO - 01/04/2024 4:24 PM EST They can see her complaince * Telephone Encounter - Liya Mcintyre - 01/04/2024 2:20 PM EST [facility] sent pt a letter stating that they want her to return her bipap machine. Pt is asking you to send a letter to them stating that she does use it and does need it. documented in this encounterSaint [facility] [id number] Telephone encounter Note* Telephone Encounter - Hawa Giang MA - 02/02/2024 1:47 PM EST Texted Teresita as [facility] to get assistance in regards to this issue. [facility] [id number] Telephone encounter Note* Telephone Encounter - Isabel Jones DO - 02/02/2024 1:08 PM EST I did send in my last note to [facility] stating that she was compliant with it. Which is what we discussed at the last visit. I did not send in any other note to them. It looks like maybe someone at the [place] office told her otherwise last month. Hawa, can you look into this and see if there is something that [facility] needs? Thanks [facility] [id number] Telephone encounter Note* Telephone Encounter - Lyubov Cabello MA - 02/02/2024 11:07 AM EST Patient called in and stated that she was given a bill because she has not returned her machine. She said you were going to send a letter in for her, I let her know that they are able to see her compliance and how often it is getting used. She was unable to use it because of some sinus trouble but has used it almost every night since then minus three nights. I let her know I would pass along the info if you wanted to send something into [facility] [id number] Telephone encounter Note* Telephone Encounter - Isabel Jones DO - 01/04/2024 4:24 PM EST They can see her complaince [id number] Telephone encounter Note* Telephone Encounter - Liya Mcintyre - 01/04/2024 2:20 PM EST [facility] sent pt a letter stating that they want her to return her bipap machine. Pt is asking you to send a letter to them stating that she does use it and does need it. [facility] [id number] History of Present illness Narrative* Yassine Powell DPM - 12/29/2023 8:30 AM EDT Images from the original note were not included. Subjective Patient ID: Zully Marino is a 68 y.o. female who presents for Toe Pain (Pt presesnts today for a pain in the Rt hallux, started in Oct when she wore new denominational shoes. Only painful if she bends the toe, or shoes put pressure on that area. /BS: 181 A1C: 7.4/LV CHS 11-24-2023/SS: 9.5W). HPI Patient last in clinic in October of 2021. Chief complaint: bruise or dark discoloration of the right great toenail. Patient initially noticed the area several days after wearing a new pair of dress shoes on a single occasion, 2 months previous; which in retrospect, did not fit her properly. Denies injury or trauma otherwise. Denies prodromal symptoms. Reports minimal if any discomfort associated with the discoloration. Patient has since gotten rid of the shoes. Denies bleeding or drainage. She does note slight distal migration of the discoloration. Medications Current Outpatient Medications: acetaminophen (Tylenol) 325 MG tablet, Take 650 mg by mouth every 6 (six) hours if needed, Disp: , Rfl: albuterol (2.5 MG/3ML) 0.083% nebulizer solution, INHALE THE CONTENTS OF 1 VIAL VIA NEBULIZER EVERY4 TO 6 HOURS NEEDED FOR SHORTNESS OF BREATH for 10, Disp: , Rfl: albuterol HFA 90 mcg/act inhaler, Inhale 2 puffs every 4 (four) hours if needed for wheezing., Disp: , Rfl: Alcohol Swabs (DropSafe Alcohol Prep) 70 % pads, , Disp: , Rfl: Blood Glucose Monitoring Suppl (True Metrix Air Glucose Meter) w/Device kit, , Disp: , Rfl: carvedilol (Coreg) 25 MG tablet, Take 1 tablet twice a day by oral route., Disp: , Rfl: cholecalciferol (Vitamin D-3) 50 MCG (1999 UT) capsule, 1 capsule 1 (one) time each day at the sametime., Disp: , Rfl: clobetasol (Temovate) 0.05 % external solution, Apply 1 Application topically Daily as needed, Disp: , Rfl: clopidogrel (Plavix) 75 MG tablet, TAKE 1 TABLET EVERY DAY for 90, Disp: , Rfl: colchicine 0.6 MG tablet, Take by mouth Daily, Disp: , Rfl: Droplet Pen [place] 31G X 6 MM [facility], , Disp: , Rfl: Eliquis 5 MG tablet, every 12 (twelve) hours., Disp: , Rfl: Ferrous Sulfate (IRON PO), Take 1 tablet by mouth in the morning., Disp: , Rfl: hydrALAZINE (Apresoline) 50 MG tablet, Take 1 tablet twice a day by oral route., Disp: , Rfl: insulin lispro (HumaLOG) 100 UNIT/ML injection, Inject 2-10 Units under the skin in the morning and2-10 Units at noon and 2-10 Units in the evening. Inject with meals., Disp: , Rfl: levothyroxine (Synthroid, Levoxyl) 100 MCG tablet, , Disp: , Rfl: LORazepam (Ativan) 0.5 MG tablet, Daily at bedtime, Disp: , Rfl: meclizine (Antivert) 25 MG tablet, Take 25 mg by mouth 3 (three) times a day as needed for dizziness., Disp: , Rfl: montelukast (Singulair) 10 MG tablet, Take 1 tablet every day by oral route at bedtime., Disp: , Rfl: MULTIPLE VITAMIN PO, Take by mouth, Disp: , Rfl: NovoLOG FLEXPEN 100 UNIT/ML pen, Correctional scale, Disp: , Rfl: Spiriva Respimat 1.25 MCG/ACT inhaler, , Disp: , Rfl: traZODone (Desyrel) 50 MG tablet, Take by mouth at bedtime, Disp: , Rfl: Tresiba FlexTouch 100 UNIT/ML injection, Inject 42 units every day by subcutaneous route at bedtime., Disp: , Rfl: True Metrix Blood Glucose Test test strip, every 6 (six) hours., Disp: , Rfl: TRUEplus Lancets 28G misc, , Disp: , Rfl: Allergies Iodinated contrast media, Clindamycin, Codeine, Diphenhydramine, Empagliflozin, Morphine, Piperacillin sod-tazobactam so, Piperacillin-tazobactam in dex, Rosuvastatin, Vancomycin, Wound dressing adhesive, and Latex Past Surgical History Past Surgical History: Procedure Laterality Date BI US GUIDED BREAST LOCALIZATION AND BIOPSY LEFT Left 04/30/2022 BI US GUIDED BREAST LOCALIZATION AND BIOPSY LEFT 04/30/2022 CHOLECYSTECTOMY 1997 HYSTERECTOMY 2000 LOOP RECORDER IMPLANT 2019 SD TONSILLECTOMY & ADENOIDECTOMY AGE 12/> TONSILLECTOMY WOUND DEBRIDEMENT 04/2023 Cleaned out wound, LT inner thigh Family History Family History Problem Relation Name Age of Onset Diabetes Mother Hypertension Mother Kidney disease Mother Hypertension Father Stroke Father Colon cancer Sister Hypertension Brother Objective General Examination: GENERAL EXAMINATION: alert and oriented. Pleasant disposition. Independently ambulatory. Wearing Dr. Carreon footwear. Vascular: DORSALIS PEDIS PULSE: 2/4, bilaterally. POSTERIOR TIBIAL PULSE: 2/4, bilaterally. TEMPERATURE GRADIENT: warm to warm. EDEMA: unremarkable for ankle edema. CAPILLARY FILLING TIME(sec): capillary fill intact bilateral digits less than 3 secs. Neurologic: SHARP SENSATION: tactile and light touch sensation intact. 5.07 MONOFILAMENT: Intact localization all points. Dermatologic: SKIN FINDINGS: skin turgor is good. HYPERKERATOSIS: no forefoot or digital discrete keratotic lesions are noted. Diffuse, thickened hyperkeratosis plantar surface of both heels. RIGHT GREAT TOE: Well-defined area of subungual discoloration proximal lateral nail plate; without onycholysis, fluctuance, bleeding or drainage. The nail plate is well adhered. The site is minimallytender. The paronychial margin is spared, non-inflamed. The nail plate is minimally dystrophic. TheIP joint is non-tender; demonstrates functional range of motion without symptoms. INTERDIGITAL MACERATION: clean, dry, non-inflamed. ULCER: no sign of ulceration or open wound. Orthopedic: FOOT MORPHOLOGY: stance assessment; symmetrical appearance, pronated foot type. JOINT RANGE OF MOTION: passive ankle dorsiflexion is limited, consistent with gastrocnemius equinus. Otherwise maintains functional ankle, subtalar, midtarsal and 1st MTP joint range of motion. DEFORMITIES: mild HAV deformity bilateral; flexible and reducible. PAIN ELICITED WITH ROM:. Focused exam left foot: Unremarkable for tenderness. MUSCLE STRENGTH: no focal deficits. Radiology: Assessment/Plan Minimally symptomatic old subungual hematoma right great toe (sequela). Type II diabetes/IDDM. Plan: Review of clinical findings, suspected etiology and contributing factors, treatment strategy,rationale and objectives. Patient education and reassurance relative to the condition. Discussed appropriate supportive footwear with inherently deeper and wider toe box. Diabetic education and assessment. Procedure: This note was created with the assistance of a speech recognition program. While intending to generate a timely document that accurately reflects the content of the visit, no guarantee can be provided that every grammatical or spelling mistake has been or will be identified or corrected. Thank you for your understanding. Yassine Powell DPM documented in this encounterSaint John's [id number] Instructions* Patient Instructions* Yassine Powell DPM - 12/29/2023 8:30 AM EDT As noted documented in this encounterSaint John's [id number] History of Present illness Narrative* Isabel Jones, DO - 11/20/2023 8:45 AM EDT Images from the original note were not included. Zully Marino presents today for follow up on asthma and sleep apnea. She was last seen about 1 year ago. Since her last office visit she did undergo retitration study for BiPAP machine. She states she did receive a brand new machine several months ago. She has remained compliant with this using this 4-5 hours per day of average. She denies any snoring or apneas while using the machine. She states her asthma is well controlled with use of Spiriva once daily and albuterol as needed. She denies any ER visits or exacerbations of her breathing. She denies any nighttime symptoms. She denies any current complaints of chest pain, palpitations, fevers, chills, sweats, or recent unintentional weightchanges. She denies any other complaints at this time. Allergies: Allergies Allergen Reactions Iodinated Contrast Media Anaphylaxis Clindamycin Angioedema Other Reaction(s): Facial Swelling Was getting sick when admitted to [facility], unsure of which caused the reaction Codeine Itching Other Reaction(s): other Other Reaction(s): Flushing, Vomiting Diphenhydramine Hives and Itching Other Reaction(s): other Empagliflozin Dizziness and Nausea Only Morphine Itching Other Reaction(s): Flushing Piperacillin Sod-Tazobactam So Angioedema Other Reaction(s): Facial Swelling Was getting sick when admitted to [facility], unsure of which caused the reaction Piperacillin-Tazobactam In Dex Rosuvastatin Other Reaction(s): muscle cramps Vancomycin Angioedema Other Reaction(s): Facial Swelling Was getting sick when admitted to [facility], unsure of which caused the reaction Wound Dressing Adhesive Other Other Reaction(s): Unknown Latex Itching and Rash Medications: Current Outpatient Medications: acetaminophen (Tylenol) 325 MG tablet, Take 650 mg by mouth every 6 (six) hours if needed, Disp: , Rfl: albuterol (2.5 MG/3ML) 0.083% nebulizer solution, INHALE THE CONTENTS OF 1 VIAL VIA NEBULIZER EVERY4 TO 6 HOURS NEEDED FOR SHORTNESS OF BREATH for 10, Disp: , Rfl: albuterol HFA 90 mcg/act inhaler, Inhale 2 puffs every 4 (four) hours if needed for wheezing., Disp: , Rfl: Alcohol Swabs (DropSafe Alcohol Prep) 70 % pads, , Disp: , Rfl: Blood Glucose Monitoring Suppl (True Metrix Air Glucose Meter) w/Device kit, , Disp: , Rfl: budesonide (Pulmicort) 0.5 MG/2ML nebulizer solution, Take 0.5 mg by nebulization in the morning. Rinse mouth with water after use to reduce aftertaste and incidence of candidiasis. Do not swallow..,Disp: , Rfl: carvedilol (Coreg) 25 MG tablet, Take 1 tablet twice a day by oral route., Disp: , Rfl: cholecalciferol (Vitamin D-3) 50 MCG (1999 UT) capsule, 1 capsule 1 (one) time each day at the sametime., Disp: , Rfl: clobetasol (Temovate) 0.05 % external solution, Apply 1 Application topically Daily as needed, Disp: , Rfl: clopidogrel (Plavix) 75 MG tablet, TAKE 1 TABLET EVERY DAY for 90, Disp: , Rfl: colchicine 0.6 MG tablet, Take by mouth Daily, Disp: , Rfl: Droplet Pen [place] 31G X 6 MM [facility], , Disp: , Rfl: Eliquis 5 MG tablet, every 12 (twelve) hours., Disp: , Rfl: Ferrous Sulfate (IRON PO), Take 1 tablet by mouth in the morning., Disp: , Rfl: hydrALAZINE (Apresoline) 50 MG tablet, Take 1 tablet twice a day by oral route., Disp: , Rfl: insulin lispro (HumaLOG) 100 UNIT/ML injection, Inject 2-10 Units under the skin in the morning and2-10 Units at noon and 2-10 Units in the evening. Inject with meals., Disp: , Rfl: levothyroxine (Synthroid, Levoxyl) 100 MCG tablet, , Disp: , Rfl: LORazepam (Ativan) 0.5 MG tablet, Daily at bedtime, Disp: , Rfl: meclizine (Antivert) 25 MG tablet, Take 25 mg by mouth 3 (three) times a day as needed for dizziness., Disp: , Rfl: montelukast (Singulair) 10 MG tablet, Take 1 tablet every day by oral route at bedtime., Disp: , Rfl: MULTIPLE VITAMIN PO, Take by mouth, Disp: , Rfl: NovoLOG FLEXPEN 100 UNIT/ML pen, Correctional scale, Disp: , Rfl: Spiriva Respimat 1.25 MCG/ACT inhaler, , Disp: , Rfl: traZODone (Desyrel) 50 MG tablet, Take by mouth at bedtime, Disp: , Rfl: Tresiba FlexTouch 100 UNIT/ML injection, Inject 42 units every day by subcutaneous route at bedtime., Disp: , Rfl: True Metrix Blood Glucose Test test strip, every 6 (six) hours., Disp: , Rfl: TRUEplus Lancets 28G [facility], , Disp: , Rfl: ipratropium (Atrovent) 0.02 % nebulizer solution, Take by nebulization every 6 (six) hours, Disp: ,Rfl: ipratropium-albuterol (Duo-Neb) 0.5-2.5 mg/3 mL nebulizer solution, Take 3 mL by nebulization 4 (four) times a day as needed for wheezing., Disp: , Rfl: Levothyroxine Sodium 100 MCG/5ML solution, 1 (one) time each day at the same time, Disp: , Rfl: ondansetron (Zofran) 4 MG tablet, Take by mouth, Disp: , Rfl: pantoprazole (ProtoNix) 40 MG EC tablet, Take 1 tablet every day by oral route as needed., Disp: , Rfl: pseudoephedrine (Sudafed) 30 MG tablet, Take 30 mg by mouth every 4 (four) hours if needed for congestion, Disp: , Rfl: senna-docusate sodium (Senokot-S) 8.6-50 MG tablet, Take 1 tablet by mouth Daily, Disp: , Rfl: spironolactone (Aldactone) 25 MG tablet, Take 25 mg by mouth in the morning., Disp: , Rfl: sucralfate (Carafate) 1 g tablet, Take by mouth 4 (four) times a day before meals, Disp: , Rfl: tiotropium (Spiriva Respimat) 2.5 MCG/ACT inhaler, 1 (one) time each day at the same time, Disp: , Rfl: Past Medical History: Past Medical History: Diagnosis Date A[place] Acute cystitis without hematuria 04/05/2023 Acute kidney injury ([facility] 02/16/2018 Allergies Anemia Asthma [place] Calculus of kidney 04/07/2023 Carpal tunnel syndrome 07/16/2012 Chronic pancreatitis ([facility] CKD (chronic kidney disease) 11/19/2023 Constipation, unspecified 04/07/2023 COPD (chronic obstructive pulmonary disease) ([facility] 04/03/2023 Dependence on other enabling machines and devices 04/20/2023 Diabetes ([facility] Difficulty in walking, not elsewhere classified 05/12/2023 Diverticulosis of intestine, part unspecified, without perforation or abscess without bleeding 04/07/2023 Dizziness and giddiness 04/29/2023 Gastro-esophageal reflux disease without esophagitis 04/07/2023 Hyperlipidemia ([facility] 11/19/2023 Hypertension ([facility] Hypothyroidism, unspecified ([facility] 04/07/2023 Iron deficiency anemia, unspecified 04/14/2023 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 ([facility] 11/19/2023 Muscle weakness (generalized) 05/13/2023 Necrotizing fasciitis ([facility] 04/03/2023 Need for assistance with personal care 05/13/2023 Other fatigue 05/13/2023 Personal history of transient ischemic attack (TIA), and cerebral infarction without residual deficits 04/07/2023 Sleep apnea Stroke ([facility] 2019 Thyroid disease ([facility] Type 2 diabetes mellitus with hyperglycemia ([facility] 11/19/2023 Unspecified hemorrhoids 05/15/2023 Vitamin D deficiency 05/18/2023 Social History: Social History Tobacco Use Smoking status: Never Smokeless tobacco: Never Substance Use Topics Alcohol use: Not Currently Vitals: BP 132/68 (BP Location: Left arm, Patient Position: Sitting) Pulse 75 Ht 5' 4 Wt 343 lb 9.6 oz SpO2 96% BMI 58.98 kg/m Exam: Heart: regular rate Lungs: clear to auscultation bilaterally, no wheezes/rales/rhonchi, no resp distress Extremities: no edema noted, no visible rashes Neuro: alert, oriented x3 Imaging Reviewed: Retitration study reviewed Assessment/Plan: Diagnoses and all orders for this visit: MARIUSZ (obstructive sleep apnea) Mild intermittent asthma without complication ([facility]) Asthma -- her breathing is currently well controlled with use of Spiriva 1.25 once daily. She does continue with albuterol on an as-needed basis. She denies any refills at this time. Given that she does have good control her breathing, no changes will be made. She will follow here in 1 year's time unless needed before then. MARIUSZ -- she does remain compliant with use of her BiPAP machine. She states she does average at least 4-5 hours per night. She denies any snoring or apneas while using the machine. She will continue with regular use of her BiPAP that she has been benefitting from and tolerating its use. Follow up in about 1 year (around 11/19/2024) for MARIUSZ, asthma. Isabel Jones DO documented in this encounterSaint John's [id number] Miscellaneous Notes* Telephone Encounter - Irma Burton CMA - 11/17/2023 1:01 PM EDT ----- Message from Dr. Divya Damon MD sent at 11/17/2023 9:55 AM EDT ----- Regarding: Pathology Please let patient know that removed were benign sessile serrated polyp and tubular adenoma. I recommend repeat colonoscopy in 5 years. Thank you ----- Message ----- From: Interface - Lab Results/Orders In Sent: 11/16/2023 2:54 PM EDT To: Divya Damon MD * Telephone Encounter - Irma Burton CMA - 11/17/2023 1:01 PM EDT Spoke with patient regarding pathology results. Patient verbally understood and questions were answered. Recall to be put in chart. [facility] Telephone encounter Note* Telephone Encounter - Irma Burton CMA - 11/17/2023 1:01 PM EDT ----- Message from Dr. Divya Damon MD sent at 11/17/2023 9:55 AM EDT ----- Regarding: Pathology Please let patient know that removed were benign sessile serrated polyp and tubular adenoma. I recommend repeat colonoscopy in 5 years. Thank you ----- Message ----- From: Interface - Lab Results/Orders In Sent: 11/16/2023 2:54 PM EDT To: Divya Damon MD [facility]09-17-2024 Telephone encounter Note* Telephone Encounter - Irma Burton CMA - 11/17/2023 1:01 PM EDT Spoke with patient regarding pathology results. Patient verbally understood and questions were answered. Recall to be put in chart. [facility]08-28-2024 Miscellaneous Notes* Telephone Encounter - oYko Hernandez RN - 10/28/2023 11:18 AM EDT Surgeon: Dr Damon Type of surgery: colonoscopy Date of surgery: 11/11/23 Surgery location: [place] Type of anesthesia: not mentioned On a blood thinner?: eliquis Indication? A-Fib On an antiplatelet?: Plavix hx TIA's Stent? Type? When placed? Date of last EK04/03/23 Last office visit date and who they saw: 05/27/23 Their preference of how long to hold blood thinners/antiplatelet: stop elquis for 2 days and plavixfor 7 days History of CVA/TIA, DVT/PE? TIA's ATTN: Do they need any additional info faxed(such as office note, ekg, testing, Etc?) Please address upon your return. Thx slm * Telephone Encounter - Wilfrid Murguia MD - 10/28/2023 11:18 AM EDT Okay to hold Plavix 7 days prior and apixaban 2 days prior to procedure. Restart JAVIER after * Telephone Encounter - Nataly Bass RN - 10/28/2023 11:18 AM EDT Clearance letter created and sent to Dr. Damon. documented in this encounterTr[facility]24 Telephone encounter Note* Telephone Encounter - Yoko Hernandez RN - 10/28/2023 11:18 AM EDT Surgeon: Dr Damon Type of surgery: colonoscopy Date of surgery: 11/11/23 Surgery location: [place] Type of anesthesia: not mentioned On a blood thinner?: eliquis Indication? A-Fib On an antiplatelet?: Plavix hx TIA's Stent? Type? When placed? Date of last EK04/03/23 Last office visit date and who they saw: 05/27/23 Their preference of how long to hold blood thinners/antiplatelet: stop elquis for 2 days and plavixfor 7 days History of CVA/TIA, DVT/PE? TIA's ATTN: Do they need any additional info faxed(such as office note, ekg, testing, Etc?) Please address upon your return. Thx slm [facility] [employer] [place] [id number] Telephone encounter Note* Telephone Encounter - Wilfrid Murguia MD - 10/28/2023 11:18 AM EDT Okay to hold Plavix 7 days prior and apixaban 2 days prior to procedure. Restart JAVIER after [facility] [employer] [place] [id number] Telephone encounter Note* Telephone Encounter - Nataly Bass RN - 10/28/2023 11:18 AM EDT Clearance letter created and sent to Dr. Damon. [employer] [id number] Instructions* Patient Instructions* Shereen Young RN - 10/22/2023 9:45 AM EDT Preoperative Education Checklist- General Surgery date: 11/11/23 Surgery time: 10a Arrival time: 8a 1. Bring a photo ID and your insurance card with you the day of surgery. You will check in at the main lobby of the [facility]- registration desk is straight ahead as soon as you walk in. Tell them you are here for surgery. 2. If you have a Living Will/Durable Power of Program Architect for Health Care that is not on file here, please bring a copy the day of surgery. 3. Please shower/bathe the night before surgery with the provided soap or wipes. Do not shower the morning of surgery- you will do use wipes when you arrive here at the hospital before getting into your surgical gown. Do not shave the area of your procedure for 2 days prior to your surgery. 4. NO powder, lotion, perfume/cologne, aftershave, make-up, deodorant, or hair products after you have bathed. 5. NO nail palauan/acrylic on at least one finger. If you are having a hand, wrist or foot surgery then all nail palauan and artificial/acrylic nails must be removed from that hand or foot. 6. Avoid ALL Aspirin and non-steroidal anti-inflammatory drugs and certain vitamins (Ibuprofen, Advil, Aleve, Excedrin, Meloxicam, Celebrex, fish/krill oil, etc.) for 7 days prior to surgery as instructed by your surgeon and/or your prescribing doctor. Tylenol IS ALLOWED. If you are on Ticlid, Xarelto, Eliquis, Pradaxa, Plavix or Coumadin, please check with your prescribing doctor for instructions for when to stop them. 7. If you use an inhaler, continue to use it routinely. 8. Nothing to eat or drink (not even water, gum, mints, or hard candy!) AFTER midnight prior to your surgery. 9. Take only medications that you are instructed to on the morning of surgery with a TINY SIP OF WATER. 10. Choose a responsible adult that will be able to drive you home when you are discharged from your hospital stay for your surgery and can stay with you in your home for 24 hours after your procedure. You must NOT drive any vehicle or operate any machinery for 24 hours after surgery. 11. When you dress for your appointment, please wear loose fitting clothing that is appropriate to accommodate your surgical area procedure. BRING WITH YOU ANY DEVICES YOU MAY NEED: TAMAR hose, ice machine, sling/swath, brace or special shoe, oversized zip-up or button up shirt, CPAP machine if staying overnight. 12. Do NOT wear jewelry, watches, or any piercings or metal for surgery- leave these valuables and money at home. 13. Do NOT wear contact lenses for surgery- glasses are okay if needed. 14. The anesthesiologist will talk with you the day of surgery and will ask you to sign a Consent Form. 15. Refrain from smoking or any type of tobacco use for at least 8 hours and marijuana for 24 hoursprior to arrival for your surgery. 16. If a GREEN BLOOD band is given to you, please bring it with you for the day of surgery. 17. Notify your surgeon if you develop any illness before your surgery. 18. If you are staying overnight, please DO NOT BRING your home medications with you. 19. If you have any questions prior to surgery, please call the Preadmission Testing office at [phone], Mon.-Fri. 7 a.m.-3 p.m. Leave a voicemail if needed. Pre-Surgery Instructions: Medication Instructions acetaminophen (TYLENOL) 325 mg tablet Stop taking 0 days prior to procedure albuterol (PROVENTIL HFA;VENTOLIN HFA) 90 mcg/actuation inhaler Take morning of procedure if needed albuterol (PROVENTIL,VENTOLIN) 2.5 mg /3 mL (0.083 %) nebulizer solution Take morning of procedure if needed apixaban (ELIQUIS) 5 mg tablet Check with prescribing doctor for instructions carvediloL (COREG) 25 mg tablet Take morning of procedure cholecalciferol, vitamin D3, 2,000 units capsule Stop taking 0 days prior to procedure clobetasoL (TEMOVATE) 0.05 % external solution Stop taking 0 days prior to procedure clopidogreL (PLAVIX) 75 mg tablet Check with prescribing doctor for instructions hydrALAZINE (APRESOLINE) 50 mg tablet Take morning of procedure insulin degludec (TRESIBA) 100 unit/mL (3 mL) insulin pen Take half dose evening before procedure insulin lispro (HumaLOG) 100 unit/mL insulin pen Stop taking 0 days prior to procedure ipratropium-albuteroL (DUONEB) 0.5 mg-3 mg(2.5 mg base)/3 mL nebulizer Take morning of procedure ifneeded levothyroxine (SYNTHROID, LEVOTHROID) 112 MCG tablet Take morning of procedure meclizine (ANTIVERT) 25 mg tablet Stop taking 0 days prior to procedure montelukast (SINGULAIR) 10 mg tablet Take morning of procedure if needed ojamkdxz-hddl-OX-calcium &mins (THERAGRAN-M) 9 mg iron-400 mcg tablet Stop taking 0 days prior to procedure pantoprazole (PROTONIX) 40 mg EC tablet Take morning of procedure spironolactone (ALDACTONE) 25 mg tablet Stop taking 0 days prior to procedure tiotropium bromide (SPIRIVA RESPIMAT) 1.25 mcg/actuation mist Take morning of procedure documented in this encounterTr[facility]08-22-2024 Miscellaneous Notes* Perioperative Nursing Note - Shereen Young RN - 10/22/2023 9:[address] Wade in to assess patient during PAT appointment. documented in this encounterTr[facility]08-22-2024 Nurse Note* Perioperative Nursing Note - Shereen Young RN - 10/22/2023 9:[address] Wade in to assess patient during PAT appointment. [facility]08-20-2024 History of Present illness Narrative* Lily Kumar, KENNEL SUPERVISOR-FRAMING MECHANIC - 10/20/2023 12:00 PM EDT Images from the original note were not included. Chief Complaint: Colonoscopy History of Present Illness Zully Marino is a 68 y.o. female who presents to the office for surveillance colonoscopy. Her lastcolonoscopy was in 2016, significant for tubular adenoma. There is also family history of colon cancer in her sister. She denies any concerns or changes in her bowel movements including diarrhea, abdominal pain or rectal bleeding. She reports intermittent constipation. She has a history of stroke and atrial fibrillation. She is on both Plavix and Eliquis. She reportsshortness of breath due to her COPD. Review of Systems Constitutional: Negative for fever and unexpected weight change. HENT: Negative for trouble swallowing. Respiratory: Positive for shortness of breath. Cardiovascular: Negative for chest pain. Gastrointestinal: Positive for constipation. Negative for nausea, vomiting, abdominal pain, diarrhea, blood in stool and black tarry stool. Genitourinary: Negative for dysuria and difficulty urinating. Musculoskeletal: Negative for gait problem. Skin: Negative for rash and wound. Neurological: Negative for dizziness, weakness and light-headedness. Hematological: Does not bruise/bleed easily. Psychiatric/Behavioral: Negative for confusion. Past Medical History: Diagnosis Date Arthritis back Asthma Cataract beginning stage in right eye COPD (chronic obstructive pulmonary disease) [place] DM type 2 (diabetes mellitus, type 2) ([facility] [place]) GERD (gastroesophageal reflux disease) Gout Heart murmur HTN (hypertension) Hypothyroidism Obesity MARIUSZ (obstructive sleep apnea) wears bipap at night Paroxysmal A-fib ([facility] [place]) Stroke (cerebrum) ([facility]) Tubular adenoma of colon 12/2016 SSA x 2, TA x 1; repeat in 3yrs Vertigo Past Surgical History: Procedure Laterality Date BREAST BIOPSY Left 04/30/2022 US guided CHOLECYSTECTOMY COLONOSCOPY Left Lateral 01/13/2017 Performed by Gurwinder Torre MD at [facility] DEBRIDEMENT OF INFECTED SUBCUTANEOUS TISSUE AND FAT, NECOTIZING FASCIITIS, BUTTOCKS AND THIGH Left 04/03/2023 Performed by Roxanne Camp MD at [facility] EGD Left Lateral 01/12/2017 Performed by Chris Bonilla MD at [facility] HYSTERECTOMY 2003 OOPHORECTOMY TONSILLECTOMY AND ADENOIDECTOMY Allergies Allergen Reactions Iodinated Contrast Media Anaphylaxis Adhesive Tape-Silicones Benadryl [Diphenhydramine Hcl] Hives Clindamycin Codeine Crestor [Rosuvastatin] muscle cramps Iodine Latex, Natural Rubber Morphine Vancomycin Zosyn [Piperacillin-Tazobactam] Current Outpatient Medications: acetaminophen (TYLENOL) 325 mg tablet, Take 2 tablets (650 mg total) by mouth every 6 (six) hours as needed for pain., Disp: , Rfl: acidophilus-pectin, citrus 25 million cell -100 mg tablet, Take 1 tablet by mouth in the morning and 1 tablet in the evening. Take with meals., Disp: , Rfl: apixaban (ELIQUIS) 5 mg tablet, Take 1 tablet (5 mg total) by mouth in the morning and 1 tablet (5 mg total) before bedtime. TAKE 1 TABLET TWICE DAILY., Disp: , Rfl: bisacodyL (DULCOLAX, BISACODYL,) 10 mg suppository, Insert 1 suppository (10 mg total) into the rectum in the morning., Disp: , Rfl: budesonide (PULMICORT) 0.5 mg/2 mL nebulizer solution, Inhale 2 mL (0.5 mg total) by nebulization in the morning and at bedtime., Disp: , Rfl: carvediloL (COREG) 25 mg tablet, Take 1 tablet (25 mg total) by mouth in the morning and 1 tablet (25 mg total) before bedtime., Disp: , Rfl: cholecalciferol, vitamin D3, 2,000 units capsule, Take 1 capsule (2,000 Units total) by mouth in the morning., Disp: , Rfl: clopidogreL (PLAVIX) 75 mg tablet, Take 1 tablet (75 mg total) by mouth in the morning., Disp: , Rfl: colchicine (COLCRYS) 0.6 mg tablet, Take 1 tablet (0.6 mg total) by mouth daily as needed for muscle/joint pain., Disp: , Rfl: hydrALAZINE (APRESOLINE) 50 mg tablet, Take 1 tablet (50 mg total) by mouth in the morning and 1 tablet (50 mg total) before bedtime., Disp: , Rfl: insulin degludec (TRESIBA) 100 unit/mL (3 mL) insulin pen, Inject 55 Units under the skin nightly.,Disp: , Rfl: insulin lispro (HumaLOG) 100 unit/mL insulin pen, Inject 2-10 Units under the skin in the morning and 2-10 Units at noon and 2-10 Units in the evening. Inject with meals., Disp: , Rfl: insulin lispro (HumaLOG) 100 unit/mL insulin pen, Inject 2-8 Units under the skin nightly., Disp: ,Rfl: ipratropium-albuteroL (DUONEB) 0.5 mg-3 mg(2.5 mg base)/3 mL nebulizer, Inhale 3 mL by nebulizationevery 6 (six) hours as needed for wheezing or shortness of breath., Disp: , Rfl: levothyroxine (SYNTHROID, LEVOTHROID) 100 MCG tablet, Take 1 tablet (100 mcg total) by mouth in themorning., Disp: , Rfl: meclizine (ANTIVERT) 25 mg tablet, Take 1 tablet (25 mg total) by mouth 3 (three) times a day as needed for dizziness., Disp: , Rfl: montelukast (SINGULAIR) 10 mg tablet, Take 1 tablet (10 mg total) by mouth nightly., Disp: , Rfl: vpboapge-qnug-RH-calcium &mins (THERAGRAN-M) 9 mg iron-400 mcg tablet, Take 1 tablet by mouth in the morning., Disp: , Rfl: pantoprazole (PROTONIX) 40 mg EC tablet, Take 1 tablet (40 mg total) by mouth every morning before breakfast., Disp: , Rfl: sodium chloride 0.9 % injection, Infuse 20 mL into a venous catheter as needed for line care., Disp: , Rfl: sodium hypochlorite (DAKIN'S, HALF-STRENGTH,) 0.25 % external solution, Apply 1 Application topically in the morning., Disp: , Rfl: spironolactone (ALDACTONE) 25 mg tablet, Take 1 tablet (25 mg total) by mouth in the morning., Disp: , Rfl: tiotropium bromide (SPIRIVA RESPIMAT) 1.25 mcg/actuation mist, Inhale 2.5 mcg in the morning., Disp: 4 g, Rfl: 0 peg 3350-sod sulf,usmd-uul-btg 178.7-7.3-0.5 gram recon soln, Take 1 kit by mouth once daily for 1 dose. Please see instructional sheet given by physicians office., Disp: 1 each, Rfl: 0 Social History Socioeconomic History Marital status: Single Spouse name: Not on file Number of children: Not on file Years of education: Not on file Highest education level: Not on file Occupational History Not on file Tobacco Use Smoking status: Never Smokeless tobacco: Never Vaping Use Vaping status: Never Used Substance and Sexual Activity Alcohol use: No Drug use: No Sexual activity: Defer Other Topics Concern Caffeine Use No Social History Narrative Not on file Social Determinants of Health Financial Resource Strain: Not on file Food Insecurity: No Food Insecurity (05/27/2023) Hunger Screening Food Insecurity - Worry: Never True Food Insecurity - Inability: Never True Transportation Needs: No Transportation Needs (04/07/2023) PRAPARE - Transportation Lack of Transportation (Medical): No Lack of Transportation (Non-Medical): No Physical Activity: Not on file Stress: Not on file Social Connections: Not on file Interpersonal Safety: Not At Risk (04/07/2023) Humiliation, Afraid, Rape, and Kick questionnaire Fear of Current or Ex-Partner: No Emotionally Abused: No Physically Abused: No Sexually Abused: No Housing Instability: Low Risk (04/07/2023) Housing Instability Housing Instability: No Family History Problem Relation Age of Onset Diabetes Mother Kidney disease Mother Hypertension Mother Hypertension Father Stroke Father Liver disease Father Heart disease Father Colon cancer Sister Breast cancer Neg Hx Objective Physical Exam Constitutional: General: She is not in acute distress. Appearance: Normal appearance. She is obese. She is not ill-appearing. HENT: Head: Normocephalic and atraumatic. Mouth/Throat: Mouth: Mucous membranes are moist. Eyes: Pupils: Pupils are equal, round, and reactive to light. Cardiovascular: Rate and Rhythm: Normal rate. Pulmonary: Effort: Pulmonary effort is normal. No respiratory distress. Abdominal: General: There is no distension. Palpations: Abdomen is soft. Musculoskeletal: General: Normal range of motion. Skin: General: Skin is warm and dry. Neurological: Mental Status: She is alert and oriented to person, place, and time. Mental status is at baseline. Vital Signs: Blood pressure 135/69, pulse 72, height 162.6 cm (5' 4 ), weight (!) 155.5 kg (342 lb 12.8 oz). Respiratory Source: No data recorded Admission Weight: Weight: (!) 155.5 kg (342 lb 12.8 oz) Labs Lab Results Component Value Date WBC 4.7 04/30/2023 HGB 11.3 (L) 04/30/2023 HCT 34.1 (L) 04/30/2023 MCV 89 04/30/2023 PLT 256 04/30/2023 Lab Results Component Value Date GLU 340 (H) 04/07/2023 CALCIUM 8.5 04/07/2023 K 4.5 04/07/2023 CO2 26 04/07/2023 CL 100 04/07/2023 BUN 28 (H) 04/07/2023 CREATININE 1.17 (H) 04/30/2023 No results found for: AMYLASE Lab Results Component Value Date LIPASE 180 (H) 06/11/2017 Lab Results Component Value Date ALT 28 04/30/2023 AST 20 04/30/2023 ALKPHOS 92 04/07/2023 Lab Results Component Value Date INR 1.1 02/27/2018 INR 1.1 02/10/2018 INR 1.0 01/12/2017 PROTIME 12.1 02/27/2018 PROTIME 12.8 (H) 02/10/2018 PROTIME 11.1 01/12/2017 Imaging Colonoscopy 01/13/2017: Findings: The perianal and digital rectal examinations were normal. The exam was otherwise without abnormality. A 9 mm polyp was found in the ascending colon. The polyp was pedunculated. The polyp was removed with a hot snare. Resection and retrieval were complete. A 6 to 7 mm polyp was found in the splenic flexure. The polyp was sessile. The polyp was removed with a cold snare. Resection and retrieval were complete. A 4 to 5 mm polyp was found in the rectum. The polyp was sessile. The polyp was removed with a cold snare. Resection and retrieval were complete. Multiple random biopsies were obtained with cold forceps for evaluation of microscopic colitis in the entire colon. A few sessile polyps were found in the recto-sigmoid colon. The polyps were small in size. The polyp was removed with a cold biopsy forceps and The polyp was removed with a cold snare. Resection and retrieval were complete. The retroflexed view of the distal rectum and anal verge was normal and showed no anal or rectal abnormalities. Assessment Personal history of colon polyps Family history of colon cancer in first-degree relative Plan Colonoscopy with possible biopsy and/or polypectomy. Risks, benefits, and alternatives discussed with patient. Educated on bowel evacuation preparation. Patient verbalizes understanding and wishes toproceed. Hold Plavix 7 days prior and Eliquis 2 days prior. Evaluation included: Preparing to see the patient (e.g., review of tests) Obtaining and/or reviewing separately obtained history Performing a medically appropriate examination and/or evaluation Counseling and educating the patient/family/caregiver Referring and communicating with other health manager urgent care Encounter for colonoscopy due to history of colonic polyp [Z12.11, Z86.010] DAMINE ROGER [facility] [place] This note was created with the assistance of a speech recognition program. While intending to generate a timely document that accurately reflects the content of the visit, no guarantee can be provided that every grammatical or spelling mistake has been or will be identified or corrected. Thank you for your understanding. DAMIEN Roger 10/20/23 1230 documented in this encounterTrinity [facility]08-13-2024 Miscellaneous Notes* Telephone Encounter - Melita Hanna - 10/13/2023 11:06 AM EDT Called Zully regarding the screening colonoscopy referral that our office received from Pilar Salgado NP, left a message on voicemail to call the office back to schedule an appointment. Last colonoscopy 01/13/[address] Xie with a 3 year recall & has family history of colon cancer. * Telephone Encounter - Melita Hanna - 10/13/2023 11:06 AM EDT Zully called the office back and we scheduled her an appointment on 10/20/2023. documented in this encounterTrinity Health [facility]08-13-2024 Telephone encounter Note* Telephone Encounter - Melita Hanna - 10/13/2023 11:06 AM EDT Called Zully regarding the screening colonoscopy referral that our office received from Pilar Salgado NP, left a message on voicemail to call the office back to schedule an appointment. Last colonoscopy 01/13/[address] Xie with a 3 year recall & has family history of colon cancer. [facility] HospitalPCC Technology [id number] Telephone encounter Note* Telephone Encounter - Melita Hanna - 10/13/2023 11:06 AM EDT Zully called the office back and we scheduled her an appointment on 10/20/2023. [facility] [employer]ister Leuchten [id number] History of Present illness Narrative* Wilfrid Murguia MD - 05/27/2023 3:15 PM EDT Zully Marino Date of visit: 05/27/2023 Date of : 1955 Age: 67 y.o. Patient Active Problem List Diagnosis Acute renal failure (ARF) ([facility]) Esophageal dysphagia Diarrhea Moderate persistent asthma without complication MARIUSZ treated with BiPAP Influenza vaccine administered Pulmonary nodule Cryptogenic stroke ([facility]) TIA (transient ischemic attack) Status post placement of implantable loop recorder Essential hypertension BMI 50.0-59.9, adult ([facility]) Class 3 severe obesity in adult ([facility]) Pre-operative cardiovascular examination Paroxysmal atrial fibrillation ([facility]) Necrotizing fasciitis ([facility]) COPD (chronic obstructive pulmonary disease) ([facility]) Type 2 diabetes mellitus ([facility]) Osteoarthritis Acute cystitis without hematuria Allergies Allergen Reactions Iodinated Contrast Media Anaphylaxis Adhesive Tape-Silicones Benadryl [Diphenhydramine Hcl] Hives Clindamycin Codeine Crestor [Rosuvastatin] muscle cramps Iodine Latex, Natural Rubber Morphine Vancomycin Zosyn [Piperacillin-Tazobactam] Current Outpatient Medications Medication Sig Dispense Refill acetaminophen (TYLENOL) 325 mg tablet Take 2 tablets (650 mg total) by mouth every 6 (six) hours asneeded for pain. acidophilus-pectin, citrus 25 million cell -100 mg tablet Take 1 tablet by mouth in the morning and1 tablet in the evening. Take with meals. apixaban (ELIQUIS) 5 mg tablet TAKE 1 TABLET TWICE DAILY (Patient taking differently: Take 1 tablet(5 mg total) by mouth in the morning and 1 tablet (5 mg total) before bedtime. TAKE 1 TABLET TWICE DAILY.) 180 tablet 0 bisacodyL (DULCOLAX, BISACODYL,) 10 mg suppository Insert 1 suppository (10 mg total) into the rectum in the morning. budesonide (PULMICORT) 0.5 mg/2 mL nebulizer solution Inhale 2 mL (0.5 mg total) by nebulization inthe morning and at bedtime. carvediloL (COREG) 25 mg tablet Take 1 tablet (25 mg total) by mouth in the morning and 1 tablet (25 mg total) before bedtime. cholecalciferol, vitamin D3, 2,000 units capsule Take 1 capsule (2,000 Units total) by mouth in themorning. clopidogreL (PLAVIX) 75 mg tablet Take 1 tablet (75 mg total) by mouth in the morning. colchicine (COLCRYS) 0.6 mg tablet Take 1 tablet (0.6 mg total) by mouth daily as needed for muscle/joint pain. hydrALAZINE (APRESOLINE) 50 mg tablet Take 1 tablet (50 mg total) by mouth in the morning and 1 tablet (50 mg total) before bedtime. insulin degludec (TRESIBA) 100 unit/mL (3 mL) insulin pen Inject 55 Units under the skin nightly. insulin lispro (HumaLOG) 100 unit/mL insulin pen Inject 2-10 Units under the skin in the morning and 2-10 Units at noon and 2-10 Units in the evening. Inject with meals. insulin lispro (HumaLOG) 100 unit/mL insulin pen Inject 2-8 Units under the skin nightly. ipratropium-albuteroL (DUONEB) 0.5 mg-3 mg(2.5 mg base)/3 mL nebulizer Inhale 3 mL by nebulization every 6 (six) hours as needed for wheezing or shortness of breath. levothyroxine (SYNTHROID, LEVOTHROID) 100 MCG tablet Take 1 tablet (100 mcg total) by mouth in the morning. meclizine (ANTIVERT) 25 mg tablet Take 1 tablet (25 mg total) by mouth 3 (three) times a day as needed for dizziness. montelukast (SINGULAIR) 10 mg tablet Take 1 tablet (10 mg total) by mouth nightly. pcxfeity-sspa-KN-calcium &mins (THERAGRAN-M) 9 mg iron-400 mcg tablet Take 1 tablet by mouth inthe morning. sennosides-docusate sodium (SENOKOT-S) 8.6-50 mg Take 1 tablet by mouth every 12 (twelve) hours as needed for constipation. sodium chloride 0.9 % injection Infuse 10 mL into a venous catheter every 12 (twelve) hours. sodium chloride 0.9 % injection Infuse 10 mL into a venous catheter as needed for line care. sodium chloride 0.9 % injection Infuse 20 mL into a venous catheter as needed for line care. sodium hypochlorite (DAKIN'S, HALF-STRENGTH,) 0.25 % external solution Apply 1 Application topically in the morning. spironolactone (ALDACTONE) 25 mg tablet Take 1 tablet (25 mg total) by mouth in the morning. sucralfate (CARAFATE) 1 gram tablet Take 1 tablet (1 g total) by mouth every 8 (eight) hours. tiotropium bromide (SPIRIVA RESPIMAT) 1.25 mcg/actuation mist Inhale 2.5 mcg in the morning. 4 g 0 aspirin 81 mg Take 1 tablet (81 mg total) by mouth in the morning. pantoprazole (PROTONIX) 40 mg EC tablet Take 1 tablet (40 mg total) by mouth every morning before breakfast. No current facility-administered medications for this visit. Chief Complaint Patient presents with Follow-up HAVING NOSE BLEEDS, HOLDING ELIQUIS History of Present Illness Patient comes in for yearly visit a little sooner just because she is having quite a bit of nose bleeding she was noticing some smattering bleeding here and there about a week ago but now she is noticing clots had no lightheadedness syncope near syncope no palpitations she says she may have some dry heat in her room which might be contributing to it. She also says she does smell things in her room. Other than this she has been doing well she has had no history of focal symptomatic deficits or anything to suggest recurrence of her TIA Past Medical History: Diagnosis Date Arthritis back Asthma Cataract beginning stage in right eye COPD (chronic obstructive pulmonary disease) ([facility]) DM type 2 (diabetes mellitus, type 2) ([facility]) GERD (gastroesophageal reflux disease) Gout Heart murmur HTN (hypertension) Hypothyroidism Obesity MARIUSZ (obstructive sleep apnea) wears bipap at night Paroxysmal A-fib ([facility]) Stroke (cerebrum) ([facility]) Tubular adenoma of colon 12/2016 SSA x 2, TA x 1; repeat in 3yrs Vertigo No data recorded No data recorded No data recorded Past Surgical History: Procedure Laterality Date BREAST BIOPSY Left 04/30/2022 US guided CHOLECYSTECTOMY COLONOSCOPY Left Lateral 01/13/2017 Performed by Gurwinder Torre MD at [facility] DEBRIDEMENT OF INFECTED SUBCUTANEOUS TISSUE AND FAT, NECOTIZING FASCIITIS, BUTTOCKS AND THIGH Left 04/03/2023 Performed by Roxanne Camp MD at [facility] EGD Left Lateral 01/12/2017 Performed by Chris Bonilla MD at [facility] HYSTERECTOMY 2003 OOPHORECTOMY TONSILLECTOMY AND ADENOIDECTOMY Family History Problem Relation Age of Onset Diabetes Mother Kidney disease Mother Hypertension Mother Hypertension Father Stroke Father Liver disease Father Heart disease Father Colon cancer Sister Breast cancer Neg Hx Social History Socioeconomic History Marital status: Single Spouse name: Not on file Number of children: Not on file Years of education: Not on file Highest education level: Not on file Occupational History Not on file Tobacco Use Smoking status: Never Smokeless tobacco: Never Vaping Use Vaping Use: Never used Substance and Sexual Activity Alcohol use: No Drug use: No Sexual activity: Not on file Other Topics Concern Caffeine Use No Social History Narrative Not on file Social Determinants of Health Financial Resource Strain: Not on file Food Insecurity: No Food Insecurity (05/27/2023) Hunger Screening Food Insecurity - Worry: Never True Food Insecurity - Inability: Never True Transportation Needs: No Transportation Needs (04/07/2023) PRAPARE - Transportation Lack of Transportation (Medical): No Lack of Transportation (Non-Medical): No Physical Activity: Not on file Stress: Not on file Social Connections: Not on file Interpersonal Safety: Not At Risk (04/07/2023) Humiliation, Afraid, Rape, and Kick questionnaire Fear of Current or Ex-Partner: No Emotionally Abused: No Physically Abused: No Sexually Abused: No Housing Instability: Low Risk (04/07/2023) Housing Instability Housing Instability: No Review of Systems Review of Systems Constitutional: Positive for chills and malaise/fatigue. HENT: Positive for nosebleeds. Eyes: Negative. Respiratory: Positive for cough and wheezing. Hematologic/Lymphatic: Bruises/bleeds easily. Skin: Negative. Musculoskeletal: Positive for muscle weakness. Gastrointestinal: Positive for constipation. Neurological: Positive for dizziness, headaches, light-headedness and loss of balance. Psychiatric/Behavioral: Positive for depression. The patient is nervous/anxious. Allergic/Immunologic: Positive for environmental allergies. CARDIOVASCULAR: Please review HPI. Physical Examination General appearance: Alert, oriented and cooperative. In no acute distress. Skin: Warm and dry to touch. Head: Normocephalic, without obvious abnormality, atraumatic. Ears, Nose, Mouth, Throat: Throat clear without erythema or exudate. Dentition intact. Eyes: Conjunctivae unremarkable, EOM intact. Neck: No JVD, No carotid bruit. Neck supple, trachea midline. Respiratory: Clear to auscultation bilaterally, no use of accessory muscles. Cardiovascular: RRR with normal S1 and S2 with no murmurs. Gastrointestinal: Soft, non-tender. Bowel sounds normal. Musculoskeletal: No peripheral edema. Neurologic: Oriented to time, person and place, affect appropriate. No focal/major motor defects noted. Psychiatric: Appropriate mood, memory and judgement. VITAL SIGNS: Ht 162.6 cm (5' 4 ) Wt (!) 152.4 kg (336 lb) LMP (LMP Unknown) BMI 57.67 kg/m Orders Placed or Reconciled This Encounter Medications sucralfate (CARAFATE) 1 gram tablet Sig: Take 1 tablet (1 g total) by mouth every 8 (eight) hours. budesonide (PULMICORT) 0.5 mg/2 mL nebulizer solution Sig: Inhale 2 mL (0.5 mg total) by nebulization in the morning and at bedtime. cholecalciferol, vitamin D3, 2,000 units capsule Sig: Take 1 capsule (2,000 Units total) by mouth in the morning. bisacodyL (DULCOLAX, BISACODYL,) 10 mg suppository Sig: Insert 1 suppository (10 mg total) into the rectum in the morning. acidophilus-pectin, citrus 25 million cell -100 mg tablet Sig: Take 1 tablet by mouth in the morning and 1 tablet in the evening. Take with meals. There are no discontinued medications. IMPRESSIONS/PLAN There are no diagnoses linked to this encounter. 1. Nosebleeds they are getting a bit worse recently she noticed some clots she is coughing up. Yesterday we asked her to hold her Eliquis. She is also on Plavix 2. History of loop recorder no longer recording remote history of AFib 3. Paroxysmal atrial fibrillation CHADS2 vascular score of 6 We need to stop the bleeding presently so will hold both her Plavix and Eliquis We will reintroduce her Eliquis next week and possibly reintroduce the Plavix after that but we want to ensure that she not having continued nosebleeds. Consideration of Watchman in the future could be undertaken if we need to She does have nasal saline that I have asked her to use If she would have any other symptoms then at that point we can check some more blood work and go from there Loop recorder: [employer] loop recorder implanted in 2019 after cryptogenic stroke. I discussed withthe patient regarding whether to replace her loop recorder or leave it alone. She has keloid scar formation at the site of previous incision which has caused her significant discomfort. If we were to extracted and reimplanted device, I told her that there is high probability that another keloid scar could form. This would then cause further symptoms of pain. Given that the utility of the loop recorder has already been demonstrated with discovery of paroxysmal atrial fibrillation, I would recommend that we leave the current device which is currently at end of service in place with no further in tervention. If she feels that she needs intervention on her keloid scar, she can speak with a plastic surgeon who may recommend additional options. Paroxysmal atrial fibrillation: CHADS2 Vasc 6 on apixaban 5 mg b.i.d., tolerating blood thinner well with no evidence of bleeding. Overall very low burden as detected on prior loop recorder transmissions. Normal sinus rhythm today. No changes made to her medications. Would continue to monitor, willdefer to General Cardiology for follow-up. Palpitations: Patient's palpitations are likely secondary to deconditioning as she relates these symptoms mostly with exertion. She is morbidly obese with a BMI over 50, she tells me that she does try to exercise and does feel the same sensation when doing so. No recent loop transmission with any arrhythmic findings and thus her palpitations are likely sinus rhythm or sinus tachycardia. I explained to her the physiologic response event increased heart rate in deconditioning and told her that I am not concerned regarding these symptoms. TODAYS ORDERS No orders of the defined types were placed in this encounter. FOLLOW UP No follow-ups on file. PCP: DAMIEN Castro Referring Physician: DAMIEN Castro [address] [place] [address] documented in this encounterTrinity Health [facility]03-27-2024 Instructions* Patient Instructions* Wilfrid Murguia MD - 05/27/2023 3:15 PM EDT HOLD ELIQUIS FOR A WEEK AND THEN RESTART NEXT WED AND CALL US IF YOU START BLEEDING STOP PLAVIX IF YOU KEEP HAVING LOW BLOOD PRESSURE,WE CAN LOWER YOUR DOSE OF CARVEDILOL documented in this encounterTrinity Health [facility]03-26-2024 Miscellaneous Notes* Telephone Encounter - Gulshan Stuart RN - 05/26/2023 8:37 AM EDT P/c from pt who is currently at [facility] d/t wound care. Pt states for the past week/week and half she has had terrible nose bleeds that are now lasting all day. Pt states she is often blowing her nose and seeing blood with clots and and coughing up dark red mucus. Pt reports dry air in her room and uses CPAP at night. She has been using nasal saline spray daily. Pt takes Eliquis 5 mg BID for AFIB andis due for a follow up appointment now. NE (off) saw pt last 06/11/22 and deferred to general cardiology, will send message to TMP in office to review and advise. Pts last CBC 04/30/23 hgb 11.3, Hct 34.1 * Telephone Encounter - Wilfrid Murguia MD - 05/26/2023 8:37 AM EDT Just hold the Eliquis untill we see her tomorrow * Telephone Encounter - Gulshan Stuart RN - 05/26/2023 8:37 AM EDT Mechanical Artist reviewed with TMP in office. Pt does not have a f/u tomorrow. TMP wants pt to HOLD eliquis and get scheduled for a f/u appt. Pt needs to also f/u with her facility doctor in the meantime regarding the nose bleeds. Mechanical Artist called pt. Pt agreeable to holding eliquis and was transferred to production scheduler to make a f/u appt. F/u made for tomorrow, 05/27/23. Mechanical Artist let her know the Med hold order will be faxed to [facility] to [facility]. Pt states she will talk toDr. Zaragoza at facility regarding any further recommendations on the nose bleeds and report to ER for any worsening symptoms. * Telephone Encounter - Gulshan Stuart RN - 05/26/2023 8:37 AM EDT Notes faxed to [facility] at [phone]. documented in this encounterTrinity [facility]03-26-2024 Telephone encounter Note* Telephone Encounter - Gulshan Stuart RN - 05/26/2023 8:37 AM EDT P/c from pt who is currently at [facility] d/t wound care. Pt states for the past week/week and half she has had terrible nose bleeds that are now lasting all day. Pt states she is often blowing her nose and seeing blood with clots and and coughing up dark red mucus. Pt reports dry air in her room and uses CPAP at night. She has been using nasal saline spray daily. Pt takes Eliquis 5 mg BID for AFIB andis due for a follow up appointment now. NE (off) saw pt last 06/11/22 and deferred to general cardiology, will send message to TMP in office to review and advise. Pts last CBC 04/30/23 hgb 11.3, Hct 34.1 [facility]03-26-2024 Telephone encounter Note* Telephone Encounter - Wilfrid Murguia MD - 05/26/2023 8:37 AM EDT Just hold the Eliquis untill we see her tomorrow [facility] Work Phone: [phone] Telephone encounter Note* Telephone Encounter - Gulshan Stuart RN - 05/26/2023 8:37 AM EDT Mechanical Artist reviewed with TMP in office. Pt does not have a f/u tomorrow. TMP wants pt to HOLD eliquis and get scheduled for a f/u appt. Pt needs to also f/u with her facility doctor in the meantime regarding the nose bleeds. Mechanical Artist called pt. Pt agreeable to holding eliquis and was transferred to production scheduler to make a f/u appt. F/u made for tomorrow, 05/27/23. Mechanical Artist let her know the Med hold order will be faxed to [facility] to [facility]. Pt states she will talk toDr. Zaragoza at facility regarding any further recommendations on the nose bleeds and report to ER for any worsening symptoms. [facility]03-26-2024 Telephone encounter Note* Telephone Encounter - Gulshan Stuart RN - 05/26/2023 8:37 AM EDT Notes faxed to [facility] at [phone]. [facility] [employer] Leuch[employer] [id number] History of Present illness Narrative* Shea Carey APRN-LEANNE - 05/05/2023 2:20 PM EST Subjective Patient ID: Zully Marino is a 67 y.o. female. Chief Complaint: Hospital follow-up/completion of antibiotics Zully is here today in the Infectious Disease Clinic for hospital follow-up appointment. She was hospitalized from April 02 through April 07 2023. She originally presented to the [facility] emergency center with a complaint of a perirectal abscess. She stated the abscess appeared and within 24 hours she started to develop fever, chills, and nausea, she reached out to her primary care provider who advised her to go directly to the . She went to [facility] and was transferred to [facility] due to concerns for gas gangrene/necrotizing fasciitis. Surgicalteam was consulted, and patient underwent incision and debridement. Patient has a medical history si gnificant for morbid obesity, poorly controlled type 2 diabetes, recurrent groin abscesses, urinarytract infections, chronic kidney disease, COPD, obstructive sleep apnea, CVA, and has difficulty ambulating. The following portions of the patient's history were reviewed and updated as appropriate: allergies, current medications, past family history, past medical history, past social history, past surgicalhistory, problem list, and medication reconciliation was completed including current medication andpost discharge medication. Review of Systems Constitutional: Negative for fever, chills and fatigue. HENT: Negative for trouble swallowing. Eyes: Negative. Respiratory: Negative for cough and shortness of breath. Cardiovascular: Positive for leg swelling (chronic, improving). Negative for chest pain. Gastrointestinal: Negative for nausea, vomiting, abdominal pain, diarrhea and constipation. Endocrine: Negative. Genitourinary: Negative for hematuria and difficulty urinating. Musculoskeletal: Positive for gait problem (walks with cane, no recent falls). Negative for myalgias, arthralgias and neck stiffness. Skin: Positive for wound (perirectal dressing changes with packing daily). Negative for color change, pallor and rash. Allergic/Immunologic: Negative. Neurological: Positive for weakness. Negative for speech difficulty and headaches. Hematological: Negative. Psychiatric/Behavioral: Negative for confusion. Objective Physical Exam Constitutional She is oriented to person, place, and time. No distress. Morbidly obese 67-year-old female presented to today's appointment independently per wheelchair Vitals reviewed. HENT Head Normocephalic. Eyes: Pupils are equal, round, and reactive to light. Neck Normal range of motion. Cardiovascular: Normal rate and regular rhythm. Pulses: intact distal pulses Pulmonary/Chest: Effort normal and breath sounds normal. No respiratory distress. Abdominal: Bowel sounds are normal. She exhibits no distension. Soft. There is no abdominal tenderness. Musculoskeletal: General: No edema. Normal range of motion. Cervical back: Normal range of motion. Neurological She is alert and oriented to person, place, and time. Skin: Skin is warm and dry. Psychiatric: She has a normal mood and affect. Her behavior is normal. Assessment/Plan 1. Hospital discharge follow-up 2. Perirectal abscess 3. Necrotizing fasciitis ([facility]) 4. Peripherally inserted central catheter (PICC) in place 5. Enterococcus faecalis infection 6. Morbid obesity due to excess calories ([facility]) 7. Poorly controlled type 2 diabetes mellitus ([facility]) 8. Atrial fibrillation, unspecified type ([facility]) 9. Chronic anticoagulation Orders Placed This Encounter Procedures PICC Line Removal Patient on chronic anticoagulation, I have requested facility remove PICC line after she returns soshe can rest in bed while being monitored for any signs of bleeding. She is currently wheeling herself per wheelchair and has no family or friends with her. I am concerned for upper extremity bleeding with this activity after removing line in patient anticoagulated on Eliquis. Patient awake and alert at today's appointment, no signs of distress or discomfort, she is afebrilewith stable vital signs Culture from patient's left buttock/thigh April 03, 2023 positive for Gleimia europaea Finalized blood cultures April 02, 2023 with no growth Patient completed 14 day course of treatment with Zyvox Completed course of treatment with Azactam on April 30, 2023 Completed course of treatment with Flagyl on April 16, 2023 Recent lab results reviewed Patient encouraged to continue following up closely with surgical team and [facility] wound care team She reports wound with significant healing, down to only 2 cm, she continues with packing and dailydressing changes Patient unfortunately reporting blood sugars remain high typically running 180- 300, she was educated regarding the risk of high blood sugars and infection. Diabetics with uncontrolled blood sugars are at higher risk for infection because an elevated glucose levels encourage is bacterial growth. Additionally, the combination of peripheral neuropathies with numbness of the extremities, peripheral vascular disease leading to poor tissue perfusion, and the risk for infection makes diabetic patientsprone to feet and leg ulcers and wounds. Follow-up in the infectious disease clinic in about 4 weeks or sooner as needed Patient encouraged to maintain a healthy lifestyle including eating a well- balanced healthy diet, maintaining a healthy weight, patient would benefit with significant weight loss, appropriate periodsof rest, exercise as approved by primary care provider, and routine follow-up with primary care provider for vaccinations and preventative care. Verbally discussed instructions and plan of care, questions were answered and patient verbalized understanding. Total time spent was 35 minutes: Preparing to see the patient (e.g., review of tests) Obtaining and/or reviewing separately obtained history Performing a medically appropriate examination and/or evaluation Additional time spent counseling patient, she is fearful of recurrent infection and unfortunately continues to have poorly controlled blood sugars and is morbidly obese, extra support provided DAMIEN Gardner 05/05/23 1820 [facility] History of Present illness Narrative* DAMIEN Sunshine - 04/23/2023 2:40 PM EST Subjective Patient ID: Zully Marino is a 67 y.o. female. Chief Complaint Nec fasc, perirectal abscess, UTI HPI Seen and treated while Inpatient for the following Necrotizing fasciitis Left buttock/posterior thigh necrosis Left labia/perirectal abscess Enterococcus urinary tract infection Antibiotic reaction: Lip swelling/burning pain/itching to the back of head/near- syncope (medicationreaction: Had clindamycin, vancomycin and Zosyn, unclear cause) Leukocytosis Fever Past medical history includes Type 2 diabetic Chronic kidney disease Elevated creatinine COPD Morbid obesity Obstructive sleep apnea/home CPAP Hypertension Atrial fibrillation Anticoagulated on Eliquis History CVA 2018 (residual right hand weakness) Placed on the following plan at discharge Continue Zyvox for now as surgical culture has been updated; awaiting final identification Continue aztreonam and Flagyl Wound is deep-will need 4 weeks of IV antibiotic-Azactam -until April Will need 2 weeks of oral Flagyl until April 16 Okay for PICC line Follow WBC, platelets, creatinine, LFTs WBC 8.1 creat 1.20 Wound care as per surgical team recommendations Monitor temperatures: Afebrile Tight glycemic control Supportive care The following portions of the patient's history were reviewed and updated as appropriate: current medications, past family history, past medical history, past social history, past surgical history, problem list, and medication reconciliation was completed including current medication and post discharge medication. Review of Systems Constitutional: Positive for fatigue. Negative for fever and activity change. HENT: Negative. Respiratory: Negative. Negative for cough and shortness of breath. Cardiovascular: Negative. Gastrointestinal: Positive for nausea (vertigo). Negative for vomiting and diarrhea (loose stools). Genitourinary: Negative. Negative for bladder incontinence, dysuria, urgency and frequency. Musculoskeletal: Negative. Skin: Positive for wound (dressing changed daily at care facilty with packing). Negative for color change. Neurological: Negative. Hematological: Negative. Psychiatric/Behavioral: Negative. Objective Physical Exam Constitutional She is oriented to person, place, and time. She appears well- developed and well-nourished. Vitals reviewed. Cardiovascular: Normal rate and regular rhythm. Pulmonary/Chest: Effort normal. She has no wheezes. She has no rales. Abdominal: Bowel sounds are normal. Soft. Musculoskeletal: General: No tenderness or edema. Comments: Labial wound with packing in place. Wound site examined with the presence of ITALIA Jarquin. No surrounding erythema, wound bed clean. Neurological She is alert and oriented to person, place, and time. Skin: Skin is warm and dry. No erythema. Psychiatric: She has a normal mood and affect. Assessment/Plan Wound is deep-on 4 weeks of IV antibiotic-Azactam -until April Completed oral Flagyl until April 16 Continues on doxycyline 100mg BID through Apr 30, 2023 Surgical culture finalized with Gleimia Europaea (Actinomyces europaea). Labs reviewed Follow up in 2 weeks Zully was seen today for follow-up. Diagnoses and all orders for this visit: Necrotizing fasciitis ([facility]) Urinary tract infection without hematuria, site unspecified DAMIEN Sunshine 04/23/23 1644 documented in this encounterTr[facility] History of Present illness Narrative* DAMIEN Gardner - 04/11/2023 7:58 AM EST I spoke with Catrachito WISE at [facility] in [place] to clarify orders. Stop dapto and begin doxycyline 100mg BID and continue through Apr 30, 2023 DAMIEN Gardner 04/11/23 0814 documented in this encounterTr[facility] Miscellaneous Notes* Telephone Encounter - Shadia Gastelum MA - 04/09/2023 10:50 AM EST Patient nurse at facility [facility] states that patient is not on Zyvox but she is receiving Aztreonam and Daptomyacin. She want to make sure its ok for patient to stay on these antibiotics. Patient issupposed to start Doxycycline per Melita. Please advise. Bonita [phone] * Telephone Encounter - DAMIEN Sunshine - 04/09/2023 10:50 AM EST Melita- please see below * Telephone Encounter - Shadia Gastelum MA - 04/09/2023 10:50 AM EST Patient nurse returned call, I did reach out to Melita and she is going to return [facility] call. * Telephone Encounter - DAMIEN Buck - 04/09/2023 10:50 AM EST Spoke with Bonita at [facility]. Orders reviewed. Daptomycin discontinued. Start doxycycline. Continue Azactatam as previously ordered documented in [facility] encounterTr[facility] Telephone encounter Note* Telephone Encounter - Shadia Gastelum MA - 04/09/2023 10:50 AM EST Patient nurse at facility [facility] states that patient is not on Zyvox but she is receiving Aztreonam and Daptomyacin. She want to make sure its ok for patient to stay on these antibiotics. Patient issupposed to start Doxycycline per Melita. Please advise. Bonita [phone] [facility]02-[facility] Telephone encounter Note* Telephone Encounter - DAMIEN Sunshine - 04/09/2023 10:50 AM EST Melita- please see below [facility] Work Phone: [phone]) 856-222602-08-2024 Telephone encounter Note* Telephone Encounter - Shadia Gastelum MA - 04/09/2023 10:50 AM EST Patient nurse returned call, I did reach out to Melita and she is going to return Bonita call. [facility] Telephone encounter Note* Telephone Encounter - DAMIEN Buck - 04/09/2023 10:50 AM EST Spoke with Bonita at [facility]. Orders reviewed. Daptomycin discontinued. Start doxycycline. Continue Azactatam as previously ordered [facility]01-19-20[facility] Miscellaneous Notes* Telephone Encounter - Aleena Reynoso - 03/20/2023 11:44 AM EST 03/20 Order received Scheduled CPAP at [facility] on 07/09/23 Confirmation mailed [employer] CPAP order and use 12/17/22 L. Robert Notes in MM Patient would like on cancellation list, but not until April documented in this encounterTr[facility] Telephone encounter Note* Telephone Encounter - Aleena Reynoso - 03/20/2023 11:44 AM EST 03/20 Order received Scheduled CPAP at [facility] on 07/09/23 Confirmation mailed [employer] CPAP order and use 12/17/22 L. Robert Notes in MM Patient would like on cancellation list, but not until April [facility]01-[facility] Miscellaneous Notes* Telephone Encounter - Gabriella Iglesias - 03/10/2023 2:49 PM EST PT called to schedule, advised no order or notes. She will have faxed, gave number. Was seen in November documented in this encounterTr[facility] Telephone encounter Note* Telephone Encounter - Gabriella Iglesias - 03/10/2023 2:49 PM EST PT called to schedule, advised no order or notes. She will have faxed, gave number. Was seen in November [facility] [id number] Evaluation note* Encounter Date Diagnosis Assessment Notes Treatment Notes Treatment Clinical Notes Jan, Type 2 diabetes mellitus with hyperglycemia, without long-term current use of insulin (ICD-10 - E11.65) Jan, Vitamin D deficiency (ICD-10 - E55.9) Learning About Vitamin D material was published to portal Jan, Hyperlipidemia, unspecified hyperlipidemia type (ICD-10 - E78.5) Jan, Hypertension, unspecified type (ICD-10 - I10) Jan, Dietary counseling and surveillance (ICD-10 - Z71.3) Learning About Healthy Weight material was published to portal Jan, Type 2 diabetes mellitus with hyperglycemia (ICD-10 - E11.65) ASSESSMENT: 1. Uncontrolled, a Type 2 diabetes with A1c of 7.9, was 8.0 2. Did not tolerate Farxiga, (historically did not tolerate Jardiance or Invokana due to dizziness. ) . Continue continue Tresiba, now 48 units daily, NovoLog ISS 1: 20 and ICR 1: 7. Encouraged 45 g carbohydrate meal for weight loss with diabetes. Will retry CGM EMILIO when sample available-- could consider Eversense, although our office does not place, PATCH FOR EVERSENSE PROVIDED FOR ADHESIVE TRIAL. Good surveillance otherwise. She will see diabetes dietitian soon, if needed could have nurse visit same day for assistance, strategizing for CGM tolerability. CONSIDER DSME We are limited on GLP-1 RA secondary to pancreatitis 3 years ago on Victoza with no other nidus. Mostly recent labs reviewed, LDL 128 in July 2022, statin per diabetes guidelines recommended Research shows that stamina with the current regime may fatigue, as would outcomes and CGM is equitable compaired to disease instability. Patient also maintains active lifestyle which increases cumbersome nature of current regime. CGM will be necessary to titrate insulin multiple times a day.. Continued discussion on techniques. She would not like to engage in official weight management initiative at this time. Needs to be carb quality and qty consistent, protein each meal and snack. Discussed this in detail 3. Patient is alert, oriented and receptive to making changes or counseling. Notes: Seen for an assessment of current glucose pattern, changes in treatment plan, counseling and coordination of care related to diabetes, risks, and benefits of treatment, medications, side effects. Given handouts to reinforce concepts reviewed during counseling, see scanned notes. TOPICS REVIEWED: 1. Time was spent reviewing: a. Basic concepts of diabetes, progressive beta cell , concepts of basal/bolus/corre ctive insulin requirements. Basal: The goal is fasting blood glucose of 90-130mg. IF fasting blood glucose starts to run under 100mg 3x's/ week, decrease dose by 10%. Bolus: The goal is to hold the blood glucose level steady meal to meal. If pt. is going to have increased physical activity after a meal, decrease the schedule meal dose prior to the activity by 30-50%. If pt. skips a meal do not take this dose. Correction: The goal is to correct an elevated glucose back into the 100-150mg range b. Nutrition: Concepts of healthy diet, encouraged to decrease saturated fat in diet and increase non-starchy vegetables and fruits in diet. BMI: Pt. needs to select one small change to decrease caloric intake or increase physical activity to help decrease weight. c. Correct treatment of hypoglycemia, carry a glucose source at all times on your person, in vehicles, and at bedside. Can use glucose tablets/4, four ounces of pop or juice equal to 15 G of carbohydrate. Blood glucose should be 100 mg/dl or higher when driving. d. ADA glucose goals for age and medical complexity reviewed e. Patient questions addressed 2. Activity/exercise : Encouraged to start any form of physical activity. Start low level and increase slowly to a minimal goal of 150 minutes/week. Limit activity to what is allowed by other issues such as cardiac, pulmonary or orthopedic restrictions. 3. Standards of care: Reminded to have an annual dilated eye exam, A1C every 3 months, urine testing for microalbumin once/year, check feet daily and report any cuts or sores that do not appear to be healing. 4. Meter: Plan to check blood glucose: Please check blood glucose levels 4 times/day. Back to back meals reveal effectiveness of bolus dosing. The blood glucose data is used to determine insulin doses and confirm symptoms for hypoglycemia and hyperglcyemia.5. [facility] Contact office if any issues or concerns with patterns of hypoglycemia, hyperglycemia, or diabetes medication issues. 6. Prescriptions: Jan, Hyperlipidemia (ICD-10 - E78.5) Learning About High Cholesterol material was published to portal Jan, HTN (hypertension) (ICD-10 - I10) High Blood Pressure: Care Instructions material was published to portal Jan, USP current use of insulin (ICD-10 - Z79.4) Jan, BMI 50.0-59.9, adult (ICD-10 - Z68.43) Jan, CKD (chronic kidney disease) (ICD-10 - N18.9) CONTINUE WITH NEPHROLOGY [employer] Other 10-04-2023 Evaluation note* Encounter Date Diagnosis Assessment Notes Treatment Notes Treatment Clinical Notes Nov, Type 2 diabetes mellitus with hyperglycemia, without long-term current use of insulin (ICD-10 - E11.65) Nov, Vitamin D deficiency (ICD-10 - E55.9) Learning About Vitamin D material was published to portal Nov, Hyperlipidemia, unspecified hyperlipidemia type (ICD-10 - E78.5) Nov, Hypertension, unspecified type (ICD-10 - I10) Nov, Dietary counseling and surveillance (ICD-10 - Z71.3) Learning About Healthy Weight material was published to portal Nov, Type 2 diabetes mellitus with hyperglycemia (ICD-10 - E11.65) ASSESSMENT: 1. Uncontrolled, a Type 2 diabetes with A1c of 7.9, was 8.0 2. Did not tolerate Farxiga, (historically did not tolerate Jardiance due to dizziness. ) Could consider Invokana based on nephrology. Continue continue Tresiba, now 53 units daily, NovoLog ISS 1: 15 and ICR 1: 5. Encouraged 45 g carbohydrate meal for weight loss with diabetes. Will retry CGM, good surveillance otherwise. She will see diabetes dietitian soon, if needed could have nurse visit same day for assistance, strategizing for CGM tolerability. We are limited on GLP-1 RA secondary to pancreatitis 3 years ago on Victoza with no other nidus. Blood pressure slightly over goal today, discussed management for beginning protection. Mostly recent labs reviewed, LDL 128 in July 2022, statin per diabetes guidelines recommended Dexcom7 with reader helpful. Research shows that stamina with the current regime may fatigue, as would outcomes and CGM is equitable compaired to disease instability. Patient also maintains active lifestyle which increases cumbersome nature of current regime. CGM will be necessary to titrate insulin multiple times a day.. Continued discussion on techniques. She would not like to engage in official weight management initiative at this time. Needs to be carb quality and qty consistent, protein each meal and snack. Discussed this in detail 3. Patient is alert, oriented and receptive to making changes or counseling. Notes: Seen for an assessment of current glucose pattern, changes in treatment plan, counseling and coordination of care related to diabetes, risks, and benefits of treatment, medications, side effects. Given handouts to reinforce concepts reviewed during counseling, see scanned notes. TOPICS REVIEWED: 1. Time was spent reviewing: a. Basic concepts of diabetes, progressive beta cell , concepts of basal/bolus/corre ctive insulin requirements. Basal: The goal is fasting blood glucose of 90-130mg. IF fasting blood glucose starts to run under 100mg 3x's/ week, decrease dose by 10%. Bolus: The goal is to hold the blood glucose level steady meal to meal. If pt. is going to have increased physical activity after a meal, decrease the schedule meal dose prior to the activity by 30-50%. If pt. skips a meal do not take this dose. Correction: The goal is to correct an elevated glucose back into the 100-150mg range b. Nutrition: Concepts of healthy diet, encouraged to decrease saturated fat in diet and increase non-starchy vegetables and fruits in diet. BMI: Pt. needs to select one small change to decrease caloric intake or increase physical activity to help decrease weight. c. Correct treatment of hypoglycemia, carry a glucose source at all times on your person, in vehicles, and at bedside. Can use glucose tablets/4, four ounces of pop or juice equal to 15 G of carbohydrate. Blood glucose should be 100 mg/dl or higher when driving. d. ADA glucose goals for age and medical complexity reviewed e. Patient questions addressed 2. Activity/exercise : Encouraged to start any form of physical activity. Start low level and increase slowly to a minimal goal of 150 minutes/week. Limit activity to what is allowed by other issues such as cardiac, pulmonary or orthopedic restrictions. 3. Standards of care: Reminded to have an annual dilated eye exam, A1C every 3 months, urine testing for microalbumin once/year, check feet daily and report any cuts or sores that do not appear to be healing. 4. Meter: Plan to check blood glucose: Please check blood glucose levels 4 times/day. Back to back meals reveal effectiveness of bolus dosing. The blood glucose data is used to determine insulin doses and confirm symptoms for hypoglycemia and hyperglcyemia.5. [facility]. Contact office if any issues or concerns with patterns of hypoglycemia, hyperglycemia, or diabetes medication issues. 6. Prescriptions: None needed 12-03-2022 [facility] Nov, Hyperlipidemia (ICD-10 - E78.5) Learning About High Cholesterol material was published to [employer] Nov, HTN (hypertension) (ICD-10 - I10) High Blood Pressure: Care Instructions material was published to portal Discussed BP goal under 130/80 for kidney protection. She should discuss discuss continued elevations with her primary care she also sees nephrology Nov, USP current use of insulin (ICD-10 - Z79.4) Nov, BMI 50.0-59.9, adult (ICD-10 - Z68.43) [employer] Other 08-16-2023 Evaluation note* Encounter Date Diagnosis Assessment Notes Treatment Notes Treatment Clinical Notes Sep, Type 2 diabetes mellitus with hyperglycemia, without long-term current use of insulin (ICD-10 - E11.65) Sep, Vitamin D deficiency (ICD-10 - E55.9) Learning About Vitamin D material was published to portal Sep, Hyperlipidemia, unspecified hyperlipidemia type (ICD-10 - E78.5) Sep, Hypertension, unspecified type (ICD-10 - I10) Sep, Dietary counseling and surveillance (ICD-10 - Z71.3) Learning About Healthy Weight material was published to portal Sep, Type 2 diabetes mellitus with hyperglycemia (ICD-10 - E11.65) ASSESSMENT: Italia Cummings 10/15/2022 09:23:24 AM >BG 98 given 4 oz. juice. 1. Uncontrolled, a Type 2 diabetes with A1c of 8.0 % 08-15-2022 per PCP 2. Reduce Tresiba to 30 units once daily, if she does not tolerate Farxiga anticipate she will need to increase to 53 units once daily. We did discuss the fasting glucose under 103 7 days in a week she will decrease by 5 units. She will continue NovoLog 1 unit for every 5 g of carbohydrates and 1 unit for every 15 mg/dL above goal. This was given in written instructions. She did have intolerance in the past to Jardiance with dizziness. We will try alternate SGLT2 I Farxiga, hopeful to tolerate to decrease insulin needs. We are limited on GLP-1 RA secondary to pancreatitis 3 years ago on Victoza with no other nidus. Blood pressure slightly over goal today, discussed management for beginning protection. Mostly recent labs reviewed, LDL 128 in July 2022, statin per diabetes guidelines recommended Dexcom7 with reader helpful. Research shows that stamina with the current regime may fatigue, as would outcomes and CGM is equitable compaired to disease instability. Patient also maintains active lifestyle which increases cumbersome nature of current regime. CGM will be necessary to titrate insulin multiple times a day.. Continued discussion on techniques. She would not like to engage in official weight management initiative at this time. Needs to be carb quality and qty consistent, protein each meal and snack. Discussed this in detail 3. Patient is alert, oriented and receptive to making changes or counseling. Notes: Seen for an assessment of current glucose pattern, changes in treatment plan, counseling and coordination of care related to diabetes, risks, and benefits of treatment, medications, side effects. Given handouts to reinforce concepts reviewed during counseling, see scanned notes. TOPICS REVIEWED: 1. Time was spent reviewing: a. Basic concepts of diabetes, progressive beta cell , concepts of basal/bolus/correc tive insulin requirements. Basal: The goal is fasting blood glucose of 90-130mg. IF fasting blood glucose starts to run under 100mg 3x's/ week, decrease dose by 10%. Bolus: The goal is to hold the blood glucose level steady meal to meal. If pt. is going to have increased physical activity after a meal, decrease the schedule meal dose prior to the activity by 30-50%. If pt. skips a meal do not take this dose. Correction: The goal is to correct an elevated glucose back into the 100-150mg range b. Nutrition: Concepts of healthy diet, encouraged to decrease saturated fat in diet and increase non-starchy vegetables and fruits in diet. BMI: Pt. needs to select one small change to decrease caloric intake or increase physical activity to help decrease weight. c. Correct treatment of hypoglycemia, carry a glucose source at all times on your person, in vehicles, and at bedside. Can use glucose tablets/4, four ounces of pop or juice equal to 15 G of carbohydrate. Blood glucose should be 100 mg/dl or higher when driving. d. ADA glucose goals for age and medical complexity reviewed e. Patient questions addressed 2. Activity/exercise: Encouraged to start any form of physical activity. Start low level and increase slowly to a minimal goal of 150 minutes/week. Limit activity to what is allowed by other issues such as cardiac, pulmonary or orthopedic restrictions. 3. Standards of care: Reminded to have an annual dilated eye exam, A1C every 3 months, urine testing for microalbumin once/year, check feet daily and report any cuts or sores that do not appear to be healing. 4. Meter: Plan to check blood glucose: Please check blood glucose levels 4 times/day. Back to back meals reveal effectiveness of bolus dosing. The blood glucose data is used to determine insulin doses and confirm symptoms for hypoglycemia and hyperglcyemia.5. [facility]. Contact office if any issues or concerns with patterns of hypoglycemia, hyperglycemia, or diabetes medication issues. 6. Prescriptions: None needed 10-15-2022 uses [facility]. Sep, Hyperlipidemia (ICD-10 - E78.5) Learning About High Cholesterol material was published to [employer] Learning About High Cholesterol material was published to [employer] Sep, HTN (hypertension) (ICD-10 - I10) High Blood Pressure: Care Instructions material was published to portal Discussed BP goal under 130/80 for kidney protection. She should discuss discuss continued elevations with her primary care she also sees nephrology Sep, USP current use of insulin (ICD-10 - Z79.4) Sep, BMI 50.0-59.9, adult (ICD-10 - Z68.43) [employer] Other 07-03-2023 Evaluation note* Encounter Date Diagnosis Assessment Notes Treatment Notes Treatment Clinical Notes Aug, Type 2 diabetes mellitus with hyperglycemia, without long-term current use of insulin (ICD-10 - E11.65) Aug, Vitamin D deficiency (ICD-10 - E55.9) Learning About Vitamin D material was published to portal Aug, Hyperlipidemia, unspecified hyperlipidemia type (ICD-10 - E78.5) Aug, Hypertension, unspecified type (ICD-10 - I10) Aug, Dietary counseling and surveillance (ICD-10 - Z71.3) Learning About Healthy Weight material was published to portal Aug, Type 2 diabetes mellitus with hyperglycemia (ICD-10 - E11.65) ASSESSMENT: 1. Uncontrolled, a Type 2 diabetes with A1c of 8.0 % 08-15-2022 per PCP 2. Blood glucose levels are above goal, patient with good vigilance toward glycemia, see tidepool download above.We are limited on GLP-1 RA secondary to history of pancreatitis 3 years ago on Victoza. She has been on Januvia in the past. She has been taking Tresiba 58 units once daily for about 1 month and uses insulin sliding scale, we will individualize this by using a 1-15 corrective scale and 1-5 carb coverage. Examples were given. We did place Dexcom7 and gave patient reader. Research shows that stamina with the current regime may fatigue, as would outcomes and CGM is equitable compaired to disease instability. Patient also maintains active lifestyle which increases cumbersome nature of current regime. CGM will be necessary to titrate insulin multiple times a day. I also started her on Jardiance 10 mg x 2 weeks and then escalate to 25 mg thereafter. Discussed reporting UTI/yeast infection, drink water, discussed that she already drinks 2x24 ounce bottles of water a day, discussed holding if any risk for dehydration. We will have her return to clinic in 2 weeks for download with diabetes education optimization of her insulin.. She may be over basal lysed. Hopeful to reduce insulin needs with Jardiance, will discuss weight management techniques, initial packet given to patient as this was also her concern. 3. Patient is alert, oriented and receptive to making changes or counseling. Notes: Seen for an assessment of current glucose pattern, changes in treatment plan, counseling and coordination of care related to diabetes, risks, and benefits of treatment, medications, side effects. Given handouts to reinforce concepts reviewed during counseling, see scanned notes. TOPICS REVIEWED: 1. Time was spent reviewing: a. Basic concepts of diabetes, progressive beta cell , concepts of basal/bolus/correc tive insulin requirements. Basal: The goal is fasting blood glucose of 90-130mg. IF fasting blood glucose starts to run under 100mg 3x's/ week, decrease dose by 10%. Bolus: The goal is to hold the blood glucose level steady meal to meal. If pt. is going to have increased physical activity after a meal, decrease the schedule meal dose prior to the activity by 30-50%. If pt. skips a meal do not take this dose. Correction: The goal is to correct an elevated glucose back into the 100-150mg range b. Nutrition: Concepts of healthy diet, encouraged to decrease saturated fat in diet and increase non-starchy vegetables and fruits in diet. BMI: Pt. needs to select one small change to decrease caloric intake or increase physical activity to help decrease weight. c. Correct treatment of hypoglycemia, carry a glucose source at all times on your person, in vehicles, and at bedside. Can use glucose tablets/4, four ounces of pop or juice equal to 15 G of carbohydrate. Blood glucose should be 100 mg/dl or higher when driving. d. ADA glucose goals for age and medical complexity reviewed e. Patient questions addressed 2. Activity/exercise: Encouraged to start any form of physical activity. Start low level and increase slowly to a minimal goal of 150 minutes/week. Limit activity to what is allowed by other issues such as cardiac, pulmonary or orthopedic restrictions. 3. Standards of care: Reminded to have an annual dilated eye exam, A1C every 3 months, urine testing for microalbumin once/year, check feet daily and report any cuts or sores that do not appear to be healing. 4. Meter: Plan to check blood glucose: Please check blood glucose levels 4 times/day. Back to back meals reveal effectiveness of bolus dosing. The blood glucose data is used to determine insulin doses and confirm symptoms for hypoglycemia and hyperglcyemia. 5. [facility] Contact office if any issues or concerns with patterns of hypoglycemia, hyperglycemia, or diabetes medication issues. 6. Prescriptions: New patient 09-01-2022 uses [facility]. Aug, Hyperlipidemia (ICD-10 - E78.5) Learning About High Cholesterol material was published to [employer] Learning About High Cholesterol material was published to [employer] Aug, HTN (hypertension) (ICD-10 - I10) High Blood Pressure: Care Instructions material was published to [place] Discussed BP goal under 130/80 for kidney protection. 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 [employer] Other [id number] NoteOPERATIVE NOTE OPERATION DATE: 04/04/2020 PROCEDURE NAME: Colonoscopy to the cecum with polypectomy. PREOPERATIVE DIAGNOSIS: Personal history of colon polyps. POSTOPERATIVE DIAGNOSIS: Two benign-appearing transverse colon adenomas, hot snared, removed. Only one polyp retrieved. MEDICATIONS USED: Propofol as per the Anesthesia Team. PROCEDURE DESCRIPTION: Patient placed in left lateral decubitus position. The Olympus 180 colonoscope inserted into the rectum and easily advanced through the entire colon into the cecum. The cecum was normal. In the proximal transverse colon were two adenomatous polyps. Once was a centimeter in diameter and pedunculated. Both were easily removed with the hot snare. Only one polyp was retrieved. FINAL DIAGNOSIS: Colon polyps, removed. RECOMMENDATION: Repeat colonoscopy in 3 years.. [facility] Signed and Approved by: DR CASSY MCNEAL 04/11/2020 07:49:00[facility] note[facility] Other evalucrvrg noteNo InformationNort Moxie Jean Other evalulevrx noteNo assessment information available [facility] Work Phone: Evaluation note* Diagnosis Subungual hematoma of great toe of right foot, sequela- Primary Pain of right great toe Type 2 diabetes mellitus without complication, with long-term current use of insulin ([facility]) documented in this encounter [facility] HealthcareEvaluation note* Diagnosis MARIUSZ (obstructive sleep apnea)- Primary Obstructive sleep apnea (adult) (pediatric) Mild intermittent asthma without complication ([facility]) documented in this encounter [facility] HealthcareEvaluation note* Diagnosis Obstructive sleep apnea (adult) (pediatric) documented in this encounter [facility]* Diagnosis Necrotizing fasciitis ([facility])- Primary Necrotizing fasciitis Urinary tract infection without hematuria, site unspecified [facility] Hospital discharge follow-up- Primary Other follow-up examination Perirectal abscess Abscess of anal and rectal regions Necrotizing fasciitis ([facility]) Necrotizing fasciitis Peripherally inserted central catheter (PICC) in place Enterococcus faecalis infection Morbid obesity due to excess calories ([facility]) Poorly controlled type 2 diabetes mellitus ([facility]) Atrial fibrillation, unspecified type ([facility]) Chronic anticoagulation Encounter for long-term (current) use of anticoagulants documented in this encounter [facility]* Diagnosis Essential hypertension- Primary Unspecified essential hypertension Paroxysmal atrial fibrillation ([facility]) Atrial fibrillation Cryptogenic stroke ([facility]) documented in this encounter [facility] [facility] note* Diagnosis Encounter for colonoscopy due to history of colonic polyp- Primary Encounter for colonoscopy in patient with family history of colon cancer History of colon polyps documented in this encounter [facility] [employer] [facility] note* Diagnosis Preop examination- Primary Unspecified pre-operative examination Hypertension, unspecified type BMI 50.0-59.9, adult ([facility]) Type 2 diabetes mellitus with other specified complication, unspecified whether snf insulin use ([facility]) Paroxysmal atrial fibrillation ([facility]) Atrial fibrillation History of colon polyps documented in this encounter [facility] [employer] [facility] note* Diagnosis Stage 3b chronic kidney disease ([facility])- Primary documented in this encounter [facility] note* Diagnosis MARIUSZ (obstructive sleep apnea)- Primary Obstructive sleep apnea (adult) (pediatric) Mild intermittent asthma without complication (CMS/HCC) documented in this encounter [facility] HealthcareEvaluation note* Diagnosis MARIUSZ (obstructive sleep apnea)- Primary Obstructive sleep apnea (adult) (pediatric) Mild intermittent asthma without complication (HCC) [facility] - Reported* Type Description Date Medical History type II diabetes Medical History Hypertension Medical History Hypothyroidism Medical History Gout Medical History TIA Medical History Atrial fibrillation Medical History COPD Medical History asthma Surgical History HYSTERECTOMY Surgical History CHOLECYSTECTOMY Hospitalization History See [facility] [place]ie Jean Other History general Narrative - ReportedNort Moxie Jean Other InstructionsNot on filedocumented in this encounter [facility] filedocument[facility] this [facility] on filedocumented in this encounter [facility] on filedocumented in this encounter [facility]Not on filedocumented in this encounter [facility]* Attachments The following attachments cannot be sent through Care Everywhere. * How to Wash Your Hands Properly (Taiwanese) documented in this encounterPro[facility]ica Health SystemInstructionsNot on file documented in this encounterProMedica Health SystemInstructionsNot on file documented in this encounterProMedimo Health SystemInstructionsNot on file documented in this encounterProLa[facility] [place] SystemInstructionsNot on file documented in this encounterProLaurel Oaks [facility] Health SystemReason for visit Narrativenew WMN / DM f/u, DM, Referral Melita Truly Moxie Jean Other Summary Purpose Family History Relationship Condition Age at Onset Recorded Date/T [place] father History of stroke Unknown Heart disease Unknown Unknown Hypertension Unknown family member Family history of other condition Unknow n Not Specified Hypertension Unknown Diabetes mellitus Unknown Advance Directives Advance Directive Response Recorded Date/ Time Advance Directives No January 7:46am Latest Code Status on File Code Status Date Activated Date Inactivated Comments Full Code 02/28/2018 10:53 AM 03/01/2018 5:25 PM Code Status History Code Status Date Activated Date Inactivated Comments Full Code 01/08/2017 4:14 AM 01/14/2017 5:01 PM Date Activated Date Inactivated Comments 04/03/2023 12:24 AM 04/07/2023 5:03 PM Date Activated Date Inactivated Comments 02/28/2018 10:53 AM 03/01/2018 5:25 PM Date Activated Date Inactivated Comments 01/08/2017 4:14 AM 01/14/2017 5:01 PM Latest Code Status on File Code Status Date Activated Date Inactivated Comments Full Code 04/03/2023 12:24 AM 04/07/2023 5:03 PM Code Status History Code Status Date Activated Date Inactivated Comments Full Code 02/28/2018 10:53 AM 03/01/2018 5:25 PM Full Code 01/08/2017 4:14 AM 01/14/2017 5:01 PM Latest Code Status on File Code Status Date Activated Date Inactivated Comments Full Code 04/03/2023 12:24 AM 04/07/2023 5:03 PM Code Status History Code Status Date Activated Date Inactivated Comments Full Code 02/28/2018 10:53 AM 03/01/2018 5:25 PM Full Code 01/08/2017 4:14 AM 01/14/2017 5:01 PM Date Activated Date Inactivated Comments 04/03/2023 12:24 AM 04/07/2023 5:03 PM Date Activated Date Inactivated Comments 02/28/2018 10:53 AM 03/01/2018 5:25 PM Date Activated Date Inactivated Comments 01/08/2017 4:14 AM 01/14/2017 5:01 PM Chief Complaint and Reason for Visit Chief Complaint New Wmn / Dm F/U Obesity Reason for Referral Specialty Diagnoses / Procedures Referred By Quoc chris Referred To Contact Diagnoses Peripherally inserted central catheter (PICC) in place Procedures PICC Line Removal Shea Carey, KENNEL SUPERVISOR-FRAMING MECHANIC [address] [address] Referral ID Status Reason Start Date Expiration Date V isits Requested Visits Authorized [id number] Pending Review 05/05/2023 05/04/2024 1 1 Additional Source Comments INFORMATION SOURCE (unrecogn ized section and content) DATE CREATED AUTHOR 02/16/2018 [facility] DATE CREATED AUTHOR AUTHOR'S ORGANIZ ATION 06/27/2020 [facility] DATE CREATED AUTHOR AUTHOR'S ORGANIZ ATION 04/12/2023 [facility] DATE CREATED AUTHOR AUTHOR'S ORGANIZ ATION 05/06/2023 [facility] DATE CREATED AUTHOR AUTHOR'S ORGANIZ ATION 08/01/2023 [facility] DATE CREATED AUTHOR AUTHOR'S ORGANIZ ATION 10/21/2023 [facility] DATE CREATED AUTHOR AUTHOR'S ORGANIZ ATION 07/30/2024 [facility] EPIC DATE CREATED AUTHOR AUTHOR'S ORGANIZ ATION 10/10/2024 [facility] REASON FOR VISIT (unrecogniz ed section and content) Reason Comments Toe Pain Pt presesnts today f or a pain in the Rt hallux, started in Oct when she wore new denominational shoes. Only painful if she bends the toe, or shoes put pressure on that area. BS: 181 A1C: 7.4LV [facility] 11-24-2023SS: 9.5W Reason Comments Sleep Apnea 1 year follow up Asthma Reason Onset Date Comments Pap Machine 01/04/2024 Reason Onset Date Comments Sleep Lab 03/10/2023 PT inquiry Specialty Diagnoses / Procedures Referred By Quoc t Referred To Contact Diagnoses Obstructive sleep apnea (adult) (pediatric) Procedures CPAP Isabel Jones, DO [address] [place] [address] [facility] [address] [place] [address] Phone: [phone] Referral ID Status Reason Start Date Expiration Date Visits Re quested Visits Authorized [id number] Closed 03/20/2023 03/19/2024 1 1 Reason Onset Date Comments Sleep Lab 03/20/2023 CPAP Reason Comments Follow-up Reason Comments Follow-up Reason Onset Date Comments Nosebleeds 05/26/2023 Reason Comments Follow-up HAVING NOSE BLEEDS, HOLDING ELIQUIS Reason Comments Colon Cancer Screening 5 year recall Reason Comments Sleep Apnea Follow up to update BiPAP compliance Care Teams (unrecognized sec tion and content) Team Status: Active Member Role Status Dates Melita Lo APRN [employer] Primary Care Provider Active Team Status: Inactive Member Role Status Dates Sparkle June APRN Attending Provider Active Start: February 12, 2023 End: February 12, 2023 Team Status: Active Member Role Status Dates Melita Lo APRN [employer] Primary Care Provider Active Start: February 12, 2023 Sparkle June APRN Attending Provider Active Start: February 12, 2023 Patient Assistant Relationship Specialty Start Date End Date Cyndy Pineda MD [address] [place] [phone] PCP - General Family Medicine 10/01/22 Patient Assistant Relationship Specialty Start Date End Date Cyndy Pineda MD [address] [place] [address] PCP - General Family Medicine 10/01/22 Patient Assistant Relationship Specialty Start Date End Date Cyndy Pineda MD [address] [place] [address] PCP - General Family Medicine 10/01/22 Patient Assistant Relationship Specialty Start Date End Date Cyndy Pineda MD [address] [place] [address] PCP - General Family Medicine 10/01/22 Patient Assistant Relationship Specialty Start Date End Date Cyndy Pineda MD [address] [place] [address] PCP - General Family Medicine 10/01/22 Patient Assistant Relationship Specialty Start Date End Date Melita Lo APRN-FRAMING MECHANIC [address] [place] [address] PCP - General Family Medicine 08/01/19 Patient Assistant Relationship Specialty Start Date End Date Melita Lo APRN-FRAMING MECHANIC [address] [place] [address] PCP - General Family Medicine 08/01/19 Patient Assistant Relationship Specialty Start Date End Date Melita Lo APRN-FRAMING MECHANIC [address] [place] [address] PCP - General Family Medicine 08/01/19 Patient Assistant Relationship Specialty Start Date End Date Melita Lo APRN-FRAMING MECHANIC [address] [place] [address] PCP - General Family Medicine 08/01/19 Patient Assistant Relationship Specialty Start Date End Date WallyMelita KENNEL SUPERVISOR-[facility] [address] [place] [address] PCP - General Family Medicine 08/01/19 Patient Assistant Relationship Specialty Start Date End Date WallyMelita KENNEL SUPERVISORBO[facility] FOR INC[facility]AB[facility] [address] [place] [address] PCP - General Family Medicine 08/01/19 Patient Assistant Relationship Specialty Start Date End Date WallyMelita KENNEL SUPERVISOR-FRAMING MECHANIC [address] [place] [address] PCP - General Family Medicine 08/01/19 Patient Assistant Relationship Specialty Start Date End Date WallyMelita KENNEL SUPERVISOR-FRAMING MECHANIC [address] [place] [address] PCP - General Family Medicine 08/01/19 Patient Assistant Relationship Specialty Start Date End Date ÁlvaroloniMelita KENNEL SUPERVISOR-FRAMING MECHANIC [address] [place] [address] PCP - General Family Medicine 08/01/19 Patient Assistant Relationship Specialty Start Date End Date ÁlvaroloniMelita KENNEL SUPERVISOR-FRAMING MECHANIC [address] [place] [address] PCP - General Family Medicine 08/01/19 Patient Assistant Relationship Specialty Start Date End Date Wally Melita Edward KENNEL SUPERVISOR-FRAMING MECHANIC [address] [place] [address] PCP - General Family Medicine 08/01/19 Patient Assistant Relationship Specialty Start Date End Date Melita Lo [facility] [address] [place] [address] PCP - General Family Medicine 08/01/19 Patient Assistant Relationship Specialty Start Date End Date Melita Lo [facility] [address] [place] [address] PCP - General Family Medicine 08/01/19 Patient Assistant Relationship Specialty Start Date End Date Melita Lo [facility] [address] [place] [address] PCP - General Family Medicine 08/01/19 Patient Assistant Relationship Specialty Start Date End Date Cyndy Pineda MD [address] [place] [place] [address] PCP - General Family Medicine 10/01/22 Patient Assistant Relationship Specialty Start Date End Date Cyndy Pineda MD [address] [place] [address] PCP - General Family Medicine 10/01/22 Patient Assistant Relationship Specialty Start Date End Date Cyndy Pineda MD [address] [place] [address] PCP - General Family Medicine 10/01/22 Patient Assistant Relationship Specialty Start Date End Date Cyndy Pineda MD [address] [place] [address] PCP - General Family Medicine 10/01/22 Goals (unrecognized section and content) Goals may be documented in a n alternate section FOR RECORDS PERTAINING TO PATIENTS WHO ARE OR HAVE BEEN ENROLLED IN A CHEMICAL DEPENDENCY/SUBSTANCEABUSE PROGRAM, SOME INFORMATION MAY BE OMITTED. This clinical summary was aggregated from multiple sources. Caution should be exercised in using it in the provision of clinical care. This summary normalizes information from multiple sources, and as a consequence, information in this document may materially change the coding, format and clinical context of patient data. In addition, data may be omitted in some cases. CLINICAL DECISIONS SHOULD BE BASED ON THE PRIMARY CLINICAL RECORDS. [employer] [facility]. provides no warranty or guarantee of the accuracy or completeness of information in this document.
[2024-10-21] MEDS: 0.9 % SODIUM CHLORIDE 1,000 ML 1000 ML IV (09:56)
[2024-10-21 09:59] LABS: Hematocrit 36.6 % (36.0-48.0); Hemoglobin 12.0 g/dL (12.0-16.0); Immature Granulocytes Abs Auto 0.02 10^3/uL (0.00-0.03); Immature Granulocytes Pct Auto 0.3 % (0.0-0.5); Lymphocytes Absolute Auto 1.4 10^3/uL (1.2-3.8); Mean Corpuscular HGB Conc 32.8 g/dL (29.9-35.2); Mean Corpuscular Hemoglobin 29.4 pg (26.7-34.0); Mean Corpuscular Volume 89.7 fL (81.0-99.0); Platelet Count 223 10^3/uL (150-450); Red Blood Count 4.08 10^6/uL (4.20-5.40); White Blood Count 6.3 10^3/uL (4.0-11.0)
[2024-10-21 10:13] LABS: Alanine Aminotransferase 28 U/L (14-59); Albumin Globulin Ratio 0.8; Albumin Level 3.3 g/dL (3.4-5.0); Alkaline Phosphatase 127 U/L (46-116); Anion Gap 7.8; Aspartate Amino Transferase 12 U/L (15-37); Blood Urea Nitrogen 33.0 mg/dL (7.0-18.0); Calcium 9.0 mg/dL (8.5-10.1); Carbon Dioxide 27.6 mmol/L (21.0-32.0); Chloride 106 mmol/L (98-107); Estimated GFR (African America 44 (>=60 mL/min/1.73m^2); Estimated GFR (Non-African Ame 37 (>=60 mL/min/1.73m^2); Globulin 4.4 g/dL; Glucose 178 mg/dL (74-106); Magnesium 1.9 mg/dL (1.8-2.4); Potassium 4.4 mmol/L (3.5-5.1); Sodium 137 mmol/L (136-145); Total Protein 7.7 g/dL (6.4-8.2)
--- NOTE | 2024-10-21 11:36 | ED_ITS ---
HPI HPI - General Adult General Chief complaint: Nausea/Vomiting/Diarrhea Stated complaint: DIARRHEA Time Seen by Provider: 10/21/24 08:54 Source: patient Mode of arrival: walk-in History of Present Illness HPI narrative: Patient is a 69-year-old female presenting to the emergency department with a 3- week history of diarrhea. Patient states she has had copious amounts of brown diarrhea, approximate 4-5 episodes every day for the last 3 weeks. She states she was seen at [facility] emergency department 1.5 weeks ago for the same complaint. She states they did a stool culture, which she is unsure of the results of. She states she was given Zofran and discharged home. She states she has an appointment with her PCP in 6 days, but feels nauseous and decided to get reevaluated. She denies any vomiting. Still able to tolerate food and liquids. She denies any associated chest pain or shortness of breath. No fevers or chills. She denies history of recent antibiotic use or hospitalizations. No blood in her stool. No recent travel. Related Data Previous Rx's ?Medication ?Instructions ?Recorded diazepam 5 mg tablet (Valium) 5 mg PO BID PRN dizzines s #10 tabs 03/13/24 metoclopramide HCl 10 mg tablet 10 mg PO Q6H PRN nause a and 03/13/24 (Reglan) vomiting #20 tabs Allergies Allergy/AdvReac Type Severity Reaction Status Date / Time adhesive AdvReac Severe Unknown Verified 10/21/24 08:55 amoxicillin AdvReac Severe Swelling Verified 10/21/24 08:55 of Lip/Tongue/Throat codeine AdvReac Severe Unknown Verified 10/21/24 08:55 diphenhydramine (From AdvReac Severe Unknown Verified 10/21/24 08:55 Benadryl) latex AdvReac Severe Unknown Verified 10/21/24 08:55 Opioid HPI Opioid Management Most Recent Opioid Data: Last Pain Scale 5 Today, 08:55 Review of Systems ROS Status of ROS 10 or more systems reviewed and unremark able except as noted in history and below PFSH PFSH Social History Little interest or pleasure in doing things: not at all Feeling down, depressed, or hopeless: not at all Exam Narrative Exam Narrative: CONSTITUTIONAL: Well-appearing, answering questions and following commands appropriately SKIN: Was warm and dry. EYES: Sclerae white. No conjunctival pallor. EARS, NOSE, THROAT: Tacky mucous membranes. RESPIRATORY: Clear to auscultation bilaterally, no wheezes, crackles, or stridor, no use of accessory muscles CARDIOVASCULAR: Normal rate and regular rhythm. There is no S3, S4, murmur, rub. GASTROINTESTINAL: Abdomen soft, nondistended, nontender. Normal bowel sounds. No rebound tenderness or guarding. MUSCULOSKELETAL: No peripheral edema. NEUROLOGIC: Patient is awake and alert. Facies were symmetrical. Constitutional Vital Signs, click to edit/add: Last Vital Signs Temp 98.4 F 10/21/24 08:55 Pulse 63 10/21/24 08:55 Resp 20 10/21/24 08:55 BP 145/77 H 10/21/24 08:55 Pulse Ox 99 10/21/24 08:55 O2 Del Method Room Air 10/21/24 08:55 Course Vital Signs Vital signs: Vital Signs Temperature 98.4 F 10/21/24 08:55 Pulse Rate 63 10/21/24 08:55 Respiratory Rate 20 10/21/24 08:55 Blood Pressure 145/77 H 10/21/24 08:55 Pulse Oximetry 99 10/21/24 08:55 Oxygen Delivery Method Room Air 10/21/24 08:55 Temperature 98.4 F 10/21/24 08:55 Pulse Rate 63 10/21/24 08:55 Respiratory Rate 20 10/21/24 08:55 Blood Pressure 145/77 H 10/21/24 08:55 Pulse Oximetry 99 10/21/24 08:55 Oxygen Delivery Method Room Air 10/21/24 08:55 Medical Decision Making MDM Narrative Medical decision making narrative: Patient is a 69-year-old female presenting to the emergency department with 3- week history of diarrhea. Her vital signs are within normal limits. She is afebrile and hemodynamically stable. Clinically, the patient appears well and nontoxic. She appears mildly dehydrated with tacky mucous membranes. Abdomen is soft, nontender, and nondistended with normal bowel sounds. Patient's exam is not consistent with surgical etiologies of abdominal pain such as appendicitis, cholecystitis, or perforated viscus. On review of external documentation from [facility] from 1 week ago, she had normal laboratory studies. She also had a stool culture that was irvin negative for multiple pathogens including Campylobacter, Giardia, norovirus, Shiga toxin, or E. coli. Differential diagnosis includes, but not limited to, viral gastroenteritis, malabsorption issues, dehydration, or other electrolyte/metabolic derangements. IV was established and laboratory studies were obtained. She was given IV fluids with 1 L bolus normal saline, IV Zofran for symptomatic treatment. Laboratory studies were unremarkable. No significant electrolyte or metabolic derangement. No evidence of acute kidney injury. No anemia, leukocytosis, or thrombocytopenia. No transaminitis or hyperbilirubinemia. On reevaluation, patient states she feels improved. Though she is having persistent diarrhea, she has no electrolyte derangements or findings that would be concerning for significant dehydration. She is still able to tolerate p.o., and was encouraged to continue this at home. She was instructed follow-up with her PCP in 6 days, she already has an appointment scheduled. Given her normal stool studies from a week ago, I do not believe she warrants antibiotic therapy at this time. I do believe the patient is stable for discharge at this time. Patient's presentation is most likely consistent with acute diarrhea. Return precautions were given including any new or worsening symptoms. Patient understands and agrees to the plan. FINAL IMPRESSION: Acute diarrhea DISPOSITION: Home CONDITION: Good Medical Records Medical records reviewed: Yes I reviewed the patient's medical records Lab Data Lab results reviewed: Yes I reviewed the patient's lab results Labs: Lab Results 10/21/24 Range/Units 09:49 WBC 6.3 (4.0-11.0) 10^3/uL RBC 4.08 L (4.20-5.40) 10^6/uL Hgb 12.0 (12.0-16.0) g/dL Hct 36.6 (36.0-48.0) % MCV 89.7 (81.0-99.0) fL MCH 29.4 (26.7-34.0) pg MCHC 32.8 (29.9-35.2) g/dL RDW 13.8 (11.0-15.0) % Plt Count 223 (150-450) 10^3/uL MPV 10.3 (9.5-13.5) fL Neut % (Auto) 64.5 (43.0-75.0) % Lymph % (Auto) 22.7 (20.5-60.0) % Benson % (Auto) 8.6 (1.7-12.0) % Eos % (Auto) 3.7 (0.9-7.0) % Baso % (Auto) 0.2 (0.2-2.0) % Neut # (Auto) 4.0 (1.4-6.5) 10^3/uL Lymph # (Auto) 1.4 (1.2-3.8) 10^3/uL Benson # (Auto) 0.5 (0.3-0.8) 10^3/uL Eos # (Auto) 0.2 (0.0-0.7) 10^3/uL Baso # (Auto) 0.0 (0.0-0.1) 10^3/uL Abs Immat Gran (auto) 0.02 (0.00-0.03) 10^3/uL Imm/Tot Granulo (auto) 0.3 (0.0-0.5) % Sodium 137 (136-145) mmol/L Potassium 4.4 (3.5-5.1) mmol/L Chloride 106 (98-107) mmol/L Carbon Dioxide 27.6 (21.0-32.0) mmol/L Anion Gap 7.8 BUN 33.0 H (7.0-18.0) mg/dL Creatinine 1.42 H (0.55-1.02) mg/dL Est GFR ( Amer) 44 L (>=60 mL/min/1.73m^2) Est GFR (Non-Af Amer) 37 L (>=60 mL/min/1.73m^2) BUN/Creatinine Ratio 23.2 Glucose 178 H (74-106) mg/dL Calcium 9.0 (8.5-10.1) mg/dL Magnesium 1.9 (1.8-2.4) mg/dL Total Bilirubin 0.2 (0.2-1.0) mg/dL AST 12 L (15-37) U/L ALT 28 (14-59) U/L Alkaline Phosphatase 127 H (46-116) U/L Total Protein 7.7 (6.4-8.2) g/dL Albumin 3.3 L (3.4-5.0) g/dL Globulin 4.4 g/dL Albumin/Globulin Ratio 0.8 Discharge Plan Discharge Chief Complaint: Nausea/Vomiting/Diarrhea Clinical Impression: Diarrhea Qualifiers: Diarrhea type: unspecified type Qualified Code(s): R19.7 - Diarrhea, unspecified Patient Disposition: Home, Self-Care Time of Disposition Decision: 10:19 Condition: Good Mode of Transportation: Private Vehicle Prescriptions / Home Meds: No Action metoclopramide HCl [Reglan] 10 mg tablet 10 mg PO Q6H PRN (Reason: nausea and vomiting) Qty: 20 0RF diazepam [Valium] 5 mg tablet 5 mg PO BID PRN (Reason: dizziness) Qty: 10 0RF Print Language: Mohawk Instructions: Acute Diarrhea (ED) Referrals: [facility] [Primary Care Provider, Unknown] - 1 week Discharge Date/Time: 10/21/24 11:22
== END 2024-10-21 11:22 | disposition home or self-care (01) ==
PROVIDERS: Emergency Provider Student in an Organized Health Care Education/Training Program
DX: R19.7 Diarrhea, unspecified (principal)
CPT/HCPCS: 36415; 80053; 83735; 85025; 96361; 96374; 99284; J2405